=== PATIENT | male | born 1945 | race Caucasian/White ===

== ENCOUNTER → 2017-12-07 12:30 | Outpatient (CLI) | payer MEDICARE, BC, SELFPAY | PROVIDERS: PCP Family Medicine; Visit Provider Psychiatry & Neurology Neurology | DX: E11.42 Type 2 diabetes mellitus with diabetic polyneuropathy (principal); Z79.84 Long term (current) use of oral hypoglycemic drugs; G72.0 Drug-induced myopathy; T38.0X5A Adverse effect of glucocorticoids and synthetic analogues, initial encounter; J44.9 Chronic obstructive pulmonary disease, unspecified; Z87.891 Personal history of nicotine dependence | CPT/HCPCS: 95885; 95908; 99213 ==

== ENCOUNTER 2018-02-11 12:10 | Outpatient (CLI) | payer MEDICARE, BC, SELFPAY | END 2018-02-11 12:30 | PROVIDERS: PCP Family Medicine; Visit Provider Psychiatry & Neurology Neurology | DX: R69 Illness, unspecified (principal) | CPT/HCPCS: 36415; 80076; 82306; 84153; 85652; 87389; 82607; 83615; 84165; 84443; 84446; 86038; 86140; 86235; 86618 ==

== ENCOUNTER 2018-02-11 15:08 | Outpatient (CLI) | payer MEDICARE, BC, SELFPAY ==
--- NOTE | 2018-02-11 11:57 | DI.RAD_ITS ---
SYMPTOM/DIAGNOSIS: LT CHRONIC DRAINING ULCER, ? OSTEOMYELITIS, L98.499 LEFT ELBOW: There are mild degenerative changes involving the radial capitellar and ulnar trochlear joints. There is some spurring and a small region of calcification in the soft tissues adjacent to the medial epicondyle of the distal humerus likely representing the residua of an old medial collateral ligament injury. There is no evidence of a joint effusion. There is some mild soft tissue prominence over the dorsum of the elbow. No discrete mass or calcification is evident. SUMMARY: No plain image evidence of osteomyelitis. If there is further strong specific clinical question in this regard, then an MRI could be considered.
== END 2018-02-11 15:28 ==
PROVIDERS: PCP Family Medicine; Visit Provider Family Medicine
DX: L89.020 Pressure ulcer of left elbow, unstageable (principal)
CPT/HCPCS: 73080

== ENCOUNTER → 2018-03-12 08:56 | Outpatient (BNVA) | payer MEDICARE, BC, SELFPAY | PROVIDERS: PCP Family Medicine; Referring Provider Family Medicine; Visit Provider Student in an Organized Health Care Education/Training Program | DX: M70.22 Olecranon bursitis, left elbow (principal); J44.9 Chronic obstructive pulmonary disease, unspecified; Z87.891 Personal history of nicotine dependence; E11.9 Type 2 diabetes mellitus without complications; Z79.84 Long term (current) use of oral hypoglycemic drugs | CPT/HCPCS: 99211; 99214 ==

== ENCOUNTER 2018-04-01 08:24 | Outpatient (CLI) | payer MEDICARE, BC, SELFPAY ==
[2018-04-01 11:26] LABS: Hemoglobin A1C 8.8 % (4.5-6.2)
== END 2018-04-01 08:44 ==
PROVIDERS: PCP Family Medicine; Visit Provider Family Medicine
DX: E11.9 Type 2 diabetes mellitus without complications (principal)
CPT/HCPCS: 36415; 83036

== ENCOUNTER 2018-06-24 08:12 | Outpatient (CLI) | payer MEDICARE, BC, SELFPAY ==
[2018-06-24 12:03] LABS: Hemoglobin A1C 7.9 % (4.5-6.2)
== END 2018-06-24 08:32 ==
PROVIDERS: PCP Family Medicine; Visit Provider Family Medicine
DX: E11.9 Type 2 diabetes mellitus without complications (principal)
CPT/HCPCS: 36415; 83036

== ENCOUNTER 2018-09-22 22:53 | Emergency (ER) | payer MEDICARE, BC, SELFPAY ==
[2018-09-22] VITALS (10 sets, daily range): BP systolic 117–144; BP diastolic 73–79; PULSE 105–113; RESP 17–35; TEMP 36.6; O2SAT 90–99
--- NOTE | 2018-09-22 00:15 | DI.RAD_ITS ---
SYMPTOM/DIAGNOSIS: COUGH, SOB AFTER ASPIRATION PA AND LATERAL CHEST: Ill defined increased densities are noted in the left lower lobe. The lungs are otherwise unremarkable. There is no pleural effusion. The cardiovascular structures are intact. SUMMARY: Findings consistent with a left lower lobe pneumonitis. The possibility of aspiration in this patient is less likely however, cannot be entirely excluded.
--- NOTE | 2018-09-22 23:23 | W.ED.GENAD ---
Discharge Plan Disposition Patient Disposition: HOME Condition: Good Discharge Details Chief Complaint: SOB Clinical Impression: Aspiration into airway, Wheezing Primary Care Provider: Tevin Dooley ED Provider: Oscar Giron [place] Meds and New Rx's Prescriptions: Continued metformin 1,000 mg tablet 1,000 mg PO BID Qty: 180 RF: 3 glipizide 5 mg tablet 5 mg PO QAM Qty: 30 RF: 4 sulfamethoxazole-trimethoprim [Bactrim DS] 800-160 mg tablet 1 tab PO .3x week RF: 0 aspirin 81 mg tablet,delayed release (DR/EC) 81 mg PO DAILY RF: 0 gabapentin 300 mg capsule 300 mg PO TID Qty: 270 RF: 4 duloxetine 60 mg capsule,delayed release(DR/EC) 60 mg PO DAILY Qty: 90 RF: 3 mepolizumab 100 mg recon soln 100 mg SC Q4W RF: 0 prednisone 10 mg tablet 10 mg PO DAILY RF: 0 Daliresp 500 mcg tablet 500 mcg PO DAILY Qty: 30 RF: 2 NEBULIZER W/ TUBING 1 inh DIRECTED RF: 0 montelukast 10 MG tablet 10 mg PO DAILY RF: 0 budesonide [Pulmicort] 0.5 MG/2 ML suspension for nebulization 1 inh Inhalation QID Qty: 180 RF: 4 FreeStyle Lite Strips 1 EACH strip 1 ea Miscellaneous TID Qty: 200 RF: 5 albuterol sulfate [ProAir HFA] 8.5 GM HFA aerosol inhaler 1 - 2 puff Inhalation Q4H PRN Qty: 3 RF: 4 magnesium oxide 400 MG tablet 400 mg PO DAILY Qty: 90 RF: 4 ipratropium-albuterol 0.5 mg-3 mg(2.5 mg base)/3 mL solution for nebulization 3 ml Inhalation QID Qty: 4 RF: 5 hydrocodone-acetaminophen 7.5-325 mg tablet 1 tab PO BID MDD 2 tab Qty: 60 RF: 0 prednisone 10 mg tablet See Rx Instructions .Route .COMPLEX Qty: 30 RF: 0 ibuprofen 200 MG tablet 200 mg PO DAILY RF: 0 Discharge Instructions Additional Instructions: Suspect that your wheezing and difficulty breathing was related to aspiration/inhalation of the powder. There should be no significant long-term ill effects. There may be some risk to developing pneumonia but inert substances typically do not cause problems. You should see your primary care or return to ED if you develop increasing shortness of breath, productive cough, fever. Continue your medications and nebulizers as before. Referrals: Tevin Dooley MD [Primary Care Provider] - Medical Decision Making Patient with acute episode of coughing/choking/shortness of breath after inhaling/aspirating Poligrip adhesive. In reviewing Micromedex, this adhesive is considered to be in the class of bulk laxatives. There are reports of asthma exacerbations with workers exposed to the dust of this class of drugs. He has significant COPD/asthma so possible that this just caused an acute exacerbation related to the inhalation/aspiration of the powder. Will give a couple more nebs here and get CXR. Observe. 01:00 -patient much better after 2 treatments here. His cough has resolved. His breathing is much better. Still has a little bit of wheezing but states that is not necessarily abnormal for him. Chest x-ray is read preliminarily by radiology as possible patchiness in the left perihilar and right perihilar region. Again he denies having respiratory symptoms other than his baseline prior to the event tonight. He has had no fever or productive cough. This may be related to aspiration. I do not think it is related to bacterial pneumonia. We discussed things to return for including increased shortness of breath, productive cough with sputum, fever for which he should be seen by us or primary care. Otherwise at this point feel most likely inhalation of the powder substance sent off an exacerbation of his lung disease which is subsequently calmed down. Patient will resume his prior medications. Follow-up with primary care and pulmonary as needed. Medical Records Medical records reviewed: Yes I reviewed the patient's medical records. HPI General Mode of arrival: wheelchair. Date/Time Provider Initiated Documentation: 09/22/18 23:09. Limitations to Documentation: no limitations. Information obtained by: patient and old records reviewed. HPI Narrative: Patient presents to ED with complaint of cough and shortness of breath of sudden onset tonight. Patient goes to bed with a glass of water beside his bed. He did not know that his granddaughter had poured a packet of his Poligrip adhesive powder into the glass. This sat on top of the water as it was not mixed in. When he went to take a drink he inhaled/swallowed the powder followed by some water. He had immediate coughing, choking, shortness of breath. This persisted but he eventually was able to catch his breath. He felt short of breath with wheezing since that time. He has a history of pretty significant COPD to start with. He had not been having significant difficulty as of late. He did use his nebulizer at home. He continued to feel short of breath with cough and his told him to come here for evaluation. He is not having chest pain. Related Data Home Medications Medication Instructions Recorded Confirmed Nebulizer W/ Tubing 1 inh DIRECTED 06/22/12 09/08/18 ibuprofen 200 mg PO DAILY 06/12/17 09/08/18 montelukast 10 mg PO DAILY tab-cap 07/10/17 09/08/18 budesonide [Pulmicort] 1 inh INHALATION QID #180 ea 08/05/17 09/08/18 FreeStyle Lite Strips #200 strip 09/08/17 09/08/18 albuterol sulfate [ProAir HFA] 1 - 2 puff INHALATION Q4H PRN #3 09/08/17 09/08/18 inhaler magnesium oxide 400 mg PO DAILY #90 tab 10/20/17 09/08/18 metformin 1,000 mg tablet 1,000 mg PO BID #180 tab-cap 02/26/18 09/08/18 glipizide 5 mg tablet 5 mg PO QAM #30 tab 05/13/18 09/08/18 aspirin 81 mg tablet,delayed 81 mg PO DAILY 07/15/18 09/08/18 release gabapentin 300 mg capsule 300 mg PO TID #270 cap 07/15/18 09/08/18 sulfamethoxazole 800 1 tab PO .3x week tab 07/15/18 09/08/18 mg-trimethoprim 160 mg tablet ipratropium-albuterol 0.5 mg-3 3 ml INHALATION QID #4 box 08/16/18 09/08/18 mg(2.5 mg base)/3 mL nebulization soln duloxetine 60 mg capsule,delayed 60 mg PO DAILY #90 cap 08/27/18 09/08/18 release hydrocodone 7.5 mg-acetaminophen 1 tab PO BID #60 tab MDD 2 tab 08/30/18 09/08/18 325 mg tablet mepolizumab 100 mg subcutaneous 100 mg SC Q4W each 09/08/18 09/08/18 solution prednisone 10 mg tablet 10 mg PO DAILY tab 09/08/18 09/08/18 roflumilast 500 mcg tablet 500 mcg PO DAILY #30 tab 09/08/18 09/08/18 prednisone 10 mg tablet See Rx Instructions .ROUTE 09/17/18 .COMPLEX #30 tab Previous Rx's Medication Instructions Recorded budesonide [Pulmicort] 1 inh INHALATION QID #180 ea 08/05/17 FreeStyle Lite Strips #200 strip 09/08/17 albuterol sulfate [ProAir HFA] 1 - 2 puff INHALATION Q4H PRN #3 09/08/17 inhaler magnesium oxide 400 mg PO DAILY #90 tab 10/20/17 metformin 1,000 mg tablet 1,000 mg PO BID #180 tab-cap 02/26/18 glipizide 5 mg tablet 5 mg PO QAM #30 tab 05/13/18 gabapentin 300 mg capsule 300 mg PO TID #270 cap 07/15/18 ipratropium-albuterol 0.5 mg-3 3 ml INHALATION QID #4 box 08/16/18 mg(2.5 mg base)/3 mL nebulization soln duloxetine 60 mg capsule,delayed 60 mg PO DAILY #90 cap 08/27/18 release hydrocodone 7.5 mg-acetaminophen 1 tab PO BID #60 tab MDD 2 tab 08/30/18 325 mg tablet roflumilast 500 mcg tablet 500 mcg PO DAILY #30 tab 09/08/18 prednisone 10 mg tablet See Rx Instructions .ROUTE 09/17/18 .COMPLEX #30 tab Allergies Allergy/AdvReac Type Severity Reaction Status Date / Time codeine Allergy rash, itch Unverified 09/08/18 14:44 General Stated Complaint: SOB DERICK: 3 Review of Systems Review of Systems As documented in HPI otherwise negative as below. Const: no fever, chills, weakness Resp: positive cough, SOB; no pleuritic pain CV: no CP, diaphoresis, edema, syncope GI: no abdominal pain, nausea, vomiting, diarrhea Neuro: no headache, numbness, focal weakness, confusion [facility] Medical History Gastroesophageal reflux disease (Chronic) Diabetic peripheral neuropathy (Chronic 12/11/15) 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) Atherosclerosis of [place] coronary artery (Chronic) Osteoarthritis (Chronic) COPD (chronic obstructive pulmonary disease) (Chronic) Diabetes mellitus (Chronic) Hypertension (Chronic) Polymyalgia rheumatica (Resolved 02/19/12) Surgical History SHOULDER SURGERY Family History Family History Neoplasm Mother No problems noted. Father Neoplasm Sister No problems noted. Sister No problems noted. Sister No problems noted. Sister No problems noted. Sister No problems noted. Sister No problems noted. Sister No problems noted. Sister No problems noted. Sister No problems noted. Brother No problems noted. Brother No problems noted. Brother No problems noted. Brother No problems noted. Brother No problems noted. Brother No problems noted. Brother No problems noted. Brother No problems noted. Brother No problems noted. Brother No problems noted. Brother No problems noted. Brother No problems noted. Son No problems noted. Son Substance abuse Mental disorder Son Substance abuse Daughter Substance abuse Depression Mental disorder Social History Smoking/Tobacco Use Status: Former Tobacco Use Alcohol Intake: never Drug use: Never Substance use type: does not use Household members: spouse and children Pets and animals: Yes Pets and animals: cat(s) and dog(s) Duration: decline to answer Frequency: 3-4 times per week Aminata/Nondenominational: Islam Special aminata needs: No Do you feel safe in your relationship?: Yes Exam Narrative Exam Narrative: Vitals: Afebrile. Mild tachycardia with elevated blood pressure. O2 saturations 96% on room air. Const: Obese elderly male in NAD unless coughing episode/spasm. HEENT: NC/AT. Normal facial exam. Eyes: Normal conjunctiva and sclera. Neck: Supple. Trachea midline. Lungs: Normal respiratory effort with mild tachypnea. Lungs with wheezing thoughout. Cor: RRR without murmur/gallop. Neuro: A+O x 3. CN grossly in tact. Good strength and no focal deficit. Ext: No C/C/E. No deformity or tenderness. Skin: Warm and dry without rash. Course Vital Signs Temperature 97.9 F 09/22/18 23:00 Pulse 113 H 09/22/18 23:00 Respiratory Rate 23 09/22/18 23:00 Blood Pressure 144/79 H 09/22/18 23:00 Pulse Oximetry 96 09/22/18 23:00 Temperature 97.9 F 09/22/18 23:00 Temperature Source Tympanic 09/22/18 23:00 Pulse 113 H 09/22/18 23:00 Respiratory Rate 23 09/22/18 23:05 Respiratory Effort Labored 09/22/18 23:07 Respiratory Depth Shallow 09/22/18 23:05 Respiratory Pattern Tachypnea 09/22/18 23:05 Blood Pressure 144/79 H 09/22/18 23:00 Blood Pressure Position Sitting 09/22/18 23:00 Pulse Oximetry 96 09/22/18 23:00 Oxygen Delivery Method Room Air 09/22/18 23:00 Oxygen Flow Rate 0 09/22/18 23:00 Pain Level 0 09/22/18 23:00
--- NOTE | 2018-09-22 23:26 | ED.GENADUL_ITS ---
Discharge Plan Disposition Patient Disposition: HOME Condition: Good Discharge Details Chief Complaint: SOB Clinical Impression: Aspiration into airway, Wheezing Primary Care Provider: Tevin Dooley ED Provider: Oscar Giron [place] Meds and New Rx's Prescriptions: Continued metformin 1,000 mg tablet 1,000 mg PO BID Qty: 180 RF: 3 glipizide 5 mg tablet 5 mg PO QAM Qty: 30 RF: 4 sulfamethoxazole-trimethoprim [Bactrim DS] 800-160 mg tablet 1 tab PO .3x week RF: 0 aspirin 81 mg tablet,delayed release (DR/EC) 81 mg PO DAILY RF: 0 gabapentin 300 mg capsule 300 mg PO TID Qty: 270 RF: 4 duloxetine 60 mg capsule,delayed release(DR/EC) 60 mg PO DAILY Qty: 90 RF: 3 mepolizumab 100 mg recon soln 100 mg SC Q4W RF: 0 prednisone 10 mg tablet 10 mg PO DAILY RF: 0 Daliresp 500 mcg tablet 500 mcg PO DAILY Qty: 30 RF: 2 NEBULIZER W/ TUBING 1 inh DIRECTED RF: 0 montelukast 10 MG tablet 10 mg PO DAILY RF: 0 budesonide [Pulmicort] 0.5 MG/2 ML suspension for nebulization 1 inh Inhalation QID Qty: 180 RF: 4 FreeStyle Lite Strips 1 EACH strip 1 ea Miscellaneous TID Qty: 200 RF: 5 albuterol sulfate [ProAir HFA] 8.5 GM HFA aerosol inhaler 1 - 2 puff Inhalation Q4H PRN Qty: 3 RF: 4 magnesium oxide 400 MG tablet 400 mg PO DAILY Qty: 90 RF: 4 ipratropium-albuterol 0.5 mg-3 mg(2.5 mg base)/3 mL solution for nebulization 3 ml Inhalation QID Qty: 4 RF: 5 hydrocodone-acetaminophen 7.5-325 mg tablet 1 tab PO BID MDD 2 tab Qty: 60 RF: 0 prednisone 10 mg tablet See Rx Instructions .Route .COMPLEX Qty: 30 RF: 0 ibuprofen 200 MG tablet 200 mg PO DAILY RF: 0 Discharge Instructions Additional Instructions: Suspect that your wheezing and difficulty breathing was related to aspiration/inhalation of the powder. There should be no significant long-term ill effects. There may be some risk to developing pneumonia but inert sub stances typically do not cause problems. You should see your primary care or return to ED if you develop increasing shortness of breath, productive cough, fever. Continue your medications and nebulizers as before. Referrals: Tevin Dooley MD [Primary Care Provider] - Medical Decision Making Patient with acute episode of coughing/choking/shortness of breath after inhaling/aspirating Poligrip adhesive. In reviewing Micromedex, this adhesive is considered to be in the class of bulk laxatives. There are reports of asthma exacerbations with workers exposed to the dust of this class of drugs. He has significant COPD/asthma so possible that this just caused an acute exacerbation related to the inhalation/aspiration of the powder. Will give a couple more nebs here and get CXR. Observe. 01:00 -patient much better after 2 treatments here. His cough has resolved. His breathing is much better. Still has a little bit of wheezing but states that is not necessarily abnormal for him. Chest x-ray is read preliminarily by radiology as possible patchiness in the left perihilar and right perihilar region. Again he denies having respiratory symptoms other than his baseline prior to the event tonight. He has had no fever or productive cough. This may be related to aspiration. I do not think it is related to bacterial pneumonia. We discussed things to return for including increased shortness of breath, productive cough with sputum, fever for which he should be seen by us or primary care. Otherwise at this point feel most likely inhalation of the powder substance sent off an exacerbation of his lung disease which is subsequently calmed down. Patient will resume his prior medications. Follow-up with primary care and pulmonary as needed. Medical Records Medical records reviewed: Yes I reviewed the patient's medical records. HPI General Mode of arrival: wheelchair . Date/Time Provider Initiated Documentation: 09/22/18 23:09 . Limitations to Documentation: no limitations . Information obtained by: patient and old records reviewed . HPI Narrative: Patient presents to ED with complaint of cough and shortness of breath of sudden onset tonight. Patient goes to bed with a glass of water beside his bed. He did not know that his granddaughter had poured a packet of his Poligrip adhesive powder into the glass. This sat on top of the water as it was not mixed in. When he went to take a drink he inhaled/swallowed the powder followed by some water. He had immediate coughing, choking, shortness of breath. This persisted but he eventually was able to catch his breath. He felt short of breath with wheezing since that time. He has a history of pretty significant COPD to start with. He had not been having significant difficulty as of late. He did use his nebulizer at home. He continued to feel short of breath with cough and his told him to come here for evaluation. He is not having chest pain. Related Data Home Medications Medication Instructions Recorded Confirmed Nebulizer W/ Tubing 1 inh DIRECTED 06/22/12 09/08/18 ibuprofen 200 mg PO DAILY 06/12/17 09/08/18 montelukast 10 mg PO DAILY tab-cap 07/10/17 09/08/18 budesonide [Pulmicort] 1 inh INHALATION QID #180 ea 08/05/17 09/08/18 FreeStyle Lite Strips #200 strip 09/08/17 09/08/18 albuterol sulfate [ProAir HFA] 1 - 2 puff INHALATION Q4H PRN #3 09/08/17 0 09/08/18 inhaler magnesium oxide 400 mg PO DAILY #90 tab 10/20/17 09/08/18 metformin 1,000 mg tablet 1,000 mg PO BID #180 tab-cap 02/26/18 09/08/18 glipizide 5 mg tablet 5 mg PO QAM #30 tab 05/13/18 09/08/18 aspirin 81 mg tablet,delayed 81 mg PO DAILY 07/15/18 09/08/18 release gabapentin 300 mg capsule 300 mg PO TID #270 cap 07/15/18 09/08/18 sulfamethoxazole 800 1 tab PO .3x week tab 07/15/18 09/08/18 mg-trimethoprim 160 mg tablet ipratropium-albuterol 0.5 mg-3 3 ml INHALATION QID #4 box 08/16/18 09/08/18 mg(2.5 mg base)/3 mL nebulization soln duloxetine 60 mg capsule,delayed 60 mg PO DAILY #90 cap 08/27/18 09/08/18 release hydrocodone 7.5 mg-acetaminophen 1 tab PO BID #60 tab MDD 2 tab 08/30/18 09/08/18 325 mg tablet mepolizumab 100 mg subcutaneous 100 mg SC Q4W each 09/08/18 09/08/18 solution prednisone 10 mg tablet 10 mg PO DAILY tab 09/08/18 09/08/18 roflumilast 500 mcg tablet 500 mcg PO DAILY #30 tab 09/08/18 09/08/18 prednisone 10 mg tablet See Rx Instructions .ROUTE 09/17/18 .COMPLEX #30 tab Previous Rx's Medication Instructions Recorded budesonide [Pulmicort] 1 inh INHALATION QID #180 ea 08/05/17 FreeStyle Lite Strips #200 strip 09/08/17 albuterol sulfate [ProAir HFA] 1 - 2 puff INHALATION Q4H PRN #3 09/08/17 inhaler magnesium oxide 400 mg PO DAILY #90 tab 10/20/17 metformin 1,000 mg tablet 1,000 mg PO BID #180 tab-cap 02/26/18 glipizide 5 mg tablet 5 mg PO QAM #30 tab 05/13/18 gabapentin 300 mg capsule 300 mg PO TID #270 cap 07/15/18 ipratropium-albuterol 0.5 mg-3 3 ml INHALATION QID #4 box 08/16/18 mg(2.5 mg base)/3 mL nebulization soln duloxetine 60 mg capsule,delayed 60 mg PO DAILY #90 cap 08/27/18 release hydrocodone 7.5 mg-acetaminophen 1 tab PO BID #60 tab MDD 2 tab 08/30/18 325 mg tablet roflumilast 500 mcg tablet 500 mcg PO DAILY #30 tab 09/08/18 prednisone 10 mg tablet See Rx Instructions .ROUTE 09/17/18 .COMPLEX #30 tab Allergies Allergy/AdvReac Type Severity Reaction Status Date / Time codeine Allergy rash, itch Unverified 09/08/18 14:44 General Stated Complaint: SOB DERICK: 3 Review of Systems Review of Systems As documented in HPI otherwise negative as below. Const: no fever, chills, weakness Resp: positive cough, SOB; no pleuritic pain CV: no CP, diaphoresis, edema, syncope GI: no abdominal pain, nausea, vomiting, diarrhea Neuro: no headache, numbness, focal weakness, confusion PFSH Medical History Gastroesophageal reflux disease (Chronic) Diabetic peripheral neuropathy (Chronic 12/11/15) 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) Atherosclerosis of [place] coronary artery (Chronic) Osteoarthritis (Chronic) COPD (chronic obstructive pulmonary disease) (Chronic) Diabetes mellitus (Chronic) Hypertension (Chronic) Polymyalgia rheumatica (Resolved 02/19/12) Surgical History SHOULDER SURGERY Family History Family History Neoplasm Mother No problems noted. Father Neoplasm Sister No problems noted. Sister No problems noted. Sister No problems noted. Sister No problems noted. Sister No problems noted. Sister No problems noted. Sister No problems noted. Sister No problems noted. Sister No problems noted. Brother No problems noted. Brother No problems noted. Brother No problems noted. Brother No problems noted. Brother No problems noted. Brother No problems noted. Brother No problems noted. Brother No problems noted. Brother No problems noted. Brother No problems noted. Brother No problems noted. Brother No problems noted. Son No problems noted. Son Substance abuse Mental disorder Son Substance abuse Daughter Substance abuse Depression Mental disorder Social History Smoking/Tobacco Use Status: Former Tobacco Use Alcohol Intake: never Drug use: Never Substance use type: does not use Household members: spouse and children Pets and animals: Yes Pets and animals: cat(s) and dog(s) Duration: decline to answer Frequency: 3-4 times per week Aminata/Nondenominational: Episcopalian Special aminata needs: No Do you feel safe in your relationship?: Yes Exam Narrative Exam Narrative: Vitals: Afebrile. Mild tachycardia with elevated blood pressure. O2 saturations 96% on room air. Const: Obese elderly male in NAD unless coughing episode/spasm. HEENT: NC/AT. Normal facial exam. Eyes: Normal conjunctiva and sclera. Neck: Supple. Trachea midline. Lungs: Normal respiratory effort with mild tachypnea. Lungs with wheezing thoughout. Cor: RRR without murmur/gallop. Neuro: A+O x 3. CN grossly in tact. Good strength and no focal deficit. Ext: No C/C/E. No deformity or tenderness. Skin: Warm and dry without rash. Course Vital Signs Temperature 97.9 F 09/22/18 23:00 Pulse 113 H 09/22/18 23:00 Respiratory Rate 23 09/22/18 23:00 Blood Pressure 144/79 H 09/22/18 23:00 Pulse Oximetry 96 09/22/18 23:00 Temperature 97.9 F 09/22/18 23:00 Temperature Source Tympanic 09/22/18 23:00 Pulse 113 H 09/22/18 23:00 Respiratory Rate 23 09/22/18 23:05 Respiratory Effort Labored 09/22/18 23:07 Respiratory Depth Shallow 09/22/18 23:05 Respiratory Pattern Tachypnea 09/22/18 23:05 Blood Pressure 144/79 H 09/22/18 23:00 Blood Pressure Position Sitting 09/22/18 23:00 Pulse Oximetry 96 09/22/18 23:00 Oxygen Delivery Method Room Air 09/22/18 23:00 Oxygen Flow Rate 0 09/22/18 23:00 Pain Level 0 09/22/18 23:00
[2018-09-22] MEDS: Albuterol/Ipratropium 3 ML UPD VIAL UPD (23:38)
[2018-09-22] MEDS: Albuterol 2.5 MG/3 ML INH SOLN VIAL UPD (23:45)
[2018-09-23] VITALS (14 sets, daily range): BP systolic 117–144; BP diastolic 66–73; PULSE 102–110; RESP 17–29; O2SAT 93–96
--- NOTE | 2018-09-23 00:40 | DI.VRAD_ITS ---
EXAM: XR Chest, 2 Views EXAM DATE/TIME: 09/22/2018 11:22 PM CLINICAL HISTORY: 72 years old, male; Signs and symptoms; Cough and shortness of breath and other: SOB after aspiration TECHNIQUE: Imaging protocol: XR of the chest, 2 views. COMPARISON: CR CHEST 2 VIEWS PA,LAT 09/23/2017 8:02 AM FINDINGS: Lungs: Left basal atelectasis again appreciated. There is patchy opacification in the left retrocardiac region likely seen. Prominent patchy opacity in the right hilar region may be related to vascular etiology or airspace disease. Remainder of the lungs are clear. Stable COPD related changes. Pleural space: Unremarkable. No pleural effusion. No pneumothorax. Heart/Mediastinum: Stable cardiomediastinal silhouette. Bones/joints: No acute skeletal abnormality. IMPRESSION: Concern for developing airspace disease in the left retrocardiac region/left lung base. Infectious pneumonic process should be entertained in the appropriate clinical setting. Aspiration related pneumonia is less likely on the left, however is possible as well. There is also a focal opacity in the right infrahilar region which is felt to be related to vascular etiology, however developing airspace disease should be entertained. Dictated and Authenticated by: Jorge Jordan MD. Ordering:CARMELINA Moore MD
== END 2018-09-23 01:28 | disposition home or self-care (01) ==
PROVIDERS: Emergency Provider Emergency Medicine; PCP Family Medicine
DX: T17.890A Other foreign object in other parts of respiratory tract causing asphyxiation, initial encounter (principal); R06.02 Shortness of breath; J44.9 Chronic obstructive pulmonary disease, unspecified; E11.42 Type 2 diabetes mellitus with diabetic polyneuropathy; I10 Essential (primary) hypertension; Z87.891 Personal history of nicotine dependence
CPT/HCPCS: 99283; 71046; J7613; J7620

== ENCOUNTER 2018-10-05 07:06 | Inpatient (IN) | payer MEDICARE, BC, SELFPAY ==
[2018-10-05] VITALS (139 sets, daily range): BP systolic 80–154; BP diastolic 64–115; PULSE 63–126; RESP 11–29; TEMP 36–37; O2SAT 92–100
--- NOTE | 2018-10-05 07:10 | DI.RAD_ITS ---
SYMPTOM/DIAGNOSIS: SHORTNESS OF BREATH PORTABLE CHEST: Comparison is made with 23 September 2018 as well as exams from 2008. The heart size is within normal limits for projection. Again noted are chronic changes at the lung bases which do not show definite change when compared with multiple previous exams. IMPRESSION: No acute abnormality.
--- NOTE | 2018-10-05 07:12 | ED.GENADUL_ITS ---
Discharge Plan Disposition Patient Disposition: [facility] INPATIENT Condition: Fair Discharge Details Chief Complaint: SOB Clinical Impression: COPD with acute exacerbation, Pneumonia, Elevated troponin Admit Date/Time: 10/05/18 09:05 Admit Provider: Asif Egan Attending Provider: Vandana Philip Primary Care Provider: Tevin Dooley ED Provider: Kurtis Cabrera Discharge Data Discharge Date/Time-TO BE ENTERED AT DEPARTURE: 10/05/18 11:04 Medical Decision Making <Kb Lemon MD - Last Filed: 10/05/18 07:20> 73 yo male with hx of copd, gerd, DM, htn, who comes in with cc of shortness of breath for what he says is 2 weeks now with cough and when he coughs anterior chest pain. Denies fevers chills, n/v, recent travel. He arrives tachypneic speaking in 2-3 word sentences with diffuse wheezing in all lung lay bilaterally. Given his hx and exam findings will tx as copd exacerbation with nebs and steroids and also place on bipap for his work of breathing. He only has chest pain when coughing so seems unlikely acs. No evidence of dvt on exam and exam is consistent with copd so doubt PE. Has no jvd or significant peripheral edema or crackles so doubt chf at this time. patient will be signed out to oncoming provider pending lab work and continued tx/management Differential Diagnosis copd, pna, chf ECG Data Attestation: I personally reviewed and interpreted this ECG (s) as follows: Prior ECG tracings: available for review Interpretation: sinus rhythm, rbbb, rate of 74, no acute st t wave ischemic findings <Kurtis Cabrera MD - Last Filed: 10/26/18 08:35> 9:04 --care signed out to me by Dr. Lemon. Please see Dr. Lemon's documentation regarding initial ED presentation and course. Patient is in critical condition on BiPAP at time of signout. Chest x-ray interpreted by radiology: Patchy nonspecific interstitial prominence without septal thickening or cardiomegaly. The findings may reflect a chronic or acute infectious or inflammatory interstitial process. Patient does have a leukocytosis and a cough. I will treat with Levaquin 750 mg IV for pneumonia. Lactate and blood cultures to be sent. Respiratory therapy is seeing patient and attempting to wean off BiPAP. Troponin 0.1. Suspect demand. Plan to give aspirin 325mg. I called and spoke with Dr. Egan who will admit. Request bridging orders to ICU. Care transitioned to Dr. Egan. HPI <Kb Lemon MD - Last Filed: 10/05/18 07:20> General Mode of arrival: wheelchair . Date/Time Provider Initiated Documentation: 10/05/18 07:06 . Limitations to Documentation: no limitations . Information obtained by: patient . History of Present Illness 73 year old M presents to the emergency department with the chief complaint of shortness of breath, described as moderate, Patient started experiencing this week(s) (2) and it has been constant. No relieving factors improve symptom(s), No exacerbating factors reported . Patient notes cough. Related Data Home Medications Medication Instructions Recorded Confirmed Nebulizer W/ Tubing 1 inh DIRECTED 06/22/12 10/05/18 ibuprofen 200 mg PO DAILY 06/12/17 10/17/18 montelukast 10 mg PO DAILY tab-cap 07/10/17 10/17/18 budesonide [Pulmicort] 1 inh INHALATION QID #180 ea 08/05/17 10/17/18 FreeStyle Lite Strips #200 strip 09/08/17 10/05/18 albuterol sulfate [ProAir HFA] 1 - 2 puff INHALATION Q4H PRN #3 09/08/17 10/17/18 inhaler magnesium oxide 400 mg PO DAILY #90 tab 10/20/17 10/17/18 glipizide 5 mg tablet 5 mg PO QAM #30 tab 05/13/18 10/17/18 aspirin 81 mg tablet,delayed 81 mg PO DAILY 07/15/18 10/17/18 release gabapentin 300 mg capsule 300 mg PO TID #270 cap 07/15/18 10/17/18 sulfamethoxazole 800 1 tab PO .3x week tab 07/15/18 10/17/18 mg-trimethoprim 160 mg tablet duloxetine 60 mg capsule,delayed 60 mg PO DAILY #90 cap 08/27/18 10/17/18 release mepolizumab 100 mg subcutaneous 100 mg SC Q4W each 09/08/18 10/17/18 solution prednisone 10 mg tablet 40 mg PO DAILY tab 09/08/18 10/17/18 hydrocodone 7.5 mg-acetaminophen 1 tab PO BID #60 tab MDD 2 tab 09/27/18 10/17/18 325 mg tablet ipratropium-albuterol 3 ml INHALATION Q4H #4 box 10/11/18 10/17/18 levalbuterol HCl 0.63 mg UPD Q2H PRN PRN #0 ml 10/11/18 10/17/18 nystatin 500,000 units PO 5X/DAY #0 ml 10/11/18 10/17/18 tamsulosin 0.4 mg PO DAILY@1730 #0 cap 10/11/18 10/17/18 esomeprazole magnesium [Nexium] 40 mg PO DAILY@0730 #30 cap 10/19/18 fluconazole 200 mg PO DAILY #7 tab 10/19/18 Previous Rx's Medication Instructions Recorded budesonide [Pulmicort] 1 inh INHALATION QID #180 ea 08/05/17 FreeStyle Lite Strips #200 strip 09/08/17 albuterol sulfate [ProAir HFA] 1 - 2 puff INHALATION Q4H PRN #3 09/08/17 inhaler magnesium oxide 400 mg PO DAILY #90 tab 10/20/17 glipizide 5 mg tablet 5 mg PO QAM #30 tab 05/13/18 gabapentin 300 mg capsule 300 mg PO TID #270 cap 07/15/18 duloxetine 60 mg capsule,delayed 60 mg PO DAILY #90 cap 08/27/18 release hydrocodone 7.5 mg-acetaminophen 1 tab PO BID #60 tab MDD 2 tab 09/27/18 325 mg tablet ipratropium-albuterol 3 ml INHALATION Q4H #4 box 10/11/18 levalbuterol HCl 0.63 mg UPD Q2H PRN PRN #0 ml 10/11/18 nystatin 500,000 units PO 5X/DAY #0 ml 10/11/18 tamsulosin 0.4 mg PO DAILY@1730 #0 cap 10/11/18 esomeprazole magnesium [Nexium] 40 mg PO DAILY@0730 #30 cap 10/19/18 fluconazole 200 mg PO DAILY #7 tab 10/19/18 Allergies Allergy/AdvReac Type Severity Reaction Status Date / Time codeine Allergy rash, itch Unverified 10/17/18 18:26 General DERICK: 3 Review of Systems <Kb Lemon MD - Last Filed: 10/05/18 07:20> Review of Systems All systems reviewed & are unremarkable except as noted in HPI and below Constitutional Denies chills and Denies fever(s) Gastrointestinal Denies abdominal pain, Denies nausea and Denies vomiting Musculoskeletal Denies joint swelling PFSH <Kb Lemon MD - Last Filed: 10/05/18 07:20> Medical History Gastroesophageal reflux disease (Chronic) Diabetic peripheral neuropathy (Chronic 12/11/15) 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 Father Neoplasm Sister No problems noted. Sister No problems noted. Sister No problems noted. Sister No problems noted. Sister No problems noted. Sister No problems noted. Sister No problems noted. Sister No problems noted. Sister No problems noted. Brother No problems noted. Brother No problems noted. Brother No problems noted. Brother No problems noted. Brother No problems noted. Brother No problems noted. Brother No problems noted. Brother No problems noted. Brother No problems noted. Brother No problems noted. Brother No problems noted. Brother No problems noted. Son No problems noted. Son Substance abuse Mental disorder Son Substance abuse Daughter Substance abuse Depression Mental disorder Social History Smoking/Tobacco Use Status: Former Tobacco Use Alcohol Intake: former Drug use: Never Substance use type: does not use Household members: spouse and children Pets and animals: Yes Pets and animals: cat(s) and dog(s) Duration: decline to answer Frequency: 3-4 times per week Aminata/Gnosticist: Hoahaoism Special aminata needs: No Do you feel safe at home: Yes Do you feel safe in your relationship?: Yes Additional Social history: , with 4 children. Currently raising 3 grandchildren. Reported 80+ pack year history of tobacco abuse, quit approximately 15 years ago. Denies any current EtOH use. Exam <Kb Lemon MD - Last Filed: 10/05/18 07:20> Const General: other (tachypneic, speaking in 2-3 word sentences) Orientation: alert HENMT Head: normal to inspection Ears: external ears normal General nose exam: external nose normal Mouth: moist mucous membranes Eyes General: appearance normal, both eyes and all related structures Neck Neck: normal visual inspection Resp Effort & Inspection: normal respiratory effort and able to speak in complete sentences Cardio Rate: regular rate Skin General skin exam: no rashes or lesions noted Neuro General: alert and oriented x3 Extrem General: normal to inspection Psych Mental Status: mental status grossly normal <Kurtis Cabrera MD - Last Filed: 10/26/18 08:35> Critical Care Time: Yes Total Critical Care Time: 40 Attestation: I spent greater than 40 minutes addressing this patient's immediate life threats. Sign Out <Kb Lemon MD - Last Filed: 10/05/18 07:20> Sign Out Data: Sign Out Comment: Patient on bipap and getting nebs and steroids for likely copd exacerbation, monitor response to tx and f/u lab work Last updated by Kb Lemon MD at 10/05/18 07:21
[2018-10-05] MEDS: methylPREDNISolone SUCC 125 MG VIAL IVP (07:17)
[2018-10-05] MEDS: Albuterol/Ipratropium 3 ML UPD VIAL (07:19)
[2018-10-05 07:21] LABS: Abs Immature Grans 0.12 k/cumm (0.0-0.09); Absolute Neutrophil Count 7.65 k/cumm (1.2-6.7); Basophils % 0.2; Eosinophils % 1.5; HCT 41.9 % (40.0-50.0); HGB 13.8 g/dL (13.5-17.5); Lymphocytes % 22.6; Mean Corp. HGB Concentration 32.9 g/dL (32.0-36.0); Mean Corpuscular Hemoglobin 28.9 pg (27.0-33.0); Mean Corpuscular Volume 87.7 fL (80-95); Mean Platelet Volume 8.5 fL (8.0-11.0); Monocytes % 12.9; Neutrophils % 61.8; Platelet Count 227 x1000/uL (130-400); RBC 4.78 m/cumm (4.50-6.00); White Blood Cell Count 12.38 k/cumm (4.4-10.8)
[2018-10-05 07:26] LABS: Absolute Basophil Count 0.02 k/cumm (0.0-0.2); Absolute Eosinophil Count 0.19 k/cumm (0.0-0.7)
[2018-10-05 07:44] LABS: INR 0.9 (0.9-1.1); PTT Activated 21.3 sec (21.0-31.4); Prothrombin Time 9.3 sec (9.3-11.0)
[2018-10-05 07:57] LABS: ALT 58 U/L (12-78); AST 28 U/L (15-37); Albumin 3.7 g/dL (3.4-5.0); Alkaline Phosphatase 69 U/L (46-116); Anion Gap 8.4 mmol/L (3-11); BUN 33 mg/dL (7-18); Bilirubin, Total 0.4 mg/dL (0.2-1.0); CO2 31.6 mmol/L (21.0-32.0); CREATININE 1.32 mg/dL (0.70-1.30); Calcium 9.6 mg/dL (8.5-10.1); Chloride 100 mmol/L (98-107); Estimated GFR 53.32 (mL/min/1.73m2); Glucose 75 mg/dL (70-100); Magnesium 2.1 mg/dL (1.8-2.4); NT-proBNP 689 pg/mL; Potassium 3.9 mmol/L (3.5-5.1); Sodium 140 mmol/L (136-145); Total Protein 6.9 g/dL (6.4-8.2)
[2018-10-05] MEDS: Aspirin 325 MG TAB PO (08:41)
--- NOTE | 2018-10-05 08:43 | DI.VRAD_ITS ---
EXAM: XR Chest, 1 View EXAM DATE/TIME: 10/05/2018 7:11 AM CLINICAL HISTORY: 73 years old, male; Other: Shortness of breath TECHNIQUE: Imaging protocol: XR of the chest, 1 view. COMPARISON: SC XR CHEST 2V PA LATERAL 09/23/2018 12:15 AM FINDINGS: Lungs: Patchy nonspecific interstitial prominence without septal thickening or cardiomegaly. The findings may reflect a chronic or acute infectious or inflammatory interstitial process. Pleural space: Unremarkable. No pleural effusion. No pneumothorax. Heart/Mediastinum: Unremarkable. No cardiomegaly. Bones/joints: Unremarkable. IMPRESSION: Patchy nonspecific interstitial prominence without septal thickening or cardiomegaly. The findings may reflect a chronic or acute infectious or inflammatory interstitial process. Dictated and Authenticated by: Xander Cody MD. Ordering:DAYANARA Quiles MD
[2018-10-05] MEDS: levoFLOXacin 750 MG/150 ML BAG 100 MG IVPB (09:21)
--- NOTE | 2018-10-05 11:42 | W.PM.HP.N ---
Date of service: 10/05/18 Time of Service: 11:43 Assessment and Plan (1) COPD (chronic obstructive pulmonary disease): Current visit: No Status: Chronic Apparent acute exacerbation of underlying COPD. Initiate IV Steroids, frequent duonebs, nebulized Budesonide, and continue home regimen of Daliresp. Patient also on low dose chronic daily steroids. Complaint of new cough as well - continue antibiotic therapy initiated in the ED with Levofloxacin. Continue BiPAP on a prn basis. (2) INGRIS (acute kidney injury): Current visit: Yes Status: Acute Mild elevation in creatinine from baseline, potentially related to acute illness and dehydration. Initiate IVFs and monitor renal function carefully. Avoid nephrotoxins, and renally dose medications when appropriate. (3) Elevated troponin: Current visit: Yes Status: Acute Potentially demand in nature. Will maintain on telemetry and rule out with serial cardiac biomarkers. Hold off on anticoagulation at this time and monitor closely. Patient describes NO chest pain currently. (4) Diabetes mellitus: Current visit: No Status: Chronic Continue Glipizide but hold Metformin, and initiate on a sliding scale insulin coverage. ADA diet. (5) Hypertension: Current visit: No Status: Chronic Noted. Patient does not appear to be on an antihypertensive at this time. Will monitor blood pressures. (6) Gastroesophageal reflux disease: Current visit: No Status: Chronic Initiate PPI. (7) DVT prophylaxis: Current visit: Yes Status: Acute SC Heparin. Maintain on PPI for GI prophylaxis given need for steroids. History of Present Illness Chief Complaint: Dyspnea Narrative: Pleasant 73 year old man with a prior history significant for COPD with prior exacerbations requiring hospitalization, being admitted from [facility] Emergency Department on 10/05 with a diagnosis of COPD exacerbation. Mr. Sims has a past medical history significant for steroid dependent COPD and significant prior tobacco use. His other history includes DM, HTN, OA, GERD, BPH, and prior diagnosis of PMR. He has CAD as a prior history, with a LHC in 2013 which showed no significant occlusion, and a nuclear stress test in 2017 that was deemed negative for ischemia. The patient reports an approximate 2 week history of dyspnea. He first presented to the ED on 09/22, reporting exposure to and inhalation of a polygrip adhesive, thought to have caused an acute exacerbation of his underlying COPD. He was treated with nebulizers acutely, and discharged home. Unfortunately, as he did not improve the patient presented back to the ED today with complaints of onoing dypspnea and cough, along with anterior chest pain. The patient does report that he experiences CP with his acutely worsening respiratory status, and actually denies any CP at time of admission. His CXR did not show any acute abnormality, again noting chronic changes at the lung bases. His labwork showed a mild leukocytosis, mildly elevated lactate, and a mild elevation in his creatinine. The patient's Troponin however was minimally and equivocally elevated at 0.1, with reported mild EKG changes that by review of prior tracings may have been present intermittently in the past. He was referred for admission for further evaluation and treatment. 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 Father Neoplasm Sister No problems noted. Sister No problems noted. Sister No problems noted. Sister No problems noted. Sister No problems noted. Sister No problems noted. Sister No problems noted. Sister No problems noted. Sister No problems noted. Brother No problems noted. Brother No problems noted. Brother No problems noted. Brother No problems noted. Brother No problems noted. Brother No problems noted. Brother No problems noted. Brother No problems noted. Brother No problems noted. Brother No problems noted. Brother No problems noted. Brother No problems noted. Son No problems noted. Son Substance abuse Mental disorder Son Substance abuse Daughter Substance abuse Depression Mental disorder Social History Smoking/Tobacco Use Status: Former Tobacco Use Alcohol Intake: never Drug use: Never Substance use type: does not use Household members: spouse and children Pets and animals: Yes Pets and animals: cat(s) and dog(s) Duration: decline to answer Frequency: 3-4 times per week Aminata/Episcopal: Jehovah'S Witness Special aminata needs: No Do you feel safe at home: Yes Do you feel safe in your relationship?: Yes Additional Social history: , with 4 children. Currently raising 3 grandchildren. Reported 80+ pack year history of tobacco abuse, quit approximately 15 years ago. Denies any current EtOH use. Meds Home Medications Medication Instructions Recorded Confirmed Type Nebulizer W/ Tubing 1 inh DIRECTED 06/22/12 10/05/18 History ibuprofen 200 mg PO DAILY 06/12/17 10/05/18 History montelukast 10 mg PO DAILY tab-cap 07/10/17 10/05/18 History budesonide [Pulmicort] 1 inh INHALATION QID #180 ea 08/05/17 10/05/18 Rx FreeStyle Lite Strips #200 strip 09/08/17 10/05/18 Rx albuterol sulfate [ProAir HFA] 1 - 2 puff INHALATION Q4H PRN #3 09/08/17 10/05/18 Rx inhaler magnesium oxide 400 mg PO DAILY #90 tab 10/20/17 10/05/18 Rx metformin 1,000 mg tablet 1,000 mg PO BID #180 tab-cap 02/26/18 10/05/18 Rx glipizide 5 mg tablet 5 mg PO QAM #30 tab 05/13/18 10/05/18 Rx aspirin 81 mg tablet,delayed 81 mg PO DAILY 07/15/18 10/05/18 History release gabapentin 300 mg capsule 300 mg PO TID #270 cap 07/15/18 10/05/18 Rx sulfamethoxazole 800 1 tab PO .3x week tab 07/15/18 10/05/18 History mg-trimethoprim 160 mg tablet ipratropium-albuterol 0.5 mg-3 3 ml INHALATION QID #4 box 08/16/18 10/05/18 Rx mg(2.5 mg base)/3 mL nebulization soln duloxetine 60 mg capsule,delayed 60 mg PO DAILY #90 cap 08/27/18 10/05/18 Rx release mepolizumab 100 mg subcutaneous 100 mg SC Q4W each 09/08/18 10/05/18 History solution prednisone 10 mg tablet 10 mg PO DAILY tab 09/08/18 10/05/18 History roflumilast 500 mcg tablet 500 mcg PO DAILY #30 tab 09/08/18 10/05/18 Rx prednisone 10 mg tablet See Rx Instructions .ROUTE 09/17/18 10/05/18 Rx .COMPLEX #30 tab hydrocodone 7.5 mg-acetaminophen 1 tab PO BID #60 tab MDD 2 tab 09/27/18 10/05/18 Rx 325 mg tablet Allergies Allergy/AdvReac Type Severity Reaction Status Date / Time codeine Allergy rash, itch Unverified 10/05/18 07:29 Exam Narrative Exam Narrative: General: Patient appears comfortable, AAOX3, NAD Neck: Supple CV: Regular, nontachycardic, S1S2, No rubs, murmurs, or gallops. Pulmonary: Clear to auscultation bilaterally with good air entry. Diffuse wheezing noted. Abdomen: + Bowel Sounds, soft, nontender, nondistended Vascular: +1 b/l lower extremity edema Psych: Normal mood and affect. Results Imaging Chest x-ray: report reviewed and image reviewed Additional studies: Exam(s) 10/05/2018 a RAD:XR portable chest AP SYMPTOM/DIAGNOSIS: SHORTNESS OF BREATH PORTABLE CHEST: Comparison is made with 23 September 2018 as well as exams from 2007. The heart size is within normal limits for projection. Again noted are chronic changes at the lung bases which do not show definite change when compared with multiple previous exams. IMPRESSION: No acute abnormality. Labs : 10/05/18 07:10 10/05/18 07:10 Laboratory Results - last 24 hr 10/05/18 10/05/18 10/05/18 07:10 07:10 07:10 WBC 12.38 H RBC 4.78 Hgb 13.8 Hct 41.9 MCV 87.7 MCH 28.9 MCHC 32.9 RDW 15.0 H Plt Count 227 MPV 8.5 Immature Gran % 1.0 Neutrophils % 61.8 Lymphocytes % 22.6 Monocytes % 12.9 Eosinophils % 1.5 Basophils % 0.2 Absolute Neutrophils 7.65 H Absolute Lymphocytes 2.80 Absolute Monocytes 1.60 H Absolute Eosinophils 0.19 Absolute Basophils 0.02 PT 9.3 INR 0.9 APTT 21.3 Sodium 140 Potassium 3.9 Chloride 100 Carbon Dioxide 31.6 Anion Gap 8.4 BUN 33 H Creatinine 1.32 H Estimated GFR/1.73 m2 53.32 Glucose 75 Lactate Calcium 9.6 Magnesium 2.1 Total Bilirubin 0.4 AST 28 ALT 58 Alkaline Phosphatase 69 Troponin I 0.10 H* NT-Pro-B Natriuret Pep 689 H Total Protein 6.9 Albumin 3.7 10/05/18 09:20 WBC RBC Hgb Hct MCV MCH MCHC RDW Plt Count MPV Immature Gran % Neutrophils % Lymphocytes % Monocytes % Eosinophils % Basophils % Absolute Neutrophils Absolute Lymphocytes Absolute Monocytes Absolute Eosinophils Absolute Basophils PT INR APTT Sodium Potassium Chloride Carbon Dioxide Anion Gap BUN Creatinine Estimated GFR/1.73 m2 Glucose Lactate 2.0 H Calcium Magnesium Total Bilirubin AST ALT Alkaline Phosphatase Troponin I NT-Pro-B Natriuret Pep Total Protein Albumin Last Vital Signs Temp 36.7 C 10/05/18 10:57 Pulse 76 10/05/18 11:15 Resp 26 H 10/05/18 11:15 BP 127/82 10/05/18 10:57 Pulse Ox 100 10/05/18 11:15
[2018-10-05 12:04] LABS: Troponin I 0.07 ng/mL (0.00-0.06)
[2018-10-05] MEDS: Insulin Aspart 300 UNITS/3 ML PEN SC ×2 (12:50→17:28)
[2018-10-05] MEDS: Heparin 5,000 UNITS/ML VIAL 5000 UNITS SC ×2 (12:50→18:38)
[2018-10-05 13:25] LABS: Lactate-non-spesis 2.6 mmol/l (0.6-1.4)
[2018-10-05] MEDS: Gabapentin 300 MG CAP PO ×2 (14:23→21:05)
[2018-10-05] MEDS: methylPREDNISolone SUCC 125 MG VIAL 60 MG IVP ×2 (14:24→21:32)
[2018-10-05 15:46] LABS: Troponin I 0.05 ng/mL (0.00-0.06)
--- NOTE | 2018-10-05 15:55 | CHAPLAIN ---
Amy was resting, not alert, although saying a few words, when I visited with his and niece. They said he was given sedating medication which had the opposite affect. They met with Dr. Leavitt earlier, and they said that Dr. Leavitt suggested waiting until Thdy (10/07) to see how Amy is doing before making more plans. They both seemed t be realistic how to approach Amy's care. I will check in with them tomorrow. They plan to stay through the evening.
[2018-10-05] MEDS: Biotene Mouthwash 237 ML BTL MM (21:09)
[2018-10-05] MEDS: Budesonide 0.5 MG/2 ML UPD VIAL UPD (21:33)
[2018-10-06] VITALS (63 sets, daily range): BP systolic 145–171; BP diastolic 73–106; PULSE 85–110; RESP 4–31; TEMP 36.4–36.6; O2SAT 87–99
[2018-10-06] MEDS: Heparin 5,000 UNITS/ML VIAL 5000 UNITS SC ×3 (02:58→17:30)
[2018-10-06] MEDS: methylPREDNISolone SUCC 125 MG VIAL 60 MG IVP ×3 (05:17→21:53)
[2018-10-06] MEDS: Normal Saline 1,000 ML 150 ML IV ×3 (06:48→20:08)
[2018-10-06 06:51] LABS: Abs Immature Grans 0.05 k/cumm (0.0-0.09); Absolute Lymphocyte Count 1.04 k/cumm (1.2-3.4); Absolute Monocyte Count 0.75 k/cumm (0.11-0.7); Absolute Neutrophil Count 8.67 k/cumm (1.2-6.7); HCT 38.9 % (40.0-50.0); HGB 13.3 g/dL (13.5-17.5); Immature Grans % 0.5; Lymphocytes % 9.9; Mean Corp. HGB Concentration 34.2 g/dL (32.0-36.0); Mean Corpuscular Volume 84.7 fL (80-95); Mean Platelet Volume 8.7 fL (8.0-11.0); Monocytes % 7.1; Neutrophils % 82.5; Platelet Count 228 x1000/uL (130-400); RBC 4.59 m/cumm (4.50-6.00); RBC Distribution Width 14.4 % (11.8-14.1); White Blood Cell Count 10.51 k/cumm (4.4-10.8)
[2018-10-06 07:15] LABS: Anion Gap 7.2 mmol/L (3-11); BUN 24 mg/dL (7-18); CO2 26.8 mmol/L (21.0-32.0); Calcium 8.3 mg/dL (8.5-10.1); Chloride 98 mmol/L (98-107); Glucose 224 mg/dL (70-100); Magnesium 2.2 mg/dL (1.8-2.4); Potassium 3.8 mmol/L (3.5-5.1); Sodium 132 mmol/L (136-145)
[2018-10-06] MEDS: Albuterol/Ipratropium 3 ML UPD VIAL UPD (07:27)
--- NOTE | 2018-10-06 07:39 | PDOC.CMIN ---
Care Management Initial Assess REASON FOR HOSPITALIZATION:: Pneumonia, COPD Exacerbation, Elevated Troponin PAST MEDICAL HISTORY/PAST SURGICAL HISTORY:: Atheroscleroisis of [place] coronary artery, BPH with urinary obstruction/LUTS, Diabetic Peripheral neuropathy, GERD, Hypertension, Osteoarthritis, Polymyalgia rheumatica, Shoulder surgery. Steroid-dependent chronic obstructive pulmonary disease, type 2 diabetes mellitus for which he has been on metformin, hypertension, migraine headaches, depression, chronic lower back pain, coronary artery disease--he had a cardiac catheterization August 30, 2013 with no hemodynamically significant occlusive disease and has been on medical management only, history of polymyalgia rheumatica, osteoarthritis, benign prostatic hypertrophy PREVIOUS FUNCTIONAL STATUS/SOCIAL/FAMILY SUPPORTS:: Amy resides in [place] with his and three grand-daughters. He has legal custody of two grandaughters and has adopted the other. He remains independent in the community with all ADLs. His Jordyn is his main support. 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 CURRENT FUNCTIONAL STATUS:: [facility] clinc[facility]. CM met with Amy and his , Jordyn. Amy shared concerns about leaving his grandchildren who he is currently raising in event he continues to decline medically. CM completed AD with Amy and Jordyn, who he identified as his agent. He was pleasant in interaction and fully engaged with this senior copywriter. ADVANCE DIRECTIVES:: Completed and processed 10/06/18; now on file at [facility]. Has patient been provided with information about the portal?: Yes Did the patient sign up for the portal?: No CODE STATUS:: Full Code INSURANCE COVERAGE / FINANCIAL ISSUES:: Medicare/C&S Adminis [facility] BS CURRENT HOME/COMMUNITY SERVICES/EQUIPMENT:: , not VA connected and stated he does not want to be VA connected. Cane, walker, and nebulizer at home. [facility] provides nebulizer supplies. PRIMARY CARE PHYSICIAN:: Tevin Dooley M.D. POTENTIAL DISCHARGE NEEDS:: Follow up appointment with PCP. Offer Pulmonary Rehab; Pt has declined in the past due to scheduling needs of his grand-daughters. PATIENT/FAMILY EDUCATION NEEDS:: None identified. ANTICIPATED BARRIERS TO DISCHARGE:: None identified at this time. TRANSPORTATION:: Amy will transport home via private vehicle with his , Jordyn. PLAN:: Amy will return home when ready per MD. He will follow up with his PCP and plan of care as prescribed. No additional services anticipated at this time. Amy will transport home via private vehicle with his , Jordyn.
[2018-10-06] MEDS: Gabapentin 300 MG CAP PO ×3 (08:01→19:50)
[2018-10-06] MEDS: glipiZIDE 5 MG TAB PO (08:01)
[2018-10-06] MEDS: Magnesium Oxide 400 MG TAB PO (08:02)
[2018-10-06] MEDS: Montelukast 10 MG TAB PO (08:02)
[2018-10-06] MEDS: Aspirin E.C. 81 MG TABEC PO (08:02)
[2018-10-06] MEDS: DULoxetine 30 MG CAP 60 MG PO (08:02)
[2018-10-06] MEDS: Insulin Aspart 300 UNITS/3 ML PEN SC ×3 (08:11→17:14)
[2018-10-06] MEDS: Budesonide 0.5 MG/2 ML UPD VIAL UPD ×2 (09:09→21:55)
--- NOTE | 2018-10-06 09:24 | INITIAL_ITS ---
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 Steroid-dependent chronic obstructive pulmonary disease, type 2 diabetes mellitus for which he has been on metformin, hypertension, migraine headaches, depression, chronic lower back pain, coronary artery disease--he had a cardiac catheterization August 30, 2013 with no hemodynamically significant occlusive disease and has been on medical management only, history of polymyalgia r heumatica, osteoarthritis, benign prostatic hypertrophy PREVIOUS FUNCTIONAL STATUS/SOCIAL/FAMILY SUPPORTS:: Amy resides in [place] with his and three grand-daughters. He has legal custody of two grandaughters and has adopted the other. He remains independent in the community with all ADLs. His Jordyn is his main support. 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 CURRENT FUNCTIONAL STATUS:: Amy was transferred to Med[facility] today as he is improving clincially. CM met with Amy and his , Jordyn. Amy shared concerns about leaving his grandchildren who he is currently raising in event he continues to decline medically. CM completed AD with Amy and Jordyn, who he identified as his agent. He was pleasant in interaction and fully engaged with this staff writer. ADVANCE DIRECTIVES:: Completed and processed 10/06/18; now on file at [facility]. Has patient been provided with information about the portal?: Yes Did the patient sign up for the portal?: No CODE STATUS:: Full Code INSURANCE COVERAGE / FINANCIAL ISSUES:: Medicare/C&S Adminis SER, BC BS CURRENT HOME/COMMUNITY SERVICES/EQUIPMENT:: [place], not VA connected and stated he does not want to be VA connected. Cane, walker, and nebulizer at home. [facility] provides nebulizer supplies. PRIMARY CARE PHYSICIAN:: Tevin Dooley M.D. POTENTIAL DISCHARGE NEEDS:: Follow up appointment with PCP. Offer Pulmonary Rehab; Pt has declined in the past due to scheduling needs of his grand- daughters. PATIENT/FAMILY EDUCATION NEEDS:: None identified. ANTICIPATED BARRIERS TO DISCHARGE:: None identified at this time. TRANSPORTATION:: Amy will transport home via private vehicle with his , Jordyn. PLAN:: Amy will return home when ready per MD. He will follow up with his PCP and plan of care as prescribed. No additional services anticipated at this time. Amy will transport home via private vehicle with his , Jordyn.
[2018-10-06] MEDS: levoFLOXacin 750 MG/150 ML BAG 100 MG IVPB (09:33)
[2018-10-06] MEDS: Potassium Chloride 20 MEQ TABCR PO (10:06)
[2018-10-06] MEDS: Milk of Magnesia 30 ML CUP PO (12:43)
[2018-10-06 13:10] LABS: Lactate-non-spesis 3.7 mmol/l (0.6-1.4)
--- NOTE | 2018-10-06 14:19 | NUR.NOTE ---
Nursing Note: 1013: pt transferred from ICU room 220 to MS room 228 via WC. see vs for information
--- NOTE | 2018-10-06 15:19 | PGE_ITS ---
Date of Service Date of service: 10/06/18 Time of Service: 15:07 Assessment and Plan (1) COPD (chronic obstructive pulmonary disease): Current visit: No Status: Chronic Apparent acute exacerbation of underlying COPD - CXR negative. Appears improved both subjectively and clinically. Continue on IV Steroids, frequent duonebs, nebulized Budesonide, and continue home regimen of Daliresp. Change Albuterol to Xopenex given Tachycardial. Patient also on low dose chronic daily steroids. Complaint of new cough as well - continue antibiotic therapy initiated in the ED with Levofloxacin, currently day #2. Continue BiPAP on a prn basis - patient has not required this since initial use. Blood Cultures with No Growth X24 hours. Sputum Cultures ordered but pending at this time. (2) INGRIS (acute kidney injury): Current visit: Yes Status: Acute Mild elevation in creatinine from baseline, potentially related to acute illness and dehydration - improved today. continue IVFs and monitor renal function carefully. Avoid nephrotoxins, and renally dose medications when appropriate. (3) Elevated troponin: Current visit: Yes Status: Acute Minimal and equivocal elevation, quickly normalized. Likely demand in nature. Discontinue telemetry. (4) Diabetes mellitus: Current visit: No Status: Chronic Continue Glipizide but hold Metformin. Maintain onsliding scale insulin coverage. Continue ADA diet. (5) Hypertension: Current visit: No Status: Chronic Noted. Patient does not appear to be on an antihypertensive at this time, with elevated blood pressures in the setting of high dose IV steroids. Initiate moderate dose CCB, and continue to monitor blood pressures. (6) Gastroesophageal reflux disease: Current visit: No Status: Chronic Continue PPI. (7) DVT prophylaxis: Current visit: Yes Status: Acute SC Heparin. Maintain on PPI for GI prophylaxis given need for steroids. Subjective Interval history since last seen: Pleasant 73 year old man with a prior history significant for COPD with prior exacerbations requiring hospitalization, admitted from [facility] Emergency Department on 10/05 with a diagnosis of COPD exacerbation. Mr. Sims has a past medical history significant for steroid dependent COPD and significant prior tobacco use. His other history includes DM, HTN, OA, GERD, BPH, and prior diagnosis of PMR. He has CAD as a prior history, with a LHC in 2013 which showed no significant occlusion, and a nuclear stress test in 2017 that was deemed negative for ischemia. The patient reports an approximate 2 week history of dyspnea. He first presented to the ED on 09/22, reporting exposure to and inhalation of a polygrip adhesive, thought to have caused an acute exacerbation of his underlying COPD. He was treated with nebulizers acutely, and discharged home. Unfortunately, as he did not improve the patient presented back to the ED today with complaints of onoing dypspnea and cough, along with anterior chest pain. The patient does report that he experiences CP with his acutely worsening respiratory status, and denied any chest discomfort at time of admission. His CXR did not show any acute abnormality, again noting chronic changes at the lung bases (with patient reporting asbestos exposure in the past). His labwork showed a mild leukocytosis, mildly elevated lactate, and a mild elevation in his creatinine. The patient's Troponin was minimally and equivocally elevated at 0.1, with reported mild EKG changes that by review of prior tracings may have been present intermittently in the past. He was referred for admission for further evaluation and treatment. Mr. Sism has been maintained on steroids, antibiotics, and nebulizers. Since admission the patient's leukocytosis appears resolved, creatinine improved, and minimally elevated troponin normalized. He subjectively feels improved as well. However, his Lactate continues to climb - this also appears to be a chronic finding. No overnight events reported. Remains afebrile. Exam Narrative Exam Narrative: General: Patient appears comfortable, AAOX3, NAD Neck: Supple CV: Regular, tachycardic, S1S2, No rubs, murmurs, or gallops. Pulmonary: Clear to auscultation bilaterally with good air entry. Diffuse wheezing noted but appears improved. Abdomen: + Bowel Sounds, soft, nontender, nondistended Vascular: +1 b/l lower extremity edema Psych: Normal mood and affect. Objective Objective Clinical Data: Abnormal lab results 10/06/18 10/06/18 10/06/18 Range/Units 06:20 06:20 13:00 Hgb 13.3 L (13.5-17.5) g/dL Hct 38.9 L (40.0-50.0) % RDW 14.4 H (11.8-14.1) % Absolute Neutrophils 8.67 H (1.2-6.7) k/cumm Absolute Lymphocytes 1.04 L (1.2-3.4) k/cumm Absolute Monocytes 0.75 H (0.11-0.7) k/cumm Sodium 132 L (136-145) mmol/L BUN 24 H D (7-18) mg/dL Glucose 224 H D (70-100) mg/dL Lactate 3.7 H (0.6-1.4) mmol/l Calcium 8.3 L (8.5-10.1) mg/dL Vital Signs Temperature 36.4 C L 10/06/18 10:20 Temperature Source Tympanic 10/06/18 10:20 Pulse 110 H 10/06/18 10:20 Pulse Rhythm Regular 10/06/18 12:00 Pulse 95 H 10/06/18 08:40 Respiratory Rate 19 10/06/18 10:20 Respiratory Effort Non-Labored 10/06/18 12:00 Respiratory Depth Normal 10/06/18 12:00 Respiratory Pattern Normal 10/06/18 12:00 Blood Pressure 166/94 H 10/06/18 10:20 Blood Pressure Mean 113 10/06/18 07:40 Blood Pressure Position Supine 10/06/18 03:09 Pulse Oximetry 95 10/06/18 10:20 Oxygen Delivery Method Room Air 10/06/18 10:20 Oxygen Flow Rate 0 10/06/18 10:20 Fraction of Inspired Oxygen (FIO2) 30 10/05/18 18:54 Pain Level 2 10/06/18 10:17 Intake & Output 10/05/18 10/06/18 10/06/18 23:59 11:59 23:59 Intake Total 250 / 400 370 / 1370 1000 / 1370 Output Total 2150 / 2650 1520 / 1520 Balance -1900 / -2250 -1150 / -150 1000 / -150 Weight 105.8 kg Intake: IV 10 / 160 1000 / 1000 Oral 240 / 240 370 / 370 Output: Urine 2150 / 2650 1520 / 1520 Other: Urine Color Yellow Yellow Urine Appearance Clear Clear Urine Odor None None Comment Patient needs to stand to void. h/o BPH with obstruction. voided in toilet; flushed before RN could assess Stool Size Moderate Stool Characteristics Soft Formed Brown Voiding Methods Urinal Urinal Toilet Laboratory Results WBC 10.51 k/cumm (4.4-10.8) 10/06/18 06:20 RBC 4.59 m/cumm (4.50-6.00) 10/06/18 06:20 Hgb 13.3 g/dL (13.5-17.5) L 10/06/18 06:20 Hct 38.9 % (40.0-50.0) L 10/06/18 06:20 MCV 84.7 fL (80-95) D 10/06/18 06:20 MCH 29.0 pg (27.0-33.0) 10/06/18 06:20 MCHC 34.2 g/dL (32.0-36.0) 10/06/18 06:20 RDW 14.4 % (11.8-14.1) H 10/06/18 06:20 Plt Count 228 x1000/uL (130-400) 10/06/18 06:20 MPV 8.7 fL (8.0-11.0) 10/06/18 06:20 Immature Gran % 0.5 10/06/18 06:20 Neutrophils % 82.5 10/06/18 06:20 Lymphocytes % 9.9 10/06/18 06:20 Monocytes % 7.1 10/06/18 06:20 Eosinophils % 0.0 10/06/18 06:20 Basophils % 0.0 10/06/18 06:20 Absolute Neutrophils 8.67 k/cumm (1.2-6.7) H 10/06/18 06:20 Absolute Lymphocytes 1.04 k/cumm (1.2-3.4) L 10/06/18 06:20 Absolute Monocytes 0.75 k/cumm (0.11-0.7) H 10/06/18 06:20 Absolute Eosinophils 0.00 k/cumm (0.0-0.7) 10/06/18 06:20 Absolute Basophils 0.00 k/cumm (0.0-0.2) 10/06/18 06:20 PT 9.3 sec (9.3-11.0) 10/05/18 07:10 INR 0.9 (0.9-1.1) 10/05/18 07:10 APTT 21.3 sec (21.0-31.4) 10/05/18 07:10 Sodium 132 mmol/L (136-145) L 10/06/18 06:20 Potassium 3.8 mmol/L (3.5-5.1) 10/06/18 06:20 Chloride 98 mmol/L (98-107) 10/06/18 06:20 Carbon Dioxide 26.8 mmol/L (21.0-32.0) 10/06/18 06:20 Anion Gap 7.2 mmol/L (3-11) 10/06/18 06:20 BUN 24 mg/dL (7-18) H D 10/06/18 06:20 Creatinine 1.10 mg/dL (0.70-1.30) 10/06/18 06:20 Estimated GFR/1.73 m2 >= 60.00 (mL/min/1.73m2) 10/06/18 06:20 Glucose 224 mg/dL (70-100) H D 10/06/18 06:20 Lactate 3.7 mmol/l (0.6-1.4) H 10/06/18 13:00 Calcium 8.3 mg/dL (8.5-10.1) L 10/06/18 06:20 Magnesium 2.2 mg/dL (1.8-2.4) 10/06/18 06:20 Total Bilirubin 0.4 mg/dL (0.2-1.0) 10/05/18 07:10 AST 28 U/L (15-37) 10/05/18 07:10 ALT 58 U/L (12-78) 10/05/18 07:10 Alkaline Phosphatase 69 U/L (46-116) 10/05/18 07:10 Troponin I 0.05 ng/mL (0.00-0.06) 10/05/18 15:15 NT-Pro-B Natriuret Pep 689 pg/mL (-299) H 10/05/18 07:10 Total Protein 6.9 g/dL (6.4-8.2) 10/05/18 07:10 Albumin 3.7 g/dL (3.4-5.0) 10/05/18 07:10
[2018-10-06] MEDS: amLODIPine 5 MG TAB PO (16:19)
--- NOTE | 2018-10-06 22:48 | NUR.NOTE ---
Nursing Note: Pt is independent in the room, has SOB on exertion, Denied of pain but lung sounds with wheeziness and crackles. Voided x 4. in good amount of clear urine. Needs well attended. Call lights at reach.
[2018-10-07] MEDS: Heparin 5,000 UNITS/ML VIAL 5000 UNITS SC ×3 (01:43→20:13)
[2018-10-07] MEDS: Normal Saline 1,000 ML 150 ML IV ×2 (02:29→07:57)
[2018-10-07] MEDS: methylPREDNISolone SUCC 125 MG VIAL 60 MG IVP ×3 (06:19→21:27)
[2018-10-07] MEDS: Montelukast 10 MG TAB PO (07:53)
[2018-10-07] MEDS: glipiZIDE 5 MG TAB PO (07:53)
[2018-10-07] MEDS: amLODIPine 5 MG TAB PO (07:53)
[2018-10-07] MEDS: DULoxetine 30 MG CAP 60 MG PO (07:54)
[2018-10-07] MEDS: Aspirin E.C. 81 MG TABEC PO (07:54)
[2018-10-07] MEDS: Magnesium Oxide 400 MG TAB PO (07:54)
[2018-10-07] MEDS: Gabapentin 300 MG CAP PO ×3 (07:54→20:13)
[2018-10-07] MEDS: Normal Saline Flush 10 ML SYR IVP ×3 (07:56→21:27)
[2018-10-07] MEDS: Insulin Aspart 300 UNITS/3 ML PEN SC ×3 (07:57→16:51)
[2018-10-07 08:29] LABS: Lactate-non-spesis 1.4 mmol/l (0.6-1.4)
[2018-10-07 08:42] LABS: Abs Immature Grans 0.12 k/cumm (0.0-0.09); Absolute Basophil Count 0.01 k/cumm (0.0-0.2); Absolute Lymphocyte Count 1.02 k/cumm (1.2-3.4); Basophils % 0.1; Eosinophils % 0.2; HCT 41.8 % (40.0-50.0); Lymphocytes % 8.1; Mean Corp. HGB Concentration 33.5 g/dL (32.0-36.0); Mean Corpuscular Hemoglobin 28.6 pg (27.0-33.0); Mean Corpuscular Volume 85.5 fL (80-95); Mean Platelet Volume 8.8 fL (8.0-11.0); Monocytes % 6.4; Neutrophils % 84.2; Platelet Count 238 x1000/uL (130-400); RBC 4.89 m/cumm (4.50-6.00); RBC Distribution Width 14.7 % (11.8-14.1); White Blood Cell Count 12.55 k/cumm (4.4-10.8)
[2018-10-07 08:43] LABS: Absolute Eosinophil Count 0.03 k/cumm (0.0-0.7); Absolute Neutrophil Count 10.57 k/cumm (1.2-6.7)
[2018-10-07 08:51] LABS: Anion Gap 8.8 mmol/L (3-11); BUN 22 mg/dL (7-18); CO2 26.2 mmol/L (21.0-32.0); CREATININE 0.93 mg/dL (0.70-1.30); Calcium 7.8 mg/dL (8.5-10.1); Chloride 101 mmol/L (98-107); Glucose 201 mg/dL (70-100); Magnesium 2.5 mg/dL (1.8-2.4); Potassium 3.9 mmol/L (3.5-5.1); Sodium 136 mmol/L (136-145)
[2018-10-07 08:55] VITALS: BP 190/113; PULSE 97; RESP 24; TEMP 36.7; O2SAT 95
--- NOTE | 2018-10-07 09:48 | PDOC.CMPRO ---
Care Management Progress Note S/O: Amy continues to be closely monitored per MD. He remains pleasant in interaction, he had visitors including his grand-daughter's throughout the day. In the afternoon he was sleeping soundly. CM continues to follow. A: 73 year old male admitted to [facility] on 10/05/18 with Pneumonia, COPD Exacerbation, Elevated Troponin P: Amy will return home when ready per MD. He will follow up with his PCP and plan of care as prescribed. No additional services anticipated at this time. Amy will transport home via private vehicle with his , Jordyn.
--- NOTE | 2018-10-07 09:52 | CMPROGNOTE_ITS ---
Care Management Progress Note S/O: Amy continues to be closely monitored per MD. He remains pleasant in interaction, he had visitors including his grand-daughter's throughout the day. In the afternoon he was sleeping soundly. CM continues to follow. A: 73 year old male admitted to [facility] on 10/05/18 with Pneumonia, COPD Exacerbation, Elevated Troponin P: Amy will return home when ready per MD. He will follow up with his PCP and plan of care as prescribed. No additional services anticipated at this time. Amy will transport home via private vehicle with his , Jordyn.
[2018-10-07 10:01] VITALS: BP 147/93; PULSE 99
[2018-10-07 11:14] VITALS: PULSE 95; RESP 22; RESP 4; O2SAT 96
[2018-10-07] MEDS: Albuterol/Ipratropium 3 ML UPD VIAL UPD ×2 (11:14→20:13)
[2018-10-07] MEDS: Budesonide 0.5 MG/2 ML UPD VIAL UPD ×2 (11:18→21:27)
[2018-10-07 11:20] VITALS: BP 166/93; PULSE 95; RESP 22; TEMP 36.6; O2SAT 99
[2018-10-07] MEDS: levoFLOXacin 500 MG/100 ML BAG 100 MG IVPB (11:57)
[2018-10-07] MEDS: Benzonatate 200 MG CAP PO ×3 (11:59→20:12)
[2018-10-07] MEDS: guaiFENesin 600 MG TABCR PO ×2 (11:59→20:13)
[2018-10-07] MEDS: Potassium Chloride 10 MEQ TABCR PO (11:59)
--- NOTE | 2018-10-07 15:05 | W.PM.PROGNOT ---
Date of Service Date of service: 10/07/18 Time of Service: 15:05 Assessment and Plan (1) COPD (chronic obstructive pulmonary disease): Current visit: No Status: Chronic Apparent acute exacerbation of underlying COPD - CXR negative. Appears improved both subjectively and clinically. Continue on IV Steroids, frequent duonebs, nebulized Budesonide, and continue home regimen of Daliresp. Change Albuterol to Xopenex given initial Tachycardia, and make duoneb standing. Patient also on low dose chronic daily steroids. Complaint of new cough as well - continue antibiotic therapy initiated in the ED with Levofloxacin, currently day #3, redosed for treatment of exacerbation of chronic bronchitis. Continue BiPAP on a prn basis - patient has not required this since initial use. Blood Cultures with No Growth X48 hours. Sputum Cultures with normal marino thus far. (2) INGRIS (acute kidney injury): Current visit: Yes Status: Acute Mild elevation in creatinine from baseline, potentially related to acute illness and dehydration - improved. Discontinue IVFs and monitor renal function carefully. Avoid nephrotoxins. (3) Elevated troponin: Current visit: Yes Status: Acute Minimal and equivocal elevation, quickly normalized. Likely demand in nature. Discontinued telemetry. (4) Diabetes mellitus: Current visit: No Status: Chronic Continue Glipizide but hold Metformin. Maintain on sliding scale insulin coverage. Continue ADA diet. (5) Hypertension: Current visit: No Status: Chronic Noted. Patient does not appear to be on an antihypertensive at this time, with elevated blood pressures in the setting of high dose IV steroids. Initiated moderate dose CCB, and will continue to monitor blood pressures. (6) Gastroesophageal reflux disease: Current visit: No Status: Chronic Continue PPI. (7) DVT prophylaxis: Current visit: Yes Status: Acute SC Heparin. Maintain on PPI for GI prophylaxis given need for steroids. Subjective Interval history since last seen: Pleasant 73 year old man with a prior history significant for COPD with prior exacerbations requiring hospitalization, admitted from [facility] Emergency Department on 10/05 with a diagnosis of COPD exacerbation. Mr. Sims has a past medical history significant for steroid dependent COPD and significant prior tobacco use. His other history includes DM, HTN, OA, GERD, BPH, and prior diagnosis of PMR. He has CAD as a prior history, with a LHC in 2013 which showed no significant occlusion, and a nuclear stress test in 2017 that was deemed negative for ischemia. The patient reports an approximate 2 week history of dyspnea. He first presented to the ED on 09/22, reporting exposure to and inhalation of a polygrip adhesive, thought to have caused an acute exacerbation of his underlying COPD. He was treated with nebulizers acutely, and discharged home. Unfortunately, as he did not improve the patient presented back to the ED today with complaints of onoing dypspnea and cough, along with anterior chest pain. The patient does report that he experiences CP with his acutely worsening respiratory status, and denied any chest discomfort at time of admission. His CXR did not show any acute abnormality, again noting chronic changes at the lung bases (with patient reporting asbestos exposure in the past). His labwork showed a mild leukocytosis, mildly elevated lactate, and a mild elevation in his creatinine. The patient's Troponin was minimally and equivocally elevated at 0.1, with reported mild EKG changes that by review of prior tracings may have been present intermittently in the past. He was referred for admission for further evaluation and treatment. Mr. Smis has been maintained on steroids, antibiotics, and nebulizers. Since admission the patient's breathing appears vastly improved, and his creatinine and minimally elevated troponin have both normalized. He subjectively feels improved as well. His Lactate has also normalized - this elevation appeared to be a chronic finding. No overnight events reported. Remains afebrile. Exam Narrative Exam Narrative: General: Patient appears comfortable, AAOX3, NAD Neck: Supple CV: Regular, tachycardic, S1S2, No rubs, murmurs, or gallops. Pulmonary: Clear to auscultation bilaterally with good air entry. Diffuse wheezing again noted. Abdomen: + Bowel Sounds, soft, nontender, nondistended Vascular: +1 b/l lower extremity edema Psych: Normal mood and affect. Objective Objective Clinical Data: Abnormal lab results 10/07/18 10/07/18 Range/Units 08:20 08:20 WBC 12.55 H (4.4-10.8) k/cumm RDW 14.7 H (11.8-14.1) % Absolute Neutrophils 10.57 H (1.2-6.7) k/cumm Absolute Lymphocytes 1.02 L (1.2-3.4) k/cumm Absolute Monocytes 0.80 H (0.11-0.7) k/cumm BUN 22 H (7-18) mg/dL Glucose 201 H (70-100) mg/dL Calcium 7.8 L (8.5-10.1) mg/dL Magnesium 2.5 H (1.8-2.4) mg/dL Vital Signs Temperature 36.6 C 10/07/18 11:20 Temperature Source Temporal Artery Scan 10/07/18 11:20 Pulse 95 H 10/07/18 11:20 Pulse Rhythm Regular 10/07/18 07:50 Pulse 95 H 10/06/18 08:40 Respiratory Rate 22 10/07/18 11:20 Respiratory Effort 10/07/18 07:50 Respiratory Depth Shallow 10/07/18 07:50 Respiratory Pattern Irregular 10/07/18 07:50 Blood Pressure 166/93 H 10/07/18 11:20 Blood Pressure Mean 113 10/06/18 07:40 Blood Pressure Position Supine 10/06/18 03:09 Pulse Oximetry 99 10/07/18 11:20 Oxygen Delivery Method Room Air 10/07/18 11:20 Oxygen Flow Rate 0 10/07/18 11:20 Fraction of Inspired Oxygen (FIO2) 30 10/05/18 18:54 Pain Level 0 10/07/18 08:55 Comment 10/07/18 10:01 Intake & Output 10/06/18 10/07/18 10/07/18 23:59 11:59 23:59 Intake Total 1937.5 / 2307.5 1772.5 / 1772.5 Output Total 800 / 2320 2800 / 3350 550 / 3350 Balance 1137.5 / -12.5 -1027.5 / -1577.5 -550 / -1577.5 Intake: IV 1937.5 / 1937.5 1772.5 / 1772.5 Output: Urine 800 / 2320 2800 / 3350 550 / 3350 Other: Urine Color Yellow Yellow Yellow Urine Appearance Clear Clear Clear Urine Odor Normal Comment voided in toilet; flushed before RN could assess Total of multiple voids, plus one void in toilet that was not measured. Stool Size Moderate Stool Characteristics Soft Formed Brown Voiding Methods Urinal Urinal Urinal Laboratory Results WBC 12.55 k/cumm (4.4-10.8) H 10/07/18 08:20 RBC 4.89 m/cumm (4.50-6.00) 10/07/18 08:20 Hgb 14.0 g/dL (13.5-17.5) 10/07/18 08:20 Hct 41.8 % (40.0-50.0) 10/07/18 08:20 MCV 85.5 fL (80-95) 10/07/18 08:20 MCH 28.6 pg (27.0-33.0) 10/07/18 08:20 MCHC 33.5 g/dL (32.0-36.0) 10/07/18 08:20 RDW 14.7 % (11.8-14.1) H 10/07/18 08:20 Plt Count 238 x1000/uL (130-400) 10/07/18 08:20 MPV 8.8 fL (8.0-11.0) 10/07/18 08:20 Immature Gran % 1.0 10/07/18 08:20 Neutrophils % 84.2 10/07/18 08:20 Lymphocytes % 8.1 10/07/18 08:20 Monocytes % 6.4 10/07/18 08:20 Eosinophils % 0.2 10/07/18 08:20 Basophils % 0.1 10/07/18 08:20 Absolute Neutrophils 10.57 k/cumm (1.2-6.7) H 10/07/18 08:20 Absolute Lymphocytes 1.02 k/cumm (1.2-3.4) L 10/07/18 08:20 Absolute Monocytes 0.80 k/cumm (0.11-0.7) H 10/07/18 08:20 Absolute Eosinophils 0.03 k/cumm (0.0-0.7) 10/07/18 08:20 Absolute Basophils 0.01 k/cumm (0.0-0.2) 10/07/18 08:20 PT 9.3 sec (9.3-11.0) 10/05/18 07:10 INR 0.9 (0.9-1.1) 10/05/18 07:10 APTT 21.3 sec (21.0-31.4) 10/05/18 07:10 Sodium 136 mmol/L (136-145) 10/07/18 08:20 Potassium 3.9 mmol/L (3.5-5.1) 10/07/18 08:20 Chloride 101 mmol/L (98-107) 10/07/18 08:20 Carbon Dioxide 26.2 mmol/L (21.0-32.0) 10/07/18 08:20 Anion Gap 8.8 mmol/L (3-11) 10/07/18 08:20 BUN 22 mg/dL (7-18) H 10/07/18 08:20 Creatinine 0.93 mg/dL (0.70-1.30) 10/07/18 08:20 Estimated GFR/1.73 m2 >= 60.00 (mL/min/1.73m2) 10/07/18 08:20 Glucose 201 mg/dL (70-100) H 10/07/18 08:20 Lactate 1.4 mmol/l (0.6-1.4) 10/07/18 08:20 Calcium 7.8 mg/dL (8.5-10.1) L 10/07/18 08:20 Magnesium 2.5 mg/dL (1.8-2.4) H 10/07/18 08:20 Total Bilirubin 0.4 mg/dL (0.2-1.0) 10/05/18 07:10 AST 28 U/L (15-37) 10/05/18 07:10 ALT 58 U/L (12-78) 10/05/18 07:10 Alkaline Phosphatase 69 U/L (46-116) 10/05/18 07:10 Troponin I 0.05 ng/mL (0.00-0.06) 10/05/18 15:15 NT-Pro-B Natriuret Pep 689 pg/mL (-299) H 10/05/18 07:10 Total Protein 6.9 g/dL (6.4-8.2) 10/05/18 07:10 Albumin 3.7 g/dL (3.4-5.0) 10/05/18 07:10
--- NOTE | 2018-10-07 15:12 | CHAPLAIN ---
Amy was sitting up on the edge of his bed, reading this paper. He said he hasn't been able to sleep here much, so he was hoping to nap this afternoon. His had been in earlier to visit and his brother in law arrived while I was there. Amy said he expects to be here a few more days, but considered his move to Med/Surg from the ICU to be an improvement.
[2018-10-07 16:09] VITALS: BP 173/100; PULSE 104; RESP 20; TEMP 35.8; O2SAT 97
[2018-10-07 20:43] VITALS: RESP 8
[2018-10-08] VITALS (8 sets, daily range): BP systolic 130–145; BP diastolic 73–91; PULSE 90–117; RESP 4–20; TEMP 36.3–36.5; O2SAT 94–97
[2018-10-08] MEDS: Albuterol/Ipratropium 3 ML UPD VIAL UPD ×5 (03:47→20:02)
[2018-10-08] MEDS: Heparin 5,000 UNITS/ML VIAL 5000 UNITS SC ×3 (03:47→20:02)
[2018-10-08] MEDS: methylPREDNISolone SUCC 125 MG VIAL 60 MG IVP ×3 (05:39→22:19)
[2018-10-08] MEDS: Normal Saline Flush 10 ML SYR IVP ×5 (05:40→22:20)
[2018-10-08 07:17] LABS: Abs Immature Grans 0.15 k/cumm (0.0-0.09); Absolute Lymphocyte Count 0.83 k/cumm (1.2-3.4); HCT 42.2 % (40.0-50.0); HGB 14.2 g/dL (13.5-17.5); Immature Grans % 1.1; Lymphocytes % 6.3; Mean Corp. HGB Concentration 33.6 g/dL (32.0-36.0); Mean Corpuscular Hemoglobin 28.6 pg (27.0-33.0); Mean Corpuscular Volume 85.1 fL (80-95); Mean Platelet Volume 8.9 fL (8.0-11.0); Monocytes % 8.3; Neutrophils % 84.3; Platelet Count 252 x1000/uL (130-400); RBC 4.96 m/cumm (4.50-6.00); RBC Distribution Width 14.4 % (11.8-14.1)
[2018-10-08 07:26] LABS: Anion Gap 10.8 mmol/L (3-11); BUN 25 mg/dL (7-18); CO2 24.2 mmol/L (21.0-32.0); CREATININE 1.16 mg/dL (0.70-1.30); Calcium 8.1 mg/dL (8.5-10.1); Chloride 97 mmol/L (98-107); Glucose 252 mg/dL (70-100); Magnesium 2.5 mg/dL (1.8-2.4); Potassium 3.5 mmol/L (3.5-5.1); Sodium 132 mmol/L (136-145)
[2018-10-08 07:27] LABS: Absolute Neutrophil Count 11.13 k/cumm (1.2-6.7)
--- NOTE | 2018-10-08 08:04 | W.INDIABCONS ---
Date of service: 10/08/18 Time of Service: 08:04 Diabetes Inpatient Consult DESCRIPTION/ASSESSMENT: Mr Sims here with COPD on steroids with hyperglycemia. A1c 7.9 BMI 32 Met with him on 2 occasions to discuss self management at home. He feels he does well with Glipizide and refuses to consider using insulin at home. He feels he does the best he can with his food choices and does not wish for any further support. Recently here blood sugars in the 200s with initiation of basal insulin eventually up to 20 units daily in addition to sensitive insulin correction. He voices no concern for hyperglycemia. INTERVENTION: No intervention at this time as he declines consideration of additional medication if needed based on blood sugars. He is clear about this. He is content with current management despite hyperglycemia as inpatient. He is encouraged to follow up with PCP if blood sugars remain elevated. PLAN: Will follow blood sugars and encourage self management at home Time Spent in Nutritional Counseling and Treatment: 20 minutes total over 2 visits
[2018-10-08] MEDS: Gabapentin 300 MG CAP PO ×3 (08:17→20:02)
[2018-10-08] MEDS: amLODIPine 5 MG TAB PO (08:17)
[2018-10-08] MEDS: Aspirin E.C. 81 MG TABEC PO (08:17)
[2018-10-08] MEDS: glipiZIDE 5 MG TAB PO (08:17)
[2018-10-08] MEDS: Benzonatate 200 MG CAP PO ×3 (08:18→20:02)
[2018-10-08] MEDS: guaiFENesin 600 MG TABCR PO ×2 (08:18→20:02)
[2018-10-08] MEDS: DULoxetine 30 MG CAP 60 MG PO (08:18)
[2018-10-08] MEDS: Montelukast 10 MG TAB PO (08:18)
[2018-10-08] MEDS: Insulin Aspart 300 UNITS/3 ML PEN SC ×3 (08:19→16:55)
[2018-10-08] MEDS: levoFLOXacin 500 MG/100 ML BAG 100 MG IVPB (09:48)
[2018-10-08] MEDS: Budesonide 0.5 MG/2 ML UPD VIAL UPD ×2 (10:26→22:20)
--- NOTE | 2018-10-08 15:00 | DI.RAD_ITS ---
SYMPTOMS/DIAGNOSIS: PNEUMONIA, WORSENING DYSPNEA, COPD PA AND LATERAL CHEST: The heart is mildly enlarged. There are changes of COPD and pulmonary scarring. The left basilar infiltrate again noted as seen on previous chest film of 09/22/18, question slight interval clearing since that time. No new area of consolidation seen. CONCLUSION: Some interval improvement noted in left basilar infiltrate since 09/22/18.
--- NOTE | 2018-10-08 15:33 | PDOC.CMPRO ---
Care Management Progress Note S/O: Amy was sleeping soundly when CM attempted to meet with him. He continues to be closely monitored. CM continues to follow. A: 73 year old male admitted to [facility] on 10/05/18 with Pneumonia, COPD Exacerbation, Elevated Troponin P: Amy will return home when ready per MD. He will follow up with his PCP and plan of care as prescribed. No additional services anticipated at this time. Amy will transport home via private vehicle with his , Jordyn.
--- NOTE | 2018-10-08 17:39 | W.PM.PROGNOT ---
Date of Service Date of service: 10/08/18 Time of Service: 17:39 Assessment and Plan (1) COPD (chronic obstructive pulmonary disease): Current visit: No Status: Chronic Apparent acute exacerbation of underlying COPD - CXR negative. Appears improved both subjectively and clinically. Continue on IV Steroids, frequent duonebs, nebulized Budesonide, and continue home regimen of Daliresp. Changed Albuterol to Xopenex given initial Tachycardia, and made duoneb standing. Patient also on low dose chronic daily steroids. Complaint of new cough as well - continue antibiotic therapy initiated in the ED with Levofloxacin, currently day #3, redosed for treatment of exacerbation of chronic bronchitis. Continue BiPAP on a prn basis - patient has not required this since initial use. Given slight worsening of symptoms today will repeat CXR. Blood Cultures with No Growth X72 hours. Sputum Cultures with normal marino thus far. (2) INGRIS (acute kidney injury): Current visit: Yes Status: Acute Mild elevation in creatinine from baseline, potentially related to acute illness and dehydration - improved. Discontinued IVFs - monitor renal function carefully. Avoid nephrotoxins. (3) Elevated troponin: Current visit: Yes Status: Acute Minimal and equivocal elevation, quickly normalized. Likely demand in nature. (4) Diabetes mellitus: Current visit: No Status: Chronic Continue Glipizide but hold Metformin. Maintain on sliding scale insulin coverage. Continue ADA diet. (5) Hypertension: Current visit: No Status: Chronic Noted. Patient does not appear to be on an antihypertensive at this time, with elevated blood pressures in the setting of high dose IV steroids. Initiated moderate dose CCB, and will continue to monitor blood pressures, which appear improved this afternoon. (6) Gastroesophageal reflux disease: Current visit: No Status: Chronic Continue PPI. (7) DVT prophylaxis: Current visit: Yes Status: Acute SC Heparin. Maintain on PPI for GI prophylaxis given need for steroids. Subjective Interval history since last seen: Pleasant 73 year old man with a prior history significant for COPD with prior exacerbations requiring hospitalization, admitted from [facility] Emergency Department on 10/05 with a diagnosis of COPD exacerbation. Mr. Sims has a past medical history significant for steroid dependent COPD and significant prior tobacco use. His other history includes DM, HTN, OA, GERD, BPH, and prior diagnosis of PMR. He has CAD as a prior history, with a LHC in 2013 which showed no significant occlusion, and a nuclear stress test in 2017 that was deemed negative for ischemia. The patient reports an approximate 2 week history of dyspnea. He first presented to the ED on 09/22, reporting exposure to and inhalation of a polygrip adhesive, thought to have caused an acute exacerbation of his underlying COPD. He was treated with nebulizers acutely, and discharged home. Unfortunately, as he did not improve the patient presented back to the ED today with complaints of onoing dypspnea and cough, along with anterior chest pain. The patient does report that he experiences CP with his acutely worsening respiratory status, and denied any chest discomfort at time of admission. His CXR did not show any acute abnormality, again noting chronic changes at the lung bases (with patient reporting asbestos exposure in the past). His labwork showed a mild leukocytosis, mildly elevated lactate, and a mild elevation in his creatinine. The patient's Troponin was minimally and equivocally elevated at 0.1, with reported mild EKG changes that by review of prior tracings may have been present intermittently in the past. He was referred for admission for further evaluation and treatment. Mr. Sims has been maintained on steroids, antibiotics, and nebulizers. Since admission the patient's breathing had appeared vastly improved, and his creatinine and minimally elevated troponin had both normalized. However, today he reports mildly worsening wheezing following taking a shower. His Lactate has also normalized - this elevation appeared to be a chronic finding. No overnight events reported. Remains afebrile. Exam Narrative Exam Narrative: General: Patient appears comfortable, AAOX3, NAD Neck: Supple CV: Regular with significant ectopy, tachycardic, S1S2, No rubs, murmurs, or gallops. Pulmonary: Clear to auscultation bilaterally with good air entry. Diffuse wheezing again noted, mildly worse. Abdomen: + Bowel Sounds, soft, nontender, nondistended Vascular: +1 b/l lower extremity edema unchanged Psych: Normal mood and affect. Objective Objective Clinical Data: Abnormal lab results 10/08/18 10/08/18 Range/Units 06:40 06:40 WBC 13.20 H (4.4-10.8) k/cumm RDW 14.4 H (11.8-14.1) % Absolute Neutrophils 11.13 H (1.2-6.7) k/cumm Absolute Lymphocytes 0.83 L (1.2-3.4) k/cumm Absolute Monocytes 1.10 H (0.11-0.7) k/cumm Sodium 132 L (136-145) mmol/L Chloride 97 L (98-107) mmol/L BUN 25 H (7-18) mg/dL Glucose 252 H (70-100) mg/dL Calcium 8.1 L (8.5-10.1) mg/dL Magnesium 2.5 H (1.8-2.4) mg/dL Vital Signs Temperature 36.5 C 10/08/18 15:53 Temperature Source Tympanic 10/08/18 15:53 Pulse 107 H 10/08/18 15:53 Pulse Rhythm Regular 10/08/18 08:00 Pulse 95 H 10/06/18 08:40 Respiratory Rate 20 10/08/18 15:53 Respiratory Effort 10/08/18 08:00 Respiratory Depth Shallow 10/08/18 08:00 Respiratory Pattern Irregular 10/08/18 08:00 Blood Pressure 130/73 10/08/18 15:53 Blood Pressure Mean 113 10/06/18 07:40 Blood Pressure Position Supine 10/06/18 03:09 Pulse Oximetry 94 L 10/08/18 15:53 Oxygen Delivery Method Room Air 10/08/18 15:53 Oxygen Flow Rate 0 10/08/18 15:53 Fraction of Inspired Oxygen (FIO2) 30 10/05/18 18:54 Pain Level 3 10/08/18 08:18 Comment 10/07/18 10:01 Intake & Output 10/07/18 10/08/18 10/08/18 23:59 11:59 23:59 Intake Total 2410 / 4632.5 750 / 1110 360 / 1110 Output Total 1050 / 3850 Balance 1360 / 782.5 750 / 1110 360 / 1110 Intake: IV 1110 / 2882.5 110 / 110 Oral 1300 / 1750 640 / 1000 360 / 1000 Output: Urine 1050 / 3850 Other: Urine Color Yellow Urine Appearance Clear Clear Urine Odor Normal Normal Comment voiding at jaya Stool Size Large Stool Characteristics Soft Formed Brown Voiding Methods Urinal Toilet Laboratory Results WBC 13.20 k/cumm (4.4-10.8) H 10/08/18 06:40 RBC 4.96 m/cumm (4.50-6.00) 10/08/18 06:40 Hgb 14.2 g/dL (13.5-17.5) 10/08/18 06:40 Hct 42.2 % (40.0-50.0) 10/08/18 06:40 MCV 85.1 fL (80-95) 10/08/18 06:40 MCH 28.6 pg (27.0-33.0) 10/08/18 06:40 MCHC 33.6 g/dL (32.0-36.0) 10/08/18 06:40 RDW 14.4 % (11.8-14.1) H 10/08/18 06:40 Plt Count 252 x1000/uL (130-400) 10/08/18 06:40 MPV 8.9 fL (8.0-11.0) 10/08/18 06:40 Immature Gran % 1.1 10/08/18 06:40 Neutrophils % 84.3 10/08/18 06:40 Lymphocytes % 6.3 10/08/18 06:40 Monocytes % 8.3 10/08/18 06:40 Eosinophils % 0.0 10/08/18 06:40 Basophils % 0.0 10/08/18 06:40 Absolute Neutrophils 11.13 k/cumm (1.2-6.7) H 10/08/18 06:40 Absolute Lymphocytes 0.83 k/cumm (1.2-3.4) L 10/08/18 06:40 Absolute Monocytes 1.10 k/cumm (0.11-0.7) H 10/08/18 06:40 Absolute Eosinophils 0.00 k/cumm (0.0-0.7) 10/08/18 06:40 Absolute Basophils 0.00 k/cumm (0.0-0.2) 10/08/18 06:40 PT 9.3 sec (9.3-11.0) 10/05/18 07:10 INR 0.9 (0.9-1.1) 10/05/18 07:10 APTT 21.3 sec (21.0-31.4) 10/05/18 07:10 Sodium 132 mmol/L (136-145) L 10/08/18 06:40 Potassium 3.5 mmol/L (3.5-5.1) 10/08/18 06:40 Chloride 97 mmol/L (98-107) L 10/08/18 06:40 Carbon Dioxide 24.2 mmol/L (21.0-32.0) 10/08/18 06:40 Anion Gap 10.8 mmol/L (3-11) 10/08/18 06:40 BUN 25 mg/dL (7-18) H 10/08/18 06:40 Creatinine 1.16 mg/dL (0.70-1.30) 10/08/18 06:40 Estimated GFR/1.73 m2 >= 60.00 (mL/min/1.73m2) 10/08/18 06:40 Glucose 252 mg/dL (70-100) H 10/08/18 06:40 Lactate 1.4 mmol/l (0.6-1.4) 10/07/18 08:20 Calcium 8.1 mg/dL (8.5-10.1) L 10/08/18 06:40 Magnesium 2.5 mg/dL (1.8-2.4) H 10/08/18 06:40 Total Bilirubin 0.4 mg/dL (0.2-1.0) 10/05/18 07:10 AST 28 U/L (15-37) 10/05/18 07:10 ALT 58 U/L (12-78) 10/05/18 07:10 Alkaline Phosphatase 69 U/L (46-116) 10/05/18 07:10 Troponin I 0.05 ng/mL (0.00-0.06) 10/05/18 15:15 NT-Pro-B Natriuret Pep 689 pg/mL (-299) H 10/05/18 07:10 Total Protein 6.9 g/dL (6.4-8.2) 10/05/18 07:10 Albumin 3.7 g/dL (3.4-5.0) 10/05/18 07:10
[2018-10-09] VITALS (11 sets, daily range): BP systolic 140–164; BP diastolic 72–96; PULSE 89–100; RESP 4–19; TEMP 36.1–36.7; O2SAT 95–100
[2018-10-09] MEDS: Normal Saline Flush 10 ML SYR IVP ×5 (04:53→16:36)
[2018-10-09] MEDS: Heparin 5,000 UNITS/ML VIAL 5000 UNITS SC ×3 (04:53→20:57)
[2018-10-09] MEDS: Albuterol/Ipratropium 3 ML UPD VIAL UPD ×5 (04:53→20:57)
[2018-10-09] MEDS: methylPREDNISolone SUCC 125 MG VIAL 60 MG IVP ×2 (05:01→14:10)
[2018-10-09 08:25] LABS: Abs Immature Grans 0.15 k/cumm (0.0-0.09); Absolute Basophil Count 0.01 k/cumm (0.0-0.2); Absolute Lymphocyte Count 0.89 k/cumm (1.2-3.4); Basophils % 0.1; HCT 43.4 % (40.0-50.0); HGB 14.7 g/dL (13.5-17.5); Immature Grans % 1.1; Lymphocytes % 6.4; Mean Corp. HGB Concentration 33.9 g/dL (32.0-36.0); Mean Corpuscular Hemoglobin 28.8 pg (27.0-33.0); Mean Corpuscular Volume 84.9 fL (80-95); Mean Platelet Volume 8.9 fL (8.0-11.0); Monocytes % 6.4; Platelet Count 250 x1000/uL (130-400); RBC 5.11 m/cumm (4.50-6.00); RBC Distribution Width 14.5 % (11.8-14.1); White Blood Cell Count 13.98 k/cumm (4.4-10.8)
[2018-10-09 08:32] LABS: Absolute Monocyte Count 0.89 k/cumm (0.11-0.7); Absolute Neutrophil Count 12.02 k/cumm (1.2-6.7)
[2018-10-09 08:37] LABS: Anion Gap 9.6 mmol/L (3-11); BUN 27 mg/dL (7-18); CO2 26.4 mmol/L (21.0-32.0); CREATININE 1.17 mg/dL (0.70-1.30); Calcium 8.4 mg/dL (8.5-10.1); Chloride 99 mmol/L (98-107); Glucose 240 mg/dL (70-100); Magnesium 2.7 mg/dL (1.8-2.4); Potassium 4.2 mmol/L (3.5-5.1); Sodium 135 mmol/L (136-145)
[2018-10-09] MEDS: Insulin Aspart 300 UNITS/3 ML PEN SC ×5 (08:41→21:53)
[2018-10-09] MEDS: predniSONE 10 MG TAB PO (08:43)
[2018-10-09] MEDS: Gabapentin 300 MG CAP PO ×3 (08:43→20:57)
[2018-10-09] MEDS: Aspirin E.C. 81 MG TABEC PO (08:43)
[2018-10-09] MEDS: Montelukast 10 MG TAB PO (08:45)
[2018-10-09] MEDS: guaiFENesin 600 MG TABCR PO ×2 (08:45→20:57)
[2018-10-09] MEDS: Benzonatate 200 MG CAP PO ×3 (08:45→20:57)
[2018-10-09] MEDS: amLODIPine 5 MG TAB PO (08:45)
[2018-10-09] MEDS: DULoxetine 30 MG CAP 60 MG PO (08:45)
[2018-10-09] MEDS: glipiZIDE 5 MG TAB PO (08:46)
[2018-10-09] MEDS: Budesonide 0.5 MG/2 ML UPD VIAL UPD ×2 (09:26→21:54)
[2018-10-09] MEDS: levoFLOXacin 500 MG/100 ML BAG 100 MG IVPB (10:36)
--- NOTE | 2018-10-09 15:22 | PDOC.CMPRO ---
Care Management Progress Note S/O: Amy was sittin up on the side of his bed watching TV. Stated he was feeling much better but still feels weak. Said he tried to take a walk but didn't get very far. A: 73 year old male admitted to [facility] on 10/05/18 with Pneumonia, COPD Exacerbation, Elevated Troponin P: Amy will return home when ready per MD. He will follow up with his PCP and plan of care as prescribed. No additional services anticipated at this time. Amy will transport home via private vehicle with his , Jordyn.
--- NOTE | 2018-10-09 15:36 | CMPROGNOTE_ITS ---
Care Management Progress Note S/O: Amy was sittin up on the side of his bed watching TV. Stated he was feeling much better but still feels weak. Said he tried to take a walk but didn't get very far. A: 73 year old male admitted to [facility] on 10/05/18 with Pneumonia, COPD Exacerbation, Elevated Troponin P: Amy will return home when ready per MD. He will follow up with his PCP and plan of care as prescribed. No additional services anticipated at this time. Amy will transport home via private vehicle with his , Jordyn.
--- NOTE | 2018-10-09 15:46 | W.PM.PROGNOT ---
Date of Service Date of service: 10/09/18 Time of Service: 15:46 Assessment and Plan (1) Asthma with acute exacerbation: Current visit: Yes Status: Acute Slow to improve. I added rocephin to IV levofloxacin and increased steroids. Obtain sputum cx. Continue scheduled and prn nebs, budesonide nebs, antitussives. On Nucala (mepolizumab). (2) COPD with acute exacerbation: Current visit: Yes Status: Acute As above (3) Atherosclerosis of [place] coronary artery: Current visit: No Status: Chronic Elevated troponin on this admission was in setting of mild INGRIS but also acute respiratory illness. No further workup. D/c tele. (4) INGRIS (acute kidney injury): Current visit: Yes Status: Acute Mild elevation in creatinine from baseline, potentially related to acute illness and dehydration - improved. Discontinued IVFs - monitor renal function carefully. Avoid nephrotoxins. (5) Diabetes mellitus: Current visit: No Status: Chronic Add long acting insulin, change coverage to AC&HS. On glipizide. (6) Hypertension: Current visit: No Status: Chronic Mostly controlled. Continue amlodipine. No change in tx today. (7) Gastroesophageal reflux disease: Current visit: No Status: Chronic Transition to PO PPI (8) Steroid-induced hyperglycemia: Current visit: Yes Status: Acute Adjustments to basal bolus insulin as above (9) Discharge planning issues: Current visit: Yes Status: Acute Full code Not yet ready for discharge (10) Thrush: Current visit: Yes Status: Acute Provide nystatin swish and swallow (11) DVT prophylaxis: Current visit: Yes Status: Acute SC Heparin. Maintain on PPI for GI prophylaxis given need for steroids. Subjective Interval history since last seen: Patient is not sure if he is feeling better today. Got short of breath while ambulating on room air, even though his O2 sats stayed up at 99%. States it hurts to cough. When he coughs, the sputum is yellow. C/o sore throat, he thinks it may be thrush. Denies dizziness, nausea, vomiting. He does not think he is back at his baseline yet. Exam Narrative Exam Narrative: General: Obese male, coughing, A&Ox3, anxious HEENT: EOMI, MMM, white plaque on tongue Heart: RRR, no m/r/g Lungs: wheezing on expiration R>L GI: abdomen is soft, nontender, nondistended Extremities: trace edema at B ankles Objective Objective Clinical Data: Abnormal lab results 10/09/18 10/09/18 Range/Units 07:45 07:45 WBC 13.98 H (4.4-10.8) k/cumm RDW 14.5 H (11.8-14.1) % Absolute Neutrophils 12.02 H (1.2-6.7) k/cumm Absolute Lymphocytes 0.89 L (1.2-3.4) k/cumm Absolute Monocytes 0.89 H (0.11-0.7) k/cumm Sodium 135 L (136-145) mmol/L BUN 27 H (7-18) mg/dL Glucose 240 H (70-100) mg/dL Calcium 8.4 L (8.5-10.1) mg/dL Magnesium 2.7 H (1.8-2.4) mg/dL Vital Signs Temperature 36.4 C L 10/09/18 07:45 Temperature Source Tympanic 10/09/18 07:45 Pulse 99 H 10/09/18 15:02 Pulse Rhythm Regular 10/08/18 20:15 Pulse 95 H 10/06/18 08:40 Respiratory Rate 19 10/09/18 07:45 Respiratory Effort 10/08/18 20:15 Respiratory Depth Shallow 10/08/18 20:15 Respiratory Pattern Irregular 10/08/18 20:15 Blood Pressure 164/91 H 10/09/18 07:45 Blood Pressure Mean 113 10/06/18 07:40 Blood Pressure Position Supine 10/06/18 03:09 Pulse Oximetry 96 10/09/18 07:45 Oxygen Delivery Method Room Air 10/09/18 07:45 Oxygen Flow Rate 0 10/09/18 07:45 Fraction of Inspired Oxygen (FIO2) 30 10/05/18 18:54 Pain Level 4 10/08/18 20:02 Comment 10/07/18 10:01 Intake & Output 10/08/18 10/09/18 10/09/18 23:59 11:59 23:59 Intake Total 370 / 1120 450 / 450 Balance 370 / 1120 450 / 450 Intake: IV 10 / 120 Oral 360 / 1000 450 / 450 Other: Urine Color Yellow Urine Appearance Clear Urine Odor Normal Voiding Methods Toilet Laboratory Results WBC 13.98 k/cumm (4.4-10.8) H 10/09/18 07:45 RBC 5.11 m/cumm (4.50-6.00) 10/09/18 07:45 Hgb 14.7 g/dL (13.5-17.5) 10/09/18 07:45 Hct 43.4 % (40.0-50.0) 10/09/18 07:45 MCV 84.9 fL (80-95) 10/09/18 07:45 MCH 28.8 pg (27.0-33.0) 10/09/18 07:45 MCHC 33.9 g/dL (32.0-36.0) 10/09/18 07:45 RDW 14.5 % (11.8-14.1) H 10/09/18 07:45 Plt Count 250 x1000/uL (130-400) 10/09/18 07:45 MPV 8.9 fL (8.0-11.0) 10/09/18 07:45 Immature Gran % 1.1 10/09/18 07:45 Neutrophils % 86.0 10/09/18 07:45 Lymphocytes % 6.4 10/09/18 07:45 Monocytes % 6.4 10/09/18 07:45 Eosinophils % 0.0 10/09/18 07:45 Basophils % 0.1 10/09/18 07:45 Absolute Neutrophils 12.02 k/cumm (1.2-6.7) H 10/09/18 07:45 Absolute Lymphocytes 0.89 k/cumm (1.2-3.4) L 10/09/18 07:45 Absolute Monocytes 0.89 k/cumm (0.11-0.7) H 10/09/18 07:45 Absolute Eosinophils 0.00 k/cumm (0.0-0.7) 10/09/18 07:45 Absolute Basophils 0.01 k/cumm (0.0-0.2) 10/09/18 07:45 PT 9.3 sec (9.3-11.0) 10/05/18 07:10 INR 0.9 (0.9-1.1) 10/05/18 07:10 APTT 21.3 sec (21.0-31.4) 10/05/18 07:10 Sodium 135 mmol/L (136-145) L 10/09/18 07:45 Potassium 4.2 mmol/L (3.5-5.1) 10/09/18 07:45 Chloride 99 mmol/L (98-107) 10/09/18 07:45 Carbon Dioxide 26.4 mmol/L (21.0-32.0) 10/09/18 07:45 Anion Gap 9.6 mmol/L (3-11) 10/09/18 07:45 BUN 27 mg/dL (7-18) H 10/09/18 07:45 Creatinine 1.17 mg/dL (0.70-1.30) 10/09/18 07:45 Estimated GFR/1.73 m2 >= 60.00 (mL/min/1.73m2) 10/09/18 07:45 Glucose 240 mg/dL (70-100) H 10/09/18 07:45 Lactate 1.4 mmol/l (0.6-1.4) 10/07/18 08:20 Calcium 8.4 mg/dL (8.5-10.1) L 10/09/18 07:45 Magnesium 2.7 mg/dL (1.8-2.4) H 10/09/18 07:45 Total Bilirubin 0.4 mg/dL (0.2-1.0) 10/05/18 07:10 AST 28 U/L (15-37) 10/05/18 07:10 ALT 58 U/L (12-78) 10/05/18 07:10 Alkaline Phosphatase 69 U/L (46-116) 10/05/18 07:10 Troponin I 0.05 ng/mL (0.00-0.06) 10/05/18 15:15 NT-Pro-B Natriuret Pep 689 pg/mL (-299) H 10/05/18 07:10 Total Protein 6.9 g/dL (6.4-8.2) 10/05/18 07:10 Albumin 3.7 g/dL (3.4-5.0) 10/05/18 07:10 CXR 10/08/18: Some interval improvement noted in left basilar infiltrate since 09/22/18.
[2018-10-09] MEDS: cefTRIAXone 1 GM/50 ML BAG IVPB (16:36)
[2018-10-09] MEDS: Nystatin 500000 UNITS/5 ML SUSP 5ML CUP PO ×2 (17:15→21:53)
[2018-10-09] MEDS: Insulin Glargine 300 UNITS/3 ML PEN 10 UNITS SC (21:52)
[2018-10-09] MEDS: methylPREDNISolone SUCC 125 MG VIAL 80 MG IVP (21:54)
[2018-10-10] VITALS (9 sets, daily range): BP systolic 144–191; BP diastolic 75–90; PULSE 85–102; RESP 8–20; TEMP 35.9–36.7; O2SAT 96–100
[2018-10-10] MEDS: Heparin 5,000 UNITS/ML VIAL 5000 UNITS SC ×3 (03:20→19:35)
[2018-10-10] MEDS: Albuterol/Ipratropium 3 ML UPD VIAL UPD ×6 (03:20→23:34)
[2018-10-10] MEDS: Nystatin 500000 UNITS/5 ML SUSP 5ML CUP PO ×5 (06:45→22:09)
[2018-10-10] MEDS: Normal Saline Flush 10 ML SYR IVP ×5 (06:47→22:10)
[2018-10-10] MEDS: methylPREDNISolone SUCC 125 MG VIAL 80 MG IVP ×3 (06:47→22:09)
[2018-10-10 07:43] LABS: Abs Immature Grans 0.21 k/cumm (0.0-0.09); Absolute Basophil Count 0.01 k/cumm (0.0-0.2); Absolute Monocyte Count 0.99 k/cumm (0.11-0.7); Absolute Neutrophil Count 10.39 k/cumm (1.2-6.7); Basophils % 0.1; HCT 42.3 % (40.0-50.0); HGB 14.6 g/dL (13.5-17.5); Immature Grans % 1.7; Lymphocytes % 7.3; Mean Corp. HGB Concentration 34.5 g/dL (32.0-36.0); Mean Corpuscular Hemoglobin 29.1 pg (27.0-33.0); Mean Corpuscular Volume 84.3 fL (80-95); Monocytes % 7.9; Platelet Count 241 x1000/uL (130-400); RBC 5.02 m/cumm (4.50-6.00); RBC Distribution Width 14.5 % (11.8-14.1); White Blood Cell Count 12.52 k/cumm (4.4-10.8)
[2018-10-10 07:47] LABS: Absolute Lymphocyte Count 0.91 k/cumm (1.2-3.4)
[2018-10-10 07:48] LABS: Anion Gap 11.3 mmol/L (3-11); BUN 25 mg/dL (7-18); CO2 22.7 mmol/L (21.0-32.0); CREATININE 1.11 mg/dL (0.70-1.30); Calcium 8.1 mg/dL (8.5-10.1); Chloride 96 mmol/L (98-107); Glucose 239 mg/dL (70-100); Magnesium 2.6 mg/dL (1.8-2.4); Sodium 130 mmol/L (136-145)
[2018-10-10] MEDS: Insulin Aspart 300 UNITS/3 ML PEN SC ×7 (08:40→22:10)
[2018-10-10] MEDS: DULoxetine 30 MG CAP 60 MG PO (08:41)
[2018-10-10] MEDS: amLODIPine 5 MG TAB PO (08:42)
[2018-10-10] MEDS: Montelukast 10 MG TAB PO (08:42)
[2018-10-10] MEDS: Pantoprazole 40 MG TABCR PO (08:42)
[2018-10-10] MEDS: Benzonatate 200 MG CAP PO ×3 (08:43→19:33)
[2018-10-10] MEDS: Aspirin E.C. 81 MG TABEC PO (08:43)
[2018-10-10] MEDS: guaiFENesin 600 MG TABCR PO ×2 (08:43→19:33)
[2018-10-10] MEDS: predniSONE 10 MG TAB PO (08:43)
[2018-10-10] MEDS: Gabapentin 300 MG CAP PO ×3 (08:44→19:34)
[2018-10-10] MEDS: glipiZIDE 5 MG TAB PO (08:44)
[2018-10-10] MEDS: Budesonide 0.5 MG/2 ML UPD VIAL UPD ×2 (10:10→22:10)
[2018-10-10] MEDS: levoFLOXacin 500 MG/100 ML BAG 100 MG IVPB (11:06)
[2018-10-10 11:37] LABS: Bilirubin Negative (Negative); Blood Negative (Negative); Clarity Clear (Clear); Glucose 500 mg/dL (Negative); Ketones Negative (Negative); Leukocyte Esterase Negative (Negative); Nitrite Negative (Negative); Specific Gravity 1.015 (1.005-1.025); Urobilinogen 0.2 EU/dL (Up TO 0.2); pH 6.5 (5-8)
[2018-10-10 11:56] LABS: Bacteria Rare HPF (Negative); C & S Indicated? No; Casts Negative LPF (Negative); Crystals Negative HPF (Negative); Epithelial Cells Rare HPF (Negative); Mucus Moderate (Negative); Other Cells Few Spermatozoa (Negative); RBC 0-2 (0-2); WBC 0-2 HPF (0-5)
--- NOTE | 2018-10-10 13:04 | PT.INIE ---
Date of service: 10/10/18 Time of Service: 12:23 PT Notes Inpatient Physical Therapy Evaluation Date: 09/23/2018 Referring Doctor: Vandana Philip MD PT Orders: PT CONSULT: Eval/treat Precautions: Fall. Standard. Patient Profile/Admitting Diagnosis: Patient is a 73-year-old male patient with past medical history significant for steroid-dependent COPD and significant prior tobacco use who presented to the ED on 10/05/2018 with chief complaints of shortness of breath, anterior substernal chest pain with coughing for the past 2 weeks prior to admission. Patient was diagnosed with exacerbation of chronic obstructive pulmonary disease, acute kidney injury, increased troponin, and steroid-induced hyperglycemia. Referral for physical therapy services was received today to address impairments and strength, mobility level, and activity tolerance PMHX: Medical History Gastroesophageal reflux disease (Chronic) Diabetic peripheral neuropathy (Chronic 12/11/15) 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) Atherosclerosis of [place] coronary artery (Chronic) Osteoarthritis (Chronic) COPD (chronic obstructive pulmonary disease) (Chronic) Diabetes mellitus (Chronic) Hypertension (Chronic) Polymyalgia rheumatica (Resolved 02/19/12) Surgical History SHOULDER SURGERY Social History/Home Situation: Patient lives with Jordyn and a 1 floor house in [place] with 3 grandchildren. They have 3 steps that lead onto a porch and another 3 steps to enter the main entrance of the house with a rail on the right going up. Patient is independent with all aspects of ADLs without the need for an assistive ambulatory device or adaptive equipment although he states that he has a walker stashed somewhere and walking sticks. Patient still drives. Both and him states that they cover up to 100 [address] of [address] on a daily basis bringing their grandchildren to school and daycare and doing their own errands. 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 Current Functional Limitations: Decreased activity tolerance impairing transfer and ambulation task performance Equipment Owned/DME: FWW, walking sticks, grab bars Subjective: Patient and Jordyn are both agreeable to a PT consult. Patient reports that he still gets that discomfort in his chest but has significantly been reduced compared to when he first came into the hospital. He hopes to go back with his Jordyn as soon as he is safe to do so. He denies any headache, chest pain, nausea, and any dizziness throughout PT session today. Patient states that he may have 1 of his knees done this year or next year as they have been troubling him. Objective: General Observation: Patient seen sitting on chair. present throughout PT consult. No lines/attachments present. No oxygen supplementation at time of consult. Mental Status: Alert and oriented x4 Pain: Patient reported some discomfort in bilateral knees ROM: Right Upper Extremity: Shoulder Flexion WFL. Shoulder abduction WFL. Elbow flexion WFL. Wrist flexion WFL. Functional opening and closing of hand WFL. Left Upper Extremity: Shoulder Flexion WFL. Shoulder abduction WFL. Elbow flexion WFL. Wrist flexion WFL. Functional opening and closing of hand WFL. Right Lower Extremity: Hip flexion WFL. Hip abduction WFL. Knee flexion WFL. Ankle dorsiflexion WFL. Ankle plantarflexion WFL. Left Lower Extremity: Hip flexion WFL. Hip abduction WFL. Knee flexion WFL. Ankle dorsiflexion WFL. Ankle plantarflexion WFL. Strength: Right Upper Extremity: Shoulder flexors 4/5. Shoulder abductors 4/5. Elbow flexors 4/5. Elbow extensors 4/5. Ore Roaster strong. Left Upper Extremity: Shoulder flexors 4/5. Shoulder abductors 4/5. Elbow flexors 4/5. Elbow extensors 4/5. Ore Roaster strong. Right Lower Extremity: Hip flexors 4-/5. Hip abductors 4/5. Knee flexors 4/5. Knee extensors 4-/5. Ankle dorsiflexors 4/5. Ankle plantarflexors 4/5. Left Lower Extremity:Hip flexors 4-/5. Hip abductors 4/5. Knee flexors 4/5. Knee extensors 4-/5. Ankle dorsiflexors 4/5. Ankle plantarflexors 4/5. Sensation: Intact as to pain and pressure on bilateral lower extremities. Bed Mobility/Transfers: Rolling independent Supine to sit independent Sit to supine independent Sit to stand independent Stand to sit independent Bed to chair independent Chair to bed independent Gait: Patient is able to tolerate level surface ambulation of 120 feet without any assistive device requiring only supervision from this PT with report of mild shortness of breath and chest pain discomfort that subsided with rest. Gait pattern unremarkable except for reduced gait velocity as patient states that he needs to slow down so he does not get out of breath fast. Balance: Static Sitting: Normal Dynamic Sitting: Normal Static Standing: Normal Dynamic Standing: Good Special Tests: Mobility Limitations Standardized Measure [facility] AM-PAC 6 clicks Basic Mobility Inpatient Short Form: Raw Score: 22 CMS Score: 21% deficit Informed Consent/Education: Patient instructed in purpose of PT consult and plan of care. Patient was advised to perform seated leg exercises every 2 hours consisting of seated hip flexion and bilateral leg raises in order to maintain flexibility and range of motion onto bilateral lower extremities. He was also instructed to walk the small group around the nurse task at least once a day with a nursing staff in order to maximize activity tolerance. Assessment: Patient is a 73-year-old male with diagnosis of COPD exacerbation, steroid-induced hyperglycemia, and acute kidney injury. Patient presents with clinical signs and symptoms consistent with current/admitting diagnoses that have resulted to mobility limitations, gait instability, generalized weakness, and impairment of motor control as demonstrated by the following impairment level findings: 1. Decreased strength to B LE major muscle groups 2. Impaired standing balance 3. Impaired activity tolerance Impairments are contributing to the following functional limitations: 1. Increase completion time for mobility ADL performance 2. Increased fall risk 3. Inability to negotiate steps without dyspnea Patient is assessed as a [id number] moderate complexity based on the following: History: Patient is a 73-year-old male with diagnosis of COPD exacerbation, steroid-induced hyperglycemia, and acute kidney injury with past medical history as listed above Examination: Demonstrable impairment in strength, balance, and range of motion with underlying impairments and functional limitations as documented above Presentation:Evolving Decision Makin moderate complexity Goals: Goals X1 week 1. Independent gait on level surface without assistive device for at least 500 feet without report of chest discomofort nor dyspnea 2. Independent stair negotiation while holding onto one rail for at least 4 steps without report of chest discomofort nor dyspnea 3. Independent with home exercise program 4. Normal dynamic standing balance/tolerance 5. Patient will demonstrate 2-minute walk test of 200 feet without report of pain nor dyspnea Plan of Care/Treatment Plan: 1-2x/day, 7 days/week x 1 week. Plan of care has been reviewed with the [facility] providing the service under Physical Therapy direction. Initiate Physical Therapy intervention for strengthening, bed mobility, transfers, gait, stairs, balance training, use of assistive device. DISCHARGE RECOMMENDATIONS: Patient may benefit from outpatient pulmonary rehabilitation program in order to maximize pulmonary capacity and activity tolerance while performing all mobility related ADLs. TREATMENT CODE/TIME: 27260 32 minutes beginning at 12:23 PM. Thank you very much for this referral. Mira Sr PT, DPT, CLT [facility]
--- NOTE | 2018-10-10 13:09 | IN_ITS ---
Date of service: 10/10/18 Time of Service: 12:23 PT Notes Inpatient Physical Therapy Evaluation Date: 09/23/2018 Referring Doctor: Vandana Philip MD PT Orders: PT CONSULT: Eval/treat Precautions: Fall. Standard. Patient Profile/Admitting Diagnosis: Patient is a 73-year-old male patient with past medical history significant for steroid-dependent COPD and significant prior tobacco use who presented to the ED on 10/05/2018 with chief complaints of shortness of breath, anterior substernal chest pain with coughing for the past 2 weeks prior to admission. Patient was diagnosed with exacerbation of chronic obstructive pulmonary disease, acute kidney injury, increased troponin, and steroid-induced hyperglycemia. Referral for physical therapy services was received today to address impairments and strength, mobility level, and activity tolerance PMHX: Medical History Gastroesophageal reflux disease (Chronic) Diabetic peripheral neuropathy (Chronic 12/11/15) 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) Atherosclerosis of [place] coronary artery (Chronic) Osteoarthritis (Chronic) COPD (chronic obstructive pulmonary disease) (Chronic) Diabetes mellitus (Chronic) Hypertension (Chronic) Polymyalgia rheumatica (Resolved 02/19/12) Surgical History SHOULDER SURGERY Social History/Home Situation: Patient lives with Jordyn and a 1 floor house in [place] with 3 grandchildren. They have 3 steps that lead onto a porch and another 3 steps to enter the main entrance of the house with a rail on the right going up. Patient is independent with all aspects of ADLs without the need for an assistive ambulatory device or adaptive equipment although he states that he has a walker stashed somewhere and walking sticks. Patient still drives. Both and him states that they cover up to 100 miles of driving on a daily basis bringing their grandchildren to school and daycare and doing their own errands. 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 Current Functional Limitations: Decreased activity tolerance impairing transfer and ambulation task performance Equipment Owned/DME: FWW, walking sticks, grab bars Subjective: Patient and Jordyn are both agreeable to a PT consult. Patient reports that he still gets that discomfort in his chest but has significantly been reduced compared to when he first came into the hospital. He hopes to go back with his Jordyn as soon as he is safe to do so. He denies any headache, chest pain, nausea, and any dizziness throughout PT session today. Patient states that he may have 1 of his knees done this year or next year as they have been troubling him. Objective: General Observation: Patient seen sitting on chair. present throughout PT consult. No lines/attachments present. No oxygen supplementation at time of consult. Mental Status: Alert and oriented x4 Pain: Patient reported some discomfort in bilateral knees ROM: Right Upper Extremity: Shoulder Flexion WFL. Shoulder abduction WFL. Elbow flexion WFL. Wrist flexion WFL. Functional opening and closing of hand WFL. Left Upper Extremity: Shoulder Flexion WFL. Shoulder abduction WFL. Elbow flexion WFL. Wrist flexion WFL. Functional opening and closing of hand WFL. Right Lower Extremity: Hip flexion WFL. Hip abduction WFL. Knee flexion WFL. Ankle dorsiflexion WFL. Ankle plantarflexion WFL. Left Lower Extremity: Hip flexion WFL. Hip abduction WFL. Knee flexion WFL. Ankle dorsiflexion WFL. Ankle plantarflexion WFL. Strength: Right Upper Extremity: Shoulder flexors 4/5. Shoulder abductors 4/5. Elbow flexors 4/5. Elbow extensors 4/5. Casing Machine Operator strong. Left Upper Extremity: Shoulder flexors 4/5. Shoulder abductors 4/5. Elbow flexors 4/5. Elbow extensors 4/5. Casing Machine Operator strong. Right Lower Extremity: Hip flexors 4-/5. Hip abductors 4/5. Knee flexors 4/5. Knee extensors 4-/5. Ankle dorsiflexors 4/5. Ankle plantarflexors 4/5. Left Lower Extremity:Hip flexors 4-/5. Hip abductors 4/5. Knee flexors 4/5. Knee extensors 4-/5. Ankle dorsiflexors 4/5. Ankle plantarflexors 4/5. Sensation: Intact as to pain and pressure on bilateral lower extremities. Bed Mobility/Transfers: Rolling independent Supine to sit independent Sit to supine independent Sit to stand independent Stand to sit independent Bed to chair independent Chair to bed independent Gait: Patient is able to tolerate level surface ambulation of 120 feet without any assistive device requiring only supervision from this PT with report of mild shortness of breath and chest pain discomfort that subsided with rest. Gait pattern unremarkable except for reduced gait velocity as patient states that he needs to slow down so he does not get out of breath fast. Balance: Static Sitting: Normal Dynamic Sitting: Normal Static Standing: Normal Dynamic Standing: Good Special Tests: Mobility Limitations Standardized Measure [facility] AM-PAC 6 clicks Basic Mobility Inpatient Short Form: Raw Score: 22 CMS Score: 21% deficit Informed Consent/Education: Patient instructed in purpose of PT consult and plan of care. Patient was advised to perform seated leg exercises every 2 hours consisting of seated hip flexion and bilateral leg raises in order to maintain flexibility and range of motion onto bilateral lower extremities. He was also instructed to walk the small group around the nurse task at least once a day with a nursing staff in order to maximize activity tolerance. Assessment: Patient is a 73-year-old male with diagnosis of COPD exacerbation, steroid-induced hyperglycemia, and acute kidney injury. Patient presents with clinical signs and symptoms consistent with current/admitting diagnoses that have resulted to mobility limitations, gait instability, generalized weakness, and impairment of motor control as demonstrated by the following impairment level findings: 1. Decreased strength to B LE major muscle groups 2. Impaired standing balance 3. Impaired activity tolerance Impairments are contributing to the following functional limitations: 1. Increase completion time for mobility ADL performance 2. Increased fall risk 3. Inability to negotiate steps without dyspnea Patient is assessed as a 77845 moderate complexity based on the following: History: Patient is a 73-year-old male with diagnosis of COPD exacerbation, steroid-induced hyperglycemia, and acute kidney injury with past medical history as listed above Examination: Demonstrable impairment in strength, balance, and range of motion with underlying impairments and functional limitations as documented above Presentation:Evolving Decision Makin moderate complexity Goals: Goals X1 week 1. Independent gait on level surface without assistive device for at least 500 feet without report of chest discomofort nor dyspnea 2. Independent stair negotiation while holding onto one rail for at least 4 steps without report of chest discomofort nor dyspnea 3. Independent with home exercise program 4. Normal dynamic standing balance/tolerance 5. Patient will demonstrate 2-minute walk test of 200 feet without report of pain nor dyspnea Plan of Care/Treatment Plan: 1-2x/day, 7 days/week x 1 week. Plan of care has been reviewed with the TESTING AND REGULATING TECHNICIAN providing the service under Physical Therapy direction. Initiate Physical Therapy intervention for strengthening, bed mobility, transfers, gait, stairs, balance training, use of assistive device. DISCHARGE RECOMMENDATIONS: Patient may benefit from outpatient pulmonary rehabilitation program in order to maximize pulmonary capacity and activity tolerance while performing all mobility related ADLs. TREATMENT CODE/TIME: 60798 32 minutes beginning at 12:23 PM. Thank you very much for this referral. Mira Sr PT, DPT, CLT [facility]
--- NOTE | 2018-10-10 13:25 | PDOC.CMPRO ---
Care Management Progress Note S/O: Amy was sitting up in his recliner visiting with his and grandchildren. Stated he has been sweating off and on and still feels weak. A: 73 year old male admitted to [facility] on 10/05/18 with Pneumonia, COPD Exacerbation, Elevated Troponin P: Amy will return home when ready per MD. He will follow up with his PCP and plan of care as prescribed. No additional services anticipated at this time. Amy will transport home via private vehicle with his , Jordyn.
--- NOTE | 2018-10-10 13:36 | CMPROGNOTE_ITS ---
Care Management Progress Note S/O: Amy was sitting up in his recliner visiting with his and grandchildren. Stated he has been sweating off and on and still feels weak. A: 73 year old male admitted to [facility] on 10/05/18 with Pneumonia, COPD Exacerbation, Elevated Troponin P: Amy will return home when ready per MD. He will follow up with his PCP and plan of care as prescribed. No additional services anticipated at this time. Amy will transport home via private vehicle with his , Jordyn.
--- NOTE | 2018-10-10 15:39 | PGE_ITS ---
Date of Service Date of service: 10/10/18 Time of Service: 15:33 Assessment and Plan (1) Asthma with acute exacerbation: Current visit: Yes Status: Acute Slow to improve. Change antibiotics to vancomycin/zosyn. Continue solumedrol 80 mg IV q 8 hrs. Continue scheduled and prn nebs, budesonide nebs, antitussives. On Nucala (mepolizumab). (2) COPD with acute exacerbation: Current visit: Yes Status: Acute As above (3) Atherosclerosis of [place] coronary artery: Current visit: No Status: Chronic Elevated troponin on this admission was in setting of mild INGRIS but also acute respiratory illness. No further workup. off tele. (4) INGRIS (acute kidney injury): Current visit: Yes Status: Acute Mild elevation in creatinine from baseline, potentially related to acute illness and dehydration - improved. Monitor renal function carefully off IVF. Avoid nephrotoxins. (5) Diabetes mellitus: Current visit: No Status: Chronic Adjust basal bolus insulin. Continue glipizide. (6) Hypertension: Current visit: No Status: Chronic Mostly controlled. Continue amlodipine. No change in tx today. (7) Gastroesophageal reflux disease: Current visit: No Status: Chronic PO PPI (8) Steroid-induced hyperglycemia: Current visit: Yes Status: Acute Adjustments to basal bolus insulin as above (9) Discharge planning issues: Current visit: Yes Status: Acute Full code Not yet ready for discharge (10) Thrush: Current visit: Yes Status: Acute Continue nystatin swish and swallow (11) DVT prophylaxis: Current visit: Yes Status: Acute SC Heparin. Maintain on PPI for GI prophylaxis given need for steroids. Subjective Interval history since last seen: Not feeling better - still very dyspneic with any exertion and even at rest. He has not noticed much difference in the way that he has felt in the last 3 days. Gets dizzy with coughing or when he tries to get up. C/o sore throat - asks for lozenges. He does not think it's because of thrush. Denies chest pain, nausea. Exam Narrative Exam Narrative: General: Obese male, coughing harshly, A&Ox3, anxious HEENT: EOMI, MMM, white plaque on tongue Heart: RRR, no m/r/g Lungs: wheezing on expiration B, no improvement from yesterday GI: abdomen is soft, nontender, nondistended Extremities: trace edema at B ankles, L>R Objective Objective Clinical Data: Abnormal lab results 10/10/18 10/10/18 10/10/18 Range/Units 06:55 06:55 10:15 WBC 12.52 H (4.4-10.8) k/cumm RDW 14.5 H (11.8-14.1) % Absolute Neutrophils 10.39 H (1.2-6.7) k/cumm Absolute Lymphocytes 0.91 L (1.2-3.4) k/cumm Absolute Monocytes 0.99 H (0.11-0.7) k/cumm Sodium 130 L (136-145) mmol/L Chloride 96 L (98-107) mmol/L Anion Gap 11.3 H (3-11) mmol/L BUN 25 H (7-18) mg/dL Glucose 239 H (70-100) mg/dL Calcium 8.1 L (8.5-10.1) mg/dL Magnesium 2.6 H (1.8-2.4) mg/dL Urine Protein 30 H (Negative) mg/dL Urine Glucose 500 H (Negative) mg/dL Vital Signs Temperature 36.2 C L 10/10/18 11:20 Temperature Source Tympanic 10/10/18 11:20 Pulse 85 10/10/18 11:20 Pulse Rhythm Regular 10/09/18 20:50 Pulse 95 H 10/06/18 08:40 Respiratory Rate 17 10/10/18 11:20 Respiratory Effort Non-Labored 10/09/18 20:50 Respiratory Depth Normal 10/09/18 20:50 Respiratory Pattern Normal 10/09/18 20:50 Blood Pressure 159/88 H 10/10/18 11:20 Blood Pressure Mean 113 10/06/18 07:40 Blood Pressure Position Supine 10/06/18 03:09 Pulse Oximetry 98 10/10/18 11:20 Oxygen Delivery Method Room Air 10/10/18 11:20 Oxygen Flow Rate 0 10/10/18 11:20 Fraction of Inspired Oxygen (FIO2) 30 10/05/18 18:54 Pain Level 0 10/09/18 23:43 Comment 10/07/18 10:01 Intake & Output 10/09/18 10/10/18 10/10/18 23:59 11:59 23:59 Intake Total 940 / 1040 440 / 1190 750 / 1190 Output Total 500 / 500 Balance 940 / 1040 -60 / 690 750 / 690 Intake: IV 10 Oral 930 / 930 440 / 1190 750 / 1190 Output: Urine 500 / 500 Other: Urine Color Yellow Yellow Urine Appearance Clear Clear Urine Odor Normal None Voiding Methods Toilet Urinal Laboratory Results WBC 12.52 k/cumm (4.4-10.8) H 10/10/18 06:55 RBC 5.02 m/cumm (4.50-6.00) 10/10/18 06:55 Hgb 14.6 g/dL (13.5-17.5) 10/10/18 06:55 Hct 42.3 % (40.0-50.0) 10/10/18 06:55 MCV 84.3 fL (80-95) 10/10/18 06:55 MCH 29.1 pg (27.0-33.0) 10/10/18 06:55 MCHC 34.5 g/dL (32.0-36.0) 10/10/18 06:55 RDW 14.5 % (11.8-14.1) H 10/10/18 06:55 Plt Count 241 x1000/uL (130-400) 10/10/18 06:55 MPV 9.0 fL (8.0-11.0) 10/10/18 06:55 Immature Gran % 1.7 10/10/18 06:55 Neutrophils % 83.0 10/10/18 06:55 Lymphocytes % 7.3 10/10/18 06:55 Monocytes % 7.9 10/10/18 06:55 Eosinophils % 0.0 10/10/18 06:55 Basophils % 0.1 10/10/18 06:55 Absolute Neutrophils 10.39 k/cumm (1.2-6.7) H 10/10/18 06:55 Absolute Lymphocytes 0.91 k/cumm (1.2-3.4) L 10/10/18 06:55 Absolute Monocytes 0.99 k/cumm (0.11-0.7) H 10/10/18 06:55 Absolute Eosinophils 0.00 k/cumm (0.0-0.7) 10/10/18 06:55 Absolute Basophils 0.01 k/cumm (0.0-0.2) 10/10/18 06:55 PT 9.3 sec (9.3-11.0) 10/05/18 07:10 INR 0.9 (0.9-1.1) 10/05/18 07:10 APTT 21.3 sec (21.0-31.4) 10/05/18 07:10 Sodium 130 mmol/L (136-145) L 10/10/18 06:55 Potassium 4.0 mmol/L (3.5-5.1) 10/10/18 06:55 Chloride 96 mmol/L (98-107) L 10/10/18 06:55 Carbon Dioxide 22.7 mmol/L (21.0-32.0) 10/10/18 06:55 Anion Gap 11.3 mmol/L (3-11) H 10/10/18 06:55 BUN 25 mg/dL (7-18) H 10/10/18 06:55 Creatinine 1.11 mg/dL (0.70-1.30) 10/10/18 06:55 Estimated GFR/1.73 m2 >= 60.00 (mL/min/1.73m2) 10/10/18 06:55 Glucose 239 mg/dL (70-100) H 10/10/18 06:55 Lactate 1.4 mmol/l (0.6-1.4) 10/07/18 08:20 Calcium 8.1 mg/dL (8.5-10.1) L 10/10/18 06:55 Magnesium 2.6 mg/dL (1.8-2.4) H 10/10/18 06:55 Total Bilirubin 0.4 mg/dL (0.2-1.0) 10/05/18 07:10 AST 28 U/L (15-37) 10/05/18 07:10 ALT 58 U/L (12-78) 10/05/18 07:10 Alkaline Phosphatase 69 U/L (46-116) 10/05/18 07:10 Troponin I 0.05 ng/mL (0.00-0.06) 10/05/18 15:15 NT-Pro-B Natriuret Pep 689 pg/mL (-299) H 10/05/18 07:10 Total Protein 6.9 g/dL (6.4-8.2) 10/05/18 07:10 Albumin 3.7 g/dL (3.4-5.0) 10/05/18 07:10 Urine Color Yellow (Yellow) 10/10/18 10:15 Urine Clarity Clear (Clear) 10/10/18 10:15 Urine pH 6.5 (5-8) 10/10/18 10:15 Ur Specific [place] 1.015 (1.005-1.025) 10/10/18 10:15 Urine Protein 30 mg/dL (Negative) H 10/10/18 10:15 Urine Ketones Negative mg/dL (Negative) 10/10/18 10:15 Urine Blood Negative (Negative) 10/10/18 10:15 Urine Nitrite Negative (Negative) 10/10/18 10:15 Urine Bilirubin Negative (Negative) 10/10/18 10:15 Urine Urobilinogen 0.2 EU/dL (Up TO 0.2) 10/10/18 10:15 Ur Leukocyte Esterase Negative (Negative) 10/10/18 10:15 Urine RBC 0-2 (0-2) 10/10/18 10:15 Urine WBC 0-2 HPF (0-5) 10/10/18 10:15 Ur Epithelial Cells Rare HPF (Negative) 10/10/18 10:15 Urine Crystals Negative HPF (Negative) 10/10/18 10:15 Urine Bacteria Rare HPF (Negative) 10/10/18 10:15 Urine Casts Negative LPF (Negative) 10/10/18 10:15 Urine Mucus Moderate (Negative) 10/10/18 10:15 Urine Other Few spermatozoa (Negative) 10/10/18 10:15 Ur Culture Indicated? No 10/10/18 10:15 Urine Glucose 500 mg/dL (Negative) H 10/10/18 10:15
[2018-10-10] MEDS: Tamsulosin 0.4 MG CAPCR PO (17:04)
[2018-10-10] MEDS: PIPERACILLIN/TAZO 3.375 GM in Normal Saline 50 ML IVPB (17:44)
[2018-10-10] MEDS: VANCOMYCIN 1,250 MG in Normal Saline 250 ML 166.6673 MG IV (19:34)
[2018-10-10] MEDS: Insulin Glargine 300 UNITS/3 ML PEN 15 UNITS SC (22:11)
[2018-10-11] VITALS (9 sets, daily range): BP systolic 144–172; BP diastolic 79–90; PULSE 76–101; RESP 4–24; TEMP 36.1–36.7; O2SAT 94–99
[2018-10-11] MEDS: PIPERACILLIN/TAZO 3.375 GM in Normal Saline 50 ML IVPB ×4 (00:05→17:45)
[2018-10-11] MEDS: Normal Saline Flush 10 ML SYR IVP ×4 (00:06→17:44)
[2018-10-11] MEDS: Heparin 5,000 UNITS/ML VIAL 5000 UNITS SC ×3 (04:19→19:53)
[2018-10-11] MEDS: Albuterol/Ipratropium 3 ML UPD VIAL UPD ×5 (04:19→19:52)
[2018-10-11] MEDS: methylPREDNISolone SUCC 125 MG VIAL 80 MG IVP (06:11)
[2018-10-11] MEDS: Nystatin 500000 UNITS/5 ML SUSP 5ML CUP PO ×5 (06:11→21:36)
[2018-10-11 07:41] LABS: Abs Immature Grans 0.15 k/cumm (0.0-0.09); Absolute Basophil Count 0.01 k/cumm (0.0-0.2); Absolute Eosinophil Count 0.03 k/cumm (0.0-0.7); Absolute Monocyte Count 0.88 k/cumm (0.11-0.7); Absolute Neutrophil Count 9.46 k/cumm (1.2-6.7); Basophils % 0.1; Eosinophils % 0.3; HCT 40.6 % (40.0-50.0); Immature Grans % 1.3; Lymphocytes % 5.6; Mean Corp. HGB Concentration 34.5 g/dL (32.0-36.0); Mean Corpuscular Hemoglobin 29.2 pg (27.0-33.0); Mean Corpuscular Volume 84.8 fL (80-95); Mean Platelet Volume 9.2 fL (8.0-11.0); Monocytes % 7.9; Neutrophils % 84.8; Platelet Count 217 x1000/uL (130-400); RBC 4.79 m/cumm (4.50-6.00); RBC Distribution Width 14.5 % (11.8-14.1); White Blood Cell Count 11.16 k/cumm (4.4-10.8)
[2018-10-11 07:42] LABS: Absolute Lymphocyte Count 0.62 k/cumm (1.2-3.4)
[2018-10-11 08:25] LABS: Anion Gap 13.7 mmol/L (3-11); BUN 25 mg/dL (7-18); CO2 22.3 mmol/L (21.0-32.0); CREATININE 1.34 mg/dL (0.70-1.30); Chloride 95 mmol/L (98-107); Glucose 235 mg/dL (70-100); Magnesium 2.7 mg/dL (1.8-2.4); Potassium 4.5 mmol/L (3.5-5.1); Sodium 131 mmol/L (136-145)
[2018-10-11] MEDS: Insulin Aspart 300 UNITS/3 ML PEN SC ×7 (08:32→21:39)
[2018-10-11] MEDS: Montelukast 10 MG TAB PO (08:34)
[2018-10-11] MEDS: glipiZIDE 5 MG TAB PO (08:34)
[2018-10-11] MEDS: Aspirin E.C. 81 MG TABEC PO (08:34)
[2018-10-11] MEDS: Gabapentin 300 MG CAP PO ×3 (08:34→19:51)
[2018-10-11] MEDS: DULoxetine 30 MG CAP 60 MG PO (08:34)
[2018-10-11] MEDS: predniSONE 10 MG TAB PO (08:34)
[2018-10-11] MEDS: guaiFENesin 600 MG TABCR PO ×2 (08:34→19:51)
[2018-10-11] MEDS: amLODIPine 5 MG TAB PO (08:34)
[2018-10-11] MEDS: Benzonatate 200 MG CAP PO ×3 (08:34→19:51)
[2018-10-11] MEDS: Pantoprazole 40 MG TABCR PO (08:34)
[2018-10-11] MEDS: VANCOMYCIN 1,250 MG in Normal Saline 250 ML 166.66 MG IV (09:42)
--- NOTE | 2018-10-11 10:03 | OT.INIE ---
Occupational Therapy Notes Inpatient Occupational Therapy Evaluation Date: 10/11/18 Referring Doctor:Vandana Philip MD OT Orders: Eval and Treat Precautions: Fall, Standard PATIENT PROFILE/ADMITTING DIAGNOSIS: Pt is a 73 year old male who presented to the ER on 10/05/18 for COPD with acute exacerbation, pneumonia and elevated troponin. Past Medical History: Medical History Diabetic peripheral neuropathy (Chronic 12/11/15) 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) Atherosclerosis of [place] coronary artery (Chronic) Osteoarthritis (Chronic) COPD (chronic obstructive pulmonary disease) (Chronic) Diabetes mellitus (Chronic) Hypertension (Chronic) Polymyalgia rheumatica (Resolved 02/19/12) Surgical History SHOULDER SURGERY Social History/Home Situation: Pt lives in a private home with his and 3 grand children with whom they have legal custody over. Pt states that he is totally (I) at baseline and currently. He notes that he has stairs to enter his home and stairs within in home to his basement and to the upstairs but states that he lives mainly on the first floor. 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 Equipment owned/DME: Canes, FWW, shower seat SUBJECTIVE: Pt was seated in chair by window when OT arrived. He reports that he is doing well. OBJECTIVE: General Observation: Pleasant and answered all questions appropriately Mental Status: A&Ox3 Pain: no c/o pain ROM: RUE AROM WFL L UE AROM WFL STRENGTH: RUE 4/5 throughout globally with strong angle furnaceman symmetrically LUE 4/5 throughout globally with strong angle furnaceman symmetrically FUNCTIONAL MOBILITY/ADLS: Transfers FWW, (S) Sit-Stand Stand-sit BATHING NT however pt was able to functionally demonstrate AROM Required to perform both bathing and dressing routines. DRESSING Dressing UE Seated in chair (I) with UE dressing Dressing LE Seated in chair (I) with LE dressing with ideal technique GROOMING (I) brushing hair TOILETING NT EATING (I) sitting in chair BALANCE: Static sitting Normal Dynamic Sitting Normal Static Standing Normal SPECIAL TESTS: Daily Activity Limitations Standardized Measure [facility] AM -PAC ?6 clicks? Daily Activity Inpatient Short Form: Raw score: 23 Standardized score: 51.12 CMS score: 15.86% INFORMED CONSENT/EDUCATION: Pt instructed in purpose of OT Consult and plan of care. ASSESSMENT: Patient is a 73-year-old male referred to occupational therapy services with diagnosis of COPD exacerbation, pneumonia and elevated troponin. Patient presents with clinical signs and symptoms consistent with dx. Pt was seen for OT consult only. He is able to demonstrate his ADLs/IADL routines (I) With ideal technique. He presents with AROM WFL. OT recommends that pt return home when medically cleared per MD based on his functional (I) in ADLs. AMPAC score 23, CMS score 15.86% Patient is assessed as a Low 33327 complexity based on the following: History: See Above Examination: See Above Presentation: Evolving Decision Making: AMPAC score 23, CMS score 15.86% GOALS N/A PLAN OF CARE/TREATMENT PLAN: OT consult only. DISCHARGE RECOMMENDATIONS Home when medically cleared per MD. TREATMENT TIME/MINUTES/CODES 61087, 15 minutes (08:15) Asiya Dixon OTR/[facility]
--- NOTE | 2018-10-11 10:14 | OTIE_ITS ---
Occupational Therapy Notes Inpatient Occupational Therapy Evaluation Date: 10/11/18 Referring Doctor:Vandana Philip MD OT Orders: Eval and Treat Precautions: Fall, Standard PATIENT PROFILE/ADMITTING DIAGNOSIS: Pt is a 73 year old male who presented to the ER on 10/05/18 for COPD with acute exacerbation, pneumonia and elevated troponin. Past Medical History: Medical History Diabetic peripheral neuropathy (Chronic 12/11/15) 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) Atherosclerosis of [place] coronary artery (Chronic) Osteoarthritis (Chronic) COPD (chronic obstructive pulmonary disease) (Chronic) Diabetes mellitus (Chronic) Hypertension (Chronic) Polymyalgia rheumatica (Resolved 02/19/12) Surgical History SHOULDER SURGERY Social History/Home Situation: Pt lives in a private home with his and 3 grand children with whom they have legal custody over. Pt states that he is totally (I) at baseline and currently. He notes that he has stairs to enter his home and stairs within in home to his basement and to the upstairs but states that he lives mainly on the first floor. 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 Equipment owned/DME: Canes, FWW, shower seat SUBJECTIVE: Pt was seated in chair by window when OT arrived. He reports that he is doing well. OBJECTIVE: General Observation: Pleasant and answered all questions appropriately Mental Status: A&Ox3 Pain: no c/o pain ROM: RUE AROM WFL L UE AROM WFL STRENGTH: RUE 4/5 throughout globally with strong truck cleaner symmetrically LUE 4/5 throughout globally with strong truck cleaner symmetrically FUNCTIONAL MOBILITY/ADLS: Transfers FWW, (S) Sit-Stand Stand-sit BATHING NT however pt was able to functionally demonstrate AROM Required to perform both bathing and dressing routines. DRESSING Dressing UE Seated in chair (I) with UE dressing Dressing LE Seated in chair (I) with LE dressing with ideal technique GROOMING (I) brushing hair TOILETING NT EATING (I) sitting in chair BALANCE: Static sitting Normal Dynamic Sitting Normal Static Standing Normal SPECIAL TESTS: Daily Activity Limitations Standardized Measure [facility] AM -PAC ?6 clicks? Daily Activity Inpatient Short Form: Raw score: 23 Standardized score: 51.12 CMS score: 15.86% INFORMED CONSENT/EDUCATION: Pt instructed in purpose of OT Consult and plan of care. ASSESSMENT: Patient is a 73-year-old male referred to occupational therapy services with diagnosis of COPD exacerbation, pneumonia and elevated troponin. Patient presents with clinical signs and symptoms consistent with dx. Pt was seen for OT consult only. He is able to demonstrate his ADLs/IADL routines (I) With ideal technique. He presents with AROM WFL. OT recommends that pt return home when medically cleared per MD based on his functional (I) in ADLs. AMPAC score 23, CMS score 15.86% Patient is assessed as a Low 94881 complexity based on the following: History: See Above Examination: See Above Presentation: Evolving Decision Making: AMPAC score 23, CMS score 15.86% GOALS N/A PLAN OF CARE/TREATMENT PLAN: OT consult only. DISCHARGE RECOMMENDATIONS Home when medically cleared per MD. TREATMENT TIME/MINUTES/CODES 56398, 15 minutes (08:15) Asiya Dixon OTR/[facility]
[2018-10-11] MEDS: Budesonide 0.5 MG/2 ML UPD VIAL UPD ×2 (10:20→22:06)
--- NOTE | 2018-10-11 12:52 | PT.INTREAT ---
Date of service: 10/11/18 Time of Service: 12:52 PT Notes Inpatient Physical Therapy Treatment Note [facility] Date: 10/11/18 PRECAUTIONS: Fall SUBJECTIVE: Amy states that he has been independent within his room, and feels safe doing so. He also reports that he becomes SOB with activity at baseline, although knows when to take breaks for recovery. OBJECTIVE: PAIN:No c/o pain BED MOBILITY/TRANSFERS Supine-sit: I Sit-stand: I Stand-sit: I GAIT Assistive Device: No AD Weight bearing: Full Assist: I Distance: 300' Deviation: Standing rest x2 due to SOB STAIRS: Up/down 3x4 and 2x6 using 1 rail and a step-over pattern, independently. ASSESSMENT: Patient tolerated session with c/o SOB with activity. He demonstrates appropriate energy conservation techniques and appropriate recovery strategies. He was able to tolerate a progression in gait distance without assistive device support. PLAN: Continue with PT's POC TREATMENT CODE/TIME: 10 minutes; [id number]
--- NOTE | 2018-10-11 16:07 | PHARADMIT ---
Admission Pharmacy Clinical Review Pneumonia, COPD exacerbation, elevated trponins Code Status Full Code Current Weight Wgt- 105.8 kg Renally Cleared and Narrow Therapeutic Index Meds CrCl~ 53 ml/min Meds-OK QTc Value / Action Taken QTc-439 na BP Control, Fever BP- 168/84 Tmax-36.7C Electrolytes reviewed Na-131 K+4.5 Mag-2.7 DVT Prophylaxis Heparin-sc, ASA-ec Opiate Usage / Scheduled Bowel Regimen Ordered Yes Yes Plt/SCr for Heparin / Enoxaparin Plts-217 SCr-1.34 INR for Warfarin inr-0.9 H/H stable, WBC/Bands H&H- 14.0/40.6 WBC- 11.16 Antibiotic appropriateness Zosyn, Vancomycin Cultures and Sensitivities Blood-no growth Surgical ABX d/c within 24 hr na DM control / Insulin Dosing BG-235 Glipizide,Aspart,Lantus Heart Failure (Check EF%) (SANDRA's, B-Block, Diuretics) Norvasc, IV to PO Switch No Home Meds Reviewed Yes Home Meds Not Ordered [place], Ibuprofen, Metformin, Clotrimazole PO, Bactrim-DS, Daliresp Comments Mepolizumab (Nucala) x 4 weeks
--- NOTE | 2018-10-11 16:12 | PDOC.CMPRO ---
Care Management Progress Note S/O: Amy continues to be pleasant in interaction. His family is consistently visiting, including his grand-daughters who he is raising. Anticipate he will transition to PO steroids and discharge as soon as tomorrow per MD. CM continues to follow. A: 73 year old male admitted to [facility] on 10/05/18 with Pneumonia, COPD Exacerbation, Elevated Troponin P: Amy will return home when ready per MD. He will follow up with his PCP and plan of care as prescribed. No additional services anticipated at this time. Amy will transport home via private vehicle with his , Jordyn.
[2018-10-11] MEDS: Tamsulosin 0.4 MG CAPCR PO (16:54)
--- NOTE | 2018-10-11 17:00 | PT.INDS ---
Date of service: 10/11/18 PT Notes Inpatient Physical Therapy Discharge Summary Dates: 10/11/2018 Dates of Service: 09/23/2018 through 10/11/2018 This is a clinical summary of care provided on the duration of dates listed above. No charge was made in the completion of this documentation. Referring Doctor: Vandana Philip MD PT Orders: PT CONSULT: Eval/treat Precautions: Fall. Standard. Patient Profile/Admitting Diagnosis: Patient is a 73-year-old male patient with past medical history significant for steroid-dependent COPD and significant prior tobacco use who presented to the ED on 10/05/2018 with chief complaints of shortness of breath, anterior substernal chest pain with coughing for the past 2 weeks prior to admission. Patient was diagnosed with exacerbation of chronic obstructive pulmonary disease, acute kidney injury, increased troponin, and steroid-induced hyperglycemia. 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 They have 3 steps that lead onto a porch and another 3 steps to enter the main entrance of the house with a rail on the right going up. Patient is independent with all aspects of ADLs without the need for an assistive ambulatory device or adaptive equipment although he states that he has a walker stashed somewhere and walking sticks. Patient still drives. Both and him states that they cover up to 100 miles of driving on a daily basis bringing their grandchildren to school and daycare and doing their own errands. 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 Current Functional Limitations: Decreased activity tolerance impairing transfer and ambulation task performance Equipment Owned/DME: F[employer], walking sticks, grab bars Subjective: NC Objective: General Observation: NC Mental Status: NC Pain: NC ROM: Right Upper Extremity: Shoulder Flexion WFL. Shoulder abduction WFL. Elbow flexion WFL. Wrist flexion WFL. Functional opening and closing of hand WFL. Left Upper Extremity: Shoulder Flexion WFL. Shoulder abduction WFL. Elbow flexion WFL. Wrist flexion WFL. Functional opening and closing of hand WFL. Right Lower Extremity: Hip flexion WFL. Hip abduction WFL. Knee flexion WFL. Ankle dorsiflexion WFL. Ankle plantarflexion WFL. Left Lower Extremity: Hip flexion WFL. Hip abduction WFL. Knee flexion WFL. Ankle dorsiflexion WFL. Ankle plantarflexion WFL. Strength: Right Upper Extremity: Shoulder flexors 4/5. Shoulder abductors 4/5. Elbow flexors 4/5. Elbow extensors 4/5. Stranding Supervisor strong. Left Upper Extremity: Shoulder flexors 4/5. Shoulder abductors 4/5. Elbow flexors 4/5. Elbow extensors 4/5. Stranding Supervisor strong. Right Lower Extremity: Hip flexors 4-/5. Hip abductors 4/5. Knee flexors 4/5. Knee extensors 4-/5. Ankle dorsiflexors 4/5. Ankle plantarflexors 4/5. Left Lower Extremity:Hip flexors 4-/5. Hip abductors 4/5. Knee flexors 4/5. Knee extensors 4-/5. Ankle dorsiflexors 4/5. Ankle plantarflexors 4/5. Sensation: Intact as to pain and pressure on bilateral lower extremities. Bed Mobility/Transfers: Rolling independent Supine to sit independent Sit to supine independent Sit to stand independent Stand to sit independent Bed to chair independent Chair to bed independent Gait: Patient is able to tolerate level surface ambulation of 300 feet without any assistive device independently with report of mild shortness of breath and chest pain discomfort that subsided with rest. Gait pattern unremarkable except for reduced gait velocity as patient states that he needs to slow down so he does not get out of breath fast. Balance: Static Sitting: Normal Dynamic Sitting: Normal Static Standing: Normal Dynamic Standing: Good Assessment: Patient is a 73-year-old male with diagnosis of COPD exacerbation, steroid-induced hyperglycemia, and acute kidney injury. Patient presents with clinical signs and symptoms consistent with current/admitting diagnoses that have resulted to mobility limitations, gait instability, generalized weakness, and impairment of motor control as demonstrated by the following impairment level findings: 1. Decreased strength to B LE major muscle groups 2. Impaired standing balance 3. Impaired activity tolerance Impairments are contributing to the following functional limitations: 1. Increase completion time for mobility ADL performance 2. Increased fall risk 3. Inability to negotiate steps without dyspnea Goals: Goals X1 week 1. Independent gait on level surface without assistive device for at least 500 feet without report of chest discomofort nor dyspnea NOT MET 2. Independent stair negotiation while holding onto one rail for at least 4 steps without report of chest discomofort nor dyspnea MET 3. Independent with home exercise program MET 4. Normal dynamic standing balance/tolerance NOT MET 5. Patient will demonstrate 2-minute walk test of 200 feet without report of pain nor dyspnea MET DISCHARGE RECOMMENDATIONS: Patient may benefit from outpatient pulmonary rehabilitation program in order to maximize pulmonary capacity and activity tolerance while performing all mobility related ADLs. TREATMENT CODE/TIME: NC. Thank you very much for this referral. Mira Sr PT, DPT, CLT [facility]
[2018-10-11] MEDS: methylPREDNISolone SUCC 125 MG VIAL 60 MG IVP (17:43)
[2018-10-11] MEDS: VANCOMYCIN 1,250 MG in Normal Saline 250 ML 167 MG IV (20:13)
--- NOTE | 2018-10-11 20:33 | W.PM.DS.N ---
Date of service: 10/11/18 Time of Service: 11:30 DS: Diagnosis Discharge Diagnosis (1) Asthma with acute exacerbation: Status: Acute (2) COPD with acute exacerbation: Status: Acute (3) Atherosclerosis of koi coronary artery: Status: Chronic (4) [place]GRIS (acute kidney injury): Status: Acute (5) Diabetes mellitus: Status: Chronic (6) Hypertension: Status: Chronic (7) Gastroesophageal reflux disease: Status: Chronic (8) Steroid-induced hyperglycemia: Status: Acute (9) Thrush: Status: Acute Discharge Plan Disposition Patient Disposition: [facility] Condition: Fair Discharge Details Reason For Visit: PNEUMONIA,COPD, EXACERBATION,ELEVATED TROP Admit Date/Time: 10/05/18 09:05 Admit Provider: Asif Egan Attending Provider: Asif Egan Primary Care Provider: Tevin Dooley [place] Hospital Course Hospital Course: Mr Sims is a 73 year old male with PMHx of steroid-dependent eosinophilic asthma and COPD, on mepolizumab via Dr Archuleta of [facility] pulmonology, not oxygen requiring, as well as CAD, IDDM2 with neuropathy, HTN, GERD, admited to [facility] ICU on 10/05/18 on BiPAP with acute exacerbation of asthma/COPD and probably aspiration pneumonia or pneumonitis 2 weeks following an accidental inhalation or aspiration on polygrip glue dissolved in water. The patient was initiated on lovefloxacin, high dose IV steroids, scheduled and prn bronchodilator nebs, as well as nebulized budesonide. With this, he did report improvement in his symptoms and was transferred out of the ICU on 10/06 to medical surgical floor with telemetry. He was monitored on telemetry due to a borderline elevated troponin (0.10 at the time of acute illness) without reports of chest pain. Troponins trended down to 0.05. His EKG revealed a RBBB (old). The patient's improvement stalled on 10/08/18, requiring increase of his systemic steroids on 10/08, addition of rocephin to levofloxacin on 10/09, changing antibiotics to vancomycin and zosyn on 10/10/18, still with no improvement and not feeling close to baseline. He does not require oxygen or BiPAP at this time, but because of lack of improvement in the last few days, lack of pulmonology services at [facility] and requirement of mepolizumab, unavailable at [facility], it is felt that the patient would benefit from transfer to [facility], where he was accepted by Dr Skelton of hospitalist service in transfer on the morning of 10/11/2018. The patient is in agreement with transfer. We appreciate the assistance of [facility] clinical team and wish the patient well! Home Meds and New Rx's Prescriptions: New benzonatate 200 mg Capsule 200 mg PO TID Qty: 0 RF: 0 amlodipine 5 mg Tablet 5 mg PO DAILY Qty: 0 RF: 0 Cepacol Sore Throat (vicente-men) 15-3.6 mg Lozenge 1 anamaria PO Q4H PRN PRN (Reason: sore throat) Qty: 0 RF: 0 guaifenesin [Mucinex] 600 mg Tablet Extended Release 12hr 600 mg PO BID Qty: 0 RF: 0 heparin (porcine) 5,000 unit/mL Solution 5,000 units subcut Q8H Qty: 0 RF: 0 Phenaseptic 1.4 % Aerosol,[place] 4 spray Mucous Membrane QID PRN PRN (Reason: sore throat) Qty: 0 RF: 0 Novolog Flexpen U-100 Insulin 100 unit/mL Insulin Pen subcut AC & HS Qty: 0 RF: 0 levalbuterol HCl 0.63 mg/3 mL Solution For Nebulization 0.63 mg UPD Q2H PRN PRNQty: 0 RF: 0 Novolog Flexpen U-100 Insulin 100 unit/mL Insulin Pen 5 units subcut 0800,1200,1700 Qty: 0 RF: 0 Lantus Solostar U-100 Insulin 100 unit/mL (3 mL) Insulin Pen 20 units subcut HS Qty: 0 RF: 0 Solu-Medrol (PF) 125 mg/2 mL Recon Soln 60 mg IVP Q12H Qty: 0 RF: 0 nystatin 100,000 unit/mL Suspension 500,000 units PO 5X/DAY Qty: 0 RF: 0 pantoprazole 40 mg Tablet,Delayed Release (Dr/Ec) 40 mg PO DAILY@0730 Qty: 0 RF: 0 tamsulosin 0.4 mg Capsule 0.4 mg PO DAILY@1730 Qty: 0 RF: 0 Continued glipizide 5 mg tablet 5 mg PO QAM Qty: 30 RF: 4 sulfamethoxazole-trimethoprim [Bactrim DS] 800-160 mg tablet 1 tab PO .3x week RF: 0 aspirin 81 mg tablet,delayed release (DR/EC) 81 mg PO DAILY RF: 0 gabapentin 300 mg capsule 300 mg PO TID Qty: 270 RF: 4 duloxetine 60 mg capsule,delayed release(DR/EC) 60 mg PO DAILY Qty: 90 RF: 3 mepolizumab 100 mg recon soln 100 mg SC Q4W RF: 0 prednisone 10 mg tablet 10 mg PO DAILY RF: 0 Daliresp 500 mcg tablet 500 mcg PO DAILY Qty: 30 RF: 2 NEBULIZER W/ TUBING 1 inh DIRECTED RF: 0 montelukast 10 MG tablet 10 mg PO DAILY RF: 0 budesonide [Pulmicort] 0.5 MG/2 ML suspension for nebulization 1 inh Inhalation QID Qty: 180 RF: 4 FreeStyle Lite Strips 1 EACH strip 1 ea Miscellaneous TID Qty: 200 RF: 5 albuterol sulfate [ProAir HFA] 8.5 GM HFA aerosol inhaler 1 - 2 puff Inhalation Q4H PRN Qty: 3 RF: 4 magnesium oxide 400 MG tablet 400 mg PO DAILY Qty: 90 RF: 4 prednisone 10 mg tablet See Rx Instructions .Route .COMPLEX Qty: 30 RF: 0 hydrocodone-acetaminophen 7.5-325 mg tablet 1 tab PO BID MDD 2 tab Qty: 60 RF: 0 ibuprofen 200 MG tablet 200 mg PO DAILY RF: 0 Changed ipratropium-albuterol 0.5 mg-3 mg(2.5 mg base)/3 mL solution for nebulization 3 ml Inhalation Q4H Qty: 4 RF: 5 Discontinued metformin 1,000 mg tablet 1,000 mg PO BID Qty: 180 RF: 3 Discharge Instructions Activity:: Activity as Tolerated Diet:: carb consistent cardiac Discharge Orders Discharge Orders: Discharge Order (Routine); Ordered 10/12/18 Ordered By: Vandana Philip Exam Narrative Exam Narrative: General: Obese male, A&Ox3, anxious; seen after walking in the hallway - tachypneic. HEENT: EOMI, MMM Heart: RRR, no m/r/g Lungs: wheezing on expiration B, no improvement GI: abdomen is soft, nontender, nondistended Extremities: trace edema at B ankles, L>R DS: Data Vitals/I&O Vitals and I&O: Vital Signs Temperature 36.7 C 10/11/18 19:38 Temperature Source Tympanic 10/11/18 19:38 Pulse 100 H 10/11/18 19:52 Pulse Rhythm Regular 10/11/18 15:59 Pulse 95 H 10/06/18 08:40 Respiratory Rate 20 10/11/18 19:52 Respiratory Effort Non-Labored 10/11/18 15:59 Respiratory Depth Normal 10/11/18 15:59 Respiratory Pattern Normal 10/11/18 15:59 Blood Pressure 172/90 H 10/11/18 19:38 Blood Pressure Mean 113 10/06/18 07:40 Blood Pressure Position Supine 10/06/18 03:09 Pulse Oximetry 95 10/11/18 19:52 Oxygen Delivery Method Room Air 10/11/18 19:38 Oxygen Flow Rate 0 10/11/18 19:38 Fraction of Inspired Oxygen (FIO2) 30 10/05/18 18:54 Pain Level 6 10/11/18 19:51 Comment 10/07/18 10:01 Intake & Output 10/10/18 10/11/18 10/11/18 23:59 11:59 23:59 Intake Total 1150 / 1620 850 / 1250 400 / 1250 Balance 1150 / 1120 850 / 1250 400 / 1250 Intake: IV 400 / 430 50 / 450 400 / 450 Oral 750 / 1190 800 / 800 Other: Urine Color Yellow Yellow Urine Appearance Clear Clear Clear Urine Odor None None Comment patient uses toilet independently and states that he has been using it frequently Voiding Methods Toilet Toilet Completed studies during hospitalization [Text1]: CXR 10/05/18: No acute abnormality. CXR 09/28/18: Some interval improvement noted in left basilar infiltrate since 09/22/18. (09/22/18 was not on this admission). Labs on day of discharge: Labs from last 24 hours 10/11/18 10/11/18 07:12 07:12 WBC 11.16 H RBC 4.79 Hgb 14.0 Hct 40.6 MCV 84.8 MCH 29.2 MCHC 34.5 RDW 14.5 H Plt Count 217 MPV 9.2 Immature Gran % 1.3 Neutrophils % 84.8 Lymphocytes % 5.6 Monocytes % 7.9 Eosinophils % 0.3 Basophils % 0.1 Absolute Neutrophils 9.46 H Absolute Lymphocytes 0.62 L Absolute Monocytes 0.88 H Absolute Eosinophils 0.03 Absolute Basophils 0.01 Sodium 131 L Potassium 4.5 Chloride 95 L Carbon Dioxide 22.3 Anion Gap 13.7 H BUN 25 H Creatinine 1.34 H Estimated GFR/1.73 m2 52.40 Glucose 235 H Calcium 8.0 L Magnesium 2.7 H PFSH Medical History Gastroesophageal reflux disease (Chronic) Diabetic peripheral neuropathy (Chronic 12/11/15) 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 Father Neoplasm Sister No problems noted. Sister No problems noted. Sister No problems noted. Sister No problems noted. Sister No problems noted. Sister No problems noted. Sister No problems noted. Sister No problems noted. Sister No problems noted. Brother No problems noted. Brother No problems noted. Brother No problems noted. Brother No problems noted. Brother No problems noted. Brother No problems noted. Brother No problems noted. Brother No problems noted. Brother No problems noted. Brother No problems noted. Brother No problems noted. Brother No problems noted. Son No problems noted. Son Substance abuse Mental disorder Son Substance abuse Daughter Substance abuse Depression Mental disorder Social History Smoking/Tobacco Use Status: Former Tobacco Use Alcohol Intake: never Drug use: Never Substance use type: does not use Household members: spouse and children Pets and animals: Yes Pets and animals: cat(s) and dog(s) Duration: decline to answer Frequency: 3-4 times per week Aminata/Mormonism: Mormon Special aminata needs: No Do you feel safe at home: Yes Do you feel safe in your relationship?: Yes Additional Social history: , with 4 children. Currently raising 3 grandchildren. Reported 80+ pack year history of tobacco abuse, quit approximately 15 years ago. Denies any current EtOH use.
--- NOTE | 2018-10-11 20:49 | DSE_ITS ---
Date of service: 10/11/18 Time of Service: 11:30 DS: Diagnosis Discharge Diagnosis (1) Asthma with acute exacerbation: Status: Acute (2) COPD with acute exacerbation: Status: Acute (3) Atherosclerosis of kiana coronary artery: Status: Chronic (4) INGRIS (acute kidney injury): Status: Acute (5) Diabetes mellitus: Status: Chronic (6) Hypertension: Status: Chronic (7) Gastroesophageal reflux disease: Status: Chronic (8) Steroid-induced hyperglycemia: Status: Acute (9) Thrush: Status: Acute Discharge Plan Disposition Patient Disposition: [facility] Condition: Fair Discharge Details Reason For Visit: PNEUMONIA,COPD, EXACERBATION,ELEVATED TROP Admit Date/Time: 10/05/18 09:05 Admit Provider: Asif Egan Attending Provider: Asif Egan Primary Care Provider: Tevin Dooley [facility] Course Hospital Course: Mr Sims is a 73 year old male with PMHx of steroid-dependent eosinophilic asthma and COPD, on mepolizumab via Dr Archuleta of [facility] pulmonology, not oxygen requiring, as well as CAD, IDDM2 with neuropathy, HTN, GERD, admited to [facility] ICU on 10/05/18 on BiPAP with acute exacerbation of asthma/COPD and probably aspiration pneumonia or pneumonitis 2 weeks following an accidental inhalation or aspiration on polygrip glue dissolved in water. The patient was initiated on lovefloxacin, high dose IV steroids, scheduled and prn bronchodilator nebs, as well as nebulized budesonide. With this, he did report improvement in his symptoms and was transferred out of the ICU on 10/06 to medical surgical floor with telemetry. He was monitored on telemetry due to a borderline elevated troponin (0.10 at the time of acute illness) without reports of chest pain. Troponins trended down to 0.05. His EKG revealed a RBBB (old). The patient's improvement stalled on 10/08/18, requiring increase of his systemic steroids on 10/08, addition of rocephin to levofloxacin on 10/09, changing antibiotics to vancomycin and zosyn on 10/10/18, still with no improvement and not feeling close to baseline. He does not require oxygen or BiPAP at this time, but because of lack of improvement in the last few days, lack of pulmonology services at [facility] and requirement of mepolizumab, unavailable at [facility], it is felt that the patient would benefit from transfer to [facility], where he was accepted by Dr Skelton of hospitalist service in transfer on the morning of 10/11/2018. The patient is in agreement with transfer. We appreciate the assistance of [facility] clinical team and wish the patient well! Home Meds and New Rx's Prescriptions: New benzonatate 200 mg Capsule 200 mg PO TID Qty: 0 RF: 0 amlodipine 5 mg Tablet 5 mg PO DAILY Qty: 0 RF: 0 Cepacol Sore Throat (vicente-men) 15-3.6 mg Lozenge 1 anamaria PO Q4H PRN PRN (Reason: sore throat) Qty: 0 RF: 0 guaifenesin [Mucinex] 600 mg Tablet Extended Release 12hr 600 mg PO BID Qty: 0 RF: 0 heparin (porcine) 5,000 unit/mL Solution 5,000 units subcut Q8H Qty: 0 RF: 0 Phenaseptic 1.4 % Aerosol,[place] 4 spray Mucous Membrane QID PRN PRN (Reason: sore throat) Qty: 0 RF: 0 Novolog Flexpen U-100 Insulin 100 unit/mL Insulin Pen subcut AC & HS Qty: 0 RF: 0 levalbuterol HCl 0.63 mg/3 mL Solution For Nebulization 0.63 mg UPD Q2H PRN PRNQty: 0 RF: 0 Novolog Flexpen U-100 Insulin 100 unit/mL Insulin Pen 5 units subcut 0800,1200,1700 Qty: 0 RF: 0 Lantus Solostar U-100 Insulin 100 unit/mL (3 mL) Insulin Pen 20 units subcut HS Qty: 0 RF: 0 Solu-Medrol (PF) 125 mg/2 mL Recon Soln 60 mg IVP Q12H Qty: 0 RF: 0 nystatin 100,000 unit/mL Suspension 500,000 units PO 5X/DAY Qty: 0 RF: 0 pantoprazole 40 mg Tablet,Delayed Release (Dr/Ec) 40 mg PO DAILY@0730 Qty: 0 RF: 0 tamsulosin 0.4 mg Capsule 0.4 mg PO DAILY@1730 Qty: 0 RF: 0 Continued glipizide 5 mg tablet 5 mg PO QAM Qty: 30 RF: 4 sulfamethoxazole-trimethoprim [Bactrim DS] 800-160 mg tablet 1 tab PO .3x week RF: 0 aspirin 81 mg tablet,delayed release (DR/EC) 81 mg PO DAILY RF: 0 gabapentin 300 mg capsule 300 mg PO TID Qty: 270 RF: 4 duloxetine 60 mg capsule,delayed release(DR/EC) 60 mg PO DAILY Qty: 90 RF: 3 mepolizumab 100 mg recon soln 100 mg SC Q4W RF: 0 prednisone 10 mg tablet 10 mg PO DAILY RF: 0 Daliresp 500 mcg tablet 500 mcg PO DAILY Qty: 30 RF: 2 NEBULIZER W/ TUBING 1 inh DIRECTED RF: 0 montelukast 10 MG tablet 10 mg PO DAILY RF: 0 budesonide [Pulmicort] 0.5 MG/2 ML suspension for nebulization 1 inh Inhalation QID Qty: 180 RF: 4 FreeStyle Lite Strips 1 EACH strip 1 ea Miscellaneous TID Qty: 200 RF: 5 albuterol sulfate [ProAir HFA] 8.5 GM HFA aerosol inhaler 1 - 2 puff Inhalation Q4H PRN Qty: 3 RF: 4 magnesium oxide 400 MG tablet 400 mg PO DAILY Qty: 90 RF: 4 prednisone 10 mg tablet See Rx Instructions .Route .COMPLEX Qty: 30 RF: 0 hydrocodone-acetaminophen 7.5-325 mg tablet 1 tab PO BID MDD 2 tab Qty: 60 RF: 0 ibuprofen 200 MG tablet 200 mg PO DAILY RF: 0 Changed ipratropium-albuterol 0.5 mg-3 mg(2.5 mg base)/3 mL solution for nebulization 3 ml Inhalation Q4H Qty: 4 RF: 5 Discontinued metformin 1,000 mg tablet 1,000 mg PO BID Qty: 180 RF: 3 Discharge Instructions Activity:: Activity as Tolerated Diet:: carb consistent cardiac Discharge Orders Discharge Orders: Discharge Order (Routine); Ordered 10/12/18 Ordered By: Vandana Philip Exam Narrative Exam Narrative: General: Obese male, A&Ox3, anxious; seen after walking in the hallway - tachypneic. HEENT: EOMI, MMM Heart: RRR, no m/r/g Lungs: wheezing on expiration B, no improvement GI: abdomen is soft, nontender, nondistended Extremities: trace edema at B ankles, L>R DS: Data Vitals/I&O Vitals and I&O: Vital Signs Temperature 36.7 C 10/11/18 19:38 Temperature Source Tympanic 10/11/18 19:38 Pulse 100 H 10/11/18 19:52 Pulse Rhythm Regular 10/11/18 15:59 Pulse 95 H 10/06/18 08:40 Respiratory Rate 20 10/11/18 19:52 Respiratory Effort Non-Labored 10/11/18 15:59 Respiratory Depth Normal 10/11/18 15:59 Respiratory Pattern Normal 10/11/18 15:59 Blood Pressure 172/90 H 10/11/18 19:38 Blood Pressure Mean 113 10/06/18 07:40 Blood Pressure Position Supine 10/06/18 03:09 Pulse Oximetry 95 10/11/18 19:52 Oxygen Delivery Method Room Air 10/11/18 19:38 Oxygen Flow Rate 0 10/11/18 19:38 Fraction of Inspired Oxygen (FIO2) 30 10/05/18 18:54 Pain Level 6 10/11/18 19:51 Comment 10/07/18 10:01 Intake & Output 10/10/18 10/11/18 10/11/18 23:59 11:59 23:59 Intake Total 1150 / 1620 850 / 1250 400 / 1250 Balance 1150 / 1120 850 / 1250 400 / 1250 Intake: IV 400 / 430 50 / 450 400 / 450 Oral 750 / 1190 800 / 800 Other: Urine Color Yellow Yellow Urine Appearance Clear Clear Clear Urine Odor None None Comment patient uses toilet independently and states that he has been using it frequently Voiding Methods Toilet Toilet Completed studies during hospitalization [Text1]: CXR 10/05/18: No acute abnormality. CXR 09/28/18: Some interval improvement noted in left basilar infiltrate since 09/22/18. (09/22/18 was not on this admission). Labs on day of discharge: Labs from last 24 hours 10/11/18 10/11/18 07:12 07:12 WBC 11.16 H RBC 4.79 Hgb 14.0 Hct 40.6 MCV 84.8 MCH 29.2 MCHC 34.5 RDW 14.5 H Plt Count 217 MPV 9.2 Immature Gran % 1.3 Neutrophils % 84.8 Lymphocytes % 5.6 Monocytes % 7.9 Eosinophils % 0.3 Basophils % 0.1 Absolute Neutrophils 9.46 H Absolute Lymphocytes 0.62 L Absolute Monocytes 0.88 H Absolute Eosinophils 0.03 Absolute Basophils 0.01 Sodium 131 L Potassium 4.5 Chloride 95 L Carbon Dioxide 22.3 Anion Gap 13.7 H BUN 25 H Creatinine 1.34 H Estimated GFR/1.73 m2 52.40 Glucose 235 H Calcium 8.0 L Magnesium 2.7 H PFSH Medical History Gastroesophageal reflux disease (Chronic) Diabetic peripheral neuropathy (Chronic 12/11/15) 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 Father Neoplasm Sister No problems noted. Sister No problems noted. Sister No problems noted. Sister No problems noted. Sister No problems noted. Sister No problems noted. Sister No problems noted. Sister No problems noted. Sister No problems noted. Brother No problems noted. Brother No problems noted. Brother No problems noted. Brother No problems noted. Brother No problems noted. Brother No problems noted. Brother No problems noted. Brother No problems noted. Brother No problems noted. Brother No problems noted. Brother No problems noted. Brother No problems noted. Son No problems noted. Son Substance abuse Mental disorder Son Substance abuse Daughter Substance abuse Depression Mental disorder Social History Smoking/Tobacco Use Status: Former Tobacco Use Alcohol Intake: never Drug use: Never Substance use type: does not use Household members: spouse and children Pets and animals: Yes Pets and animals: cat(s) and dog(s) Duration: decline to answer Frequency: 3-4 times per week Aminata/Buddhist: Zoroastrian Special aminata needs: No Do you feel safe at home: Yes Do you feel safe in your relationship?: Yes Additional Social history: , with 4 children. Currently raising 3 grandchildren. Reported 80+ pack year history of tobacco abuse, quit approximately 15 years ago. Denies any current EtOH use.
[2018-10-11] MEDS: Insulin Glargine 300 UNITS/3 ML PEN 20 UNITS SC (21:38)
[2018-10-12] VITALS (9 sets, daily range): BP systolic 151–168; BP diastolic 82–95; PULSE 91–106; RESP 2–24; TEMP 36.4–36.7; O2SAT 95–100
[2018-10-12] MEDS: Albuterol/Ipratropium 3 ML UPD VIAL UPD ×4 (00:07→12:45)
[2018-10-12] MEDS: PIPERACILLIN/TAZO 3.375 GM in Normal Saline 50 ML IVPB ×3 (00:09→11:26)
[2018-10-12] MEDS: Normal Saline Flush 10 ML SYR IVP ×3 (00:11→08:03)
[2018-10-12] MEDS: Heparin 5,000 UNITS/ML VIAL 5000 UNITS SC ×2 (04:29→12:51)
[2018-10-12] MEDS: Nystatin 500000 UNITS/5 ML SUSP 5ML CUP PO ×3 (06:29→13:06)
[2018-10-12] MEDS: methylPREDNISolone SUCC 125 MG VIAL 60 MG IVP (06:30)
[2018-10-12 07:04] LABS: Abs Immature Grans 0.31 k/cumm (0.0-0.09); HGB 14.2 g/dL (13.5-17.5); Mean Corp. HGB Concentration 34.6 g/dL (32.0-36.0); Mean Corpuscular Hemoglobin 29.3 pg (27.0-33.0); Mean Corpuscular Volume 84.7 fL (80-95); Mean Platelet Volume 8.9 fL (8.0-11.0); Platelet Count 205 x1000/uL (130-400); RBC 4.84 m/cumm (4.50-6.00); RBC Distribution Width 14.5 % (11.8-14.1); White Blood Cell Count 13.29 k/cumm (4.4-10.8)
[2018-10-12 07:18] LABS: Anion Gap 11.3 mmol/L (3-11); BUN 23 mg/dL (7-18); CO2 24.7 mmol/L (21.0-32.0); CREATININE 1.08 mg/dL (0.70-1.30); Calcium 7.7 mg/dL (8.5-10.1); Chloride 98 mmol/L (98-107); Glucose 197 mg/dL (70-100); Magnesium 2.8 mg/dL (1.8-2.4); Potassium 4.2 mmol/L (3.5-5.1); Sodium 134 mmol/L (136-145)
[2018-10-12] MEDS: Insulin Aspart 300 UNITS/3 ML PEN SC ×4 (08:04→12:11)
[2018-10-12] MEDS: Gabapentin 300 MG CAP PO ×2 (08:04→13:06)
[2018-10-12] MEDS: amLODIPine 5 MG TAB PO (08:04)
[2018-10-12] MEDS: guaiFENesin 600 MG TABCR PO (08:05)
[2018-10-12] MEDS: glipiZIDE 5 MG TAB PO (08:05)
[2018-10-12] MEDS: predniSONE 10 MG TAB PO (08:05)
[2018-10-12] MEDS: Aspirin E.C. 81 MG TABEC PO (08:05)
[2018-10-12] MEDS: VANCOMYCIN 1,250 MG in Normal Saline 250 ML 166.66 MG IV (08:05)
[2018-10-12] MEDS: Pantoprazole 40 MG TABCR PO (08:05)
[2018-10-12] MEDS: DULoxetine 30 MG CAP 60 MG PO (08:05)
[2018-10-12] MEDS: Benzonatate 200 MG CAP PO ×2 (08:05→13:06)
[2018-10-12] MEDS: Montelukast 10 MG TAB PO (08:05)
[2018-10-12 08:08] LABS: Absolute Lymphocyte Count 1.59 k/cumm (1.2-3.4); Absolute Monocyte Count 1.33 k/cumm (0.11-0.7); Absolute Neutrophil Count 10.23 k/cumm (1.2-6.7); Atypical Lymphocytes % 3
[2018-10-12 08:09] LABS: Diff Comment Manual Differential; RBC Morphology Normal
[2018-10-12] MEDS: Budesonide 0.5 MG/2 ML UPD VIAL UPD ×2 (09:59→12:59)
--- NOTE | 2018-10-12 14:18 | NUR.NOTE ---
Nursing Note:Called report to [facility] awaiting transportation.
--- NOTE | 2018-10-18 18:00 | INDS_ITS ---
Date of service: 10/11/18 PT Notes Inpatient Physical Therapy Discharge Summary Dates: 10/11/2018 Dates of Service: 09/23/2018 through 10/11/2018 This is a clinical summary of care provided on the duration of dates listed above. No charge was made in the completion of this documentation. Referring Doctor: Vandana Philip MD PT Orders: PT CONSULT: Eval/treat Precautions: Fall. Standard. Patient Profile/Admitting Diagnosis: Patient is a 73-year-old male patient with past medical history significant for steroid-dependent COPD and significant prior tobacco use who presented to the ED on 10/05/2018 with chief complaints of shortness of breath, anterior substernal chest pain with coughing for the past 2 weeks prior to admission. Patient was diagnosed with exacerbation of chronic obstructive pulmonary disease, acute kidney injury, increased troponin, and steroid-induced hyperglycemia. Referral for physical therapy services was received today to address impairments and strength, mobility level, and activity tolerance PMHX: Medical History Gastroesophageal reflux disease (Chronic) Diabetic peripheral neuropathy (Chronic 12/11/15) 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) Atherosclerosis of [place] coronary artery (Chronic) Osteoarthritis (Chronic) COPD (chronic obstructive pulmonary disease) (Chronic) Diabetes mellitus (Chronic) Hypertension (Chronic) Polymyalgia rheumatica (Resolved 02/19/12) Surgical History SHOULDER SURGERY Social History/Home Situation: Patient lives with Jordyn and a 1 floor house in [place] with 3 grandchildren. They have 3 steps that lead onto a porch and another 3 steps to enter the main entrance of the house with a rail on the right going up. Patient is independent with all aspects of ADLs without the need for an assistive ambulatory device or adaptive equipment although he states that he has a walker stashed somewhere and walking sticks. Patient still drives. Both and him states that they cover up to 100 [address] of driving on a daily basis bringing their grandchildren to school and daycare and doing their own errands. 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 Current Functional Limitations: Decreased activity tolerance impairing transfer and ambulation task performance Equipment Owned/DME: FWW, walking sticks, grab bars Subjective: NC Objective: General Observation: NC Mental Status: NC Pain: NC ROM: Right Upper Extremity: Shoulder Flexion WFL. Shoulder abduction WFL. Elbow flexion WFL. Wrist flexion WFL. Functional opening and closing of hand WFL. Left Upper Extremity: Shoulder Flexion WFL. Shoulder abduction WFL. Elbow flexion WFL. Wrist flexion WFL. Functional opening and closing of hand WFL. Right Lower Extremity: Hip flexion WFL. Hip abduction WFL. Knee flexion WFL. Ankle dorsiflexion WFL. Ankle plantarflexion WFL. Left Lower Extremity: Hip flexion WFL. Hip abduction WFL. Knee flexion WFL. Ankle dorsiflexion WFL. Ankle plantarflexion WFL. Strength: Right Upper Extremity: Shoulder flexors 4/5. Shoulder abductors 4/5. Elbow flexors 4/5. Elbow extensors 4/5. Hazard Mitigation Officer strong. Left Upper Extremity: Shoulder flexors 4/5. Shoulder abductors 4/5. Elbow flexors 4/5. Elbow extensors 4/5. [employer]ard Mitigation Officer strong. Right Lower Extremity: Hip flexors 4-/5. Hip abductors 4/5. Knee flexors 4/5. Knee extensors 4-/5. Ankle dorsiflexors 4/5. Ankle plantarflexors 4/5. Left Lower Extremity:Hip flexors 4-/5. Hip abductors 4/5. Knee flexors 4/5. Knee extensors 4-/5. Ankle dorsiflexors 4/5. Ankle plantarflexors 4/5. Sensation: Intact as to pain and pressure on bilateral lower extremities. Bed Mobility/Transfers: Rolling independent Supine to sit independent Sit to supine independent Sit to stand independent Stand to sit independent Bed to chair independent Chair to bed independent Gait: Patient is able to tolerate level surface ambulation of 300 feet without any assistive device independently with report of mild shortness of breath and chest pain discomfort that subsided with rest. Gait pattern unremarkable except for reduced gait velocity as patient states that he needs to slow down so he does not get out of breath fast. Balance: Static Sitting: Normal Dynamic Sitting: Normal Static Standing: Normal Dynamic Standing: Good Assessment: Patient is a 73-year-old male with diagnosis of COPD exacerbation, steroid-induced hyperglycemia, and acute kidney injury. Patient presents with clinical signs and symptoms consistent with current/admitting diagnoses that have resulted to mobility limitations, gait instability, generalized weakness, and impairment of motor control as demonstrated by the following impairment level findings: 1. Decreased strength to B LE major muscle groups 2. Impaired standing balance 3. Impaired activity tolerance Impairments are contributing to the following functional limitations: 1. Increase completion time for mobility ADL performance 2. Increased fall risk 3. Inability to negotiate steps without dyspnea Goals: Goals X1 week 1. Independent gait on level surface without assistive device for at least 500 feet without report of chest discomofort nor dyspnea NOT MET 2. Independent stair negotiation while holding onto one rail for at least 4 s teps without report of chest discomofort nor dyspnea MET 3. Independent with home exercise program MET 4. Normal dynamic standing balance/tolerance NOT MET 5. Patient will demonstrate 2-minute walk test of 200 feet without report of pain nor dyspnea MET DISCHARGE RECOMMENDATIONS: Patient may benefit from outpatient pulmonary rehabilitation program in order to maximize pulmonary capacity and activity tolerance while performing all mobility related ADLs. TREATMENT CODE/TIME: NC. Thank you very much for this referral. Mira Sr PT, DPT, CLT [facility]
== END 2018-10-12 14:34 | disposition short-term general hospital (02) | DRG 190 ==
LOC: ER 09:34 → ICU 11:18 → MS 10-06 10:49
PROVIDERS: Emergency Medicine; Admitting Provider Internal Medicine; Emergency Provider Student in an Organized Health Care Education/Training Program; PCP Family Medicine; Visit Provider Internal Medicine
DX: J44.0 Chronic obstructive pulmonary disease with (acute) lower respiratory infection (principal); J18.9 Pneumonia, unspecified organism; J69.0 Pneumonitis due to inhalation of food and vomit; J45.901 Unspecified asthma with (acute) exacerbation; N17.9 Acute kidney failure, unspecified; B37.0 Candidal stomatitis; J44.1 Chronic obstructive pulmonary disease with (acute) exacerbation; R74.9 Abnormal serum enzyme level, unspecified; I25.10 Atherosclerotic heart disease of native coronary artery without angina pectoris; I12.9 Hypertensive chronic kidney disease with stage 1 through stage 4 chronic kidney disease, or unspecified chronic kidney disease; K21.9 Gastro-esophageal reflux disease without esophagitis; E11.65 Type 2 diabetes mellitus with hyperglycemia; T38.0X5A Adverse effect of glucocorticoids and synthetic analogues, initial encounter; Z79.52 Long term (current) use of systemic steroids; E11.42 Type 2 diabetes mellitus with diabetic polyneuropathy; Z79.4 Long term (current) use of insulin; N40.1 Benign prostatic hyperplasia with lower urinary tract symptoms; Z71.3 Dietary counseling and surveillance
CPT/HCPCS: 36415; 80048; 80053; 87040; 93005; 94640; 96365; 97162; 97165; 97530; 99223; 99232; 99239; 99285; 71045; 71046; 81003; 81015; 83605; 83735; 83880; 84484; 85025; 85610; 85730; 87070; 87205; 93010; J0696; J1644; J1956; J2543; J2930; J3490; J7512; J7620; J7626

== ENCOUNTER 2018-10-17 18:05 | Inpatient (IN) | payer MEDICARE, BC, SELFPAY ==
[2018-10-17] VITALS (29 sets, daily range): BP systolic 120–144; BP diastolic 76–86; PULSE 80–97; RESP 13–24; TEMP 36.2–36.6; O2SAT 89–98
--- NOTE | 2018-10-17 18:42 | DI.RAD_ITS ---
SYMPTOM/DIAGNOSIS: WEAKNESS, R/O ACUTE DISEASE AP AND LATERAL CHEST; 10/17 Today's examination is compared with previous films including most recent chest film of 10/08/18. The previously noted left basilar infiltrates appear to have largely resolved with some residual radiodensities noted in left lung base probably present on multiple old examinations consistent with scarring. No gross pleural effusion seen. Cardiac size is mildly enlarged. CONCLUSION: No evidence of acute process.
--- NOTE | 2018-10-17 18:44 | DI.CT_ITS ---
SYMPTOM/DIAGNOSIS: WEAK, DIZZY, R/O ACUTE CVA CRANIAL CT: 10/[address] was performed. There is moderate generalized cerebral atrophy. There is no evidence of acute intracranial hemorrhage, mass effect or midline shift. Note is made of probable old left frontal calvarial defect present on previous sinus CT of 2016. No acute calvarial fracture identified. Mild mucoperiosteal thickening of maxillary, ethmoid and sphenoid sinuses noted, consistent with mild chronic sinusitis. Mastoid air cells well maintained. Orbital and temporal bone structures appear intact. CONCLUSION: No evidence of acute intracranial process.
[2018-10-17 19:07] LABS: Absolute Lymphocyte Count 1.43 k/cumm (1.2-3.4); HCT 43.3 % (40.0-50.0); HGB 14.5 g/dL (13.5-17.5); Mean Corp. HGB Concentration 33.5 g/dL (32.0-36.0); Mean Corpuscular Hemoglobin 29.4 pg (27.0-33.0); Mean Corpuscular Volume 87.8 fL (80-95); Mean Platelet Volume 8.8 fL (8.0-11.0); Platelet Count 166 x1000/uL (130-400); RBC 4.93 m/cumm (4.50-6.00); RBC Distribution Width 15.2 % (11.8-14.1); White Blood Cell Count 9.54 k/cumm (4.4-10.8)
[2018-10-17] MEDS: Normal Saline 500 ML IV (19:15)
--- NOTE | 2018-10-17 19:15 | ED.GENADUL_ITS ---
Discharge Plan Disposition Patient Disposition: [facility] INPATIENT Condition: Stable Discharge Details Chief Complaint: GenMedical Clinical Impression: Acute dehydration, Oral candidiasis, Current chronic use of inhaled steroid Primary Care Provider: Tevin Dooley ED Provider: Slime Estrada Home Meds and New Rx's Prescriptions: No Action glipizide 5 mg tablet 5 mg PO QAM Qty: 30 RF: 4 sulfamethoxazole-trimethoprim [Bactrim DS] 800-160 mg tablet 1 tab PO .3x week RF: 0 aspirin 81 mg tablet,delayed release (DR/EC) 81 mg PO DAILY RF: 0 gabapentin 300 mg capsule 300 mg PO TID Qty: 270 RF: 4 duloxetine 60 mg capsule,delayed release(DR/EC) 60 mg PO DAILY Qty: 90 RF: 3 mepolizumab 100 mg recon soln 100 mg SC Q4W RF: 0 prednisone 10 mg tablet 40 mg PO DAILY RF: 0 NEBULIZER W/ TUBING 1 inh DIRECTED RF: 0 montelukast 10 MG tablet 10 mg PO DAILY RF: 0 budesonide [Pulmicort] 0.5 MG/2 ML suspension for nebulization 1 inh Inhalation QID Qty: 180 RF: 4 FreeStyle Lite Strips 1 EACH strip 1 ea Miscellaneous TID Qty: 200 RF: 5 albuterol sulfate [ProAir HFA] 8.5 GM HFA aerosol inhaler 1 - 2 puff Inhalation Q4H PRN Qty: 3 RF: 4 magnesium oxide 400 MG tablet 400 mg PO DAILY Qty: 90 RF: 4 hydrocodone-acetaminophen 7.5-325 mg tablet 1 tab PO BID MDD 2 tab Qty: 60 RF: 0 ibuprofen 200 MG tablet 200 mg PO DAILY RF: 0 levalbuterol HCl 0.63 mg/3 mL Solution For Nebulization 0.63 mg UPD Q2H PRN PRNQty: 0 RF: 0 nystatin 100,000 unit/mL Suspension 500,000 units PO 5X/DAY Qty: 0 RF: 0 tamsulosin 0.4 mg Capsule 0.4 mg PO DAILY@1730 Qty: 0 RF: 0 ipratropium-albuterol 0.5 mg-3 mg(2.5 mg base)/3 mL solution for nebulization 3 ml Inhalation Q4H Qty: 4 RF: 5 Medical Decision Making 73-year-old male with a history of COPD, diabetes, migraine and depression who presents with worsening painful mouth ulcers and generalized weakness and dizziness for the past few days. Patient was admitted here last month for COPD exacerbation and pneumonia and was transferred to [facility] due to lack of improvement. Patient was treated with oral steroids and recommended to continue on his home monthly Nucala injection and discharged home on October 14. states since then he has not been able to eat and drink much due to his mouth ulcers, and becoming more weak. Patient is afebrile. He has ulcers noted to inner lip and base of tongue. He is having difficulty speaking due to these painful ulcers. Suspect he is feeling generally weak and dizzy due to acute dehydration from painful oral ulcers. Lungs clear. No focal deficits. Moving all extremities. Due to patient's age and history, screening labs, EKG, chest x-ray and CT head ordered. EKG done on arrival and notes a rate of 95, sinus, right bundle branch block and no acute ST-T wave ischemic changes. A repeat EKG was done in error which had noted possible inferior ST elevation but this did not appear acutely different from first EKG or from EKG last month. EKG was reviewed with [facility] cardiology and agree that this is not an acute ST elevation. Patient denies any chest pain. Labs and imaging reviewed. Normal electrolytes. Troponin negative. CT head and chest x-ray negative for acute findings. Will admit patient for pain control and fluids and weakness. Patient feels somewhat better after Magic mouthwash. 2030 --discussed with Dr. Lara - accepts pt for admission. Medical Records Medical records reviewed: Yes I reviewed the patient's medical records. Imaging Data Radiologic Study: Radiologist's impression: XR Chest, 2 Views EXAM DATE/TIME: 10/17/2018 6:44 PM CLINICAL HISTORY: 73 years old, male; Cough with hemorrhage. TECHNIQUE: Imaging protocol: XR of the chest, 2 views. COMPARISON: CR XR CHEST 2V PA LATERAL 10/08/2018 3:43 PM FINDINGS: Lungs: Emphysematous changes. Nonspecific patchy interstitial prominence likely related to a chronic process. No evidence of pneumonia, pulmonary vascular congestion, or pulmonary edema. Pleural space: No pneumothorax. No sizable pleural effusion. Heart/Mediastinum: No cardiomegaly. Bones/joints: Unremarkable. IMPRESSION: Emphysematous changes. Nonspecific patchy interstitial prominence likely related to a chronic process. No evidence of pneumonia, pulmonary vascular congestion, or pulmonary edema. CT Head Without Contrast EXAM DATE/TIME: 10/17/2018 6:45 PM CLINICAL HISTORY: 73 years old, male; Dizziness and other: General weakness; Patient HX: Weak, dizzy TECHNIQUE: Imaging protocol: Axial computed tomography images of the head without contrast. Coronal and sagittal reformatted images were created and reviewed. Radiation optimization: All CT scans at this facility use at least one of these dose optimization techniques: automated exposure control; mA and/or kV adjustment per patient size (includes targeted exams where dose is matched to clinical indication); or iterative reconstruction. Other technique: STROKE PROTOCOL was implemented. COMPARISON: CT sinuses 07/10/2015. FINDINGS: Brain: Age-related involutional changes and chronic microvascular ischemic disease. No evidence for acute transcortical infarct. No mass effect or midline shift. No extra-axial collection. No acute intracranial hemorrhage. Basal cisterns are patent. Ventricles: Normal. No ventriculomegaly. Bones/joints: Stable lytic appearance of the left frontal bone. Sinuses: Evidence of paranasal sinus surgery. Mild mucosal thickening involving the paranasal sinuses. Mastoid air cells: Visualized mastoid air cells are well aerated. No mastoid effusion. Soft tissues: Unremarkable. IMPRESSION: No evidence for acute transcortical infarct, acute intracranial hemorrhage, or mass effect. [place] Stroke Program Early CT Score (ASPECTS) = 10 Lab Data Lab results reviewed: Yes I reviewed the patient's lab results. Laboratory Tests Range/Units 10/17/18 10/17/18 18:55 18:55 WBC (4.4-10.8) k/cumm 9.54 RBC (4.50-6.00) m/cumm 4.93 Hgb (13.5-17.5) g/dL 14.5 Hct (40.0-50.0) % 43.3 MCV (80-95) fL 87.8 MCH (27.0-33.0) pg 29.4 MCHC (32.0-36.0) g/dL 33.5 RDW (11.8-14.1) % 15.2 H Plt Count (130-400) x1000/uL 166 MPV (8.0-11.0) fL 8.8 Immature Gran % 0.0 Neutrophils % 71.0 Band Neutrophils % % 0.0 Lymphocytes % 15.0 Monocytes % 13.0 Eosinophils % 1.0 Basophils % 0.0 Absolute Neutrophils (1.2-6.7) k/cumm 6.77 H Absolute Lymphocytes (1.2-3.4) k/cumm 1.43 Absolute Monocytes (0.11-0.7) k/cumm 1.24 H Absolute Eosinophils (0.0-0.7) k/cumm 0.10 Absolute Basophils (0.0-0.2) k/cumm 0.00 Differential Comment Manual differential RBC Morphology Normal Sodium (136-145) mmol/L 134 L Potassium (3.5-5.1) mmol/L 4.8 Chloride (98-107) mmol/L 96 L Carbon Dioxide (21.0-32.0) mmol/L 31.6 Anion Gap (3-11) mmol/L 6.4 BUN (7-18) mg/dL 30 H Creatinine (0.70-1.30) mg/dL 1.25 Estimated GFR/1.73 m2 (mL/min/1.73m2) 56.78 Glucose (70-100) mg/dL 143 H Calcium (8.5-10.1) mg/dL 9.3 Magnesium (1.8-2.4) mg/dL 2.0 Total Bilirubin (0.2-1.0) mg/dL 0.4 AST (15-37) U/L 13 L ALT (12-78) U/L 45 Alkaline Phosphatase (46-116) U/L 83 Troponin I (0.00-0.06) ng/mL < 0.05 Total Protein (6.4-8.2) g/dL 6.2 L Albumin (3.4-5.0) g/dL 3.1 L ECG Data Attestation: I personally reviewed and interpreted this ECG (s) as follows: Interpretation: #1 -- rate of 95, RBBB, no acute ST elevation or depression. QTc 432. QRS 112. #2 -- done in error as was thought ekg not done --- rate of 93, sinus, right bundle branch block. No acute ST elevation or depression. Findings inferior leads appear part of QRS and not ST elevation. QTc 440. QRS 102. HPI General Mode of arrival: ambulatory . Date/Time Provider Initiated Documentation: 10/17/18 18:06 . Limitations to Documentation: no limitations . Information obtained by: patient and family . HPI Narrative: Patient is a 73-year-old male with a history of COPD, eosinophilic pneumonia, GERD, diabetes, hypertension and morbid obesity who presents with painful mouth ulcers for the past week, getting progressively worse and no relief with nystatin. Patient has not been eating or drinking much due to the pain and now has significant weakness and dizziness. He denies any fever, chest pain, shortness of breath or headache. states that she feels that patient's neck is swollen due to his mouth ulcers. Related Data Home Medications Medication Instructions Recorded Confirmed Nebulizer W/ Tubing 1 inh DIRECTED 06/22/12 10/05/18 ibuprofen 200 mg PO DAILY 06/12/17 10/17/18 montelukast 10 mg PO DAILY tab-cap 07/10/17 10/17/18 budesonide [Pulmicort] 1 inh INHALATION QID #180 ea 08/05/17 10/17/18 FreeStyle Lite Strips #200 strip 09/08/17 10/05/18 albuterol sulfate [ProAir HFA] 1 - 2 puff INHALATION Q4H PRN #3 09/08/1710/29 inhaler magnesium oxide 400 mg PO DAILY #90 tab 10/20/17 10/17/18 glipizide 5 mg tablet 5 mg PO QAM #30 tab 05/13/18 10/17/18 aspirin 81 mg tablet,delayed 81 mg PO DAILY 07/15/18 10/17/18 release gabapentin 300 mg capsule 300 mg PO TID #270 cap 07/15/18 10/17/18 sulfamethoxazole 800 1 tab PO .3x week tab 07/15/18 10/17/18 mg-trimethoprim 160 mg tablet duloxetine 60 mg capsule,delayed 60 mg PO DAILY #90 cap 08/27/18 10/17/18 release mepolizumab 100 mg subcutaneous 100 mg SC Q4W each 09/08/18 10/17/18 solution prednisone 10 mg tablet 40 mg PO DAILY tab 09/08/18 10/17/18 hydrocodone 7.5 mg-acetaminophen 1 tab PO BID #60 tab MDD 2 tab 09/27/18 10/17/18 325 mg tablet ipratropium-albuterol 3 ml INHALATION Q4H #4 box 10/11/18 10/17/18 levalbuterol HCl 0.63 mg UPD Q2H PRN PRN #0 ml 10/11/18 10/17/18 nystatin 500,000 units PO 5X/DAY #0 ml 10/11/18 10/17/18 tamsulosin 0.4 mg PO DAILY@1730 #0 cap 10/11/18 10/17/18 Previous Rx's Medication Instructions Recorded budesonide [Pulmicort] 1 inh INHALATION QID #180 ea 08/05/17 FreeStyle Lite Strips #200 strip 09/08/17 albuterol sulfate [ProAir HFA] 1 - 2 puff INHALATION Q4H PRN #3 09/08/17 inhaler magnesium oxide 400 mg PO DAILY #90 tab 10/20/17 glipizide 5 mg tablet 5 mg PO QAM #30 tab 05/13/18 gabapentin 300 mg capsule 300 mg PO TID #270 cap 07/15/18 duloxetine 60 mg capsule,delayed 60 mg PO DAILY #90 cap 08/27/18 release hydrocodone 7.5 mg-acetaminophen 1 tab PO BID #60 tab MDD 2 tab 09/27/18 325 mg tablet ipratropium-albuterol 3 ml INHALATION Q4H #4 box 10/11/18 levalbuterol HCl 0.63 mg UPD Q2H PRN PRN #0 ml 10/11/18 nystatin 500,000 units PO 5X/DAY #0 ml 10/11/18 tamsulosin 0.4 mg PO DAILY@1730 #0 cap 10/11/18 Allergies Allergy/AdvReac Type Severity Reaction Status Date / Time codeine Allergy rash, itch Unverified 10/17/18 18:26 General Stated Complaint: GenMedical DERICK: 3 Review of Systems Review of Systems All systems reviewed & are unremarkable except as noted in HPI and below Constitutional Reports as per HPI, Denies chills, Reports fatigue, Denies fever(s), Reports poor appetite and Reports weakness Eyes Denies blurry vision ENT Denies dizziness, Denies sore throat and Denies throat swelling Cardiovascular Denies chest pain and Denies dyspnea Respiratory Denies cough and Denies dyspnea Gastrointestinal Denies abdominal pain, Denies diarrhea and Denies vomiting Genitourinary Denies hematuria and Denies dysuria Musculoskeletal Denies back pain and Denies numbness Integumentary/Breasts Denies lesions and Denies rash Neurologic Denies dizziness, Denies focal weakness, Denies numbness and Reports weakness Endocrine Reports fatigue Allergic/Immunologic Denies throat swelling [facility] Medical History Gastroesophageal reflux disease (Chronic) Diabetic peripheral neuropathy (Chronic 12/11/15) 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 Father Neoplasm Sister No problems noted. Sister No problems noted. Sister No problems noted. Sister No problems noted. Sister No problems noted. Sister No problems noted. Sister No problems noted. Sister No problems noted. Sister No problems noted. Brother No problems noted. Brother No problems noted. Brother No problems noted. Brother No problems noted. Brother No problems noted. Brother No problems noted. Brother No problems noted. Brother No problems noted. Brother No problems noted. Brother No problems noted. Brother No problems noted. Brother No problems noted. Son No problems noted. Son Substance abuse Mental disorder Son Substance abuse Daughter Substance abuse Depression Mental disorder Social History Smoking/Tobacco Use Status: Former Tobacco Use Alcohol Intake: former Drug use: Never Substance use type: does not use Household members: spouse and children Pets and animals: Yes Pets and animals: cat(s) and dog(s) Duration: decline to answer Frequency: 3-4 times per week Aminata/Yazdanism: Roman Catholic Special aminata needs: No Do you feel safe at home: Yes Do you feel safe in your relationship?: Yes Additional Social history: , with 4 children. Currently raising 3 grandchildren. Reported 80+ pack year history of tobacco abuse, quit approximately 15 years ago. Denies any current EtOH use. Exam Const General: cooperative, healthy appearing and acute distress moderate (uncomfortable with mouth ulcers) Orientation: alert and awake HENMO Head: normal to inspection Ears: hearing grossly normal bilaterally, external ears normal and TM's normal bilaterally General nose exam: external nose normal Face and sinus: normal facial exam Mouth: other (4x4mm ulcer noted to base of tongue, 2x2m ulcer noted to inner lower lip) Teeth and gingiva: dentition normal Throat: posterior oropharynx normal Eyes General: appearance normal, both eyes and all related structures Eyelids: eyelids normal Pupils: PERRL EOM: EOM intact bilaterally Neck Neck: normal visual inspection Lymphatic: no lymphadenopathy noted Chest Chest: normal inspection of the chest Resp Effort & Inspection: normal respiratory effort and able to speak in complete sentences Auscultation: clear to auscultation bilaterally Cardio Rate: regular rate Rhythm: regular rhythm GI Inspection: normal to inspection Palpation: soft, not firm, no guarding, no hepatosplenomegaly, no masses and nontender Auscultation: normal bowel sounds Back/Spine/Pelvis Back: no CVA tenderness Skin General skin exam: no rashes or lesions noted Neuro General: alert, awake, oriented x3, moves all extremities and no focal motor deficits Cranial Nerves: CN's II-XI intact bilaterally Cognition: normal cognition Speech: speech normal Gait: normal gait Motor: muscle tone normal throughout and strength 5/5 throughout Sensory Exam: no sensory deficits noted Extrem General: normal to inspection, full ROM and normal capillary refill Psych Appearance: grossly normal Mental Status: mental status grossly normal Speech and Movement: speech and movement normal Affect: normal affect Thought Process: normal Course Vital Signs Temperature 97.2 F L 10/17/18 18:14 Pulse 80 10/17/18 18:14 Respiratory Rate 18 10/17/18 18:14 Blood Pressure 144/84 H 10/17/18 18:14 Pulse Oximetry 97 10/17/18 18:14 Temperature 97.2 F L 10/17/18 18:14 Temperature Source Tympanic 10/17/18 18:14 Pulse 80 10/17/18 18:14 Respiratory Rate 18 10/17/18 18:14 Respiratory Effort Non-Labored 10/17/18 18:19 Respiratory Depth Normal 10/17/18 18:19 Respiratory Pattern Normal 10/17/18 18:19 Blood Pressure 144/84 H 10/17/18 18:14 Pulse Oximetry 97 10/17/18 18:14 Pain Level 10 10/17/18 18:14 Lab/Test Results Lab/Test Results: Laboratory Tests Range/Units 10/17/18 18:55 WBC (4.4-10.8) k/cumm 9.54 RBC (4.50-6.00) m/cumm 4.93 Hgb (13.5-17.5) g/dL 14.5 Hct (40.0-50.0) % 43.3 MCV (80-95) fL 87.8 MCH (27.0-33.0) pg 29.4 MCHC (32.0-36.0) g/dL 33.5 RDW (11.8-14.1) % 15.2 H Plt Count (130-400) x1000/uL 166 MPV (8.0-11.0) fL 8.8
[2018-10-17 19:24] LABS: ALT 45 U/L (12-78); AST 13 U/L (15-37); Albumin 3.1 g/dL (3.4-5.0); Alkaline Phosphatase 83 U/L (46-116); Anion Gap 6.4 mmol/L (3-11); BUN 30 mg/dL (7-18); Bilirubin, Total 0.4 mg/dL (0.2-1.0); CO2 31.6 mmol/L (21.0-32.0); CREATININE 1.25 mg/dL (0.70-1.30); Calcium 9.3 mg/dL (8.5-10.1); Chloride 96 mmol/L (98-107); Estimated GFR 56.78 (mL/min/1.73m2); Glucose 143 mg/dL (70-100); Potassium 4.8 mmol/L (3.5-5.1); Sodium 134 mmol/L (136-145); Total Protein 6.2 g/dL (6.4-8.2); Troponin I < 0.05 ng/mL (0.00-0.06)
[2018-10-17 19:30] LABS: Diff Comment Manual Differential; RBC Morphology Normal
[2018-10-17 19:31] LABS: Absolute Monocyte Count 1.24 k/cumm (0.11-0.7); Absolute Neutrophil Count 6.77 k/cumm (1.2-6.7)
--- NOTE | 2018-10-17 19:42 | DI.VRAD_ITS ---
EXAM: CT Head Without Contrast EXAM DATE/TIME: 10/17/2018 6:45 PM CLINICAL HISTORY: 73 years old, male; Dizziness and other: General weakness; Patient HX: Weak, dizzy TECHNIQUE: Imaging protocol: Axial computed tomography images of the head without contrast. Coronal and sagittal reformatted images were created and reviewed. Radiation optimization: All CT scans at this facility use at least one of these dose optimization techniques: automated exposure control; mA and/or kV adjustment per patient size (includes targeted exams where dose is matched to clinical indication); or iterative reconstruction. Other technique: STROKE PROTOCOL was implemented. COMPARISON: CT sinuses 07/10/2015. FINDINGS: Brain: Age-related involutional changes and chronic microvascular ischemic disease. No evidence for acute transcortical infarct. No mass effect or midline shift. No extra-axial collection. No acute intracranial hemorrhage. Basal cisterns are patent. Ventricles: Normal. No ventriculomegaly. Bones/joints: Stable lytic appearance of the left frontal bone. Sinuses: Evidence of paranasal sinus surgery. Mild mucosal thickening involving the paranasal sinuses. Mastoid air cells: Visualized mastoid air cells are well aerated. No mastoid effusion. Soft tissues: Unremarkable. IMPRESSION: No evidence for acute transcortical infarct, acute intracranial hemorrhage, or mass effect. [place] Stroke Program Early CT Score (ASPECTS) = 10 Dictated and Authenticated by: Rafiq Fajardo MD. Ordering:RESHMA Palencia MD
--- NOTE | 2018-10-17 19:47 | DI.VRAD_ITS ---
EXAM: XR Chest, 2 Views EXAM DATE/TIME: 10/17/2018 6:44 PM CLINICAL HISTORY: 73 years old, male; Cough with hemorrhage. TECHNIQUE: Imaging protocol: XR of the chest, 2 views. COMPARISON: CR XR CHEST 2V PA LATERAL 10/08/2018 3:43 PM FINDINGS: Lungs: Emphysematous changes. Nonspecific patchy interstitial prominence likely related to a chronic process. No evidence of pneumonia, pulmonary vascular congestion, or pulmonary edema. Pleural space: No pneumothorax. No sizable pleural effusion. Heart/Mediastinum: No cardiomegaly. Bones/joints: Unremarkable. IMPRESSION: Emphysematous changes. Nonspecific patchy interstitial prominence likely related to a chronic process. No evidence of pneumonia, pulmonary vascular congestion, or pulmonary edema. Dictated and Authenticated by: Rafiq Fajardo MD. Ordering:RESHMA Palencia MD
--- NOTE | 2018-10-17 22:56 | HPE_ITS ---
Date of service: 10/17/18 Time of Service: 22:53 Assessment and Plan (1) Dehydration: Start date: 10/17/18 Current visit: Yes Status: Acute This is a 73-year-old gentleman recently hospitalized for respiratory decompensation now dehydrated, not been able to take his usual medicines or food/liquids secondary to severe sore mouth and painful swallowing. He will be admitted for IV hydration with no history of CHF by reviewing his records and a preserved left ejection fraction by cardiac nuclear scan in recent years. He does have slightly abnormal EKG probably secondary to his severe COPD. His troponins will be trended as we rehydrate and we will watch for fluid overload. He has had no previous evidence of myocardial infarction. He is a full code. (2) Candidiasis of mouth and esophagus: Start date: 10/17/18 Current visit: Yes Status: Acute This is worsening despite topical treatment with nystatin and patient is on inhaled and oral steroids. Start fluconazole 200 mg IV and then 100 mg p.o. daily. This will be treatment of oral pharyngeal and possible esophageal candidiasis. He has recently been on broad-spectrum antibiotics for pneumonia and as stated he is chronically on inhaled and oral steroids. Nystatin will be continued. In the morning it should be reviewed whether an anesthetic oral solution should be given to help him at least take his medications by mouth. Mylanta plus was used in the ER with some relief over a short time. This could be combined with equal parts of Benadryl liquid and this may be more palatable than 2% viscous lidocaine. (3) COPD (chronic obstructive pulmonary disease) with emphysema: Current visit: Yes Status: Chronic This is severe and end-stage in patient with a full code status which should be re-evaluated. He is steroid-dependent and on multiple inhalers and oral therapies. Continue managing with pulmonology consultation if needed during his hospital stay though once again this may require transfer to tertiary care center if his pulmonary status becomes unstable and he remains a full code. He just recently was inpatient at this hospital and and transferred to [facility]. Since he missed his morning dose of prednisone 40 mg a will give him a one-time dose of Solu-Medrol 80 mg tonight. His usual respiratory medications will be continued during this hospital stay. He has no evidence of recurrent pneumonia or respiratory infection this time. Qualifiers: Emphysema type: unspecified Qualified Code(s): J43.9 - Emphysema, unspecified History of Present Illness Chief Complaint: Generalized weakness and dizziness, decreased intake secondary to thrush Narrative: This is a 73-year-old gentleman who recently was hospitalized with severe COPD exacerbation and pneumonia and transferred to [facility] being discharged recently on October 14, 2018. Since being home he has had worsening oral thrush and painful swallowing not being able to swallow his usual pills this morning and having decreased food and fluid. He felt dizzy and weak and was admitted today for dehydration acute decreased intake. He usually takes prednisone 40 mg a day and cannot wean lower than 30 mg a day with adrenal insufficiency possibly contributing to his weakness, missing his dose of steroids this morning. Patient states his respiratory status is stable after his recent hospitalization and near baseline. He does have multiple medical problems and multiple meds mostly associated with his respiratory problems which is COPD with emphysema. He also takes meds for chronic pain and is moderately obese and deconditioned for his age with his multiple medical problems. He is a full code. Review of Systems Review of Systems 13 point review of systems otherwise unrevealing or stable with his recent ev ents other than as per HPI with his severe sore throat. He denies any emesis or hematemesis. He does have paroxysms of cough find it difficult to raise sputum. He has had no sputum color change. [facility] Medical History Gastroesophageal reflux disease (Chronic) Diabetic peripheral neuropathy (Chronic 12/11/15) 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) Atherosclerosis of [place] coronary artery (Chronic) Osteoarthritis (Chronic) COPD (chronic obstructive pulmonary disease) (Chronic) Diabetes mellitus (Chronic) Hypertension (Chronic) Polymyalgia rheumatica (Resolved 02/19/12) Surgical History SHOULDER SURGERY Family History Family History Neoplasm Mother No problems noted. Father Neoplasm Sister No problems noted. Sister No problems noted. Sister No problems noted. Sister No problems noted. Sister No problems noted. Sister No problems noted. Sister No problems noted. Sister No problems noted. Sister No problems noted. Brother No problems noted. Brother No problems noted. Brother No problems noted. Brother No problems noted. Brother No problems noted. Brother No problems noted. Brother No problems noted. Brother No problems noted. Brother No problems noted. Brother No problems noted. Brother No problems noted. Brother No problems noted. Son No problems noted. Son Substance abuse Mental disorder Son Substance abuse Daughter Substance abuse Depression Mental disorder Social History Smoking/Tobacco Use Status: Former Tobacco Use Alcohol Intake: former Drug use: Never Substance use type: does not use Household members: spouse and children Pets and animals: Yes Pets and animals: cat(s) and dog(s) Duration: decline to answer Frequency: 3-4 times per week Aminata/Sikhism: Yarsanism Special aminata needs: No Do you feel safe at home: Yes Do you feel safe in your relationship?: Yes Additional Social history: , with 4 children. Currently raising 3 grandchildren. Reported 80+ pack year history of tobacco abuse, quit appr oximately 15 years ago. Denies any current EtOH use. Meds Home Medications Medication Instructions Recorded Confirmed Type Nebulizer W/ Tubing 1 inh DIRECTED 06/22/12 10/05/18 History ibuprofen 200 mg PO DAILY 06/12/17 10/17/18 History montelukast 10 mg PO DAILY tab-cap 07/10/17 10/17/18 History budesonide [Pulmicort] 1 inh INHALATION QID #180 ea 08/05/17 10/17/18 Rx FreeStyle Lite Strips #200 strip 09/08/17 10/05/18 Rx albuterol sulfate [ProAir HFA] 1 - 2 puff INHALATION Q4H PRN #3 09/08/17 10/17/18 Rx inhaler magnesium oxide 400 mg PO DAILY #90 tab 10/20/17 10/17/18 Rx glipizide 5 mg tablet 5 mg PO QAM #30 tab 05/13/18 10/17/18 Rx aspirin 81 mg tablet,delayed 81 mg PO DAILY 07/15/18 10/17/18 History release gabapentin 300 mg capsule 300 mg PO TID #270 cap 07/15/18 10/17/18 Rx sulfamethoxazole 800 1 tab PO .3x week tab 07/15/18 10/17/18 History mg-trimethoprim 160 mg tablet duloxetine 60 mg capsule,delayed 60 mg PO DAILY #90 cap 08/27/18 10/17/18 Rx release mepolizumab 100 mg subcutaneous 100 mg SC Q4W each 09/08/18 10/17/18 History solution prednisone 10 mg tablet 40 mg PO DAILY tab 09/08/18 10/17/18 History hydrocodone 7.5 mg-acetaminophen 1 tab PO BID #60 tab MDD 2 tab 09/27/18 10/17/18 Rx 325 mg tablet ipratropium-albuterol 3 ml INHALATION Q4H #4 box 10/11/18 10/17/18 Rx levalbuterol HCl 0.63 mg UPD Q2H PRN PRN #0 ml 10/11/18 10/17/18 Rx nystatin 500,000 units PO 5X/DAY #0 ml 10/11/18 10/17/18 Rx tamsulosin 0.4 mg PO DAILY@1730 #0 cap 10/11/18 10/17/18 Rx Allergies Allergy/AdvReac Type Severity Reaction Status Date / Time codeine Allergy rash, itch Unverified 10/17/18 18:26 Exam Narrative Exam Narrative: General: Patient appears appropriate for age, moderately obese and moderate distress from his coughing and sore mouth. He is alert and oriented x3. He is darkly tanned. HEENT: Normocephalic with coarsened facial features without edema, eyes with pupils equal react light symmetrically and extraocular movement intact with sclera anicteric. Ears normal. Oropharynx as described by ER physician with ulcerations over his tongue and mucosal surfaces of his lip with erythema. Neck: Supple without JVD. Heart: Distant heart sounds with regular rate and rhythm. No appreciable murmurs or gallops. Back: Stooped posture with no CVA tenderness. Lungs: Poor aeration diffusely with bronchovesicular breath sounds and slight increase expiratory phase with slight expiratory wheeze and diffuse scant rhonchi. No focalizing expiratory rales. Abdomen: Obese contour, soft and nontender with no palpable hepatosplenomegaly. Genitalia/Rectal: Exam deferred. Extremities: No pitting edema or cyanosis with chronic skin changes over lower extremities including shiny atrophic skin and hair loss. No clubbing. All joints have decreased range of motion patient appearing to be diffusely arthritic. Neuro: Cranial nerves II through XII grossly intact, motor grossly intact moving all extremities though decreased strength diffusely with deconditioning. Skin: Diffusely tanned, diffuse actinic changes but no suspicious lesions. Decreased turgor. No rashes. Psych: Normal mood and affect with remote and recent memory appearing to be intact. Results Imaging Imaging Studies: EXAM: XR Chest, 2 Views EXAM DATE/TIME: 10/17/2018 6:44 PM CLINICAL HISTORY: 73 years old, male; Cough with hemorrhage. TECHNIQUE: Imaging protocol: XR of the chest, 2 views. COMPARISON: CR XR CHEST 2V PA LATERAL 10/08/2018 3:43 PM FINDINGS: Lungs: Emphysematous changes. Nonspecific patchy interstitial prominence likely related to a chronic process. No evidence of pneumonia, pulmonary vascular congestion, or pulmonary edema. Pleural space: No pneumothorax. No sizable pleural effusion. Heart/Mediastinum: No cardiomegaly. Bones/joints: Unremarkable. IMPRESSION: Emphysematous changes. Nonspecific patchy interstitial prominence likely related to a chronic process. No evidence of pneumonia, pulmonary vascular congestion, or pulmonary edema. Dictated and Authenticated by: Rafiq Fajardo MD. EXAM: CT Head Without Contrast EXAM DATE/TIME: 10/17/2018 6:45 PM CLINICAL HISTORY: 73 years old, male; Dizziness and other: General weakness; Patient HX: Weak, dizzy TECHNIQUE: Imaging protocol: Axial computed tomography images of the head without contrast. Coronal and sagittal reformatted images were created and reviewed. Radiation optimization: All CT scans at this facility use at least one of these dose optimization techniques: automated exposure control; mA and/or kV adjustment per patient size (includes targeted exams where dose is matched to clinical indication); or iterative reconstruction. Other technique: STROKE PROTOCOL was implemented. COMPARISON: CT sinuses 07/10/2015. FINDINGS: Brain: Age-related involutional changes and chronic microvascular ischemic disease. No evidence for acute transcortical infarct. No mass effect or midline shift. No extra-axial collection. No acute intracranial hemorrhage. Basal cisterns are patent. Ventricles: Normal. No ventriculomegaly. Bones/joints: Stable lytic appearance of the left frontal bone. Sinuses: Evidence of paranasal sinus surgery. Mild mucosal thickening involving the paranasal sinuses. Mastoid air cells: Visualized mastoid air cells are well aerated. No mastoid effusion. Soft tissues: Unremarkable. IMPRESSION: No evidence for acute transcortical infarct, acute intracranial hemorrhage, or mass effect. [place] Stroke Program Early CT Score (ASPECTS) = 10 Dictated and Authenticated by: Rafiq Fajardo MD. Labs : 10/17/18 18:55 10/17/18 18:55 Laboratory Results - last 24 hr 10/17/18 10/17/18 18:55 18:55 WBC 9.54 RBC 4.93 Hgb 14.5 Hct 43.3 MCV 87.8 MCH 29.4 MCHC 33.5 RDW 15.2 H Plt Count 166 MPV 8.8 Immature Gran % 0.0 Neutrophils % 71.0 Band Neutrophils % 0.0 Lymphocytes % 15.0 Monocytes % 13.0 Eosinophils % 1.0 Basophils % 0.0 Absolute Neutrophils 6.77 H Absolute Lymphocytes 1.43 Absolute Monocytes 1.24 H Absolute Eosinophils 0.10 Absolute Basophils 0.00 Differential Comment Manual differential RBC Morphology Normal Sodium 134 L Potassium 4.8 Chloride 96 L Carbon Dioxide 31.6 Anion Gap 6.4 BUN 30 H Creatinine 1.25 Estimated GFR/1.73 m2 56.78 Glucose 143 H Calcium 9.3 Magnesium 2.0 Total Bilirubin 0.4 AST 13 L ALT 45 Alkaline Phosphatase 83 Troponin I < 0.05 Total Protein 6.2 L Albumin 3.1 L Last Vital Signs Temp 36.2 C L 10/17/18 18:14 Pulse 95 H 10/17/18 21:31 Resp 18 10/17/18 21:40 BP 120/80 10/17/18 21:31 Pulse Ox 97 10/17/18 21:40
[2018-10-17 23:14] LABS: Bilirubin Negative (Negative); Blood Negative (Negative); Clarity Clear (Clear); Glucose Negative (Negative); Ketones Negative (Negative); Leukocyte Esterase Negative (Negative); Nitrite Negative (Negative); Specific Gravity 1.015 (1.005-1.025); Urobilinogen 0.2 EU/dL (Up TO 0.2)
[2018-10-17] MEDS: Albuterol/Ipratropium 3 ML UPD VIAL UPD (23:57)
[2018-10-17] MEDS: Normal Saline 1,000 ML 150 ML IV (23:57)
[2018-10-17] MEDS: Normal Saline Flush 10 ML SYR IVP (23:57)
[2018-10-17] MEDS: Heparin 5,000 UNITS/ML VIAL 5000 UNITS SC (23:58)
[2018-10-17] MEDS: FLUCONAZOLE 200 MG/100 ML BAG 100 MG IVPB (23:58)
[2018-10-18] VITALS (9 sets, daily range): BP systolic 140–159; BP diastolic 74–90; PULSE 88–102; RESP 18–23; TEMP 36.1–36.7; O2SAT 96–98
[2018-10-18] MEDS: Acetaminophen 500 MG TAB 1000 MG PO ×2 (00:47→08:26)
[2018-10-18] MEDS: LORazepam 0.5 MG TAB PO ×2 (00:47→21:09)
[2018-10-18] MEDS: methylPREDNISolone SUCC 125 MG VIAL 80 MG IVP (00:47)
[2018-10-18] MEDS: Albuterol/Ipratropium 3 ML UPD VIAL UPD ×3 (05:21→17:37)
[2018-10-18] MEDS: Heparin 5,000 UNITS/ML VIAL 5000 UNITS SC ×3 (05:21→21:09)
[2018-10-18] MEDS: Nystatin 500000 UNITS/5 ML SUSP 5ML CUP PO ×5 (05:21→21:10)
[2018-10-18] MEDS: Normal Saline 1,000 ML 150 ML IV ×2 (06:44→13:01)
[2018-10-18 07:24] LABS: HCT 43.5 % (40.0-50.0); HGB 14.6 g/dL (13.5-17.5); Mean Corp. HGB Concentration 33.6 g/dL (32.0-36.0); Mean Corpuscular Hemoglobin 29.2 pg (27.0-33.0); Mean Platelet Volume 9.1 fL (8.0-11.0); Platelet Count 160 x1000/uL (130-400); White Blood Cell Count 8.82 k/cumm (4.4-10.8)
[2018-10-18 07:41] LABS: ALT 45 U/L (12-78); AST 15 U/L (15-37); Albumin 3.1 g/dL (3.4-5.0); Alkaline Phosphatase 65 U/L (46-116); Anion Gap 8.7 mmol/L (3-11); BUN 22 mg/dL (7-18); Bilirubin, Total 0.5 mg/dL (0.2-1.0); CO2 28.3 mmol/L (21.0-32.0); CREATININE 1.09 mg/dL (0.70-1.30); Calcium 8.2 mg/dL (8.5-10.1); Chloride 96 mmol/L (98-107); Glucose 241 mg/dL (70-100); Potassium 4.7 mmol/L (3.5-5.1); Sodium 133 mmol/L (136-145); Total Protein 6.3 g/dL (6.4-8.2)
--- NOTE | 2018-10-18 08:00 | W.PM.PROGNOT ---
Date of Service Date of service: 10/18/18 Time of Service: 12:37 Assessment and Plan (1) Thrush: Current visit: No Status: Acute Evidence of Oropharyngeal Candidiasis, with extension into the esophagus not ruled out. Given significant discomfort and severity of symptoms, will continue with oral Fluconazole in addition to topical Nystatin S&S. Plan for a 7-14 day course. Patient reports improved symptoms overall. (2) Dehydration: Current visit: Yes Status: Acute Continue and decrease IVF rate. (3) COPD (chronic obstructive pulmonary disease): Current visit: No Status: Chronic Appears to be at baseline. Continue on oral Steroids, frequent duonebs, nebulized Budesonide, and Levalbuterol as needed. Was also on Daliresp, and is maintained on low dose chronic daily steroids. Currently appears stable. (4) Gastroesophageal reflux disease: Current visit: No Status: Chronic Initiate PPI therapy, especially given daily steroid therapy. (5) Diabetes mellitus: Current visit: No Status: Chronic Glipizide on hold. Previously also on Metformin. Continue sliding scale coverage, ADA diet. (6) Hypertension: Current visit: No Status: Chronic Noted. Patient does not appear to be on an antihypertensive at this time, with elevated blood pressures in the setting of steroid use. Was previously initiated on moderate dose CCB. Continue to monitor blood pressures, which appear improved this afternoon. (7) DVT prophylaxis: Current visit: No Status: Acute SC Heparin. Subjective Interval history since last seen: Pleasant 73 year old man with a prior history significant for COPD with recent exacerbations requiring hospitalization, as well as recently diagnosed oropharyngeal thrush, admitted from [facility] Emergency Department on 10/17 with a diagnosis of worsening Oral Candidiasis and dehydration. Mr. Sims has a past Medical History significant for steroid dependent COPD and significant prior tobacco use. His other history includes DM, HTN, OA, GERD, BPH, and prior diagnosis of PMR. He has CAD as a prior history, with a LHC in 2013 which showed no significant occlusion, and a nuclear stress test in 2017 that was deemed negative for ischemia. The patient reports an approximate 2 week history of dyspnea. He was recently admitted here and treated for a COPD Exacerbation, and then transferred to [facility] for failure to progress, although found to be afebrile and stable on room air, with breathing reported at baseline. There is also note that he was transferred in order to receive his monthly Mepolizumab injection. While hospitalized at [facility] he was transitioned to oral prednisone, administered his Nucala injection, and discharged in stable condition. Was also initiated on Nystatin for apparent oral candidiasis, and reports that since discharge he has been continuing to experiencing worsening symptoms, culminating in an inability to swallow. He also reported concurrent weakness. He was admitted for further evaluation and treatment. This morning Mr. Sims reports slight improvement in his symptoms. No overnight events reported. Remains afebrile. Exam Narrative Exam Narrative: General: Patient appears comfortable, AAOX3, NAD HEENT: Oral thrush on exam Neck: Supple CV: Regular, borderline tachycardic, S1S2, No rubs, murmurs, or gallops. Pulmonary: decreased breath sounds but with good air entry. Minimal right base wheezing. No crackles or rhonchi. Abdomen: + Bowel Sounds, soft, nontender, nondistended Vascular: No lower extremity edema Psych: Normal mood and affect. Objective Objective Clinical Data: Abnormal lab results 10/17/18 10/17/18 10/18/18 Range/Units 18:55 18:55 06:35 RDW 15.2 H (11.8-14.1) % Absolute Neutrophils 6.77 H (1.2-6.7) k/cumm Absolute Monocytes 1.24 H (0.11-0.7) k/cumm Sodium 134 L 133 L (136-145) mmol/L Chloride 96 L 96 L (98-107) mmol/L BUN 30 H 22 H D (7-18) mg/dL Glucose 143 H 241 H D (70-100) mg/dL Calcium 8.2 L (8.5-10.1) mg/dL AST 13 L (15-37) U/L Total Protein 6.2 L 6.3 L (6.4-8.2) g/dL Albumin 3.1 L 3.1 L (3.4-5.0) g/dL 10/18/18 Range/Units 06:35 RDW 15.0 H (11.8-14.1) % Absolute Neutrophils (1.2-6.7) k/cumm Absolute Monocytes (0.11-0.7) k/cumm Sodium (136-145) mmol/L Chloride (98-107) mmol/L BUN (7-18) mg/dL Glucose (70-100) mg/dL Calcium (8.5-10.1) mg/dL AST (15-37) U/L Total Protein (6.4-8.2) g/dL Albumin (3.4-5.0) g/dL Vital Signs Temperature 36.3 C L 10/18/18 07:20 Temperature Source Tympanic 10/18/18 07:20 Pulse 99 H 10/18/18 07:20 Pulse Rhythm Regular 10/17/18 23:17 Pulse 97 H 10/17/18 21:40 Respiratory Rate 19 10/18/18 07:20 Respiratory Effort 10/17/18 23:17 Respiratory Depth Normal 10/17/18 23:17 Respiratory Pattern Normal 10/17/18 18:19 Blood Pressure 148/79 H 10/18/18 07:20 Blood Pressure Mean 90 10/17/18 21:31 Pulse Oximetry 96 10/18/18 07:20 Oxygen Delivery Method Room Air 10/18/18 07:20 Oxygen Flow Rate 0 10/18/18 07:20 Pain Level 0 10/17/18 23:02 Intake & Output 10/17/18 10/17/18 10/18/18 11:59 23:59 11:59 Intake Total 500 / 507.5 1377.5 / 1377.5 Output Total 700 / 700 Balance 500 / 507.5 677.5 / 677.5 Weight 113.398 kg Intake: IV 500 / 507.5 977.5 / 977.5 Oral 400 / 400 Output: Urine 700 / 700 Other: Urine Color Yellow Urine Appearance Clear Urine Odor None Voiding Methods Toilet Urinal Laboratory Results WBC 8.82 k/cumm (4.4-10.8) 10/18/18 06:35 RBC 5.00 m/cumm (4.50-6.00) 10/18/18 06:35 Hgb 14.6 g/dL (13.5-17.5) 10/18/18 06:35 Hct 43.5 % (40.0-50.0) 10/18/18 06:35 MCV 87.0 fL (80-95) 10/18/18 06:35 MCH 29.2 pg (27.0-33.0) 10/18/18 06:35 MCHC 33.6 g/dL (32.0-36.0) 10/18/18 06:35 RDW 15.0 % (11.8-14.1) H 10/18/18 06:35 Plt Count 160 x1000/uL (130-400) 10/18/18 06:35 MPV 9.1 fL (8.0-11.0) 10/18/18 06:35 Immature Gran % 0.0 10/17/18 18:55 Neutrophils % 71.0 10/17/18 18:55 Band Neutrophils % 0.0 % 10/17/18 18:55 Lymphocytes % 15.0 10/17/18 18:55 Monocytes % 13.0 10/17/18 18:55 Eosinophils % 1.0 10/17/18 18:55 Basophils % 0.0 10/17/18 18:55 Absolute Neutrophils 6.77 k/cumm (1.2-6.7) H 10/17/18 18:55 Absolute Lymphocytes 1.43 k/cumm (1.2-3.4) 10/17/18 18:55 Absolute Monocytes 1.24 k/cumm (0.11-0.7) H 10/17/18 18:55 Absolute Eosinophils 0.10 k/cumm (0.0-0.7) 10/17/18 18:55 Absolute Basophils 0.00 k/cumm (0.0-0.2) 10/17/18 18:55 Differential Comment Manual differential 10/17/18 18:55 RBC Morphology Normal 10/17/18 18:55 Sodium 133 mmol/L (136-145) L 10/18/18 06:35 Potassium 4.7 mmol/L (3.5-5.1) 10/18/18 06:35 Chloride 96 mmol/L (98-107) L 10/18/18 06:35 Carbon Dioxide 28.3 mmol/L (21.0-32.0) 10/18/18 06:35 Anion Gap 8.7 mmol/L (3-11) 10/18/18 06:35 BUN 22 mg/dL (7-18) H D 10/18/18 06:35 Creatinine 1.09 mg/dL (0.70-1.30) 10/18/18 06:35 Estimated GFR/1.73 m2 >= 60.00 (mL/min/1.73m2) 10/18/18 06:35 Glucose 241 mg/dL (70-100) H D 10/18/18 06:35 Calcium 8.2 mg/dL (8.5-10.1) L 10/18/18 06:35 Magnesium 2.0 mg/dL (1.8-2.4) 10/17/18 18:55 Total Bilirubin 0.5 mg/dL (0.2-1.0) 10/18/18 06:35 AST 15 U/L (15-37) 10/18/18 06:35 ALT 45 U/L (12-78) 10/18/18 06:35 Alkaline Phosphatase 65 U/L (46-116) 10/18/18 06:35 Troponin I < 0.05 ng/mL (0.00-0.06) 10/17/18 18:55 Total Protein 6.3 g/dL (6.4-8.2) L 10/18/18 06:35 Albumin 3.1 g/dL (3.4-5.0) L 10/18/18 06:35 Urine Color Yellow (Yellow) 10/17/18 22:56 Urine Clarity Clear (Clear) 10/17/18 22:56 Urine pH 6.0 (5-8) 10/17/18 22:56 Ur Specific [place] 1.015 (1.005-1.025) 10/17/18 22:56 Urine Protein Negative mg/dL (Negative) 10/17/18 22:56 Urine Ketones Negative mg/dL (Negative) 10/17/18 22:56 Urine Blood Negative (Negative) 10/17/18 22:56 Urine Nitrite Negative (Negative) 10/17/18 22:56 Urine Bilirubin Negative (Negative) 10/17/18 22:56 Urine Urobilinogen 0.2 EU/dL (Up TO 0.2) 10/17/18 22:56 Ur Leukocyte Esterase Negative (Negative) 10/17/18 22:56 Urine Glucose Negative mg/dL (Negative) 10/17/18 22:56
--- NOTE | 2018-10-18 08:17 | PDOC.CMIN ---
- If Service Date Differs Date of service: 10/18/18 Time of Service: 08:17 Care Management Initial Assess REASON FOR HOSPITALIZATION:: Dehydration, severe oral candidiasis of mouth and esophagus PAST MEDICAL HISTORY/PAST SURGICAL HISTORY:: Medical History: Gastroesophageal reflux disease (Chronic). Diabetic peripheral neuropathy (Chronic 12/11/15). 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). Atherosclerosis of [place] coronary artery (Chronic). Osteoarthritis (Chronic). COPD (chronic obstructive pulmonary disease) (Chronic). Diabetes mellitus (Chronic). Hypertension (Chronic). Polymyalgia rheumatica (Resolved 02/19/12). Surgical History: shoulder surgery PREVIOUS FUNCTIONAL STATUS/SOCIAL/FAMILY SUPPORTS:: Amy resides in [place] with his and three grand-daughters. He has legal custody of two grandaughters and has adopted the other. He remains independent in the community with all ADLs. His Jordyn is his main support. 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 CURRENT FUNCTIONAL STATUS:: Amy was sitting up in bed when CM came to see him. He states he is feeling better than when he arrived, although his mouth and throat still hurt.. He was able to eat all of his lunch which consisted of soft full liquids and included yogurt as well as juices. Amy stated that when he was at [facility] his mouth and throat really hurt and he shared that with the staff, but that they gave him no medication for it. He states that he hopes to be discharged tomorrow. ADVANCE DIRECTIVES:: On file at [facility] Has patient been provided with information about the portal?: No Did the patient sign up for the portal?: No CODE STATUS:: Full Code INSURANCE COVERAGE / FINANCIAL ISSUES:: Medicare. BS CURRENT HOME/COMMUNITY SERVICES/EQUIPMENT:: none currently PRIMARY CARE PHYSICIAN:: Tevin Dooley MD POTENTIAL DISCHARGE NEEDS:: Follow up with PCP and discharge plan of care PATIENT/FAMILY EDUCATION NEEDS:: Discharge plan, limitations, follow up plan and Ask Me Three. ANTICIPATED BARRIERS TO DISCHARGE:: None identified TRANSPORTATION:: via private with vehicle when ready. PLAN:: Amy is receiving antifungal agents to address the infection in his mouth and pharynx. He will likely be discharged home with no new services when ready. CM will continue to support patient, family and discharge planning process. Readmission - Within the Past 30 Days Yes or No: Y - Date of First Admission Date of 1st Admission: 10/05/18 - Date of this Admission Date of Admission: 10/17/18 This admission was: Through ED - Office Visit Since 1st Admission Have you seen your PCP in the office since discharge?: No Had an appointment Been Scheduled?: No Describe barriers for scheduling or getting an appointment: Amy has been hospitalized at [facility] since diswcharge from [facility]. he was only home for about a day before readmission. - Speicalist Appointments Have you seen any other specialist since your 1st Admission?: No - I. Interview patient and/or Family Difficulty reaching your doctor or getting an office appt?: No Have you had trouble purchasing/ or taking medication?: No Have you had trouble with getting meals at home?: No Did you feel ready for discharge when you left the last time: Yes Reason there were no orders at discharge: transferred to [facility] Did you call your physician beore you came to the ED?: No How do you think you became sick enough to come back?: Amy says he had sores in his mouth and throat while at [facility] and was being treated for this. When he went to [facility] they did not order treatment and it got much worse. Its the worst it has ever been. - ED visits How many ED visits in the past 12 months: 3 - Assessment for Readmission Summary of readmission circumstances, based upon interviews: Amy was transferred to [facility] to receive a dose of an experimental medication (study protocol). He remained hospitalized for 3 days and was never treated for his oral/pharyngeal and perhaps esophageal candidiasis. He states it got so bad he has been unable to eat or swallow.
--- NOTE | 2018-10-18 08:23 | INITIAL_ITS ---
- If Service Date Differs Date of service: 10/18/18 Time of Service: 08:17 Care Management Initial Assess REASON FOR HOSPITALIZATION:: Dehydration, severe oral candidiasis of mouth and esophagus PAST MEDICAL HISTORY/PAST SURGICAL HISTORY:: Medical History: Gastroesophageal reflux disease (Chronic). Diabetic peripheral neuropathy (Chronic 12/11/15). 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). Atherosclerosis of [place] coronary artery (Chronic). Osteoarthritis (Chronic). COPD (chronic obstructive pulmonary disease) (Chronic). Diabetes mellitus (Chronic). Hypertension (Chronic). Polymyalgia rheumatica (Resolved 02/19/12). Surgical History: usama ulder surgery PREVIOUS FUNCTIONAL STATUS/SOCIAL/FAMILY SUPPORTS:: Amy resides in [place] with his and three grand-daughters. He has legal custody of two grandaughters and has adopted the other. He remains independent in the community with all ADLs. His Jordyn is his main support. 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 CURRENT FUNCTIONAL STATUS:: Amy was sitting up in bed when CM came to see him. He states he is feeling better than when he arrived, although his mouth and throat still hurt.. He was able to eat all of his lunch which consisted of soft full liquids and included yogurt as well as juices. Amy stated that when he was at [facility] his mouth and throat really hurt and he shared that with the staff, but that they gave him no medication for it. He states that he hopes to be discharged tomorrow. ADVANCE DIRECTIVES:: On file at [facility] Has patient been provided with information about the portal?: No Did the patient sign up for the portal?: No CODE STATUS:: Full Code INSURANCE COVERAGE / FINANCIAL ISSUES:: Medicare. BC BS CURRENT HOME/COMMUNITY SERVICES/EQUIPMENT:: none currently PRIMARY CARE PHYSICIAN:: Tevin Dooley MD POTENTIAL DISCHARGE NEEDS:: Follow up with PCP and discharge plan of care PATIENT/FAMILY EDUCATION NEEDS:: Discharge plan, limitations, follow up plan and Ask Me Three. ANTICIPATED BARRIERS TO DISCHARGE:: None identified TRANSPORTATION:: via private with vehicle when ready. PLAN:: Amy is receiving antifungal agents to address the infection in his mouth and pharynx. He will likely be discharged home with no new services when ready. CM will continue to support patient, family and discharge planning process. Readmission - Within the Past 30 Days Yes or No: Y - Date of First Admission Date of 1st Admission: 10/05/18 - Date of this Admission Date of Admission: 10/17/18 This admission was: Through ED - Office Visit Since 1st Admission Have you seen your PCP in the office since discharge?: No Had an appointment Been Scheduled?: No Describe barriers for scheduling or getting an appointment: Amy has been hospitalized at [facility] since diswcharge from [facility]. he was only home for about a day before readmission. - Speicalist Appointments Have you seen any other specialist since your 1st Admission?: No - I. Interview patient and/or Family Difficulty reaching your doctor or getting an office appt?: No Have you had trouble purchasing/ or taking medication?: No Have you had trouble with getting meals at home?: No Did you feel ready for discharge when you left the last time: Yes Reason there were no orders at discharge: transferred to [facility] Did you call your physician beore you came to the ED?: No How do you think you became sick enough to come back?: Amy says he had sores in his mouth and throat while at [facility] and was being treated for this. When he went to [facility] they did not order treatment and it got much worse. Its the worst it has ever been. - ED visits How many ED visits in the past 12 months: 3 - Assessment for Readmission Summary of readmission circumstances, based upon interviews: Amy was transferred to [facility] to receive a dose of an experimental medication (study protocol). He remained hospitalized for 3 days and was never treated for his oral/pharyngeal and perhaps esophageal candidiasis. He states it got so bad he has been unable to eat or swallow.
[2018-10-18] MEDS: predniSONE 10 MG TAB 40 MG PO (08:24)
[2018-10-18] MEDS: Fluconazole 100 MG TAB 200 MG PO (08:24)
[2018-10-18] MEDS: Gabapentin 300 MG CAP PO ×3 (08:25→19:41)
[2018-10-18] MEDS: Magnesium Oxide 400 MG TAB PO (08:25)
[2018-10-18] MEDS: DULoxetine 30 MG CAP 60 MG PO (08:25)
[2018-10-18] MEDS: Sulfameth/Trimeth DS TAB 1 TAB PO (08:26)
[2018-10-18] MEDS: Aspirin E.C. 81 MG TABEC PO (08:26)
[2018-10-18] MEDS: Insulin Aspart 300 UNITS/3 ML PEN SC ×3 (08:29→16:44)
[2018-10-18] MEDS: Budesonide 0.5 MG/2 ML UPD VIAL IH ×3 (11:44→19:41)
--- NOTE | 2018-10-18 12:38 | PHARADMIT ---
Admission Pharmacy Clinical Review DEHYDRATION, SEVERE ORAL CANDIDIASIS, COPD Code Status Full Code Current Weight Wgt-105.2 kg Renally Cleared and Narrow Therapeutic Index Meds CrCl~ 69 mL/min Meds-OK QTc Value / Action Taken QTc-440 NA BP Control, Fever BP_-145/80 Tmax-36.6C Electrolytes reviewed Na-133 K+4.7 Mag- 2.0 DVT Prophylaxis ASA-ec, Heparin SC Opiate Usage / Scheduled Bowel Regimen Ordered Yes Yes Plt/SCr for Heparin / Enoxaparin Plts-160 SCr- 1.09 INR for Warfarin na H/H stable, WBC/Bands H&H- 14.6/43.5 WBC- 8.82 Antibiotic appropriateness Bactrim-DS, Nystatin, iflucan Cultures and Sensitivities none Surgical ABX d/c within 24 hr na DM control / Insulin Dosing BG- 241 Aspart, Heart Failure (Check EF%) (SANDRA's, B-Block, Diuretics) NONE IV to PO Switch No Home Meds Reviewed Yes Home Meds Not Ordered Clotrimazole, Glipizide,Xopenex, Metfromin. Mepolizumab, Ibuprofen Comments
[2018-10-18] MEDS: Tamsulosin 0.4 MG CAPCR PO (16:44)
[2018-10-18] MEDS: Normal Saline 1,000 ML 125 ML IV (20:25)
[2018-10-18] MEDS: Montelukast 10 MG TAB PO (21:09)
[2018-10-19 00:02] VITALS: BP 175/94; PULSE 86; RESP 19; TEMP 36.8; O2SAT 99
[2018-10-19 02:59] VITALS: BP 145/72; PULSE 71; RESP 18; TEMP 36.6; O2SAT 95
[2018-10-19] MEDS: Normal Saline 1,000 ML 125 ML IV (03:54)
[2018-10-19] MEDS: Albuterol/Ipratropium 3 ML UPD VIAL UPD ×2 (05:55→11:42)
[2018-10-19] MEDS: Heparin 5,000 UNITS/ML VIAL 5000 UNITS SC (05:55)
[2018-10-19] MEDS: Nystatin 500000 UNITS/5 ML SUSP 5ML CUP PO ×3 (05:55→13:32)
[2018-10-19 07:23] LABS: Abs Immature Grans 0.17 k/cumm (0.0-0.09); HCT 41.3 % (40.0-50.0); Mean Corp. HGB Concentration 33.9 g/dL (32.0-36.0); Mean Corpuscular Hemoglobin 29.2 pg (27.0-33.0); Mean Corpuscular Volume 86.2 fL (80-95); Mean Platelet Volume 8.9 fL (8.0-11.0); Platelet Count 147 x1000/uL (130-400); RBC 4.79 m/cumm (4.50-6.00); RBC Distribution Width 14.4 % (11.8-14.1); White Blood Cell Count 8.42 k/cumm (4.4-10.8)
[2018-10-19 07:51] LABS: ALT 38 U/L (12-78); AST 16 U/L (15-37); Albumin 3.1 g/dL (3.4-5.0); Alkaline Phosphatase 63 U/L (46-116); Anion Gap 10.3 mmol/L (3-11); BUN 15 mg/dL (7-18); Bilirubin, Total 0.4 mg/dL (0.2-1.0); CO2 23.7 mmol/L (21.0-32.0); CREATININE 0.89 mg/dL (0.70-1.30); Calcium 8.3 mg/dL (8.5-10.1); Chloride 99 mmol/L (98-107); Glucose 147 mg/dL (70-100); Potassium 4.1 mmol/L (3.5-5.1); Sodium 133 mmol/L (136-145); Total Protein 6.2 g/dL (6.4-8.2)
[2018-10-19] MEDS: Insulin Aspart 300 UNITS/3 ML PEN SC ×2 (07:52→11:47)
[2018-10-19] MEDS: Gabapentin 300 MG CAP PO ×2 (07:53→13:32)
[2018-10-19] MEDS: Magnesium Oxide 400 MG TAB PO (07:53)
[2018-10-19] MEDS: Fluconazole 100 MG TAB 200 MG PO (07:53)
[2018-10-19] MEDS: Esomeprazole 40 MG CAPCR PO (07:53)
[2018-10-19] MEDS: DULoxetine 30 MG CAP 60 MG PO (07:53)
[2018-10-19] MEDS: Aspirin E.C. 81 MG TABEC PO (07:54)
[2018-10-19] MEDS: Montelukast 10 MG TAB PO (07:54)
[2018-10-19] MEDS: predniSONE 10 MG TAB 40 MG PO (07:54)
[2018-10-19 08:17] LABS: Absolute Lymphocyte Count 1.09 k/cumm (1.2-3.4); Absolute Monocyte Count 0.93 k/cumm (0.11-0.7); Absolute Neutrophil Count 6.23 k/cumm (1.2-6.7); Diff Comment Manual Differential; RBC Morphology Normal
[2018-10-19 08:20] VITALS: O2SAT 95
[2018-10-19] MEDS: Budesonide 0.5 MG/2 ML UPD VIAL IH ×2 (08:23→11:43)
[2018-10-19 08:26] LABS: Bilirubin, Direct 0.06 mg/dL (0.00-0.20)
[2018-10-19 11:00] VITALS: BP 156/74; PULSE 86; RESP 19; TEMP 36.7; O2SAT 97
--- NOTE | 2018-10-19 12:38 | DSE_ITS ---
Date of service: 10/19/18 Time of Service: 12:29 DS: Diagnosis Discharge Diagnosis (1) Thrush: Status: Acute (2) Dehydration: Status: Acute (3) COPD (chronic obstructive pulmonary disease): Status: Chronic Discharge Plan Disposition Patient Disposition: HOME Condition: Stable Discharge Details Reason For Visit: DEHYDRATION,SEVERE ORAL CANDIDIASIS,COPD Admit Date/Time: 10/17/18 22:32 Admit Provider: Sukh Lara Attending Provider: Sukh Lara Primary Care Provider: Tevin Dooley Hospital Course Hospital Course: Chief Complaint: Dehydration, Thrush HPI: Pleasant 73 year old man with a prior history significant for COPD with recent exacerbations requiring hospitalization, as well as recently diagnosed oropharyngeal thrush, admitted from [facility] Emergency Department on 10/17 with a diagnosis of worsening Oral Candidiasis and dehydration. Mr. Sims has a past Medical History significant for steroid dependent COPD and significant prior tobacco use. His other history includes DM, HTN, OA, GERD, BPH, and a previous diagnosis of PMR. He has CAD as a prior history, with a LHC in 2013 which showed no significant occlusion, and a nuclear stress test in 2016 that was deemed negative for ischemia. The patient was recently admitted here and treated for a COPD Exacerbation, and then transferred to [facility] for failure to progress, although found to be afebrile and stable on room air, with breathing reported at baseline. There is also note that he was transferred in order to receive his monthly Mepolizumab injection. While hospitalized at [facility] he was transitioned to oral prednisone, administered his Nucala injection, and discharged in stable condition. Was also initiated on Nystatin for apparent oral candidiasis, and reports that since discharge he has been continuing to experiencing worsening symptoms, culminating in an inability to swallow. He also reported concurrent weakness. He was admitted for further evaluation and treatment. By the morning after his admission Mr. Sims reported slight improvement in his symptoms, and this morning states that he is vastly improved and requesting to go home. He has been on treatment with oral and topical antifungal therapy. No overnight events reported. Remains afebrile. Hospital Course: (1) Thrush: Evidence of Oropharyngeal Candidiasis, with esophageal involvement not ruled out. Given significant discomfort and severity of symptoms, patient will continue with oral Fluconazole in addition to topical Nystatin S&S. Plan for a 7-14 day course. Patient reports improved symptoms overall. (2) Dehydration: Originally hydrated with IVFs, now taking PO intake well. (3) COPD (chronic obstructive pulmonary disease): Appears to be at baseline. Continue on oral Steroids, duonebs, nebulized Budesonide, and Levalbuterol as needed. Was also on Daliresp, and is maintained on low dose chronic daily steroids. Currently appears stable. (4) Gastroesophageal reflux disease: Initiate PPI therapy, especially given daily steroid therapy. (5) Diabetes mellitus: Continue on Glipizide, Metformin. Was maintained on sliding scale coverage, ADA diet while hospitalized. (6) Hypertension: Noted. Patient does not appear to be on an antihypertensive at this time, with elevated blood pressures in the setting of steroid use. Was previously initiated on moderate dose CCB. Continue to monitor blood pressures, which appear reasonable prior to discharge. (7) DVT prophylaxis: Was maintained on SC Heparin. Home Meds and New Rx's Prescriptions: New esomeprazole magnesium [Nexium] 40 mg Capsule,Delayed Release(Dr/Ec) 40 mg PO DAILY@0730 Qty: 30 RF: 0 fluconazole 100 mg Tablet 200 mg PO DAILY Qty: 7 RF: 0 Continued glipizide 5 mg tablet 5 mg PO QAM Qty: 30 RF: 4 sulfamethoxazole-trimethoprim [Bactrim DS] 800-160 mg tablet 1 tab PO .3x week RF: 0 aspirin 81 mg tablet,delayed release (DR/EC) 81 mg PO DAILY RF: 0 gabapentin 300 mg capsule 300 mg PO TID Qty: 270 RF: 4 duloxetine 60 mg capsule,delayed release(DR/EC) 60 mg PO DAILY Qty: 90 RF: 3 mepolizumab 100 mg recon soln 100 mg SC Q4W RF: 0 prednisone 10 mg tablet 40 mg PO DAILY RF: 0 NEBULIZER W/ TUBING 1 inh DIRECTED RF: 0 montelukast 10 MG tablet 10 mg PO DAILY RF: 0 budesonide [Pulmicort] 0.5 MG/2 ML suspension for nebulization 1 inh Inhalation QID Qty: 180 RF: 4 FreeStyle Lite Strips 1 EACH strip 1 ea Miscellaneous TID Qty: 200 RF: 5 albuterol sulfate [ProAir HFA] 8.5 GM HFA aerosol inhaler 1 - 2 puff Inhalation Q4H PRN Qty: 3 RF: 4 magnesium oxide 400 MG tablet 400 mg PO DAILY Qty: 90 RF: 4 hydrocodone-acetaminophen 7.5-325 mg tablet 1 tab PO BID MDD 2 tab Qty: 60 RF: 0 ibuprofen 200 MG tablet 200 mg PO DAILY RF: 0 levalbuterol HCl 0.63 mg/3 mL Solution For Nebulization 0.63 mg UPD Q2H PRN PRNQty: 0 RF: 0 nystatin 100,000 unit/mL Suspension 500,000 units PO 5X/DAY Qty: 0 RF: 0 tamsulosin 0.4 mg Capsule 0.4 mg PO DAILY@1730 Qty: 0 RF: 0 ipratropium-albuterol 0.5 mg-3 mg(2.5 mg base)/3 mL solution for nebulization 3 ml Inhalation Q4H Qty: 4 RF: 5 Discharge Instructions Stand Alone Forms: Nursing Discharge Form Referrals: Tevin Dooley MD [Primary Care Provider] - 11/02/18 1:20 pm Activity:: No Strenuous Activity Equipment/Supplies:: No Equipment Needed Diet:: Carb Counting Discharge Orders Other Ambulatory Orders: Liver Panel (Routine) Timeframe: 3 Days Location: Determined by Patient Ordered By: Asif Egan Exam Narrative Exam Narrative: General: Patient appears comfortable, AAOX3, NAD HEENT: Oral thrush on exam, appears improved. Neck: Supple CV: Regular, borderline tachycardic, S1S2, No rubs, murmurs, or gallops. Pulmonary: decreased breath sounds but with good air entry. Minimal right base wheezing. No crackles or rhonchi. Abdomen: + Bowel Sounds, soft, nontender, nondistended Vascular: No lower extremity edema Psych: Normal mood and affect. DS: Data Vitals/I&O Vitals and I&O: Vital Signs Temperature 36.6 C 10/19/18 02:59 Temperature Source Tympanic 10/19/18 02:59 Pulse 71 10/19/18 02:59 Pulse Rhythm Regular 10/19/18 09:07 Pulse 97 H 10/17/18 21:40 Respiratory Rate 18 10/19/18 02:59 Respiratory Effort 10/19/18 09:07 Respiratory Depth Normal 10/19/18 09:07 Respiratory Pattern Normal 10/18/18 15:57 Blood Pressure 145/72 H 10/19/18 02:59 Blood Pressure Mean 90 10/17/18 21:31 Pulse Oximetry 95 10/19/18 08:20 Oxygen Delivery Method Room Air 10/19/18 08:20 Oxygen Flow Rate 0 10/19/18 08:20 Pain Level 1 10/19/18 07:54 Comment 10/18/18 15:37 Intake & Output 10/18/18 10/19/18 10/19/18 23:59 11:59 23:59 Intake Total 2937.083 / 4864.583 2135.417 / 2135.417 Output Total 800 / 1999 Balance 2137.083 / 2864.583 185.417 / 185.417 Weight 105.1 kg Intake: IV 1897.083 / 2874.583 935.417 / 935.417 Oral 1039 / 1989 1200 / 1200 Output: Urine / 1999 Other: Urine Color Yellow Yellow Urine Appearance Clear Clear Comment voided in toilet Voiding Methods Urinal Toilet Completed studies during hospitalization [Text1]: Exam(s) 10/17/2018 a RAD:XR chest 2V PA & lateral SYMPTOM/DIAGNOSIS: WEAKNESS, R/O ACUTE DISEASE AP AND LATERAL CHEST; 10/17 Today's examination is compared with previous films including most recent chest film of 10/08/18. The previously noted left basilar infiltrates appear to have largely resolved with some residual radiodensities noted in left lung base probably present on multiple old examinations consistent with scarring. No gross pleural effusion seen. Cardiac size is mildly enlarged. CONCLUSION: No evidence of acute process. -------- Exam(s) a CT:CT head wo SYMPTOM/DIAGNOSIS: WEAK, DIZZY, R/O ACUTE CVA CRANIAL CT: 10/[address] was performed. There is moderate generalized cerebral atrophy. There is no evidence of acute intracranial hemorrhage, mass effect or midline shift. Note is made of probable old left frontal calvarial defect present on previous sinus CT of 2016. No acute calvarial fracture identified. Mild mucoperiosteal thickening of maxillary, ethmoid and sphenoid sinuses noted, consistent with mild chronic sinusitis. Mastoid air cells well maintained. Orbital and temporal bone structures appear intact. CONCLUSION: No evidence of acute intracranial process. Labs on day of discharge: Labs from last 24 hours 10/19/18 10/19/18 06:23 06:22 WBC 8.42 RBC 4.79 Hgb 14.0 Hct 41.3 MCV 86.2 MCH 29.2 MCHC 33.9 RDW 14.4 H Plt Count 147 MPV 8.9 Immature Gran % See Differential Neutrophils % 71.0 Band Neutrophils % 3.0 Lymphocytes % 13.0 Monocytes % 11.0 Eosinophils % 0.0 Basophils % 0.0 Myelocytes % 2.0 Absolute Neutrophils 6.23 Absolute Lymphocytes 1.09 L Absolute Monocytes 0.93 H Absolute Eosinophils 0.00 Absolute Basophils 0.00 Differential Comment Manual differential RBC Morphology Normal Sodium 133 L Potassium 4.1 Chloride 99 Carbon Dioxide 23.7 Anion Gap 10.3 BUN 15 D Creatinine 0.89 Estimated GFR/1.73 m2 >= 60.00 Glucose 147 H D Calcium 8.3 L Magnesium 2.0 Total Bilirubin 0.4 Conjugated Bilirubin 0.06 AST 16 ALT 38 Alkaline Phosphatase 63 Total Protein 6.2 L Albumin 3.1 L [facility] Medical History Gastroesophageal reflux disease (Chronic) Diabetic peripheral neuropathy (Chronic 12/11/15) 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) Atherosclerosis of [place] coronary artery (Chronic) Osteoarthritis (Chronic) COPD (chronic obstructive pulmonary disease) (Chronic) Diabetes mellitus (Chronic) Hypertension (Chronic) Polymyalgia rheumatica (Resolved 02/19/12) Surgical History SHOULDER SURGERY Family History Family History Neoplasm Mother No problems noted. Father Neoplasm Sister No problems noted. Sister No problems noted. Sister No problems noted. Sister No problems noted. Sister No problems noted. Sister No problems noted. Sister No problems noted. Sister No problems noted. Sister No problems noted. Brother No problems noted. Brother No problems noted. Brother No problems noted. Brother No problems noted. Brother No problems noted. Brother No problems noted. Brother No problems noted. Brother No problems noted. Brother No problems noted. Brother No problems noted. Brother No problems noted. Brother No problems noted. Son No problems noted. Son Substance abuse Mental disorder Son Substance abuse Daughter Substance abuse Depression Mental disorder Social History Smoking/Tobacco Use Status: Former Tobacco Use Alcohol Intake: former Drug use: Never Substance use type: does not use Household members: spouse and children Pets and animals: Yes Pets and animals: cat(s) and dog(s) Duration: decline to answer Frequency: 3-4 times per week Aminata/Religious: Adventist Special aminata needs: No Do you feel safe at home: Yes Do you feel safe in your relationship?: Yes Additional Social history: , with 4 children. Currently raising 3 grandchildren. Reported 80+ pack year history of tobacco abuse, quit approximately 15 years ago. Denies any current EtOH use.
--- NOTE | 2018-10-19 13:48 | W.INDIABCONS ---
Date of service: 10/19/18 Time of Service: 13:57 Diabetes Inpatient Consult DESCRIPTION/ASSESSMENT: Appreciate diabetes consult for diabetes management for Amy Sims who was recently hospitalized with elevated blood sugars secondary to steroid use medically managed with Glipizide. At our last visit he was adamant that he would not be willing to use insulin independently. Blood sugars here 143-235 taking sensitive insulin correction and 40mg Prednisone in AM. INTERVENTION: Mr. Sims may benefit from increased insulin correction to moderate. Will reassess overnight hyperglycemia tomorrow. PLAN: Suggest increasing to moderate insulin correction. Will follow blood sugars especially overnight to assess further insulin needs. Time Spent in Nutritional Counseling and Treatment: 0
--- NOTE | 2018-10-19 15:11 | PDOC.CMDIS ---
- If Service Date Differs Date of service: 10/19/18 Time of Service: 15:11 LACE Index Scoring Tool - Questions: Length of Stay (in days): 2 Acuity (Admit via E.D.?): Yes Comorbidities: Diabetes w/o Complication, Chronic Pulmonary Disease E.D. Visits: 3 - Answers: Total Score: 11 Risk of Readmission: High Risk Care Management Discharge Reason for Hospitalization: Dehydration, severe oral candidiasis of mouth and esophagus Discharge Plan: Amy will be discharged home with no new services. He will be transported by family via private vehicle. Amy will follow up with his PCP and discharge plan of care.
== END 2018-10-19 14:16 | disposition home or self-care (01) | DRG 159 ==
LOC: ER 20:58 → MS 23:11
PROVIDERS: Admitting Provider Family Medicine; Emergency Provider Physician Assistant; PCP Family Medicine; Visit Provider Internal Medicine
DX: B37.0 Candidal stomatitis (principal); B37.81 Candidal esophagitis; E86.0 Dehydration; J43.9 Emphysema, unspecified; R13.12 Dysphagia, oropharyngeal phase; Z79.52 Long term (current) use of systemic steroids; Z87.891 Personal history of nicotine dependence; E11.42 Type 2 diabetes mellitus with diabetic polyneuropathy; I10 Essential (primary) hypertension; K21.9 Gastro-esophageal reflux disease without esophagitis; G47.33 Obstructive sleep apnea (adult) (pediatric); N40.0 Benign prostatic hyperplasia without lower urinary tract symptoms; Z79.84 Long term (current) use of oral hypoglycemic drugs
CPT/HCPCS: 36415; 80048; 80053; 80076; 85027; 93005; 96360; 99223; 99233; 99239; 99285; 70450; 71046; 81003; 83735; 84484; 85025; 93010; 94640; J1450; J1644; J2930; J7512; J7620; J7626

== ENCOUNTER 2018-10-22 02:18 | Outpatient (CLI) | payer MEDICARE, BC, SELFPAY ==
[2018-10-22 09:53] LABS: ALT 41 U/L (12-78); AST 12 U/L (15-37); Albumin 3.5 g/dL (3.4-5.0); Alkaline Phosphatase 95 U/L (46-116); Bilirubin, Total 0.3 mg/dL (0.2-1.0); Total Protein 6.1 g/dL (6.4-8.2)
== END 2018-10-22 02:38 ==
PROVIDERS: Internal Medicine; PCP Family Medicine; Visit Provider Family Medicine
DX: B37.81 Candidal esophagitis (principal); B37.0 Candidal stomatitis
CPT/HCPCS: 36415; 80076

== ENCOUNTER 2018-11-01 07:09 | Emergency (ER) | payer MEDICARE, BC, SELFPAY ==
[2018-11-01] VITALS (34 sets, daily range): BP systolic 125–155; BP diastolic 67–105; PULSE 113–125; RESP 4–117; TEMP 36.2; O2SAT 92–100
--- NOTE | 2018-11-01 07:33 | ED.GENADUL_ITS ---
Discharge Plan Discharge Details Chief Complaint: SOB Primary Care Provider: Tevin Dooley ED Provider: Edie Cabrera Home Meds and New Rx's Prescriptions: No Action glipizide 5 mg tablet 5 mg PO QAM Qty: 30 RF: 4 sulfamethoxazole-trimethoprim [Bactrim DS] 800-160 mg tablet 1 tab PO .3x week RF: 0 aspirin 81 mg tablet,delayed release (DR/EC) 81 mg PO DAILY RF: 0 gabapentin 300 mg capsule 300 mg PO TID Qty: 270 RF: 4 duloxetine 60 mg capsule,delayed release(DR/EC) 60 mg PO DAILY Qty: 90 RF: 3 mepolizumab 100 mg recon soln 100 mg SC Q4W RF: 0 prednisone 10 mg tablet 40 mg PO DAILY RF: 0 NEBULIZER W/ TUBING 1 inh DIRECTED RF: 0 montelukast 10 MG tablet 10 mg PO DAILY RF: 0 budesonide [Pulmicort] 0.5 MG/2 ML suspension for nebulization 1 inh Inhalation QID Qty: 180 RF: 4 (DME) FreeStyle Lite Strips 1 EACH strip 1 ea Miscellaneous TID Qty: 200 RF: 5 albuterol sulfate [ProAir HFA] 8.5 GM HFA aerosol inhaler 1 - 2 puff Inhalation Q4H PRN Qty: 3 RF: 4 magnesium oxide 400 MG tablet 400 mg PO DAILY Qty: 90 RF: 4 hydrocodone-acetaminophen 7.5-325 mg tablet 1 tab PO BID MDD 2 tab Qty: 60 RF: 0 ibuprofen 200 MG tablet 200 mg PO DAILY RF: 0 levalbuterol HCl 0.63 mg/3 mL Solution For Nebulization 0.63 mg UPD Q2H PRN PRNQty: 0 RF: 0 nystatin 100,000 unit/mL Suspension 500,000 units PO 5X/DAY Qty: 0 RF: 0 tamsulosin 0.4 mg Capsule 0.4 mg PO DAILY@1730 Qty: 0 RF: 0 ipratropium-albuterol 0.5 mg-3 mg(2.5 mg base)/3 mL solution for nebulization 3 ml Inhalation Q4H Qty: 4 RF: 5 esomeprazole magnesium [Nexium] 40 mg Capsule,Delayed Release(Dr/Ec) 40 mg PO DAILY@0730 Qty: 30 RF: 0 fluconazole 100 mg Tablet 200 mg PO DAILY Qty: 7 RF: 0 Medical Decision Making Amy Sims is a 73 y/o man with history of steroid-dependent COPD, diabetes, GERD, depression who presented to the emergency department with shortness of breath over the past week, worse last night. On exam patient in moderate respiratory distress, speaking in partial sentences. Decreasing María breath sounds throughout, wheezing right upper and lower lobe. Trace edema bilateral lower legs with no posterior calf tenderness to palpation. Tachycardia. Concern for COPD exacerbation versus pneumonia, possible CHF component, ACS. Doubt PE. Exam/history is not consistent with acute aortic process. Plan for EKG, duo nebs, IV Solu-Medrol, screening labs, IV fluid hydration, chest x-ray, telemetry. Will monitor and reassess. Patient received 2 DuoNeb's, had increased work of breathing with tachypnea and 40s and was started on BiPAP. Lung auscultation reveals increased lung movement bilaterally, decreased wheeze, continued coarse breath sounds throughout. Chest x-ray shows bilateral lower lobe infiltrates preliminary read by radiology. BNP elevated at 1100, increased from 670 09/29. Normal white blood cell count. Concern for COPD exacerbation with pneumonia as most likely etiology of symptoms at this point, however there may be some possible CHF. Plan to start antibiotics for hospital-acquired pneumonia given recent admission, vancomycin, Levaquin, cefepime, will send lactate, blood cultures, pro calcitonin. I discussed patient presentation results with [facility] MICU Dr. Bridges, x-ray pushed, no further recommendations at this time, patient accepted for transfer with Dr. Hinton is accepting physician. Given patient worsening during ED course, plan for transport by [facility] air. Patient reports that he feels somewhat improved since starting BiPAP. Respiratory rate now in the 20s. Heart rate continues to be approximately 120. Unclear if CHF component, plan for 1 inch Nitropaste trial. Patient not stable for CT for rule out PE at this time, however I doubt this diagnosis as patient blood pressure improved with BiPAP and more likely diagnoses as etiology. ABG obtained after BiPAP initiated. Currently doubt CHF, Nitropaste removed. Patient transferred with [facility] out of emergency department without further issue. Medical Records Medical records reviewed: Yes I reviewed the patient's medical records. Imaging Data Radiologic Study: Attestation: I personally reviewed and interpreted this imaging study as follows: Radiologist's impression: CXR: Bilateral lower lobe infiltrates Lab Data Lab results reviewed: Yes I reviewed the patient's lab results. ECG Data Attestation: I personally reviewed and interpreted this ECG (s) as follows: Interpretation: EKG shows sinus tachycardia at 120 with occasional PAC, normal axis, nonspecific ST changes, no STEMI. Nondiagnostic EKG HPI General Mode of arrival: ambulatory . Date/Time Provider Initiated Documentation: 11/01/18 07:33 . Limitations to Documentation: no limitations . Information obtained by: patient, family, RN notes reviewed and old records reviewed . HPI Narrative: Amy Sims is a 73 y/o man with history of COPD, GERD, diabetes, depression presenting to the emergency department with shortness of breath. Patient and his family report that over the past week patient has gradually had increasing shortness of breath consistent with prior COPD exacerbations. Patient reports that he needed to use his nebulizer 10 times last night to get through the night. He has been taking 30 mg of prednisone daily. Patient was recently hospitalized here and discharged on 10/19/2018 for dehydration and oral thrush. Patient reports chronic cough that seems worse over the past week. Nonproductive. He also reports that his legs have some increased swelling over the past few days, and he has been wearing his compression socks. This is not atypical for him. He denies fever, any pain, vomiting, diarrhea, numbness, weakness. He states he has been eating and drinking as usual. Related Data Home Medications Medication Instructions Recorded Confirmed Nebulizer W/ Tubing 1 inh DIRECTED 06/22/12 10/05/18 ibuprofen 200 mg PO DAILY 06/12/17 11/01/18 montelukast 10 mg PO DAILY tab-cap 07/10/17 11/01/18 budesonide [Pulmicort] 1 inh INHALATION QID #180 ea 08/05/17 11/01/18 FreeStyle Lite Strips #200 strip 09/08/17 10/05/18 albuterol sulfate [ProAir HFA] 1 - 2 puff INHALATION Q4H PRN #3 09/08/17 10/17/18 inhaler magnesium oxide 400 mg PO DAILY #90 tab 10/20/17 11/01/18 glipizide 5 mg tablet 5 mg PO QAM #30 tab 05/13/18 11/01/18 aspirin 81 mg tablet,delayed 81 mg PO DAILY 07/15/18 11/01/18 release gabapentin 300 mg capsule 300 mg PO TID #270 cap 07/15/18 11/01/18 sulfamethoxazole 800 1 tab PO .3x week tab 07/15/18 11/01/18 mg-trimethoprim 160 mg tablet duloxetine 60 mg capsule,delayed 60 mg PO DAILY #90 cap 08/27/18 11/01/18 release mepolizumab 100 mg subcutaneous 100 mg SC Q4W each 09/08/18 11/01/18 solution prednisone 10 mg tablet 40 mg PO DAILY tab 09/08/18 11/01/18 ipratropium-albuterol 3 ml INHALATION Q4H #4 box 10/11/18 11/01/18 levalbuterol HCl 0.63 mg UPD Q2H PRN PRN #0 ml 10/11/18 11/01/18 nystatin 500,000 units PO 5X/DAY #0 ml 10/11/18 11/01/18 tamsulosin 0.4 mg PO DAILY@1730 #0 cap 10/11/18 11/01/18 esomeprazole magnesium [Nexium] 40 mg PO DAILY@0730 #30 cap 10/19/18 fluconazole 200 mg PO DAILY #7 tab 10/19/18 hydrocodone 7.5 mg-acetaminophen 1 tab PO BID #60 tab MDD 2 tab 10/29/18 11/01/18 325 mg tablet Previous Rx's Medication Instructions Recorded budesonide [Pulmicort] 1 inh INHALATION QID #180 ea 08/05/17 FreeStyle Lite Strips #200 strip 09/08/17 albuterol sulfate [ProAir HFA] 1 - 2 puff INHALATION Q4H PRN #3 09/08/17 inhaler magnesium oxide 400 mg PO DAILY #90 tab 10/20/17 glipizide 5 mg tablet 5 mg PO QAM #30 tab 05/13/18 gabapentin 300 mg capsule 300 mg PO TID #270 cap 07/15/18 duloxetine 60 mg capsule,delayed 60 mg PO DAILY #90 cap 08/27/18 release ipratropium-albuterol 3 ml INHALATION Q4H #4 box 10/11/18 levalbuterol HCl 0.63 mg UPD Q2H PRN PRN #0 ml 10/11/18 nystatin 500,000 units PO 5X/DAY #0 ml 10/11/18 tamsulosin 0.4 mg PO DAILY@1730 #0 cap 10/11/18 esomeprazole magnesium [Nexium] 40 mg PO DAILY@0730 #30 cap 10/19/18 fluconazole 200 mg PO DAILY #7 tab 10/19/18 hydrocodone 7.5 mg-acetaminophen 1 tab PO BID #60 tab MDD 2 tab 10/29/18 325 mg tablet Allergies Allergy/AdvReac Type Severity Reaction Status Date / Time codeine Allergy rash, itch Unverified 11/01/18 07:55 General DERICK: 3 Review of Systems Review of Systems Constitutional: denies fevers Eyes: denies eye pain ENT: denies facial pain, dental pain, sore throat Cardiovascular: denies chest pain, reports mild lower extremity edema Respiratory: Reports SOB, cough GI: denies abdominal pain, vomiting, diarrhea : denies flank pain MSK: denies back pain, neck pain, arthralgias, myalgias Skin: denies rash Neuro: denies headaches, numbness, weakness PFSH Medical History Atherosclerosis of [place] coronary artery (Chronic) 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) COPD (chronic obstructive pulmonary disease) (Chronic) Diabetes mellitus (Chronic) Diabetic peripheral neuropathy (Chronic 12/11/15) Gastroesophageal reflux disease (Chronic) Hypertension (Chronic) Osteoarthritis (Chronic) Polymyalgia rheumatica (Resolved 02/19/12) Social History Smoking/Tobacco Use Status: Former Tobacco Use Alcohol Intake: former Drug use: Never Substance use type: does not use Household members: spouse and children Pets and animals: Yes Pets and animals: cat(s) and dog(s) Duration: decline to answer Frequency: 3-4 times per week Aminata/Sabianism: Shinto Special aminata needs: No Do you feel safe at home: Yes Do you feel safe in your relationship?: Yes Additional Social history: , with 4 children. Currently raising 3 grandchildren. Reported 80+ pack year history of tobacco abuse, quit approximately 15 years ago. Denies any current EtOH use. Exam Narrative Exam Narrative: Constitutional: Moderate respiratory tract distress but [id number], pleasant, conversing in short sentences HENT: head atraumatic/normocephalic/normal inspection, mucous membranes moist Eyes: conjunctiva normal, sclera normal, pupils 3mm b/l Neck: no stridor, normal ROM, trachea midline, no JVD Chest: normal inspection Resp: Increased work of breathing, wheeze right upper and lower lobes, decreased coarse breath sounds throughout Cardio: Tachycardic rate, normal rhythm, no murmur appreciated GI: abdomen soft, non-tender, non-distended Back: normal inspection, no rash Skin: warm, dry, normal color, no rash Neuro: alert, not altered, grossly non-focal, normal tone Ext: Patient with compression stockings on, trace edema bilaterally Psych: normal mood, normal affect, normal behavior Critical Care Time Critical Care Time: Yes Total Critical Care Time: 45 Attestation: I have spent a total of 45 minutes of critical care time with this critically ill patient, including frequent bedside reassessment, interpretation of imaging and laboratory results, and discussions with consultants and family.
--- NOTE | 2018-11-01 07:39 | DI.RAD_ITS ---
SYMPTOM/DIAGNOSIS: SOB [facility] X-RAY: Portable AP view. Comparison 10/17/18 Since the prior examination there has developed increased lung markings in the bases bilaterally with area of consolidation in the left base medially. Heart size and pulmonary vasculature appears stable and within normal limits. No effusions or pneumothoraces are identified. The lungs appear hyperinflated with hyperaeration in the upper lobes suggesting underlying COPD. No acute osseous abnormalities identified. IMPRESSION: Development of bilateral basilar infiltrates with area of consolidation in the left lung base medially. The findings are suspicious for pneumonia. Pulmonary edema cannot be excluded. Please correlate clinically.
[2018-11-01] MEDS: methylPREDNISolone SUCC 125 MG VIAL IVP (07:40)
[2018-11-01] MEDS: Albuterol/Ipratropium 3 ML UPD VIAL UPD ×2 (07:40→08:36)
[2018-11-01 07:53] LABS: Abs Immature Grans 0.25 k/cumm (0.0-0.09); HCT 39.6 % (40.0-50.0); HGB 12.8 g/dL (13.5-17.5); Mean Corp. HGB Concentration 32.3 g/dL (32.0-36.0); Mean Corpuscular Hemoglobin 28.4 pg (27.0-33.0); Mean Corpuscular Volume 87.8 fL (80-95); Mean Platelet Volume 8.4 fL (8.0-11.0); RBC 4.51 m/cumm (4.50-6.00); RBC Distribution Width 14.6 % (11.8-14.1); White Blood Cell Count 7.13 k/cumm (4.4-10.8)
[2018-11-01] MEDS: Normal Saline 500 ML IV (08:00)
[2018-11-01 08:17] LABS: Albumin 2.9 g/dL (3.4-5.0); Alkaline Phosphatase 68 U/L (46-116); Anion Gap 7.8 mmol/L (3-11); BUN 31 mg/dL (7-18); Bilirubin, Total 0.2 mg/dL (0.2-1.0); CO2 30.2 mmol/L (21.0-32.0); CREATININE 1.11 mg/dL (0.70-1.30); Calcium 9.9 mg/dL (8.5-10.1); Chloride 96 mmol/L (98-107); Glucose 112 mg/dL (70-100); Potassium 4.1 mmol/L (3.5-5.1); Sodium 134 mmol/L (136-145)
[2018-11-01 08:29] LABS: Absolute Eosinophil Count 0.07 k/cumm (0.0-0.7); Absolute Monocyte Count 0.93 k/cumm (0.11-0.7); Atypical Lymphocytes % 1; Platelet Count 250 x1000/uL (130-400)
[2018-11-01 08:31] LABS: Absolute Lymphocyte Count 1.35 k/cumm (1.2-3.4); Absolute Neutrophil Count 4.56 k/cumm (1.2-6.7)
[2018-11-01 08:32] LABS: Diff Comment Manual Differential; Polychromasia Present
[2018-11-01 08:42] LABS: ALT 32 U/L (12-78)
[2018-11-01 09:01] LABS: NT-proBNP 1183 pg/mL
[2018-11-01 09:06] LABS: AST 14 U/L (15-37); Troponin I < 0.05 ng/mL (0.00-0.06)
[2018-11-01] MEDS: Albuterol/Ipratropium 3 ML UPD VIAL (09:23)
[2018-11-01] MEDS: CEFEPIME 2 GM in Normal Saline 100 ML IVPB (09:35)
[2018-11-01 09:42] LABS: BE 3.1 mmol/L (-3-3); HCO3 27 mmol/L (22-28); pCO2 37 mmHg (34-47); pH 7.47 (7.35-7.45); pO2 89 mmHg (83-108); sO2 98 % (94-98); tCO2 24 mmol/L (22-29)
[2018-11-01 09:44] LABS: Site Right Radial
[2018-11-01 09:45] LABS: FIO2 30 %
[2018-11-01 10:10] LABS: Procalcitonin 0.1 ng/mL
[2018-11-01] MEDS: levoFLOXacin 750 MG/150 ML BAG 100 MG IVPB (10:17)
[2018-11-01] MEDS: LORazepam 2 MG/ML VIAL 0.5 MG IVP (10:17)
[2018-11-01] MEDS: VANCOMYCIN 2,000 MG in Normal Saline 500 ML 250 MG IVPB (10:17)
== END 2018-11-01 10:40 ==
PROVIDERS: Emergency Provider Student in an Organized Health Care Education/Training Program; PCP Family Medicine
DX: J18.9 Pneumonia, unspecified organism (principal); Y95 Nosocomial condition; J44.0 Chronic obstructive pulmonary disease with (acute) lower respiratory infection; R06.82 Tachypnea, not elsewhere classified; R00.0 Tachycardia, unspecified; I10 Essential (primary) hypertension; R79.89 Other specified abnormal findings of blood chemistry; Z87.891 Personal history of nicotine dependence; E11.9 Type 2 diabetes mellitus without complications; Z79.84 Long term (current) use of oral hypoglycemic drugs; Z79.51 Long term (current) use of inhaled steroids; Z79.52 Long term (current) use of systemic steroids
CPT/HCPCS: 36415; 80053; 82805; 84145; 87040; 93005; 94640; 96361; 96365; 96367; 96374; 99291; 71045; 83605; 83880; 84484; 85025; 93010; J1956; J2060; J2930; J7611; J7620

== ENCOUNTER 2018-11-11 13:51 | Inpatient (IN) | payer MEDICARE, BC, SELFPAY ==
[2018-11-11] VITALS (29 sets, daily range): BP systolic 112–155; BP diastolic 70–104; PULSE 89–119; RESP 16–27; TEMP 35.9–36.6; O2SAT 91–97
--- NOTE | 2018-11-11 14:18 | DI.RAD_ITS ---
SYMPTOMS/DIAGNOSIS: SHORTNESS OF BREATH PORTABLE AP CHEST: There is some ill-defined increased density projected over the region of the left lower lobe which could represent an acute pneumonitis. The lungs are otherwise free of gross infiltrate. The heart is not enlarged. SUMMARY: Question left lower lobe pneumonia. A follow up PA and lateral examination is suggested for further review.
[2018-11-11] MEDS: Furosemide 40 MG/4 ML VIAL IVP (14:25)
--- NOTE | 2018-11-11 14:26 | ED.GENADUL_ITS ---
Discharge Plan Disposition Patient Disposition: [facility] INPATIENT Condition: Stable Discharge Details Chief Complaint: SOB Clinical Impression: HCAP (healthcare-associated pneumonia) Primary Care Provider: Tevin Dooley ED Provider: Kb Lemon Home Meds and New Rx's Prescriptions: No Action glipizide 5 mg tablet 5 mg PO QAM Qty: 30 RF: 4 sulfamethoxazole-trimethoprim [Bactrim DS] 800-160 mg tablet 1 tab PO .3x week RF: 0 aspirin 81 mg tablet,delayed release (DR/EC) 81 mg PO DAILY RF: 0 gabapentin 300 mg capsule 300 mg PO TID Qty: 270 RF: 4 duloxetine 60 mg capsule,delayed release(DR/EC) 60 mg PO DAILY Qty: 90 RF: 3 mepolizumab 100 mg recon soln 100 mg SC Q4W RF: 0 prednisone 10 mg tablet 30 mg PO DAILY RF: 0 metformin 1,000 mg tablet 1,000 mg PO BID RF: 0 benzonatate [Tessalon Perles] 100 mg capsule 100 mg PO BID-TID PRN (Reason: cough) Qty: 90 RF: 3 NEBULIZER W/ TUBING 1 inh DIRECTED RF: 0 montelukast 10 MG tablet 10 mg PO DAILY RF: 0 budesonide [Pulmicort] 0.5 MG/2 ML suspension for nebulization 1 inh Inhalation QID Qty: 180 RF: 4 (DME) FreeStyle Lite Strips 1 EACH strip 1 ea Miscellaneous TID Qty: 200 RF: 5 albuterol sulfate [ProAir HFA] 8.5 GM HFA aerosol inhaler 1 - 2 puff Inhalation Q4H PRN Qty: 3 RF: 4 magnesium oxide 400 MG tablet 400 mg PO DAILY Qty: 90 RF: 4 hydrocodone-acetaminophen 7.5-325 mg tablet 1 tab PO BID MDD 2 tab Qty: 60 RF: 0 ibuprofen 200 MG tablet 200 mg PO DAILY RF: 0 levalbuterol HCl 0.63 mg/3 mL Solution For Nebulization 0.63 mg UPD Q2H PRN PRNQty: 0 RF: 0 nystatin 100,000 unit/mL Suspension 500,000 units PO 5X/DAY Qty: 0 RF: 0 tamsulosin 0.4 mg Capsule 0.8 mg PO DAILY@1730 Qty: 0 RF: 0 ipratropium-albuterol 0.5 mg-3 mg(2.5 mg base)/3 mL solution for nebulization 3 ml Inhalation Q4H Qty: 4 RF: 5 esomeprazole magnesium [Nexium] 40 mg Capsule,Delayed Release(Dr/Ec) 40 mg PO DAILY@0730 Qty: 30 RF: 0 Medical Decision Making 73 yo male with hx of copd, HFrEF afib, cad who was d/c'd from [facility] on 11/08 after being trasnferred from here for worsening respiratory distress and diagnosed with pulmonary edema.He states he still feels short of breath and on d/c from [facility] lasix was stopped due to orthostasis. He denies chest pain or pressure, fevers, has a chronic dry cough that is unchagned. He is in no distress though has mild tachypnea and is able to speak in full sentences. he has diminished breath sounds at the bases bilaterally and on bedside u/s no pericardial effusion but does have bilateral b lines consistent with recurrent edema. will tx with lasix and also obtain lab work to eval for infarction and anemia among other causes and obtain cxr. No pleuritic chest pain or evidence of dvt so doubt PE at this time pt's xray shows left lower infiltrate, given his cough and weakness will start abx. Given he still has mild tachypnea feel he should be admitted. I spoke with Dr. Mason our hospitalist who feels the pt should be transferred to [facility] given his pulmonary history and being on an expirimental medicine that we don't have here and not having pulmonology here. Will discuss with [facility] pt remains stable, after I paged [facility] patient states he doesn't want to be transferred and wants to remain here. I did speak with [facility] hospitalist Dr. Granda who did not feel th patient required transfer to a tertiary care [facility] and that he could be managed here. Will speak with our hospitalist about admission spoke with Dr. mason who accepts the patient for admission here Differential Diagnosis copd, chf, pna Medical Records Medical records reviewed: Yes I reviewed the patient's medical records. Imaging Data Radiologic Study: Attestation: I personally reviewed and interpreted this imaging study as follows: Imaging: X-Ray Radiologist's impression: left lower lobe infiltrate Lab Data Lab results reviewed: Yes I reviewed the patient's lab results. ECG Data Attestation: I personally reviewed and interpreted this ECG (s) as follows: Prior ECG tracings: not available for review Interpretation: sinus tachycardia, rate of 110, pr 132, no acute st t wave ischmic findings HPI General Mode of arrival: ambulatory . Date/Time Provider Initiated Documentation: 11/11/18 13:56 . Limitations to Documentation: no limitations . Information obtained by: patient . History of Present Illness 73 year old M presents to the emergency department with the chief complaint of shortness of breath, described as moderate, Patient started experiencing this week(s) (1) and it has been constant. Rest improves symptom(s), Patient did receive the following treatments prior to arrival, none Related Data Home Medications Medication Instructions Recorded Confirmed Nebulizer W/ Tubing 1 inh DIRECTED 06/22/12 11/11/18 ibuprofen 200 mg PO DAILY 06/12/17 11/11/18 montelukast 10 mg PO DAILY tab-cap 07/10/17 11/11/18 budesonide [Pulmicort] 1 inh INHALATION QID #180 ea 08/05/17 11/11/18 FreeStyle Lite Strips #200 strip 09/08/17 11/10/18 albuterol sulfate [ProAir HFA] 1 - 2 puff INHALATION Q4H PRN #3 09/08/17 11/11/18 inhaler magnesium oxide 400 mg PO DAILY #90 tab 10/20/17 11/11/18 glipizide 5 mg tablet 5 mg PO QAM #30 tab 05/13/18 11/11/18 aspirin 81 mg tablet,delayed 81 mg PO DAILY 07/15/18 11/11/18 release gabapentin 300 mg capsule 300 mg PO TID #270 cap 07/15/18 11/11/18 sulfamethoxazole 800 1 tab PO .3x week tab 07/15/18 11/11/18 mg-trimethoprim 160 mg tablet duloxetine 60 mg capsule,delayed 60 mg PO DAILY #90 cap 08/27/18 11/11/18 release mepolizumab 100 mg subcutaneous 100 mg SC Q4W each 09/08/18 11/11/18 solution ipratropium-albuterol 3 ml INHALATION Q4H #4 box 10/11/18 11/10/18 levalbuterol HCl 0.63 mg UPD Q2H PRN PRN #0 ml 07/01/19 08/01/19 nystatin 500,000 units PO 5X/DAY #0 ml 10/11/18 11/11/18 tamsulosin 0.8 mg PO DAILY@1730 #0 cap 10/11/18 11/11/18 esomeprazole magnesium [Nexium] 40 mg PO DAILY@0730 #30 cap 10/19/18 11/11/18 hydrocodone 7.5 mg-acetaminophen 1 tab PO BID #60 tab MDD 2 tab 10/29/18 11/11/18 325 mg tablet benzonatate 100 mg capsule 100 mg PO BID-TID PRN #90 cap 11/10/18 11/11/18 metformin 1,000 mg tablet 1,000 mg PO BID 11/10/18 11/11/18 prednisone 10 mg tablet 30 mg PO DAILY tab 11/10/18 11/11/18 Previous Rx's Medication Instructions Recorded budesonide [Pulmicort] 1 inh INHALATION QID #180 ea 08/05/17 FreeStyle Lite Strips #200 strip 09/08/17 albuterol sulfate [ProAir HFA] 1 - 2 puff INHALATION Q4H PRN #3 09/08/17 inhaler magnesium oxide 400 mg PO DAILY #90 tab 10/20/17 glipizide 5 mg tablet 5 mg PO QAM #30 tab 05/13/18 gabapentin 300 mg capsule 300 mg PO TID #270 cap 07/15/18 duloxetine 60 mg capsule,delayed 60 mg PO DAILY #90 cap 08/27/18 release ipratropium-albuterol 3 ml INHALATION Q4H #4 box 10/11/18 levalbuterol HCl 0.63 mg UPD Q2H PRN PRN #0 ml 10/11/18 nystatin 500,000 units PO 5X/DAY #0 ml 10/11/18 tamsulosin 0.8 mg PO DAILY@1730 #0 cap 10/11/18 esomeprazole magnesium [Nexium] 40 mg PO DAILY@0730 #30 cap 10/19/18 hydrocodone 7.5 mg-acetaminophen 1 tab PO BID #60 tab MDD 2 tab 10/29/18 325 mg tablet benzonatate 100 mg capsule 100 mg PO BID-TID PRN #90 cap 11/10/18 Allergies Allergy/AdvReac Type Severity Reaction Status Date / Time codeine Allergy rash, itch Unverified 11/11/18 15:02 General DERICK: 2 Review of Systems Review of Systems All systems reviewed & are unremarkable except as noted in HPI and below Constitutional Denies chills and Denies fever(s) Cardiovascular Denies chest pain Respiratory Denies cough Gastrointestinal Denies abdominal pain, Denies nausea and Denies vomiting Integumentary/Breasts Denies rash Psychiatric Denies depression Endocrine Denies heat intolerance [facility] Social History Smoking/Tobacco Use Status: Former Tobacco Use Alcohol Intake: former Drug use: Never Substance use type: does not use Household members: spouse and children Pets and animals: Yes Pets and animals: cat(s) and dog(s) Duration: decline to answer Frequency: 3-4 times per week Aminata/Anabaptist: Rastafari Special aminata needs: No Do you feel safe at home: Yes Do you feel safe in your relationship?: Yes Additional Social history: , with 4 children. Currently raising 3 grandchildren. Reported 80+ pack year history of tobacco abuse, quit approximately 15 years ago. Denies any current EtOH use. Exam Const General: no acute distress Orientation: alert HENMT Head: normal to inspection Ears: external ears normal General nose exam: external nose normal Mouth: moist mucous membranes Eyes General: appearance normal, both eyes and all related structures Neck Neck: normal visual inspection Resp Effort & Inspection: tachypneic Cardio Rate: regular rate Skin General skin exam: no rashes or lesions noted Neuro General: alert and oriented x3 Extrem General: normal to inspection Psych Mental Status: mental status grossly normal
[2018-11-11 14:32] LABS: Lactate-non-spesis 2.8 mmol/l (0.6-1.4)
[2018-11-11 14:40] LABS: Abs Immature Grans 0.43 k/cumm (0.0-0.09); Absolute Lymphocyte Count 1.04 k/cumm (1.2-3.4); HCT 35.9 % (40.0-50.0); HGB 12.1 g/dL (13.5-17.5); Mean Corp. HGB Concentration 33.7 g/dL (32.0-36.0); Mean Corpuscular Hemoglobin 29.2 pg (27.0-33.0); Mean Corpuscular Volume 86.7 fL (80-95); Mean Platelet Volume 8.3 fL (8.0-11.0); Platelet Count 226 x1000/uL (130-400); RBC 4.14 m/cumm (4.50-6.00); RBC Distribution Width 14.7 % (11.8-14.1); White Blood Cell Count 12.95 k/cumm (4.4-10.8)
[2018-11-11 14:56] LABS: INR 0.9 (0.9-1.1); PTT Activated 21.7 sec (21.0-31.4); Prothrombin Time 9.3 sec (9.3-11.0)
[2018-11-11 14:57] LABS: ALT 45 U/L (12-78); AST 14 U/L (15-37); Albumin 2.9 g/dL (3.4-5.0); Alkaline Phosphatase 85 U/L (46-116); Anion Gap 7.4 mmol/L (3-11); BUN 28 mg/dL (7-18); Bilirubin, Total 0.3 mg/dL (0.2-1.0); CO2 28.6 mmol/L (21.0-32.0); CREATININE 1.17 mg/dL (0.70-1.30); Chloride 94 mmol/L (98-107); Glucose 201 mg/dL (70-100); Magnesium 1.8 mg/dL (1.8-2.4); NT-proBNP 176 pg/mL; Potassium 5.3 mmol/L (3.5-5.1); Sodium 130 mmol/L (136-145); Total Protein 6.9 g/dL (6.4-8.2)
[2018-11-11 14:58] LABS: Troponin I < 0.05 ng/mL (0.00-0.06)
[2018-11-11 15:03] LABS: Absolute Monocyte Count 0.78 k/cumm (0.11-0.7); Absolute Neutrophil Count 10.62 k/cumm (1.2-6.7); Anisocytosis 1+; Diff Comment Manual Differential
[2018-11-11] MEDS: PIPERACILLIN/TAZO 4.5 GM in Normal Saline 100 ML IVPB ×2 (15:20→23:29)
[2018-11-11] MEDS: methylPREDNISolone SUCC 125 MG VIAL IVP (15:52)
[2018-11-11] MEDS: VANCOMYCIN 1,000 MG in Normal Saline 250 ML 166.6666 MG IVPB (16:00)
--- NOTE | 2018-11-11 17:20 | W.PM.HP.N ---
Date of service: 11/11/18 Time of Service: 16:40 Assessment and Plan (1) HCAP (healthcare-associated pneumonia): Current visit: Yes Status: Acute present on admission, in LLL. There was no evidence of pneumonia at the time of presentation to [facility] on 11/01. At this time, the patient is not toxic-appearing. Will continue vancomycin/zosyn initiated in ED. Obtain sputum culture. Await blood culture. (2) COPD with acute exacerbation: Current visit: No Status: Resolved This is mild and much less impressive than on prior admission. Will treat with solumedrol 60 mg IV BID in addition to continuing home pulmicort, nebs, and antibiotics for HCAP. Procalcitonin is likely of limited relevance in a patient on biologic agent. (3) Acute on chronic diastolic (congestive) heart failure: Current visit: Yes Status: Acute Diurese and monitor I/O's, daily weights. R/o ACS. (4) Paroxysmal atrial fibrillation: Current visit: Yes Status: Chronic It is not clear to me where this diagnosis came from. It is not described in the [facility] hospital course. Regardless, if the patient does go into rapid Afib, this could have contributed to his CHF exacerbation. Will monitor on telemetry. (5) Orthostasis: Current visit: Yes Status: Chronic We could consider addition florinef or midodrine. It does not appear to be related to this patient's fluid status as he has proven himself to be both orthostatic and fluid overloaded. This is likely due to autonomic dysfunction of diabetes or his flomax. Will monitor orthostatics. 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 Follows with [facility] pulmonology. Per my review of [facility] notes, it looks like dupilumab was prescribed in addition to mepolizumab, but not yet initiated. Continue monteleukast, chronic steroids. Could consider initiating antihistamine - defer to pulmonology. (9) Diabetes mellitus: Current visit: No Status: Chronic Hold oral hypoglycemic agents; cover with SSI while in the hospital (10) Discharge planning issues: Current visit: Yes Status: Acute Full code Palliative care should be strongly considered (11) DVT prophylaxis: Current visit: No Status: Acute lovenox History of Present Illness Chief Complaint: Shortness of breath Narrative: Mr Sims is a 73 year old male with PMHx of eosinophilic asthma, on chronic prednisone and mepolizumab injections, as well as chronic non-oxygen dependent COPD, CAD, chronic diastolic CHF, paroxysmal Afib (per [facility] record), not on anticoagulation, orthostasis, who was d/c'ed from [facility] on 11/08/18 after an 8 day long admission for acute exacerbation of COPD (due to a viral illness - rhino/enterovirus) as well as chronic diastolic CHF. Per patient, he was more short of breath on the day of discharge, but was not discharged with lasix. He stated he gained 4 lbs in the last 3 days since discharge. He followed up with his PCP's office yesterday - the patient was orthostatic and clinically felt to be dehydrated. Per patient, he was told to go to ED, but the patient stated he wouldn't. He was seen today by his home health nurse, who then recommended going to the ED. He also notes that he has had a change in his sputum color in the last 24 hours, which is now greenish/brownish. At [facility] ED, he was found to be tachypneic. His workup was consistent with both CHF and COPD exacerbations, in addition to which his chest imaging was suspicious for LLL pneumonia. We were asked to admit the patient for further care as there were no beds available at [facility] where he was just admitted. He specifically denies chest pain, endorses wheezing, denies sore throat. His last mepolizumab injection was 1 week ago. Review of Systems Review of Systems 12 systems reviewed. Pertinent positives and negatives are as per HPI. Additionally, the patient denies chest pain, fever, sore throat. Endorses rhinorrhea. Denies palpitations. Endorses dizziness when he gets up. [facility] Medical History (Updated 11/11/18 @ 18:03 by Vandana Philip MD) Atherosclerosis of [place] coronary artery (Chronic) 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) COPD (chronic obstructive pulmonary disease) (Chronic) Diabetes mellitus (Chronic) Diabetic peripheral neuropathy (Chronic 12/11/15) Diastolic CHF (Chronic) 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) Gastroesophageal reflux disease (Chronic) Hypertension (Chronic) Orthostasis (Chronic) Osteoarthritis (Chronic) Paroxysmal atrial fibrillation (Chronic) Polymyalgia rheumatica (Resolved 02/19/12) Surgical History SHOULDER SURGERY Social History Smoking/Tobacco Use Status: Former Tobacco Use Alcohol Intake: former Drug use: Never Substance use type: does not use Household members: spouse and children Pets and animals: Yes Pets and animals: cat(s) and dog(s) Duration: decline to answer Frequency: 3-4 times per week Aminata/Methodist: Worship Special aminata needs: No Do you feel safe at home: Yes Do you feel safe in your relationship?: Yes Additional Social history: , with 4 children. Currently raising 3 grandchildren. Reported 80+ pack year history of tobacco abuse, quit approximately 15 years ago. Denies any current EtOH use. Meds Home Medications Medication Instructions Recorded Confirmed Type Nebulizer W/ Tubing 1 inh DIRECTED 06/22/12 11/11/18 History montelukast 10 mg PO DAILY tab-cap 07/10/17 11/11/18 History budesonide [Pulmicort] 1 inh INHALATION QID #180 ea 08/05/17 11/11/18 Rx FreeStyle Lite Strips #200 strip 09/08/17 11/10/18 Rx albuterol sulfate [ProAir HFA] 1 - 2 puff INHALATION Q4H PRN #3 09/08/17 11/11/18 Rx inhaler magnesium oxide 400 mg PO DAILY #90 tab 10/20/17 11/11/18 Rx glipizide 5 mg tablet 5 mg PO QAM #30 tab 05/13/18 11/11/18 Rx aspirin 81 mg tablet,delayed 81 mg PO DAILY 07/15/18 11/11/18 History release gabapentin 300 mg capsule 300 mg PO TID #270 cap 07/15/18 11/11/18 Rx sulfamethoxazole 800 1 tab PO .3x week tab 07/15/18 11/11/18 History mg-trimethoprim 160 mg tablet duloxetine 60 mg capsule,delayed 60 mg PO DAILY #90 cap 08/27/18 11/11/18 Rx release mepolizumab 100 mg subcutaneous 100 mg SC Q4W each 09/08/18 11/11/18 History solution ipratropium-albuterol 3 ml INHALATION Q4H #4 box 10/11/18 11/10/18 Rx tamsulosin 0.8 mg PO DAILY@1730 #0 cap 10/11/18 11/11/18 Rx esomeprazole magnesium [Nexium] 40 mg PO DAILY@0730 #30 cap 10/19/18 11/11/18 Rx hydrocodone 7.5 mg-acetaminophen 1 tab PO BID #60 tab MDD 2 tab 10/29/18 11/11/18 Rx 325 mg tablet metformin 1,000 mg tablet 1,000 mg PO BID 11/10/18 11/11/18 History clotrimazole 10 mg PO .3 TIMES PER WEEK 11/11/18 11/11/18 History prednisone 30 mg PO DAILY 11/11/18 11/11/18 History Allergies Allergy/AdvReac Type Severity Reaction Status Date / Time codeine Allergy rash, itch Unverified 11/11/18 15:02 Exam Narrative Exam Narrative: General: Very pleasant elderly male, laying in bed at about 30 degree angle, mildly tachypneic, able to speak in 4-5 word sentences Neurological: A&OX3, no focal deficits Psychiatric: appropriate speech pattern/content Skin: intact HEENT: Atraumatic, normocephalic, EOMI, dry MM, tongue with white film, no submandibular or cervical lymphadenopathy, no goiter or clear JVD Cardiovascular: RRR, tachycardic Lungs: crackles at B bases, L>R, mild wheezing on expiration B Gastrointestinal: abdomen soft, nontender, nondistended Extremities: no e/c/c BLE's Results Imaging Additional studies: CXR: Question left lower lobe pneumonia. A follow up PA and lateral examination is suggested for further review. EKG: sinus tachycardia, HR 116, nonspecific ST-changes, but no obvious acute ischemia Labs : 11/11/18 14:20 11/11/18 14:20 Laboratory Results - last 24 hr 11/11/18 11/11/18 11/11/18 14:20 14:20 14:20 WBC 12.95 H RBC 4.14 L Hgb 12.1 L Hct 35.9 L MCV 86.7 MCH 29.2 MCHC 33.7 RDW 14.7 H Plt Count 226 MPV 8.3 Immature Gran % See Differential Neutrophils % 80.0 Band Neutrophils % 2.0 Lymphocytes % 8.0 Monocytes % 6.0 Eosinophils % 0.0 Basophils % 0.0 Metamyelocytes % 3.0 Myelocytes % 1.0 Absolute Neutrophils 10.62 H Absolute Lymphocytes 1.04 L Absolute Monocytes 0.78 H Absolute Eosinophils 0.00 Absolute Basophils 0.00 Differential Comment Manual differential RBC Morphology See below Anisocytosis 1+ PT INR APTT Sodium 130 L Potassium 5.3 H Chloride 94 L Carbon Dioxide 28.6 Anion Gap 7.4 BUN 28 H Creatinine 1.17 Estimated GFR/1.73 m2 >= 60.00 Glucose 201 H Lactate 2.8 H Calcium 10.0 Magnesium 1.8 Total Bilirubin 0.3 AST 14 L ALT 45 Alkaline Phosphatase 85 Troponin I < 0.05 NT-Pro-B Natriuret Pep 176 Total Protein 6.9 Albumin 2.9 L 11/11/18 14:20 WBC RBC Hgb Hct MCV MCH MCHC RDW Plt Count MPV Immature Gran % Neutrophils % Band Neutrophils % Lymphocytes % Monocytes % Eosinophils % Basophils % Metamyelocytes % Myelocytes % Absolute Neutrophils Absolute Lymphocytes Absolute Monocytes Absolute Eosinophils Absolute Basophils Differential Comment RBC Morphology Anisocytosis PT 9.3 INR 0.9 APTT 21.7 Sodium Potassium Chloride Carbon Dioxide Anion Gap BUN Creatinine Estimated GFR/1.73 m2 Glucose Lactate Calcium Magnesium Total Bilirubin AST ALT Alkaline Phosphatase Troponin I NT-Pro-B Natriuret Pep Total Protein Albumin Last Vital Signs Temp 36.4 C L 11/11/18 14:58 Pulse 106 H 11/11/18 16:31 Resp 17 11/11/18 16:40 BP 136/104 H 11/11/18 16:31 Pulse Ox 93 L 11/11/18 16:40
[2018-11-11] MEDS: methylPREDNISolone SUCC 125 MG VIAL 60 MG IVP (18:38)
[2018-11-11] MEDS: Normal Saline Flush 10 ML SYR IVP ×2 (18:39→23:29)
[2018-11-11] MEDS: Enoxaparin 40 MG/0.4 ML SYR SC (18:39)
[2018-11-11] MEDS: Tamsulosin 0.4 MG CAPCR 0.8 MG PO (18:39)
[2018-11-11] MEDS: Insulin Aspart 300 UNITS/3 ML PEN SC ×2 (18:40→21:38)
[2018-11-11] MEDS: Gabapentin 300 MG CAP PO (20:31)
[2018-11-11] MEDS: Budesonide 0.5 MG/2 ML UPD VIAL UPD (20:31)
[2018-11-11 22:34] LABS: Troponin I < 0.05 ng/mL (0.00-0.06)
[2018-11-12] VITALS (13 sets, daily range): BP systolic 96–159; BP diastolic 64–91; PULSE 107–120; RESP 1–24; TEMP 36.3–36.6; O2SAT 92–98
[2018-11-12] MEDS: Normal Saline Flush 10 ML SYR IVP ×2 (04:18→16:22)
[2018-11-12] MEDS: methylPREDNISolone SUCC 125 MG VIAL 60 MG IVP ×2 (04:19→16:26)
[2018-11-12 06:39] LABS: Lactate-non-spesis 2.3 mmol/l (0.6-1.4)
[2018-11-12 06:49] LABS: HCT 35.3 % (40.0-50.0); HGB 12.3 g/dL (13.5-17.5); Mean Corp. HGB Concentration 34.8 g/dL (32.0-36.0); Mean Corpuscular Hemoglobin 29.6 pg (27.0-33.0); Mean Corpuscular Volume 85.1 fL (80-95); Mean Platelet Volume 8.4 fL (8.0-11.0); Platelet Count 255 x1000/uL (130-400); RBC 4.15 m/cumm (4.50-6.00); RBC Distribution Width 14.3 % (11.8-14.1); White Blood Cell Count 12.98 k/cumm (4.4-10.8)
[2018-11-12 07:00] LABS: Magnesium 1.8 mg/dL (1.8-2.4)
[2018-11-12 07:05] LABS: Anion Gap 7.3 mmol/L (3-11); BUN 25 mg/dL (7-18); CO2 29.7 mmol/L (21.0-32.0); CREATININE 1.18 mg/dL (0.70-1.30); Calcium 8.9 mg/dL (8.5-10.1); Chloride 94 mmol/L (98-107); Glucose 205 mg/dL (70-100); Potassium 4.2 mmol/L (3.5-5.1); Sodium 131 mmol/L (136-145); Troponin I < 0.05 ng/mL (0.00-0.06)
[2018-11-12 07:43] LABS: Diff Comment Manual Differential; RBC Morphology Normal
[2018-11-12 07:45] LABS: Absolute Lymphocyte Count 1.04 k/cumm (1.2-3.4); Absolute Monocyte Count 0.39 k/cumm (0.11-0.7); Absolute Neutrophil Count 11.03 k/cumm (1.2-6.7)
--- NOTE | 2018-11-12 07:59 | PHARADMIT ---
Addendum entered by Sheila Sampson 11/16/18 17:13: Pharmacy Note Subjective Objective HR-95 other VS okay Na-133 Cl-95 mag-2.6(down) SCr-1.20(up) Assessment vanco/zosyn continue (day 5) magnesium and guaifenesin discontinued guaifenesin/dextromethorphan changed from PRN to scheduled prednisone started 40 mg BID Plan MD plans on discontinuing abx end of today Addendum entered by Sheila Sampson 11/15/18 16:02: Pharmacy Note Subjective looks better per morning report Objective B- 161/93 HR-100 mag-2.7(up) wbc-11.94(down) FSBG-228 Assessment zosyn and vanco continue (day 4/5... day 5 starts this afternoon) vanco trough came back at 19.9 but previous dose was given late, extrapolated trough was 16.0 so continuing with current dose glipizide and tamsulosin restarted (pts home med) Plan watch for discontinuation of abx following tomorrows doses Original Note: Admission Pharmacy Clinical Review HCAP, ACUTE EXACERBATION OF CHRONIC DIASTOLIC, CHF Code Status Full Code Current Weight Wgt-103 kg Renally Cleared and Narrow Therapeutic Index Meds CrCl~62 mL/min Meds-OK QTc Value / Action Taken QTc-456 (Lasix, Zosyn) BP Control, Fever BP-159/85 Tmax-36.4C Electrolytes reviewed Na-131 K+4.2 Mag-1.8 DVT Prophylaxis Lovenox Opiate Usage / Scheduled Bowel Regimen Ordered Yes Yes Plt/SCr for Heparin / Enoxaparin Plts-255 SCr-1.18 INR for Warfarin INR-0.9 H/H stable, WBC/Bands H&H- 12.3/35.3 WBC- 12.98 Antibiotic appropriateness Zosyn, Vancomycin, Bactrim-DS Cultures and Sensitivities Blood-pending Surgical ABX d/c within 24 hr na DM control / Insulin Dosing BG- 205 Heart Failure (Check EF%) (SANDRA's, B-Block, Diuretics) Lasix, IV to PO Switch No Home Meds Reviewed Yes Home Meds Not Ordered Glipizide, Metformin,Mepolizumab, Comments
[2018-11-12] MEDS: PIPERACILLIN/TAZO 4.5 GM in Normal Saline 100 ML IVPB ×2 (08:30→18:36)
[2018-11-12] MEDS: Esomeprazole 40 MG CAPCR PO (08:31)
[2018-11-12] MEDS: Montelukast 10 MG TAB PO (08:31)
[2018-11-12] MEDS: Gabapentin 300 MG CAP PO ×3 (08:31→19:52)
[2018-11-12] MEDS: DULoxetine 30 MG CAP 60 MG PO (08:31)
[2018-11-12] MEDS: Sulfameth/Trimeth DS TAB 1 TAB PO (08:31)
[2018-11-12] MEDS: Aspirin E.C. 81 MG TABEC PO (08:31)
[2018-11-12] MEDS: Magnesium Oxide 400 MG TAB PO (08:31)
[2018-11-12] MEDS: Furosemide 20 MG/2 ML VIAL IVP ×2 (08:31→16:22)
[2018-11-12] MEDS: Insulin Aspart 300 UNITS/3 ML PEN SC ×4 (08:33→21:51)
--- NOTE | 2018-11-12 08:48 | OT.INIE ---
Occupational Therapy Notes Inpatient Occupational Therapy Evaluation Date: 11/12/18 Referring Doctor:Vandana Philip MD OT Orders: Eval and Treat Precautions: Fall, Standard PATIENT PROFILE/ADMITTING DIAGNOSIS: Pt is a 73 year old male who presented to the ER for COPD with acute exacerbation and pneumonia with multiple recent hospitalizations for his breathing. Past Medical History: Medical History Gastroesophageal reflux disease (Chronic) Diabetic peripheral neuropathy (Chronic 12/11/15) 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) Atherosclerosis of [place] coronary artery (Chronic) Osteoarthritis (Chronic) COPD (chronic obstructive pulmonary disease) (Chronic) Diabetes mellitus (Chronic) Hypertension (Chronic) Polymyalgia rheumatica (Resolved 02/19/12) Surgical History SHOULDER SURGERY Social History/Home Situation: Pt lives in a private home with his and 3 grand children with whom they have legal custody over. Pt states that he is totally (I) at baseline and currently. He notes that he has stairs to enter his home and stairs within in home to his basement and to the upstairs but states that he lives mainly on the first floor. 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 Equipment owned/DME: Canes, FWW, shower seat SUBJECTIVE: Pt was seated in chair by window when OT arrived. He reports that he has been in and out of the hospital since his last admission. OBJECTIVE: General Observation: Pleasant and answered all questions appropriately Mental Status: A&Ox3 Pain: no c/o pain ROM: RUE AROM WFL L UE AROM WFL STRENGTH: RUE 4/5 throughout globally with strong lead recoverer symmetrically LUE 4/5 throughout globally with strong lead recoverer symmetrically FUNCTIONAL MOBILITY/ADLS: Transfers FWW, (S) Sit-Stand Stand-sit BATHING NT however pt was able to functionally demonstrate AROM Required to perform both bathing and dressing routines. DRESSING Dressing UE NT Dressing LE Seated in chair (I) with LE dressing with ideal technique GROOMING (I) brushing hair TOILETING NT-pt reports that he is using urinal EATING (I) sitting in chair BALANCE: Static sitting Normal Dynamic Sitting Normal Static Standing Normal Dynamic Standing Normal SPECIAL TESTS: Daily Activity Limitations Standardized Measure [facility] AM -PAC ?6 clicks? Daily Activity Inpatient Short Form: Raw score: 23 Standardized score: 51.12 CMS score: 15.86% INFORMED CONSENT/EDUCATION: Pt instructed in purpose of OT Consult and plan of care. ASSESSMENT: Patient is a 73-year-old male referred to occupational therapy services with diagnosis of COPD exacerbation and pneumonia. Patient presents with clinical signs and symptoms consistent with dx. Pt was seen for OT consult only. He is able to demonstrate his ADLs/IADL routines (I) With ideal technique. He presents with AROM WFL. OT recommends that pt return home with continuation of HH services when medically cleared per MD based on his functional (I) in ADLs. AMPAC score 23, CMS score 15.86% Patient is assessed as a Low 07154 complexity based on the following: History: See Above Examination: See Above Presentation: Evolving Decision Making: AMPAC score 23, CMS score 15.86% GOALS N/A PLAN OF CARE/TREATMENT PLAN: OT consult only. DISCHARGE RECOMMENDATIONS Home when medically cleared per MD. TREATMENT TIME/MINUTES/CODES 51102, 15 minutes (08:05) Asiya Dixon OTR/[facility]
[2018-11-12] MEDS: Budesonide 0.5 MG/2 ML UPD VIAL UPD ×2 (09:18→19:51)
[2018-11-12] MEDS: Albuterol/Ipratropium 3 ML UPD VIAL IH ×2 (09:20→15:29)
--- NOTE | 2018-11-12 10:51 | PT.INIE ---
Date of service: 11/12/18 Time of Service: 09:30 PT Notes Inpatient Physical Therapy Evaluation Date: 11/12/2018 Referring Doctor: Vandana Philip MD PT Orders: PT CONSULT: Eval/treat Precautions: Fall. Standard. Patient Profile/Admitting Diagnosis: Patient is a 73-year-old male patient with past medical history significant for steroid-dependent COPD and significant prior tobacco use who presented to the ED today 11/11/2018 with chief complaints of shortness of breath and wosening respiratory distress. Patient was recently discharged from [facility] on 11/08/2018 for management of COPD exacerbation as well as chronic diastolic CHF. Patient is diagnosed with healthcare acquired pneumonia COPD exacerbation, and chronic diastolic CHF, PAF, and orthostasis. Referral for physical therapy services was received today to address impairments and strength, mobility level, and activity tolerance PMHX: Medical History (Updated 11/11/18 @ 18:03 by Vandana Philip MD) Atherosclerosis of [place] coronary artery (Chronic) 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) COPD (chronic obstructive pulmonary disease) (Chronic) Diabetes mellitus (Chronic) Diabetic peripheral neuropathy (Chronic 12/11/15) Diastolic CHF (Chronic) 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) Gastroesophageal reflux disease (Chronic) Hypertension (Chronic) Orthostasis (Chronic) Osteoarthritis (Chronic) Paroxysmal atrial fibrillation (Chronic) Polymyalgia rheumatica (Resolved 02/19/12) Surgical History (Updated 11/11/18 @ 18:03 by Vandana Philip MD) SHOULDER SURGERY Social History/Home Situation: Patient lives with Jordyn and a 1 floor house in [place] with 3 grandchildren. They have 3 steps that lead onto a porch and another 3 steps to enter the main entrance of the house with a rail on the right going up. Patient is independent with all aspects of ADLs without the need for an assistive ambulatory device or adaptive equipment although he states that he has a walker stashed somewhere and walking sticks. Patient still drives. Both and him states that they cover up to 100 miles of driving on a daily basis bringing their grandchildren to school and daycare and doing their own errands. 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 Current Functional Limitations: Decreased activity tolerance impairing transfer and ambulation task performance Equipment Owned/DME: FWW, walking sticks, grab bars Subjective: Patient and Jordyn are both agreeable to a PT consult. Patient reports being out of breath and tired from doing the littlest movement. He hopes to go back with his Jordyn as soon as he is safe to do so. He denies any headache, chest pain, and nausea throughout PT session today. He did complain of lightheadedness upon sitting up in standing up. Objective: General Observation: Patient seen sitting on chair. present throughout PT consult. Telemetry monitoring in place. No oxygen supplementation at time of consult. IV in L UE. Mental Status: Alert and oriented x4 Pain: Patient reported some discomfort in bilateral knees Vital Signs: In supine 146/80 mmHg, 95% on room air, 114 bpm. In sitting 131/65 mmHg, 91% on room air, 118 bpm. In standing 96/60 4 mmHg, 92% on room air and 120 bpm. ROM: Right Upper Extremity: Shoulder Flexion WFL. Shoulder abduction WFL. Elbow flexion WFL. Wrist flexion WFL. Functional opening and closing of hand WFL. Left Upper Extremity: Shoulder Flexion WFL. Shoulder abduction WFL. Elbow flexion WFL. Wrist flexion WFL. Functional opening and closing of hand WFL. Right Lower Extremity: Hip flexion WFL. Hip abduction WFL. Knee flexion WFL. Ankle dorsiflexion WFL. Ankle plantarflexion WFL. Left Lower Extremity: Hip flexion WFL. Hip abduction WFL. Knee flexion WFL. Ankle dorsiflexion WFL. Ankle plantarflexion WFL. Strength: Right Upper Extremity: Shoulder flexors 4/5. Shoulder abductors 4/5. Elbow flexors 4/5. Elbow extensors 4/5. Buyers' Agent strong. Left Upper Extremity: Shoulder flexors 4/5. Shoulder abductors 4/5. Elbow flexors 4/5. Elbow extensors 4/5. Buyers' Agent strong. Right Lower Extremity: Hip flexors 4-/5. Hip abductors 4/5. Knee flexors 4/5. Knee extensors 4-/5. Ankle dorsiflexors 4/5. Ankle plantarflexors 4/5. Left Lower Extremity:Hip flexors 4-/5. Hip abductors 4/5. Knee flexors 4/5. Knee extensors 4-/5. Ankle dorsiflexors 4/5. Ankle plantarflexors 4/5. Sensation: Intact as to pain and pressure on bilateral lower extremities. Bed Mobility/Transfers: Rolling independent Supine to sit independent Sit to supine independent Sit to stand SBA Stand to sit SBA Bed to chair CGA Chair to bed CGA Gait: Patient is able to tolerate level surface ambulation of 45 feet +50 feet +30 feet using 4WW with CGA and IV pole management of this PT and wheelchair follow by with report of mild shortness of breath. Gait pattern unremarkable except for reduced gait velocity as patient states that he needs to slow down so he does not get out of breath fast. First walk without oxygen supplementation patient desaturated to 72% on room air and had to be provided with 2 L of oxygen that facilitate return to above 90%. Second walk with 2 L of oxygen for about 60 feet resulted to desaturation to 84% and at third walk of about 30 feet with pursed lip breathing resulted to desaturation to 86% on 2 L/min. Balance: Static Sitting: Normal Dynamic Sitting: Normal Static Standing: Normal Dynamic Standing: Good Special Tests: Mobility Limitations Standardized Measure [facility] 6 clicks Basic Mobility Inpatient Short Form: Raw Score: 21 CMS Score: 29% deficit Informed Consent/Education: Patient instructed in purpose of PT consult and plan of care. Patient was advised to perform seated leg exercises every 2 hours consisting of seated hip flexion and bilateral leg raises in order to maintain flexibility and range of motion onto bilateral lower extremities. He was also instructed to walk the small group around the nurse task at least once a day with a nursing staff in order to maximize activity tolerance. Assessment: Patient is a 73-year-old male with diagnosis of COPD exacerbation, steroid-induced hyperglycemia, and acute kidney injury. Patient presents with clinical signs and symptoms consistent with current/admitting diagnoses that have resulted to mobility limitations, gait instability, generalized weakness, and impairment of motor control as demonstrated by the following impairment level findings: 1. Decreased strength to B LE major muscle groups 2. Impaired standing balance 3. Impaired activity tolerance Impairments are contributing to the following functional limitations: 1. Increase completion time for mobility ADL performance 2. Increased fall risk 3. Inability to negotiate steps without dyspnea Patient is assessed as a 56756 moderate complexity based on the following: History: Patient is diagnosed with healthcare acquired pneumonia COPD exacerbation, and chronic diastolic CHF, PAF, and orthostasis. Examination: Demonstrable impairment in strength, balance, and range of motion with underlying impairments and functional limitations as documented above Presentation:Evolving Decision Makin moderate complexity Goals: Goals X1 week 1. Independent gait on level surface with 4WW for at least 500 feet without report of chest discomofort nor dyspnea 2. Independent stair negotiation while holding onto one rail for at least 5 steps without report of chest discomfort nor dyspnea 3. Independent with home exercise program 4. Normal dynamic standing balance/tolerance 5. Patient will demonstrate 2-minute walk test of 200 feet without report of pain nor dyspnea Plan of Care/Treatment Plan: 1-2x/day, 7 days/week x 1 week. Plan of care has been reviewed with the AUTOMATIC CENTRIFUGAL STATION OPERATOR providing the service under Physical Therapy direction. Initiate Physical Therapy intervention for strengthening, bed mobility, transfers, gait, stairs, balance training, use of assistive device. DISCHARGE RECOMMENDATIONS: Patient will benefit from home health PT services in order to progress mobility level using least restrictive assistive ambulatory device/using no device, assess home safety, identify additional equipment needs, and establish a functional maintenance program that will increase ability of patient to remain at home. TREATMENT CODE/TIME: 40763 x 30 minutes, 55973 x 27 minutes beginning at 9:30 AM. Thank you very much for this referral. Mira Sr PT, DPT, CLT [facility]
--- NOTE | 2018-11-12 15:12 | INITIAL_ITS ---
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 Steroid-dependent chronic obstructive pulmonary disease, type 2 diabetes mellitus for which he has been on metformin, hypertension, migraine headaches, depression, chronic lower back pain, coronary artery disease--he had a cardiac catheterization August 30, 2013 with no hemodynamically significant occlusive disease and has been on medical management only, history of polymyalgia rheumatica, osteoarthritis, benign prostatic hypertrophy PREVIOUS FUNCTIONAL STATUS/SOCIAL/FAMILY SUPPORTS:: Amy resides in [place] with his and three grand-daughters. He has legal custody of two grandaughters and has adopted the other. He remains independent in the community with all ADLs. His Jordyn is his main support. 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 CURRENT FUNCTIONAL STATUS:: Amy is lying in bed, pleasantly engaged with this group underwriter. He is well known to [facility] and this . ADVANCE DIRECTIVES:: Completed and processed 10/06/18; on file at [facility]. Agent as Jordyn, Cas; Jase Sims. Has patient been provided with information about the portal?: Yes Did the patient sign up for the portal?: No CODE STATUS:: Full Code INSURANCE COVERAGE / FINANCIAL ISSUES:: Medicare/C&S Adminis [facility] BS CURRENT HOME/COMMUNITY SERVICES/EQUIPMENT:: [place], not VA connected and stated he does not want to be VA connected. Cane, walker, and nebulizer at home. [facility] provides nebulizer supplies. PRIMARY CARE PHYSICIAN:: Tevin Dooley M.D. POTENTIAL DISCHARGE NEEDS:: Follow up appointment with PCP. Palliative Care consult, new orders for [facility], consider [facility] referral as well. PATIENT/FAMILY EDUCATION NEEDS:: Review of discharge instructions, discuss self care needs. ANTICIPATED BARRIERS TO DISCHARGE:: None identified at this time. TRANSPORTATION:: Amy will transport home via private vehicle with his , Jordyn. PLAN:: Amy will return home when ready per MD. He will follow up with his PCP and plan of care as prescribed. Consideration for [facility] services upon discharge as well as [facility] supports. Amy will have a Palliative Care consult with Dr. Beltran as well. Amy will transport home via private vehicle with his , Jordyn.
--- NOTE | 2018-11-12 15:45 | CHAPLAIN ---
Amy was in bed and looked tired, closing his eyes during our conversation. His was with him and explained that he's been dealing with these medical issues for two months now. She said she is frustrated. Amy remains pleasant. His said the doctors are going to changes doses of Amy's medication to see if that will improve things and she asked the he remain at [facility] while the changes are made.
--- NOTE | 2018-11-12 16:36 | PT.INTREAT ---
Date of service: 11/12/18 Time of Service: 14:59 PT Notes Inpatient Physical Therapy Treatment Note [facility] Date: 11/12/2018 PRECAUTIONS: Fall. Standard. Activity as tolerated. SUBJECTIVE: Patient is agreeable to an afternoon session. Patient continues to report being fatigued with not being able to sleep this past few nights not helping. He reported becoming a little lightheaded with standing. He denies headache, chest pain, and palpitation. OBJECTIVE: Patient appears tired and [place] from lack of sleep. Bilateral legs not edematous. PAIN: 0/10 BED MOBILITY/TRANSFERS Rolling L/R: Independent Supine-sit: Independent Sit-supine: Independent Sit-stand: SBA Stand-sit: SBA Bed-Chair: CGA Chair-bed: CGA GAIT Assistive Device: 4WW Weight bearing: FWB Assist: CGA of PT and wheelchair follow Jordyn Distance: 15 feet Deviation: Slowed gait velocity. Tammie RPE dyspnea scale of 3/10. VITALS: Oxygen saturation at 3 L ranged between 84% through 95%. Heart rate ranged from 115 through 126 bpm. Patient was only able to tolerate 15 feet of ambulation when oxygen saturation temp down to 84% with heart rate of 126 bpm. Respiratory therapist requested ambulation activity to be deferred until oxygen saturation levels are much more stabilized. THEREX: Patient was able to tolerate seated exercises consisting of LAQs and seated marches x 10 with oxygen saturation ranging from 82% through 95% and heart rate from 111 bpm through 128 bpm. ASSESSMENT: Continue with skilled services in order to increase activity tolerance and progress mobility level in anticipation of going home. Will coordinate physical therapy sessions with respiratory therapist in order to accurately assess cardiac and pulmonary responses to exercise. PLAN: Patient will benefit from home health PT services in order to progress mobility level using least restrictive assistive ambulatory device/using no device, assess home safety, identify additional equipment needs, and establish a functional maintenance program that will increase ability of patient to remain at home. TREATMENT CODE/TIME: 9753 0 x 26 minutes beginning at 2:59 PM.
[2018-11-12] MEDS: Acetaminophen 325 MG TAB PO (17:28)
[2018-11-12] MEDS: Tamsulosin 0.4 MG CAPCR 0.8 MG PO (17:28)
[2018-11-12] MEDS: Enoxaparin 40 MG/0.4 ML SYR SC (17:28)
--- NOTE | 2018-11-12 18:10 | W.PM.PROGNOT ---
Date of Service Date of service: 11/12/18 Time of Service: 12:45 Assessment and Plan (1) HCAP (healthcare-associated pneumonia): Current visit: Yes Status: Acute present on admission, in LLL. Sputum c&s pending; blood cx with NGTD. Continue vancomycin/zosyn (day 2), await sputum culture results, provide antitussives. (2) COPD with acute exacerbation: Current visit: No Status: Acute COPD is steroid dependent. This Acute exacerbation is mild. Continue solumedrol 60 mg IV BID in addition to continuing home pulmicort, nebs, and antibiotics for HCAP. Procalcitonin is likely of limited relevance in a patient on biologic agent. Consulting palliative care due to frequent hospitalizations. (3) Acute on chronic diastolic (congestive) heart failure: Current visit: Yes Status: Acute Continue lasix 20 mg IV BID. Orthostasis likely has more to do with flomax than with fluid status. Continue to monitor I/O's, daily weights. No ACS. (4) Paroxysmal atrial fibrillation: Current visit: Yes Status: Suspected This diagnosis is not confirmed - the patient has never been told he had it, he states. I do not find any record of it on [facility] admission other than in his PMHx - ?chart error. Will monitor on tele as tachycardic. Would not start anticoagulation. (5) Orthostasis: Current visit: Yes Status: Chronic Symptomatic. D/c flomax. If still orthostatic after 72 hrs, would add florinef or midodrine. It does not appear to be related to this patient's fluid status as he has proven himself to be both orthostatic and fluid overloaded. Could also be due to autonomic neuropathy of diabetes. Will monitor orthostatics and on tele. 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 Follows with [facility] pulmonology. Per patient's , dupilumab is to replace mepolizumab, but not yet initiated. Continue monteleukast, chronic steroids once done with taper. Could consider initiating antihistamine. (9) Diabetes mellitus: Current visit: No Status: Chronic Hold oral hypoglycemic agents; cover with SSI while in the hospital (10) Discharge planning issues: Current visit: Yes Status: Acute Full code Palliative care consulted - family is familiar with Dr Beltran (11) DVT prophylaxis: Current visit: No Status: Acute lovenox Subjective Patient reports: no new complaints Interval history since last seen: Mr Sims states he still feels short of breath, especially when he walks. He also feels dizzy when standing. He was found to be orthostatic. Denies chest pain, nausea. He has been bringing up dark green thick sputum. He asks for cough medication as well as something to help him sleep of nursing/staff. Per my conversation with patient and , they do not want to go to [facility] for hospitalization anymore. He most certainly does not ever want to fly there again. The family is also very interested in speaking with palliative care. Exam Narrative Exam Narrative: General: Very pleasant elderly male, sitting up in bed, able to speak in full sentences, but coughs up thick green sputum multiple times while I am in the room HEENT: Atraumatic, normocephalic, EOMI, dry MM, thrush Cardiovascular: RRR, tachycardic Lungs: quiet crackles at L base; wheezing very quietly, L>R, on expiration Gastrointestinal: abdomen soft, nontender, nondistended Extremities: no e/c/c BLE's Objective Objective Clinical Data: Abnormal lab results 11/12/18 11/12/18 11/12/18 Range/Units 06:25 06:25 06:25 WBC 12.98 H (4.4-10.8) k/cumm RBC 4.15 L (4.50-6.00) m/cumm Hgb 12.3 L (13.5-17.5) g/dL Hct 35.3 L (40.0-50.0) % RDW 14.3 H (11.8-14.1) % Absolute Neutrophils 11.03 H (1.2-6.7) k/cumm Absolute Lymphocytes 1.04 L (1.2-3.4) k/cumm Sodium 131 L (136-145) mmol/L Chloride 94 L (98-107) mmol/L BUN 25 H (7-18) mg/dL Glucose 205 H (70-100) mg/dL Lactate 2.3 H (0.6-1.4) mmol/l Vital Signs Temperature 36.4 C L 11/12/18 15:44 Temperature Source Tympanic 11/12/18 15:44 Pulse 117 H 11/12/18 15:44 Pulse Rhythm Regular 11/12/18 09:45 Pulse 115 H 11/11/18 16:40 Respiratory Rate 22 11/12/18 15:44 Respiratory Effort 11/12/18 09:45 Respiratory Depth Normal 11/12/18 09:45 Respiratory Pattern Normal 11/12/18 09:45 Blood Pressure 119/67 11/12/18 15:44 Blood Pressure Mean 112 11/11/18 16:31 Blood Pressure Position Supine 11/11/18 14:58 Pulse Oximetry 97 11/12/18 15:44 Oxygen Delivery Method Room Air 11/12/18 15:44 Oxygen Flow Rate 0 11/12/18 15:44 Pain Level 4 11/12/18 09:31 Comment 11/12/18 03:35 Intake & Output 11/11/18 11/12/18 11/12/18 23:59 11:59 23:59 Intake Total 340 / 340 1210 / 2540 1330 / 2540 Output Total 2075 / 2075 1650 / 2200 550 / 2200 Balance -1735 / -1735 -440 / 340 780 / 340 Weight 103.7 kg 103 kg Intake: IV 100 / 100 610 / 710 100 / 710 Oral 240 / 240 600 / 1830 1230 / 1830 Output: Urine 2075 / 2075 1650 / 2200 550 / 2200 Other: Urine Color Yellow Yellow Yellow Urine Appearance Clear Clear Clear Urine Odor None None Voiding Methods Urinal Urinal Urinal Laboratory Results WBC 12.98 k/cumm (4.4-10.8) H 11/12/18 06:25 RBC 4.15 m/cumm (4.50-6.00) L 11/12/18 06:25 Hgb 12.3 g/dL (13.5-17.5) L 11/12/18 06:25 Hct 35.3 % (40.0-50.0) L 11/12/18 06:25 MCV 85.1 fL (80-95) 11/12/18 06:25 MCH 29.6 pg (27.0-33.0) 11/12/18 06:25 MCHC 34.8 g/dL (32.0-36.0) 11/12/18 06:25 RDW 14.3 % (11.8-14.1) H 11/12/18 06:25 Plt Count 255 x1000/uL (130-400) 11/12/18 06:25 MPV 8.4 fL (8.0-11.0) 11/12/18 06:25 Immature Gran % See Differential 11/12/18 06:25 85.0 11/12/18 06:25 2.0 % 11/11/18 14:20 8.0 11/12/18 06:25 3.0 11/12/18 06:25 0.0 11/12/18 06:25 0.0 11/12/18 06:25 2.0 % 11/12/18 06:25 2.0 % 11/12/18 06:25 Absolute Neutrophils 11.03 k/cumm (1.2-6.7) H 11/12/18 06:25 Absolute Lymphocytes 1.04 k/cumm (1.2-3.4) L 11/12/18 06:25 Absolute Monocytes 0.39 k/cumm (0.11-0.7) 11/12/18 06:25 Absolute Eosinophils 0.00 k/cumm (0.0-0.7) 11/12/18 06:25 Absolute Basophils 0.00 k/cumm (0.0-0.2) 11/12/18 06:25 Manual differential 11/12/18 06:25 RBC Morphology Normal 11/12/18 06:25 1+ 11/11/18 14:20 PT 9.3 sec (9.3-11.0) 11/11/18 14:20 INR 0.9 (0.9-1.1) 11/11/18 14:20 APTT 21.7 sec (21.0-31.4) 11/11/18 14:20 Sodium 131 mmol/L (136-145) L 11/12/18 06:25 Potassium 4.2 mmol/L (3.5-5.1) D 11/12/18 06:25 Chloride 94 mmol/L (98-107) L 11/12/18 06:25 Carbon Dioxide 29.7 mmol/L (21.0-32.0) 11/12/18 06:25 7.3 mmol/L (3-11) 11/12/18 06:25 BUN 25 mg/dL (7-18) H 11/12/18 06:25 1.18 mg/dL (0.70-1.30) 11/12/18 06:25 >= 60.00 (mL/min/1.73m2) 11/12/18 06:25 Glucose 205 mg/dL (70-100) H 11/12/18 06:25 2.3 mmol/l (0.6-1.4) H 11/12/18 06:25 Calcium 8.9 mg/dL (8.5-10.1) 11/12/18 06:25 Magnesium 1.8 mg/dL (1.8-2.4) 11/12/18 06:25 0.3 mg/dL (0.2-1.0) 11/11/18 14:20 AST 14 U/L (15-37) L 11/11/18 14:20 ALT 45 U/L (12-78) 11/11/18 14:20 85 U/L (46-116) 11/11/18 14:20 < 0.05 ng/mL (0.00-0.06) 11/12/18 06:25 NT-Pro-B Natriuret Pep 176 pg/mL (-299) 11/11/18 14:20 6.9 g/dL (6.4-8.2) 11/11/18 14:20 2.9 g/dL (3.4-5.0) L 11/11/18 14:20
[2018-11-12] MEDS: Albuterol/Ipratropium 3 ML UPD VIAL UPD (19:51)
[2018-11-12] MEDS: Benzonatate 100 MG CAP PO (19:52)
[2018-11-12] MEDS: guaiFENesin 600 MG TABCR PO (19:52)
[2018-11-12] MEDS: Melatonin 3 MG TAB PO (21:52)
[2018-11-13] VITALS (19 sets, daily range): BP systolic 101–169; BP diastolic 61–94; PULSE 92–117; RESP 4–20; TEMP 36.2–36.8; O2SAT 92–100
[2018-11-13] MEDS: Normal Saline Flush 10 ML SYR IVP ×4 (00:14→15:36)
[2018-11-13] MEDS: PIPERACILLIN/TAZO 4.5 GM in Normal Saline 100 ML IVPB ×3 (00:14→17:28)
[2018-11-13] MEDS: methylPREDNISolone SUCC 125 MG VIAL 60 MG IVP ×2 (04:14→15:36)
[2018-11-13 06:57] LABS: Abs Immature Grans 0.51 k/cumm (0.0-0.09); HCT 35.6 % (40.0-50.0); HGB 12.2 g/dL (13.5-17.5); Mean Corp. HGB Concentration 34.3 g/dL (32.0-36.0); Mean Corpuscular Hemoglobin 29.3 pg (27.0-33.0); Mean Corpuscular Volume 85.4 fL (80-95); Mean Platelet Volume 8.5 fL (8.0-11.0); Platelet Count 270 x1000/uL (130-400); RBC 4.17 m/cumm (4.50-6.00); RBC Distribution Width 14.4 % (11.8-14.1); White Blood Cell Count 14.71 k/cumm (4.4-10.8)
[2018-11-13 07:14] LABS: Anion Gap 10.9 mmol/L (3-11); BUN 24 mg/dL (7-18); CO2 27.1 mmol/L (21.0-32.0); CREATININE 1.42 mg/dL (0.70-1.30); Calcium 8.7 mg/dL (8.5-10.1); Chloride 93 mmol/L (98-107); Estimated GFR 49.01 (mL/min/1.73m2); Glucose 273 mg/dL (70-100); Potassium 4.2 mmol/L (3.5-5.1); Sodium 131 mmol/L (136-145)
[2018-11-13 07:20] LABS: Absolute Lymphocyte Count 1.32 k/cumm (1.2-3.4); Absolute Monocyte Count 0.74 k/cumm (0.11-0.7); Absolute Neutrophil Count 12.21 k/cumm (1.2-6.7); Diff Comment Manual Differential
[2018-11-13] MEDS: Furosemide 20 MG/2 ML VIAL IVP (07:41)
[2018-11-13] MEDS: Esomeprazole 40 MG CAPCR PO (07:41)
--- NOTE | 2018-11-13 08:15 | CMPROGNOTE_ITS ---
- If Service Date Differs Date of service: 11/13/18 Time of Service: 08:15 Care Management Progress Note S/O: Amy remains inpatient at this time he is receiving IV abx. Palliative consult this week date and time to be determined. A:73 year old male with advance lung disease (COPD) admitted with HCAP P:Amy will return home when ready per MD. He will follow up with his PCP and plan of care as prescribed. Consideration for HC services upon discharge as well as [facility] supports. Amy will have a Palliative Care consult with Dr. Beltran as well. Amy will transport home via private vehicle with his , Jordyn.
[2018-11-13] MEDS: Albuterol/Ipratropium 3 ML UPD VIAL UPD ×4 (08:29→20:37)
[2018-11-13] MEDS: DULoxetine 30 MG CAP 60 MG PO (08:34)
[2018-11-13] MEDS: Magnesium Oxide 400 MG TAB PO (08:34)
[2018-11-13] MEDS: Benzonatate 100 MG CAP PO ×3 (08:34→20:36)
[2018-11-13] MEDS: Montelukast 10 MG TAB PO (08:34)
[2018-11-13] MEDS: Insulin Aspart 300 UNITS/3 ML PEN SC ×4 (08:34→20:39)
[2018-11-13] MEDS: Aspirin E.C. 81 MG TABEC PO (08:34)
[2018-11-13] MEDS: Gabapentin 300 MG CAP PO ×3 (08:34→20:44)
[2018-11-13] MEDS: guaiFENesin 600 MG TABCR PO ×2 (08:34→20:35)
[2018-11-13] MEDS: Budesonide 0.5 MG/2 ML UPD VIAL UPD ×2 (08:59→20:45)
--- NOTE | 2018-11-13 11:14 | PT.INTREAT ---
Date of service: 11/13/18 Time of Service: 11:14 PT Notes Inpatient Physical Therapy Treatment Note [facility] Date: 11/13/2018 PRECAUTIONS: Fall SUBJECTIVE: Amy reports that he is feeling significantly better today. He is agreeable to participating in PT. OBJECTIVE: PAIN: No complaints of pain BED MOBILITY/TRANSFERS Supine-sit: I Sit-supine: I Sit-stand: S Stand-sit: S GAIT Assistive Device: No AD Weight bearing: Full Assist: SBA/S Distance: 150' x2 STAIRS: Up/down 3?4 and 2?6 using B rails and a step-over pattern, independently VITALS: Orthostatic vitals: supine= 154/78, 113 bpm, 96%; seated = 150/78, 116 bpm, 96%; standing = 101/67, 117 bpm, 93% SaO2: 95-97% with gait training on RA ASSESSMENT: Patient tolerated session well, without complaint. Patient was able to tolerate a progression in gait distance without assistive device with SBA. Patient would benefit from continued general conditioning for improved activity tolerance. PLAN: Continue with PTs POC TREATMENT CODE/TIME: 25 minutes; 37823 x2
[2018-11-13 14:29] LABS: Vancomycin, Trough 14.7 ug/mL (10.0-20.0)
--- NOTE | 2018-11-13 17:11 | W.PM.PROGNOT ---
Date of Service Date of service: 11/13/18 Time of Service: 17:11 Assessment and Plan (1) HCAP (healthcare-associated pneumonia): Current visit: Yes Status: Acute Apparent infiltrate by admission CXR, in patient with significant underlying pulmonary disease and multiple recent hospitalizations. - Unfortunately Sputum culture is not revealing. Continue broad spectrum coverage with Vancomycin and Pip-Tazo, currently day#2. Continue treatment of COPD exacerbation as well. (2) COPD with acute exacerbation: Current visit: No Status: Acute Continue antibiotics, nebs, and steroids, and wean back to home dose when able. (3) Acute on chronic diastolic (congestive) heart failure: Current visit: Yes Status: Acute Weight 105kg at admission, which appears to have been dry weight at discharge from [facility]. Currently at 103 Kg, with evidence hypochloremia, hypokalemia, and INGRIS - hold any further diuresis and monitor. - Apparent good response to minimal diuretic dosing. Recommendations by [facility] for 10-20mg of oral Furosemide daily or on a QOD status when initiated. (4) Orthostasis: Current visit: Yes Status: Chronic Currently with a-crescencio on hold. Plan on repeat orthostatics soon. Potential relation to overdiuresis. (5) Diabetes mellitus: Current visit: No Status: Chronic With Glipizide and Metformin on hold. Continue sliding scale coverage. Currently hyperglycemic in setting of IV Steroid use. (6) DVT prophylaxis: Current visit: No Status: Acute Continue SC Lovenox. Subjective Interval history since last seen: Pleasant 73 year old man with a prior history significant for COPD with recent exacerbations requiring hospitalization, as well as recently treated Diastolic CHF requiring hospitalization at [facility], admitted from [facility] Emergency Department on 11/11 with a diagnosis of worsening Pneumonia. Mr. Sims has a past Medical History significant for steroid dependent COPD and significant prior tobacco use, as well as Eosinophilic Asthma. His other history includes DM, HTN, OA, GERD, BPH, and a previous diagnosis of PMR. He has CAD as a prior history, with a LHC in 2013 which showed no significant occlusion, and a nuclear stress test in 2017 that was deemed negative for ischemia. The patient was recently admitted here and treated for a COPD Exacerbation, and at [facility] between 11/01- for Pulmonary Edema due to acute Diastolic CHF. He was diuresed approximately 17 liters, with a reported dry weight of 105 Kg (231 lbs). He did develop hyponatremia as well as orthostatic changes in the setting of likely overdiuresis, and was discharged without oral diuretic therapy. Following admission there had a reported 4 lbs weight gain, was seen by PCP who found him to continue to be orthostatic and thus did not reinitiate him on furosemide, and finally by Home Health who sent him to the ED due to concern for change in his breathing. He also reported a cough with change in sputum color. Upon presentation to the ED he was found to have a potential LLL Infiltrate by imaging, and COPD exacerbation by exam. Also with concern for volume overload. This morning Mr. Sims reports vast improvement overall in his symptoms. No overnight events were reported. He remains afebrile. Exam Narrative Exam Narrative: General: Patient appears comfortable, AAOX3, NAD Neck: Supple CV: Regular, mildly tachycardic, S1S2, No rubs, murmurs, or gallops. Pulmonary: Diffuse wheezing with good air entry. No crackles or rhonchi. Abdomen: + Bowel Sounds, soft, nontender, nondistended Vascular: No lower extremity edema Psych: Normal mood and affect. Objective Objective Clinical Data: Abnormal lab results 11/13/18 11/13/18 Range/Units 06:25 06:25 WBC 14.71 H (4.4-10.8) k/cumm RBC 4.17 L (4.50-6.00) m/cumm Hgb 12.2 L (13.5-17.5) g/dL Hct 35.6 L (40.0-50.0) % RDW 14.4 H (11.8-14.1) % Absolute Neutrophils 12.21 H (1.2-6.7) k/cumm Absolute Monocytes 0.74 H (0.11-0.7) k/cumm Sodium 131 L (136-145) mmol/L Chloride 93 L (98-107) mmol/L BUN 24 H (7-18) mg/dL Creatinine 1.42 H (0.70-1.30) mg/dL Glucose 273 H (70-100) mg/dL Vital Signs Temperature 36.4 C L 11/13/18 16:01 Temperature Source Tympanic 11/13/18 16:01 Pulse 103 H 11/13/18 16:01 Pulse Rhythm Regular 11/13/18 15:58 Pulse 115 H 11/11/18 16:40 Respiratory Rate 20 11/13/18 16:01 Respiratory Effort Non-Labored 11/13/18 15:58 Respiratory Depth Normal 11/13/18 15:58 Respiratory Pattern Normal 11/13/18 15:58 Blood Pressure 151/85 H 11/13/18 16:01 Blood Pressure Mean 112 11/11/18 16:31 Blood Pressure Position Supine 11/11/18 14:58 Pulse Oximetry 97 11/13/18 16:01 Oxygen Delivery Method Room Air 11/13/18 16:01 Oxygen Flow Rate 0 11/13/18 16:01 Pain Level 1 11/13/18 09:35 Comment 11/13/18 03:36 Intake & Output 11/12/18 11/13/18 11/13/18 23:59 11:59 23:59 Intake Total 1680 / 2890 2140 / 3450 1310 / 3450 Output Total 2450 / 4100 2925 / 3675 750 / 3675 Balance -770 / -1210 -785 / -225 560 / -225 Weight 103.4 kg Intake: IV 450 / 1060 100 / 450 350 / 450 Oral 1230 / 1830 2040 / 3000 960 / 3000 Output: Urine 2450 / 4100 2925 / 3675 750 / 3675 Other: Urine Color Yellow Yellow Yellow Urine Appearance Clear Clear Clear Urine Odor None Comment Pt states the 675 ml of urine was around 2:30 am. Stool Size Moderate Moderate Stool Characteristics Formed Soft Formed Voiding Methods Urinal Urinal Urinal Laboratory Results WBC 14.71 k/cumm (4.4-10.8) H 11/13/18 06:25 RBC 4.17 m/cumm (4.50-6.00) L 11/13/18 06:25 Hgb 12.2 g/dL (13.5-17.5) L 11/13/18 06:25 Hct 35.6 % (40.0-50.0) L 11/13/18 06:25 MCV 85.4 fL (80-95) 11/13/18 06:25 MCH 29.3 pg (27.0-33.0) 11/13/18 06:25 MCHC 34.3 g/dL (32.0-36.0) 11/13/18 06:25 RDW 14.4 % (11.8-14.1) H 11/13/18 06:25 Plt Count 270 x1000/uL (130-400) 11/13/18 06:25 MPV 8.5 fL (8.0-11.0) 11/13/18 06:25 Immature Gran % See Differential 11/13/18 06:25 81.0 11/13/18 06:25 2.0 % 11/13/18 06:25 9.0 11/13/18 06:25 5.0 11/13/18 06:25 0.0 11/13/18 06:25 0.0 11/13/18 06:25 2.0 % 11/13/18 06:25 1.0 % 11/13/18 06:25 Absolute Neutrophils 12.21 k/cumm (1.2-6.7) H 11/13/18 06:25 Absolute Lymphocytes 1.32 k/cumm (1.2-3.4) 11/13/18 06:25 Absolute Monocytes 0.74 k/cumm (0.11-0.7) H 11/13/18 06:25 Absolute Eosinophils 0.00 k/cumm (0.0-0.7) 11/13/18 06:25 Absolute Basophils 0.00 k/cumm (0.0-0.2) 11/13/18 06:25 Manual differential 11/13/18 06:25 RBC Morphology Normal 11/12/18 06:25 1+ 11/11/18 14:20 PT 9.3 sec (9.3-11.0) 11/11/18 14:20 INR 0.9 (0.9-1.1) 11/11/18 14:20 APTT 21.7 sec (21.0-31.4) 11/11/18 14:20 Sodium 131 mmol/L (136-145) L 11/13/18 06:25 Potassium 4.2 mmol/L (3.5-5.1) 11/13/18 06:25 Chloride 93 mmol/L (98-107) L 11/13/18 06:25 Carbon Dioxide 27.1 mmol/L (21.0-32.0) 11/13/18 06:25 10.9 mmol/L (3-11) 11/13/18 06:25 BUN 24 mg/dL (7-18) H 11/13/18 06:25 1.42 mg/dL (0.70-1.30) H 11/13/18 06:25 49.01 (mL/min/1.73m2) 11/13/18 06:25 Glucose 273 mg/dL (70-100) H 11/13/18 06:25 2.3 mmol/l (0.6-1.4) H 11/12/18 06:25 Calcium 8.7 mg/dL (8.5-10.1) 11/13/18 06:25 Magnesium 2.0 mg/dL (1.8-2.4) 11/13/18 06:25 0.3 mg/dL (0.2-1.0) 11/11/18 14:20 AST 14 U/L (15-37) L 11/11/18 14:20 ALT 45 U/L (12-78) 11/11/18 14:20 85 U/L (46-116) 11/11/18 14:20 < 0.05 ng/mL (0.00-0.06) 11/12/18 06:25 NT-Pro-B Natriuret Pep 176 pg/mL (-299) 11/11/18 14:20 6.9 g/dL (6.4-8.2) 11/11/18 14:20 2.9 g/dL (3.4-5.0) L 11/11/18 14:20 Vancomycin Trough 14.7 ug/mL (10.0-20.0) 11/13/18 14:04
[2018-11-13] MEDS: Enoxaparin 40 MG/0.4 ML SYR SC (17:28)
[2018-11-13] MEDS: Melatonin 3 MG TAB PO (21:25)
[2018-11-14] VITALS (18 sets, daily range): BP systolic 95–174; BP diastolic 60–89; PULSE 89–117; RESP 4–21; TEMP 36–36.6; O2SAT 94–97
[2018-11-14] MEDS: Normal Saline Flush 10 ML SYR IVP ×5 (00:28→21:27)
[2018-11-14] MEDS: PIPERACILLIN/TAZO 4.5 GM in Normal Saline 100 ML IVPB ×3 (00:28→17:35)
[2018-11-14] MEDS: Albuterol/Ipratropium 3 ML UPD VIAL UPD ×6 (00:35→19:32)
[2018-11-14] MEDS: Esomeprazole 40 MG CAPCR PO (07:29)
[2018-11-14 07:43] LABS: Abs Immature Grans 1.01 k/cumm (0.0-0.09); Absolute Monocyte Count 1.59 k/cumm (0.11-0.7); HGB 12.7 g/dL (13.5-17.5); Mean Corp. HGB Concentration 33.4 g/dL (32.0-36.0); Mean Corpuscular Volume 86.8 fL (80-95); Mean Platelet Volume 8.4 fL (8.0-11.0); Platelet Count 330 x1000/uL (130-400); RBC 4.38 m/cumm (4.50-6.00); RBC Distribution Width 14.7 % (11.8-14.1); White Blood Cell Count 15.85 k/cumm (4.4-10.8)
[2018-11-14 08:05] LABS: Anion Gap 10.7 mmol/L (3-11); BUN 21 mg/dL (7-18); CO2 28.3 mmol/L (21.0-32.0); CREATININE 1.27 mg/dL (0.70-1.30); Calcium 8.5 mg/dL (8.5-10.1); Chloride 95 mmol/L (98-107); Estimated GFR 55.75 (mL/min/1.73m2); Glucose 169 mg/dL (70-100); Magnesium 2.2 mg/dL (1.8-2.4); Potassium 4.5 mmol/L (3.5-5.1); Sodium 134 mmol/L (136-145)
[2018-11-14 08:09] LABS: Absolute Neutrophil Count 11.41 k/cumm (1.2-6.7); Diff Comment Manual Differential; Hypochromasia 1+; Microcytosis 1+
[2018-11-14] MEDS: guaiFENesin 600 MG TABCR PO ×2 (08:22→19:31)
[2018-11-14] MEDS: predniSONE 20 MG, predniSONE 10 MG 30 MG PO (08:22)
[2018-11-14] MEDS: DULoxetine 30 MG CAP 60 MG PO (08:22)
[2018-11-14] MEDS: Magnesium Oxide 400 MG TAB PO (08:22)
[2018-11-14] MEDS: Aspirin E.C. 81 MG TABEC PO (08:22)
[2018-11-14] MEDS: Gabapentin 300 MG CAP PO ×3 (08:23→19:31)
[2018-11-14] MEDS: Benzonatate 100 MG CAP PO ×3 (08:23→19:32)
[2018-11-14] MEDS: Insulin Aspart 300 UNITS/3 ML PEN SC ×4 (08:23→21:27)
[2018-11-14] MEDS: Montelukast 10 MG TAB PO (08:23)
[2018-11-14] MEDS: Budesonide 0.5 MG/2 ML UPD VIAL UPD ×2 (09:07→20:11)
--- NOTE | 2018-11-14 10:13 | PT.INNT ---
Date of service: 11/14/18 Time of Service: 10:14 PT Notes Inpatient Physical Therapy Treatment Note [facility] Date: 11/14/2018 PRECAUTIONS: Fall SUBJECTIVE: Amy reports that he feels good today. He is agreeable to participating in PT. OBJECTIVE: PAIN: No complaints of pain BED MOBILITY/TRANSFERS Sit-stand: I Stand-sit: I GAIT Assistive Device: No AD Weight bearing: Full Assist: I Distance: 300' VITALS: Orthostatic vitals: See nursing notes fo specifics; SaO2: 92-95% with gait training on RA ASSESSMENT: Patient tolerated session well, without complaint. Patient was able to tolerate a progression in gait distance without assistive device, demonstrating independent. Patient would benefit from cardiovascular conditioning for improved activity tolerance. PLAN: Continue with PTs POC TREATMENT CODE/TIME: 15 minutes; [id number]
--- NOTE | 2018-11-14 13:04 | PGE_ITS ---
Date of Service Date of service: 11/14/18 Time of Service: 13:04 Assessment and Plan (1) HCAP (healthcare-associated pneumonia): Current visit: Yes Status: Acute Apparent infiltrate by admission CXR, in patient with significant underlying pulmonary disease and multiple recent hospitalizations. - Unfortunately Sputum culture is not revealing. Continue broad spectrum coverage with Vancomycin and Pip-Tazo, currently day#3. Continue treatment of COPD exacerbation as well. - Current exam not consistent with CHF - diuretic therapy continues to be on hold. (2) COPD with acute exacerbation: Current visit: No Status: Acute Continue antibiotics, nebs, and steroids, and wean back to home dose when able. Will wean IV Steroids today. (3) Acute on chronic diastolic (congestive) heart failure: Current visit: Yes Status: Acute Weight 105kg at admission, which appears to have been dry weight at discharge from [facility]. Currently at 103 Kg, with evidence hypochloremia, hypokalemia, and INGRIS - clinically dry. Hold any further diuresis and monitor. - Apparent good response to minimal diuretic dosing. Recommendations by [facility] for 10-20mg of oral Furosemide daily or on a QOD status when initiated. (4) Orthostasis: Current visit: Yes Status: Chronic Currently with a-crescencio on hold. Plan on repeat orthostatics soon. Potential relation to overdiuresis. (5) Diabetes mellitus: Current visit: No Status: Chronic With Glipizide and Metformin on hold. Continue sliding scale coverage. Currently hyperglycemic in setting of IV Steroid use. (6) DVT prophylaxis: Current visit: No Status: Acute Continue SC Lovenox. Subjective Interval history since last seen: Pleasant 73 year old man with a prior history significant for COPD with recent exacerbations requiring hospitalization, as well as recently treated Diastolic CHF requiring hospitalization at [facility], admitted from [facility] Emergency Department on 11/11 with a diagnosis of worsening Pneumonia. Mr. Sims has a past Medical History significant for steroid dependent COPD and significant prior tobacco use, as well as Eosinophilic Asthma. His other history includes DM, HTN, OA, GERD, BPH, and a previous diagnosis of PMR. He has CAD as a prior history, with a LHC in 2013 which showed no significant occlusion, and a nuclear stress test in 2017 that was deemed negative for ischemia. The patient was recently admitted here and treated for a COPD Exacerbation, and at [facility] [place] between 11/01-29 for Pulmonary Edema due to acute Diastolic CHF. He was diuresed approximately 17 liters, with a reported dry weight of 105 Kg (231 lbs). He did develop hyponatremia as well as orthostatic changes in the setting of likely overdiuresis, and was discharged without oral diuretic therapy. Following admission there had a reported 4 lbs weight gain, was seen by PCP who found him to continue to be orthostatic and thus did not reinitiate him on furosemide, and finally by Home Health who sent him to the ED due to concern for change in his breathing. He also reported a cough with change in sputum color. Upon presentation to the ED he was found to have a potential LLL Infiltrate by imaging, and COPD exacerbation by exam. Also with concern for volume overload. This morning Mr. Sims reports vast improvement overall in his symptoms, remains on room air and now ambulating well. No overnight events were reported. He remains afebrile. Exam Narrative Exam Narrative: General: Patient appears comfortable, AAOX3, NAD Neck: Supple CV: Regular, mildly tachycardic, S1S2, No rubs, murmurs, or gallops. Pulmonary: Diffuse wheezing which appears vastly improved, with continued good air entry. No crackles or rhonchi. Abdomen: + Bowel Sounds, soft, nontender, nondistended Vascular: No lower extremity edema Psych: Normal mood and affect. Objective Objective Clinical Data: Abnormal lab results 11/14/18 11/14/18 Range/Units 07:00 07:00 WBC 15.85 H (4.4-10.8) k/cumm RBC 4.38 L (4.50-6.00) m/cumm Hgb 12.7 L (13.5-17.5) g/dL Hct 38.0 L (40.0-50.0) % RDW 14.7 H (11.8-14.1) % Absolute Neutrophils 11.41 H (1.2-6.7) k/cumm Absolute Monocytes 1.59 H (0.11-0.7) k/cumm Sodium 134 L (136-145) mmol/L Chloride 95 L (98-107) mmol/L BUN 21 H (7-18) mg/dL Glucose 169 H D (70-100) mg/dL Vital Signs Temperature 36.3 C L 11/14/18 11:15 Temperature Source Temporal Artery Scan 11/14/18 11:15 Pulse 110 H 11/14/18 11:32 Pulse Rhythm Regular 11/14/18 08:33 Pulse 115 H 11/11/18 16:40 Respiratory Rate 21 11/14/18 11:15 Respiratory Effort Non-Labored 11/14/18 08:33 Respiratory Depth Normal 11/14/18 08:33 Respiratory Pattern Normal 11/14/18 08:33 Blood Pressure 131/80 11/14/18 11:32 Blood Pressure Mean 112 11/11/18 16:31 Blood Pressure Position Supine 11/11/18 14:58 Pulse Oximetry 95 11/14/18 11:15 Oxygen Delivery Method Room Air 11/14/18 11:15 Oxygen Flow Rate 0 11/14/18 11:15 Pain Level 0 11/14/18 11:15 Comment 11/14/18 11:32 Intake & Output 11/13/18 11/14/18 11/14/18 23:59 11:59 23:59 Intake Total 2630 / 4770 1520 / 1520 Output Total 2550 / 5475 1900 / 1900 Balance 80 / -705 -380 / -380 Weight 102.8 kg Intake: IV 950 / 1050 370 / 370 Oral 1680 / 3720 1150 / 1150 Output: Urine 2550 / 5475 1900 / 1900 Other: Urine Color Pale Yellow Yellow Urine Appearance Clear Clear Urine Odor None Stool Size Moderate Moderate Stool Characteristics Soft Soft Formed Brown Voiding Methods Urinal Urinal Laboratory Results WBC 15.85 k/cumm (4.4-10.8) H 11/14/18 07:00 RBC 4.38 m/cumm (4.50-6.00) L 11/14/18 07:00 Hgb 12.7 g/dL (13.5-17.5) L 11/14/18 07:00 Hct 38.0 % (40.0-50.0) L 11/14/18 07:00 MCV 86.8 fL (80-95) 11/14/18 07:00 MCH 29.0 pg (27.0-33.0) 11/14/18 07:00 MCHC 33.4 g/dL (32.0-36.0) 11/14/18 07:00 RDW 14.7 % (11.8-14.1) H 11/14/18 07:00 Plt Count 330 x1000/uL (130-400) 11/14/18 07:00 MPV 8.4 fL (8.0-11.0) 11/14/18 07:00 Immature Gran % See Differential 11/14/18 07:00 70.0 11/14/18 07:00 2.0 % 11/14/18 07:00 12.0 11/14/18 07:00 10.0 11/14/18 07:00 0.0 11/14/18 07:00 0.0 11/14/18 07:00 4.0 % 11/14/18 07:00 1.0 % 11/14/18 07:00 Absolute Neutrophils 11.41 k/cumm (1.2-6.7) H 11/14/18 07:00 Absolute Lymphocytes 1.90 k/cumm (1.2-3.4) 11/14/18 07:00 Absolute Monocytes 1.59 k/cumm (0.11-0.7) H 11/14/18 07:00 Absolute Eosinophils 0.00 k/cumm (0.0-0.7) 11/14/18 07:00 Absolute Basophils 0.00 k/cumm (0.0-0.2) 11/14/18 07:00 Manual differential 11/14/18 07:00 RBC Morphology See below 11/14/18 07:00 1+ 11/14/18 07:00 1+ 11/11/18 14:20 1+ 11/14/18 07:00 PT 9.3 sec (9.3-11.0) 11/11/18 14:20 INR 0.9 (0.9-1.1) 11/11/18 14:20 APTT 21.7 sec (21.0-31.4) 11/11/18 14:20 Sodium 134 mmol/L (136-145) L 11/14/18 07:00 Potassium 4.5 mmol/L (3.5-5.1) 11/14/18 07:00 Chloride 95 mmol/L (98-107) L 11/14/18 07:00 Carbon Dioxide 28.3 mmol/L (21.0-32.0) 11/14/18 07:00 10.7 mmol/L (3-11) 11/14/18 07:00 BUN 21 mg/dL (7-18) H 11/14/18 07:00 1.27 mg/dL (0.70-1.30) 11/14/18 07:00 55.75 (mL/min/1.73m2) 11/14/18 07:00 Glucose 169 mg/dL (70-100) H D 11/14/18 07:00 2.3 mmol/l (0.6-1.4) H 11/12/18 06:25 Calcium 8.5 mg/dL (8.5-10.1) 11/14/18 07:00 Magnesium 2.2 mg/dL (1.8-2.4) 11/14/18 07:00 0.3 mg/dL (0.2-1.0) 11/11/18 14:20 AST 14 U/L (15-37) L 11/11/18 14:20 ALT 45 U/L (12-78) 11/11/18 14:20 85 U/L (46-116) 11/11/18 14:20 < 0.05 ng/mL (0.00-0.06) 11/12/18 06:25 NT-Pro-B Natriuret Pep 176 pg/mL (-299) 11/11/18 14:20 6.9 g/dL (6.4-8.2) 11/11/18 14:20 2.9 g/dL (3.4-5.0) L 11/11/18 14:20 Vancomycin Trough 14.7 ug/mL (10.0-20.0) 11/13/18 14:04
[2018-11-14] MEDS: methylPREDNISolone SUCC 40 MG VIAL IVP (13:44)
--- NOTE | 2018-11-14 14:13 | PDOC.CMPRO ---
- If Service Date Differs Date of service: 11/14/18 Time of Service: 14:13 Care Management Progress Note S/O: Amy remains inpatient at this time he is receiving IV abx.He is sitting up on the side of the bed he reports to RT he is feeling better. Palliative consult this week date and time to be determined. A:73 year old male with advance lung disease (COPD) admitted with HCAP P:Amy will return home when ready per MD. He will follow up with his PCP and plan of care as prescribed. Consideration for [facility] services upon discharge as well as [facility] supports. Amy will have a Palliative Care consult with Dr. Beltran as well. Amy will transport home via private vehicle with his , Jordyn.
[2018-11-14] MEDS: Enoxaparin 40 MG/0.4 ML SYR SC (17:35)
[2018-11-14] MEDS: Melatonin 3 MG TAB PO (21:26)
[2018-11-15] VITALS (15 sets, daily range): BP systolic 104–169; BP diastolic 66–98; PULSE 70–115; RESP 2–22; TEMP 35.9–36.2; O2SAT 95–97
[2018-11-15] MEDS: PIPERACILLIN/TAZO 4.5 GM in Normal Saline 100 ML IVPB ×4 (01:30→23:37)
[2018-11-15] MEDS: Albuterol/Ipratropium 3 ML UPD VIAL UPD ×5 (05:54→23:37)
[2018-11-15] MEDS: Acetaminophen 325 MG TAB PO (06:02)
--- NOTE | 2018-11-15 06:13 | NUR.NOTE ---
Nursing Note: pt reporting sore throat this am. pt has hx of thrush. reported to CC Rosalinda Sampson RN. tylenol given for discomfort
[2018-11-15 07:22] LABS: Abs Immature Grans 0.71 k/cumm (0.0-0.09); HCT 40.9 % (40.0-50.0); HGB 13.7 g/dL (13.5-17.5); Mean Corp. HGB Concentration 33.5 g/dL (32.0-36.0); Mean Corpuscular Hemoglobin 29.1 pg (27.0-33.0); Mean Platelet Volume 8.4 fL (8.0-11.0); Platelet Count 294 x1000/uL (130-400); RBC Distribution Width 14.9 % (11.8-14.1); White Blood Cell Count 11.94 k/cumm (4.4-10.8)
[2018-11-15 07:35] LABS: Anion Gap 8.4 mmol/L (3-11); BUN 20 mg/dL (7-18); CO2 30.6 mmol/L (21.0-32.0); CREATININE 1.15 mg/dL (0.70-1.30); Calcium 9.2 mg/dL (8.5-10.1); Chloride 98 mmol/L (98-107); Glucose 144 mg/dL (70-100); Magnesium 2.7 mg/dL (1.8-2.4); Potassium 4.3 mmol/L (3.5-5.1); Sodium 137 mmol/L (136-145)
[2018-11-15] MEDS: Budesonide 0.5 MG/2 ML UPD VIAL UPD ×2 (07:47→20:09)
[2018-11-15] MEDS: DULoxetine 30 MG CAP 60 MG PO (07:59)
[2018-11-15] MEDS: Montelukast 10 MG TAB PO (07:59)
[2018-11-15] MEDS: Esomeprazole 40 MG CAPCR PO (07:59)
[2018-11-15] MEDS: Magnesium Oxide 400 MG TAB PO (07:59)
[2018-11-15] MEDS: Aspirin E.C. 81 MG TABEC PO (07:59)
[2018-11-15] MEDS: guaiFENesin 600 MG TABCR PO ×2 (07:59→20:09)
[2018-11-15] MEDS: methylPREDNISolone SUCC 40 MG VIAL IVP (08:00)
[2018-11-15] MEDS: Gabapentin 300 MG CAP PO ×3 (08:00→20:10)
[2018-11-15] MEDS: Benzonatate 100 MG CAP PO ×3 (08:00→20:09)
[2018-11-15] MEDS: Sulfameth/Trimeth DS TAB 1 TAB PO (08:00)
[2018-11-15] MEDS: predniSONE 20 MG, predniSONE 10 MG 30 MG PO (08:00)
[2018-11-15 08:05] LABS: Absolute Lymphocyte Count 1.91 k/cumm (1.2-3.4); Absolute Monocyte Count 1.43 k/cumm (0.11-0.7); Atypical Lymphocytes % 1
[2018-11-15] MEDS: Normal Saline Flush 10 ML SYR IVP ×5 (08:05→23:38)
[2018-11-15 08:06] LABS: Diff Comment Manual Differential; RBC Morphology Normal
--- NOTE | 2018-11-15 08:48 | INDS_ITS ---
Date of service: 11/15/18 PT Notes Inpatient Physical Therapy Discharge Summary Dates: 11/15/2018 Dates of Service: 11/12/2018 through 11/14/2018 This is a clinical summary of care provided on the duration of dates listed above. No charge was made in the completion of this documentation. Referring Doctor: Vandana Philip MD PT Orders: PT CONSULT: Eval/treat Precautions: Fall. Standard. Patient Profile/Admitting Diagnosis: Patient is a 73-year-old male patient with past medical history significant for steroid-dependent COPD and significant prior tobacco use who presented to the ED today 11/11/2018 with chief complaints of shortness of breath and wosening respiratory distress. Patient was recently discharged from [facility] on 11/08/2018 for management of COPD exacerbation as well as chronic diastolic CHF. Patient is diagnosed with healthcare acquired pneumonia COPD exacerbation, and chronic diastolic CHF, PAF, and orthostasis. Referral for physical therapy services was received today to address impairments and strength, mobility level, and activity tolerance. PMHX: Medical History (Updated 11/11/18 @ 18:03 by Vandana Philip MD) Atherosclerosis of eek coronary artery (Chronic) 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) COPD (chronic obstructive pulmonary disease) (Chronic) Diabetes mellitus (Chronic) Diabetic peripheral neuropathy (Chronic 12/11/15) Diastolic CHF (Chronic) 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) Gastroesophageal reflux disease (Chronic) Hypertension (Chronic) Orthostasis (Chronic) Osteoarthritis (Chronic) Paroxysmal atrial fibrillation (Chronic) Polymyalgia rheumatica (Resolved 02/19/12) Surgical History (Updated 11/11/18 @ 18:03 by Vandana Philip MD) SHOULDER SURGERY Social History/Home Situation: Patient lives with Jordyn and a 1 floor house in [place] with 3 grandchildren. They have 3 steps that lead onto a porch and another 3 steps to enter the main entrance of the house with a rail on the right going up. Patient is independent with all aspects of ADLs without the need for an assistive ambulatory device or adaptive equipment although he states that he has a walker stashed somewhere and walking sticks. Patient still drives. Both and him states that they cover up to 100 miles of driving on a daily basis bringing their grandchildren to school and daycare and doing their own errands. 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 Current Functional Limitations: Decreased activity tolerance impairing transfer and ambulation task performance Equipment Owned/DME: FWW, walking sticks, grab bars Subjective: NT Objective: General Observation: NT Mental Status: NT Pain: NT Vital Signs: NT ROM: Right Upper Extremity: Shoulder Flexion WFL. Shoulder abduction WFL. Elbow flexion WFL. Wrist flexion WFL. Functional opening and closing of hand WFL. Left Upper Extremity: Shoulder Flexion WFL. Shoulder abduction WFL. Elbow flexion WFL. Wrist flexion WFL. Functional opening and closing of hand WFL. Right Lower Extremity: Hip flexion WFL. Hip abduction WFL. Knee flexion WFL. Ankle dorsiflexion WFL. Ankle plantarflexion WFL. Left Lower Extremity: Hip flexion WFL. Hip abduction WFL. Knee flexion WFL. Ankle dorsiflexion WFL. Ankle plantarflexion WFL. Strength: Right Upper Extremity: Shoulder flexors 4/5. Shoulder abductors 4/5. Elbow flexors 4/5. Elbow extensors 4/5. Accounting Advisory Services Manager strong. Left Upper Extremity: Shoulder flexors 4/5. Shoulder abductors 4/5. Elbow flexors 4/5. Elbow extensors 4/5. Accounting Advisory Services Manager strong. Right Lower Extremity: Hip flexors 4-/5. Hip abductors 4/5. Knee flexors 4/5. Knee extensors 4-/5. Ankle dorsiflexors 4/5. Ankle plantarflexors 4/5. Left Lower Extremity:Hip flexors 4-/5. Hip abductors 4/5. Knee flexors 4/5. Knee extensors 4-/5. Ankle dorsiflexors 4/5. Ankle plantarflexors 4/5. Sensation: Intact as to pain and pressure on bilateral lower extremities. Bed Mobility/Transfers: Rolling independent Supine to sit independent Sit to supine independent Sit to stand independent Stand to sit independent Bed to chair dependent Chair to bed independent Gait: Patient is able to tolerate level surface ambulation of 300 feet using no assistve device independently. Gait pattern now unremarkable. Balance: Static Sitting: Normal Dynamic Sitting: Normal Static Standing: Normal Dynamic Standing: Normal Assessment: Patient is a 73-year-old male with diagnosis of COPD exacerbation, steroid-induced hyperglycemia, and acute kidney injury. Patient presents with clinical signs and symptoms consistent with current/admitting diagnoses that have resulted to mobility limitations, gait instability, generalized weakness, and impairment of motor control as demonstrated by the following impairment level findings: 1. Decreased strength to B LE major muscle groups 2. Impaired standing balance 3. Impaired activity tolerance Impairments are contributing to the following functional limitations: 1. Increase completion time for mobility ADL performance 2. Increased fall risk 3. Inability to negotiate steps without dyspnea Goals: Goals X1 week 1. Independent gait on level surface with 4WW for at least 500 feet without report of chest discomofort nor dyspnea. MET 2. Independent stair negotiation while holding onto one rail for at least 5 steps without report of chest discomfort nor dyspnea. MET 3. Independent with home exercise program. MET 4. Normal dynamic standing balance/tolerance. MET 5. Patient will demonstrate 2-minute walk test of 200 feet without report of pain nor dyspnea. MET DISCHARGE RECOMMENDATIONS: Patient will benefit from home health PT services in order to assess home safety, identify additional equipment needs, and establish a functional maintenance program that will increase ability of patient to remain at home. TREATMENT CODE/TIME: NC. Thank you very much for this referral. Mira Sr PT, DPT, CLT [facility]
--- NOTE | 2018-11-15 08:49 | CMPROGNOTE_ITS ---
Care Management Progress Note S/O: Amy remains inpatient at this time; per MD anticipate Thursday discharge. Palliative consult with Dr. Beltran after 1700 anticipated today. 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 CM continues to follow. A:73 year old male with advance lung disease (COPD) admitted with HCAP P: Amy will return home when ready per MD. He will follow up with his PCP and plan of care as prescribed. Consideration for HC services upon discharge as well as [facility] supports. Amy will have a Palliative Care consult with Dr. Beltran this evening. Amy will transport home via private vehicle with his , Jordyn.
[2018-11-15] MEDS: Insulin Aspart 300 UNITS/3 ML PEN SC ×3 (11:37→21:52)
--- NOTE | 2018-11-15 13:34 | W.PM.PROGNOT ---
Date of Service Date of service: 11/15/18 Time of Service: 13:35 Assessment and Plan (1) HCAP (healthcare-associated pneumonia): Current visit: Yes Status: Acute Apparent infiltrate by admission CXR, in patient with significant underlying pulmonary disease and multiple recent hospitalizations. - Unfortunately Sputum culture is not revealing. Continue broad spectrum coverage with Vancomycin and Pip-Tazo, currently day#4. Continue treatment of COPD exacerbation as well. - Current exam not consistent with CHF - diuretic therapy continues to be on hold. (2) COPD with acute exacerbation: Current visit: No Status: Acute Continue antibiotics, nebs, and steroids, and wean back to home dose when able. (3) Acute on chronic diastolic (congestive) heart failure: Current visit: Yes Status: Acute Weight 105kg at admission, which appears to have been dry weight at discharge from [facility]. Currently at 100 Kg - hypochloremia, hypokalemia, and INGRIS all resolved - clinically dry despite holding any further diuresis over the last 3 days. - Apparent good response to minimal diuretic dosing. Recommendations by [facility] for 10-20mg of oral Furosemide daily or on a QOD status when initiated. Hold off any further diuresis at this time. (4) Orthostasis: Current visit: Yes Status: Chronic Currently with a-crescencio on hold. Plan on repeat orthostatics soon. Potential relation to overdiuresis. (5) Diabetes mellitus: Current visit: No Status: Chronic With Glipizide and Metformin on hold. Continue sliding scale coverage. Currently hyperglycemic in setting of IV Steroid use - reinitiate Glipizide. (6) DVT prophylaxis: Current visit: No Status: Acute Continue SC Lovenox. Subjective Interval history since last seen: Pleasant 73 year old man with a prior history significant for COPD with recent exacerbations requiring hospitalization, as well as recently treated Diastolic CHF requiring hospitalization at [facility], admitted from [facility] Emergency Department on 11/11 with a diagnosis of worsening Pneumonia. Mr. Sims has a past Medical History significant for steroid dependent COPD and significant prior tobacco use, as well as Eosinophilic Asthma. His other history includes DM, HTN, OA, GERD, BPH, and a previous diagnosis of PMR. He has CAD as a prior history, with a LHC in 2013 which showed no significant occlusion, and a nuclear stress test in 2017 that was deemed negative for ischemia. The patient was recently admitted here and treated for a COPD Exacerbation, and at [facility] between 11/01- for Pulmonary Edema due to acute Diastolic CHF. He was diuresed approximately 17 liters, with a reported dry weight of 105 Kg (231 lbs). He did develop hyponatremia as well as orthostatic changes in the setting of likely overdiuresis, and was discharged without oral diuretic therapy. Following admission there had a reported 4 lbs weight gain, was seen by PCP who found him to continue to be orthostatic and thus did not reinitiate him on furosemide, and finally by Home Health who sent him to the ED due to concern for change in his breathing. He also reported a cough with change in sputum color. Upon presentation to the ED he was found to have a potential LLL Infiltrate by imaging, and COPD exacerbation by exam. Also with concern for volume overload. This morning Mr. Sims reports continued improvement in his symptoms, and remains on room air and now ambulating well. No overnight events were reported. He remains orthostatic but asymptomatic, despite discontinuation of diuretic therapy. Remains afebrile. Exam Narrative Exam Narrative: General: Patient appears comfortable, AAOX3, NAD Neck: Supple CV: Regular, mildly tachycardic, S1S2, No rubs, murmurs, or gallops. Pulmonary: minimal wheezing which appears vastly improved, with continued good air entry. No crackles or rhonchi. Abdomen: + Bowel Sounds, soft, nontender, nondistended Vascular: No lower extremity edema Psych: Normal mood and affect. Objective Objective Clinical Data: Abnormal lab results 11/15/18 11/15/18 Range/Units 06:05 06:05 WBC 11.94 H (4.4-10.8) k/cumm RDW 14.9 H (11.8-14.1) % Absolute Neutrophils 8.00 H (1.2-6.7) k/cumm Absolute Monocytes 1.43 H (0.11-0.7) k/cumm BUN 20 H (7-18) mg/dL Glucose 144 H (70-100) mg/dL Magnesium 2.7 H (1.8-2.4) mg/dL Vital Signs Temperature 35.9 C L 11/15/18 11:37 Temperature Source Tympanic 11/15/18 11:37 Pulse 110 H 11/15/18 11:37 Pulse Rhythm Regular 11/15/18 08:00 Pulse 115 H 11/11/18 16:40 Respiratory Rate 22 11/15/18 11:37 Respiratory Effort 11/15/18 08:00 Respiratory Depth Normal 11/15/18 08:00 Respiratory Pattern Normal 11/15/18 08:00 Blood Pressure 169/98 H 11/15/18 11:37 Blood Pressure Mean 112 11/11/18 16:31 Blood Pressure Position Supine 11/11/18 14:58 Pulse Oximetry 96 11/15/18 11:37 Oxygen Delivery Method Room Air 11/15/18 11:37 Oxygen Flow Rate 0 11/15/18 11:37 Pain Level 0 11/15/18 08:10 Comment 11/14/18 11:32 Intake & Output 11/14/18 11/15/18 11/15/18 23:59 11:59 23:59 Intake Total 1990 / 3510 480 / 960 480 / 960 Output Total 3400 / 5300 1450 / 1450 Balance -1410 / -1790 -970 / -490 480 / -490 Weight 100.6 kg Intake: IV 470 / 840 120 / 120 Oral 1520 / 2670 360 / 840 480 / 840 Output: Urine 3400 / 5300 1450 / 1450 Other: Urine Color Pale Pale Yellow Yellow Urine Appearance Clear Clear Urine Odor Normal None Comment Total of multiple voids in urinal Voiding Methods Urinal Urinal Laboratory Results WBC 11.94 k/cumm (4.4-10.8) H 11/15/18 06:05 RBC 4.70 m/cumm (4.50-6.00) 11/15/18 06:05 Hgb 13.7 g/dL (13.5-17.5) 11/15/18 06:05 Hct 40.9 % (40.0-50.0) 11/15/18 06:05 MCV 87.0 fL (80-95) 11/15/18 06:05 MCH 29.1 pg (27.0-33.0) 11/15/18 06:05 MCHC 33.5 g/dL (32.0-36.0) 11/15/18 06:05 RDW 14.9 % (11.8-14.1) H 11/15/18 06:05 Plt Count 294 x1000/uL (130-400) 11/15/18 06:05 MPV 8.4 fL (8.0-11.0) 11/15/18 06:05 Immature Gran % See Differential 11/15/18 06:05 64.0 11/15/18 06:05 3.0 % 11/15/18 06:05 15.0 11/15/18 06:05 Atypical Lymphs % 1 11/15/18 06:05 12.0 11/15/18 06:05 0.0 11/15/18 06:05 0.0 11/15/18 06:05 4.0 % 11/15/18 06:05 1.0 % 11/15/18 06:05 Absolute Neutrophils 8.00 k/cumm (1.2-6.7) H 11/15/18 06:05 Absolute Lymphocytes 1.91 k/cumm (1.2-3.4) 11/15/18 06:05 Absolute Monocytes 1.43 k/cumm (0.11-0.7) H 11/15/18 06:05 Absolute Eosinophils 0.00 k/cumm (0.0-0.7) 11/15/18 06:05 Absolute Basophils 0.00 k/cumm (0.0-0.2) 11/15/18 06:05 Manual differential 11/15/18 06:05 RBC Morphology Normal 11/15/18 06:05 1+ 11/14/18 07:00 1+ 11/11/18 14:20 1+ 11/14/18 07:00 PT 9.3 sec (9.3-11.0) 11/11/18 14:20 INR 0.9 (0.9-1.1) 11/11/18 14:20 APTT 21.7 sec (21.0-31.4) 11/11/18 14:20 Sodium 137 mmol/L (136-145) 11/15/18 06:05 Potassium 4.3 mmol/L (3.5-5.1) 11/15/18 06:05 Chloride 98 mmol/L (98-107) 11/15/18 06:05 Carbon Dioxide 30.6 mmol/L (21.0-32.0) 11/15/18 06:05 8.4 mmol/L (3-11) 11/15/18 06:05 BUN 20 mg/dL (7-18) H 11/15/18 06:05 1.15 mg/dL (0.70-1.30) 11/15/18 06:05 >= 60.00 (mL/min/1.73m2) 11/15/18 06:05 Glucose 144 mg/dL (70-100) H 11/15/18 06:05 2.3 mmol/l (0.6-1.4) H 11/12/18 06:25 Calcium 9.2 mg/dL (8.5-10.1) 11/15/18 06:05 Magnesium 2.7 mg/dL (1.8-2.4) H 11/15/18 06:05 0.3 mg/dL (0.2-1.0) 11/11/18 14:20 AST 14 U/L (15-37) L 11/11/18 14:20 ALT 45 U/L (12-78) 11/11/18 14:20 85 U/L (46-116) 11/11/18 14:20 < 0.05 ng/mL (0.00-0.06) 11/12/18 06:25 NT-Pro-B Natriuret Pep 176 pg/mL (-299) 11/11/18 14:20 6.9 g/dL (6.4-8.2) 11/11/18 14:20 2.9 g/dL (3.4-5.0) L 11/11/18 14:20 Vancomycin Trough 14.7 ug/mL (10.0-20.0) 11/13/18 14:04
[2018-11-15 15:43] LABS: Vancomycin, Trough 19.9 ug/mL (10.0-20.0)
[2018-11-15] MEDS: Tamsulosin 0.4 MG CAPCR 0.8 MG PO (16:59)
[2018-11-15] MEDS: Enoxaparin 40 MG/0.4 ML SYR SC (16:59)
[2018-11-15] MEDS: Melatonin 3 MG TAB PO (21:52)
[2018-11-16] VITALS (17 sets, daily range): BP systolic 94–156; BP diastolic 56–95; PULSE 73–106; RESP 1–22; TEMP 36–36.7; O2SAT 95–98
[2018-11-16] MEDS: Normal Saline Flush 10 ML SYR IVP ×5 (03:54→23:37)
[2018-11-16] MEDS: Albuterol/Ipratropium 3 ML UPD VIAL UPD ×6 (03:54→23:37)
[2018-11-16 07:06] LABS: Abs Immature Grans 0.51 k/cumm (0.0-0.09); HCT 39.8 % (40.0-50.0); HGB 13.2 g/dL (13.5-17.5); Mean Corp. HGB Concentration 33.2 g/dL (32.0-36.0); Mean Corpuscular Hemoglobin 28.8 pg (27.0-33.0); Mean Corpuscular Volume 86.9 fL (80-95); Mean Platelet Volume 8.4 fL (8.0-11.0); Platelet Count 252 x1000/uL (130-400); RBC 4.58 m/cumm (4.50-6.00); RBC Distribution Width 14.9 % (11.8-14.1); White Blood Cell Count 9.92 k/cumm (4.4-10.8)
[2018-11-16 07:32] LABS: Anion Gap 11.7 mmol/L (3-11); BUN 23 mg/dL (7-18); CO2 26.3 mmol/L (21.0-32.0); Calcium 8.7 mg/dL (8.5-10.1); Chloride 95 mmol/L (98-107); Estimated GFR 59.51 (mL/min/1.73m2); Glucose 155 mg/dL (70-100); Magnesium 2.6 mg/dL (1.8-2.4); Potassium 3.7 mmol/L (3.5-5.1); Sodium 133 mmol/L (136-145)
[2018-11-16] MEDS: Budesonide 0.5 MG/2 ML UPD VIAL UPD ×2 (07:39→19:23)
[2018-11-16 07:42] LABS: Hemoglobin A1C 8.4 % (4.5-6.2)
[2018-11-16 07:58] LABS: Absolute Lymphocyte Count 2.18 k/cumm (1.2-3.4); Absolute Monocyte Count 0.89 k/cumm (0.11-0.7); Absolute Neutrophil Count 6.45 k/cumm (1.2-6.7); Atypical Lymphocytes % 4; Diff Comment Manual Differential; RBC Morphology Normal
[2018-11-16] MEDS: methylPREDNISolone SUCC 40 MG VIAL IVP (08:09)
[2018-11-16] MEDS: guaiFENesin 600 MG TABCR PO (08:10)
[2018-11-16] MEDS: PIPERACILLIN/TAZO 4.5 GM in Normal Saline 100 ML IVPB ×3 (08:10→23:37)
[2018-11-16] MEDS: glipiZIDE 5 MG TAB PO (08:11)
[2018-11-16] MEDS: predniSONE 20 MG, predniSONE 10 MG 30 MG PO (08:11)
[2018-11-16] MEDS: Montelukast 10 MG TAB PO (08:12)
[2018-11-16] MEDS: DULoxetine 30 MG CAP 60 MG PO (08:12)
[2018-11-16] MEDS: Benzonatate 100 MG CAP PO ×3 (08:12→19:21)
[2018-11-16] MEDS: Gabapentin 300 MG CAP PO ×3 (08:12→19:21)
[2018-11-16] MEDS: Esomeprazole 40 MG CAPCR PO (08:12)
[2018-11-16] MEDS: Aspirin E.C. 81 MG TABEC PO (08:12)
[2018-11-16] MEDS: Acetaminophen 325 MG TAB PO (09:19)
[2018-11-16] MEDS: POTASSIUM CHLORIDE 20 MEQ, POTASSIUM CHLORIDE 10 MEQ 30 MEQ PO (10:44)
[2018-11-16 11:06] LABS: Procalcitonin < 0.1 ng/mL
[2018-11-16] MEDS: Insulin Aspart 300 UNITS/3 ML PEN SC ×3 (12:03→21:05)
--- NOTE | 2018-11-16 12:17 | W.PALLCONSUL ---
Date of service: 11/15/18 Time of Service: 17:18 History of Present Illness Chief Complaint: COPD Narrative: I am meeting with Amy and his for a palliative consult. 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 He was a smoker for 40+ years. Over the last couple of months he has been in and out of the hospital both at [facility] and [facility] [place] times. He continues on experimental medications for his COPD, prednisone, oxygen. I was asked to meet with him to determine his goals of care and to revisit his CODE STATUS The most important thing for Amy is that he is able to provide for his 3 grandchildren whom he can his are legally adopting. He was very clear numerous times that he does not care is lying there to machine as long as they can get his Social Security check Consults Consult date: 11/15/18 Requesting physician: Vandana Philip Assessment and Plan (1) HCAP (healthcare-associated pneumonia): Current visit: Yes Status: Acute (2) Acute on chronic diastolic (congestive) heart failure: Current visit: Yes Status: Acute (3) Paroxysmal atrial fibrillation: Current visit: Yes Status: Suspected (4) COPD with acute exacerbation: Current visit: No Status: Acute He feels that he is doing well and improving. When I asked him how long he thought he would live, his reply was 8 to 10 years. I asked him what he could do to improve his quality of life. He could not come up with any answers. We did discuss CODE STATUS. He wants to remain a full code. He wants his to make decisions for him. Initially he said he he wanted to being intubated so that his grandchildren could get his Social Security. His said that she would not do this indefinitely. He seems to acquiesce to her. His seemed more understanding of his severity of illness. Also understanding that he may not live as long as he is expecting to. His grandchildren are everything to him he wants to be sure to get them as good of life as possible. He sees able to provide monetarily for them as the way to do this. He has little insight into how sick he is and how low his reserves are. He did agree to see me again outpatient. I would come to see him at his home necessary This document was created by [employer] and may contain grammatical and translation errors. I have spent more than 50% of time in counseling with this patient. Review of Systems Constitutional Reports daytime sleepiness, Reports difficulty sleeping, Reports fatigue, Reports lethargy and Reports weakness Eyes Reports system reviewed and no additional complaints, except as docu ENT Reports system reviewed and no additional complaints, except as docu Cardiovascular Denies chest pain, Reports palpitations, Reports dyspnea and Reports dyspnea on exertion Respiratory Reports chest congestion, Reports cough, Reports excessive phlegm production, Reports dyspnea and Reports dyspnea on exertion Gastrointestinal Reports system reviewed and no additional complaints, except as docu Genitourinary Reports system reviewed and no additional complaints, except as docu Neurologic Reports memory loss and Reports weakness Psychiatric Reports abnormal sleep pattern, Denies depression, Reports difficulty concentrating and Reports memory loss Endocrine Reports fatigue and Reports palpitations [facility] Medical History (Updated 11/12/18 @ 18:22 by Vandana Philip MD) Atherosclerosis of [place] coronary artery (Chronic) 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) COPD (chronic obstructive pulmonary disease) (Chronic) Diabetes mellitus (Chronic) Diabetic peripheral neuropathy (Chronic 12/11/15) Diastolic CHF (Chronic) 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) Gastroesophageal reflux disease (Chronic) Hypertension (Chronic) Orthostasis (Chronic) Osteoarthritis (Chronic) Paroxysmal atrial fibrillation (Suspected) Polymyalgia rheumatica (Resolved 02/19/12) Surgical History SHOULDER SURGERY Social History Smoking/Tobacco Use Status: Former Tobacco Use Alcohol Intake: former Drug use: Never Substance use type: does not use Household members: spouse and children Pets and animals: Yes Pets and animals: cat(s) and dog(s) Duration: decline to answer Frequency: 3-4 times per week Aminata/Quaker: Confucianism Special aminata needs: No Do you feel safe at home: Yes Do you feel safe in your relationship?: Yes Additional Social history: , with 4 children. Currently raising 3 grandchildren. Reported 80+ pack year history of tobacco abuse, quit approximately 15 years ago. Denies any current EtOH use. Exam Narrative Exam Narrative: Amy is lying in bed. He is not able to get up easily to sit up and I wanted to listen to his lungs. He is talking in 3-5 word sentences. He does have to catch his breath at times. He does look me in the eyes often. He gets noticeably upset when I talk about CODE STATUS. He looks to his for direction on the answers to questions and I have asked. Const General: cooperative and no acute distress Nutritional Appearance: obese Orientation: oriented x3 Eyes General: appearance normal, both eyes and all related structures Neck Carotids: normal carotid upstroke Resp Effort & Inspection: abnormal respiratory pattern Skin General skin exam: dry skin and ecchymosis Psych Appearance: grossly normal Speech and Movement: speech clear and restless Mood: anxious mood Affect: normal affect Attitude: cooperative Thought Process: other Thought Content: other Insight: limited Judgment: limited Results Last Vital Signs Temp 97.2 F L 11/16/18 12:00 Pulse 103 H 11/16/18 12:00 Resp 22 11/16/18 12:00 BP 143/81 H 11/16/18 12:00 Pulse Ox 96 11/16/18 12:00 Labs : 11/16/18 06:26 11/16/18 06:26 Laboratory Results - last 24 hr 11/15/18 11/16/18 11/16/18 15:05 06:26 06:26 WBC RBC Hgb Hct MCV MCH MCHC RDW Plt Count MPV Immature Gran % Neutrophils % Band Neutrophils % Lymphocytes % Atypical Lymphs % Monocytes % Eosinophils % Basophils % Metamyelocytes % Myelocytes % Absolute Neutrophils Absolute Lymphocytes Absolute Monocytes Absolute Eosinophils Absolute Basophils Differential Comment RBC Morphology Sodium 133 L Potassium 3.7 Chloride 95 L Carbon Dioxide 26.3 Anion Gap 11.7 H BUN 23 H Creatinine 1.20 Estimated GFR/1.73 m2 59.51 Glucose 155 H Hemoglobin A1c 8.4 H Calcium 8.7 Magnesium 2.6 H Procalcitonin Vancomycin Trough 19.9 11/16/18 11/16/18 06:26 06:26 WBC 9.92 RBC 4.58 Hgb 13.2 L Hct 39.8 L MCV 86.9 MCH 28.8 MCHC 33.2 RDW 14.9 H Plt Count 252 MPV 8.4 Immature Gran % See Differential Neutrophils % 63.0 Band Neutrophils % 2.0 Lymphocytes % 18.0 Atypical Lymphs % 4 Monocytes % 9.0 Eosinophils % 0.0 Basophils % 0.0 Metamyelocytes % 2.0 Myelocytes % 2.0 Absolute Neutrophils 6.45 Absolute Lymphocytes 2.18 Absolute Monocytes 0.89 H Absolute Eosinophils 0.00 Absolute Basophils 0.00 Differential Comment Manual differential RBC Morphology Normal Sodium Potassium Chloride Carbon Dioxide Anion Gap BUN Creatinine Estimated GFR/1.73 m2 Glucose Hemoglobin A1c Calcium Magnesium Procalcitonin < 0.1 Vancomycin Trough
[2018-11-16] MEDS: guaiFENesin/D-METHORPHAN HB 5 ML CUP 10 ML PO ×3 (13:08→23:37)
--- NOTE | 2018-11-16 15:51 | PGE_ITS ---
Date of Service Date of service: 11/16/18 Time of Service: 15:51 Assessment and Plan (1) HCAP (healthcare-associated pneumonia): Current visit: Yes Status: Acute Apparent infiltrate by admission CXR, in patient with significant underlying pulmonary disease and multiple recent hospitalizations. - Sputum culture with scant growth of a pansensitive Pseudomonas. Continue broad spectrum coverage with Vancomycin and Pip-Tazo, currently day#5. Procalcitonin <0.1 - plan on discontinuation at the end of today. - Continue treatment of COPD exacerbation as well. Change to Prednisone today. - Current exam not consistent with CHF - diuretic therapy continues to be on hold. (2) COPD with acute exacerbation: Current visit: No Status: Acute Continue antibiotics, nebs, and steroids, and wean back to home dose when able. (3) Acute on chronic diastolic (congestive) heart failure: Current visit: Yes Status: Acute Weight 105kg at admission, which appears to have been dry weight at discharge from [facility] [place]. Currently at 100 Kg - hypochloremia, hypokalemia, and INGRIS all resolved - clinically dry despite holding any further diuresis over the last 4 days. - Apparent good response to minimal diuretic dosing at [facility] [place]. Recommendations at that time for 10-20mg of oral Furosemide daily or on a QOD status when initiated. Hold off any further diuresis at this time. (4) Orthostasis: Current visit: Yes Status: Chronic Very likely related to 17L diuresis at [facility] [place]. Repeat check with continued asymptomatic orthostatic findings. Flomax reinitiated (patient was symptomatic from a standpoint) without any significant change in findings. (5) Diabetes mellitus: Current visit: No Status: Chronic With Metformin on hold. Continue sliding scale coverage. Currently hyperglycemic in setting of IV Steroid use - improved with reinitiated Glipizide. (6) DVT prophylaxis: Current visit: No Status: Acute Continue SC Lovenox. Subjective Interval history since last seen: Pleasant 73 year old man with a prior history significant for COPD with recent exacerbations requiring hospitalization, as w ell as recently treated Diastolic CHF requiring hospitalization at [facility] [place], admitted from [facility] Department on 11/11 with a diagnosis of worsening Pneumonia. Mr. Sims has a past Medical History significant for steroid dependent COPD and significant prior tobacco use, as well as Eosinophilic Asthma. His other history includes DM, HTN, OA, GERD, BPH, and a previous diagnosis of PMR. He has CAD as a prior history, with a LHC in 2014 which showed no significant occlusion, and a nuclear stress test in 2017 that was deemed negative for ischemia. The patient was recently admitted here and treated for a COPD Exacerbation, and at [facility] [place] between 11/01- for Pulmonary Edema due to acute Diastolic CHF. He was diuresed approximately 17 liters, with a reported dry weight of 105 Kg (231 lbs). He did develop hyponatremia as well as orthostatic changes in the setting of likely overdiuresis, and was discharged without oral diuretic therapy. Following admission there had a reported 4 lbs weight gain, was seen by PCP who found him to continue to be orthostatic and thus did not reinitiate him on furosemide, and finally by Home Health who sent him to the ED due to concern for change in his breathing. He also reported a cough with change in sputum color. Upon presentation to the ED he was found to have a potential LLL Infiltrate by imaging, and COPD exacerbation by exam. Also with concern for volume overload. This morning Mr. Sims reports unchanged breathing since yesterday, which is vastly improved even from his baseline, but with increased secretions and difficulty mobilizing sputuml. No overnight events were reported. He remains orthostatic but asymptomatic, despite discontinuation of diuretic therapy. Remains afebrile. Exam Narrative Exam Narrative: General: Patient appears comfortable, AAOX3, NAD Neck: Supple CV: Regular, mildly tachycardic, S1S2, No rubs, murmurs, or gallops. Pulmonary: No further wheezing, with continued good air entry. Mild bibasilar crackles. Abdomen: + Bowel Sounds, soft, nontender, nondistended Vascular: No lower extremity edema Psych: Normal mood and affect. Objective Objective Clinical Data: Abnormal lab results 11/16/18 11/16/18 11/16/18 Range/Units 06:26 06:26 06:26 Hgb 13.2 L (13.5-17.5) g/dL Hct 39.8 L (40.0-50.0) % RDW 14.9 H (11.8-14.1) % Absolute Monocytes 0.89 H (0.11-0.7) k/cumm Sodium 133 L (136-145) mmol/L Chloride 95 L (98-107) mmol/L Anion Gap 11.7 H (3-11) mmol/L BUN 23 H (7-18) mg/dL Glucose 155 H (70-100) mg/dL Hemoglobin A1c 8.4 H (4.5-6.2) % Magnesium 2.6 H (1.8-2.4) mg/dL Vital Signs Temperature 36 C L 11/16/18 15:21 Temperature Source Tympanic 11/16/18 15:21 Pulse 106 H 11/16/18 15:21 Pulse Rhythm Regular 11/16/18 15:47 Pulse 115 H 11/11/18 16:40 Respiratory Rate 20 11/16/18 15:21 Respiratory Effort 11/16/18 15:47 Respiratory Depth Normal 11/16/18 15:47 Respiratory Pattern Normal 11/16/18 15:47 Blood Pressure 138/76 11/16/18 15:21 Blood Pressure Mean 112 11/11/18 16:31 Blood Pressure Position Supine 11/11/18 14:58 Pulse Oximetry 97 11/16/18 15:21 Oxygen Delivery Method Room Air 11/16/18 15:21 Oxygen Flow Rate 0 11/16/18 15:21 Pain Level 2 11/16/18 15:21 Comment 11/14/18 11:32 Intake & Output 11/15/18 11/16/18 11/16/18 23:59 11:59 23:59 Intake Total 1190 / 1920 1050 / 1630 580 / 1630 Output Total 1500 / 3250 2350 / 3025 675 / 3025 Balance -310 / -1330 -1300 / -1395 -95 / -1395 Weight 100.1 kg Intake: IV 460 / 830 370 / 470 100 / 470 Oral 730 / 1090 680 / 1160 480 / 1160 Output: Urine 1500 / 3250 2350 / 3025 675 / 3025 Other: Urine Color Pale Yellow Yellow Yellow Urine Appearance Clear Clear Clear Urine Odor None None Voiding Methods Urinal Urinal Urinal Laboratory Results WBC 9.92 k/cumm (4.4-10.8) 11/16/18 06:26 RBC 4.58 m/cumm (4.50-6.00) 11/16/18 06:26 Hgb 13.2 g/dL (13.5-17.5) L 11/16/18 06:26 Hct 39.8 % (40.0-50.0) L 11/16/18 06:26 MCV 86.9 fL (80-95) 11/16/18 06:26 MCH 28.8 pg (27.0-33.0) 11/16/18 06:26 MCHC 33.2 g/dL (32.0-36.0) 11/16/18 06:26 RDW 14.9 % (11.8-14.1) H 11/16/18 06:26 Plt Count 252 x1000/uL (130-400) 11/16/18 06:26 MPV 8.4 fL (8.0-11.0) 11/16/18 06:26 Immature Gran % See Differential 11/16/18 06:26 63.0 11/16/18 06:26 2.0 % 11/16/18 06:26 18.0 11/16/18 06:26 Atypical Lymphs % 4 11/16/18 06:26 9.0 11/16/18 06:26 0.0 11/16/18 06:26 0.0 11/16/18 06:26 2.0 % 11/16/18 06:26 2.0 % 11/16/18 06:26 Absolute Neutrophils 6.45 k/cumm (1.2-6.7) 11/16/18 06:26 Absolute Lymphocytes 2.18 k/cumm (1.2-3.4) 11/16/18 06:26 Absolute Monocytes 0.89 k/cumm (0.11-0.7) H 11/16/18 06:26 Absolute Eosinophils 0.00 k/cumm (0.0-0.7) 11/16/18 06:26 Absolute Basophils 0.00 k/cumm (0.0-0.2) 11/16/18 06:26 Manual differential 11/16/18 06:26 RBC Morphology Normal 11/16/18 06:26 1+ 11/14/18 07:00 1+ 11/11/18 14:20 1+ 11/14/18 07:00 PT 9.3 sec (9.3-11.0) 11/11/18 14:20 INR 0.9 (0.9-1.1) 11/11/18 14:20 APTT 21.7 sec (21.0-31.4) 11/11/18 14:20 Sodium 133 mmol/L (136-145) L 11/16/18 06:26 Potassium 3.7 mmol/L (3.5-5.1) 11/16/18 06:26 Chloride 95 mmol/L (98-107) L 11/16/18 06:26 Carbon Dioxide 26.3 mmol/L (21.0-32.0) 11/16/18 06:26 11.7 mmol/L (3-11) H 11/16/18 06:26 BUN 23 mg/dL (7-18) H 11/16/18 06:26 1.20 mg/dL (0.70-1.30) 11/16/18 06:26 59.51 (mL/min/1.73m2) 11/16/18 06:26 Glucose 155 mg/dL (70-100) H 11/16/18 06:26 8.4 % (4.5-6.2) H 11/16/18 06:26 2.3 mmol/l (0.6-1.4) H 11/12/18 06:25 Calcium 8.7 mg/dL (8.5-10.1) 11/16/18 06:26 Magnesium 2.6 mg/dL (1.8-2.4) H 11/16/18 06:26 0.3 mg/dL (0.2-1.0) 11/11/18 14:20 AST 14 U/L (15-37) L 11/11/18 14:20 ALT 45 U/L (12-78) 11/11/18 14:20 85 U/L (46-116) 11/11/18 14:20 < 0.05 ng/mL (0.00-0.06) 11/12/18 06:25 NT-Pro-B Natriuret Pep 176 pg/mL (-299) 11/11/18 14:20 6.9 g/dL (6.4-8.2) 11/11/18 14:20 2.9 g/dL (3.4-5.0) L 11/11/18 14:20 < 0.1 ng/mL 11/16/18 06:26 Vancomycin Trough 19.9 ug/mL (10.0-20.0) 11/15/18 15:05
[2018-11-16] MEDS: Enoxaparin 40 MG/0.4 ML SYR SC (17:13)
[2018-11-16] MEDS: Tamsulosin 0.4 MG CAPCR 0.8 MG PO (17:15)
--- NOTE | 2018-11-16 18:24 | PDOC.CMPRO ---
Care Management Progress Note S/O: Amy remains inpatient at this time; per MD anticipate Thursday discharge. CM checked in with Amy and his who shared no concerns at this time. CM continues to follow. A:73 year old male with advance lung disease (COPD) admitted with HCAP P: Amy will return home when ready per MD. He will follow up with his PCP and plan of care as prescribed. Consideration for HC services upon discharge as well as [facility] supports. Amy will have a Palliative Care consult with Dr. Beltran this evening. Amy will transport home via private vehicle with his , Jordyn.
[2018-11-16] MEDS: predniSONE 20 MG TAB 40 MG PO (19:21)
[2018-11-16] MEDS: Melatonin 3 MG TAB PO (21:36)
[2018-11-17] VITALS (10 sets, daily range): BP systolic 106–166; BP diastolic 67–92; PULSE 95–107; RESP 4–20; TEMP 36–36.6; O2SAT 94–98
[2018-11-17] MEDS: Albuterol/Ipratropium 3 ML UPD VIAL UPD ×3 (04:24→11:41)
[2018-11-17] MEDS: Acetaminophen 325 MG TAB PO (04:38)
[2018-11-17] MEDS: guaiFENesin/D-METHORPHAN HB 5 ML CUP 10 ML PO ×2 (05:39→11:37)
--- NOTE | 2018-11-17 06:50 | W.INDIABCONS ---
Date of service: 11/17/18 Time of Service: 06:50 Diabetes Inpatient Consult DESCRIPTION/ASSESSMENT: Appreciate diabetes consult for Mr. Sims who has spent time hospitalized here in the recent past. At that time he was not interested in managing his diabetes more intensely and was unwilling to consider taking insulin independently after discharge. His hyperglycemia appears related to Prednisone administration. A1c 7.9 in June. BMI 30 Mr. Sims takes Glipizide and Metformin at home; Glipizide and sensitive insulin correction here. He is eating 30-70 grams carbohydrate at a meal. Blood sugars here most recently fasting 138-172; pre-lunch and supper 141-354 most elevated by supper meal. Current insulin correction is not getting blood sugars close to goal during the day. INTERVENTION: If improved glycemic control is desired, he may benefit from adding NPH with the steroid administration at .4xweight in kg based on methylprednisolone dose which would be 40units in AM. He does not wish for lifestyle intervention and recognizes the hospital is watching his meals. PLAN: Will follow blood sugars and follow up as desired Time Spent in Nutritional Counseling and Treatment: 0 minutes face to face
[2018-11-17] MEDS: Normal Saline Flush 10 ML SYR IVP ×2 (06:59→07:57)
[2018-11-17 07:19] LABS: Abs Immature Grans 0.54 k/cumm (0.0-0.09); HCT 38.3 % (40.0-50.0); HGB 12.8 g/dL (13.5-17.5); Mean Corp. HGB Concentration 33.4 g/dL (32.0-36.0); Mean Corpuscular Hemoglobin 28.9 pg (27.0-33.0); Mean Corpuscular Volume 86.5 fL (80-95); Mean Platelet Volume 8.6 fL (8.0-11.0); Platelet Count 231 x1000/uL (130-400); RBC 4.43 m/cumm (4.50-6.00); RBC Distribution Width 14.9 % (11.8-14.1); White Blood Cell Count 9.68 k/cumm (4.4-10.8)
[2018-11-17 07:34] LABS: Anion Gap 9.8 mmol/L (3-11); BUN 22 mg/dL (7-18); CO2 25.2 mmol/L (21.0-32.0); CREATININE 1.29 mg/dL (0.70-1.30); Calcium 8.3 mg/dL (8.5-10.1); Chloride 96 mmol/L (98-107); Estimated GFR 54.75 (mL/min/1.73m2); Glucose 268 mg/dL (70-100); Magnesium 2.6 mg/dL (1.8-2.4); Potassium 4.3 mmol/L (3.5-5.1); Sodium 131 mmol/L (136-145)
[2018-11-17] MEDS: Esomeprazole 40 MG CAPCR PO (07:51)
[2018-11-17] MEDS: Benzonatate 100 MG CAP PO (07:53)
[2018-11-17] MEDS: Aspirin E.C. 81 MG TABEC PO (07:53)
[2018-11-17] MEDS: Gabapentin 300 MG CAP PO (07:53)
[2018-11-17] MEDS: DULoxetine 30 MG CAP 60 MG PO (07:53)
[2018-11-17] MEDS: glipiZIDE 5 MG TAB PO (07:53)
[2018-11-17] MEDS: Montelukast 10 MG TAB PO (07:53)
[2018-11-17] MEDS: Insulin Aspart 300 UNITS/3 ML PEN SC ×2 (07:54→11:38)
[2018-11-17] MEDS: methylPREDNISolone SUCC 40 MG VIAL IVP (07:54)
[2018-11-17] MEDS: Sulfameth/Trimeth DS TAB 1 TAB PO (07:54)
[2018-11-17] MEDS: predniSONE 20 MG, predniSONE 10 MG 30 MG PO (07:54)
[2018-11-17] MEDS: Budesonide 0.5 MG/2 ML UPD VIAL UPD (08:04)
[2018-11-17] MEDS: predniSONE 20 MG TAB 40 MG PO (08:35)
[2018-11-17 08:50] LABS: Absolute Lymphocyte Count 0.87 k/cumm (1.2-3.4); Absolute Monocyte Count 0.68 k/cumm (0.11-0.7); Absolute Neutrophil Count 7.84 k/cumm (1.2-6.7); Diff Comment Manual Differential; RBC Morphology Normal
--- NOTE | 2018-11-17 11:33 | W.PM.DS.N ---
Date of service: 11/17/18 Time of Service: 11:33 DS: Diagnosis Discharge Diagnosis (1) HCAP (healthcare-associated pneumonia): Status: Acute (2) COPD with acute exacerbation: Status: Acute (3) Acute on chronic diastolic (congestive) heart failure: Status: Acute (4) Orthostasis: Status: Chronic (5) Diabetes mellitus: Status: Chronic Discharge Plan Disposition Patient Disposition: HOME Condition: Stable Discharge Details Chief Complaint: SOB Clinical Impression: HCAP (healthcare-associated pneumonia) Reason For Visit: HCAP,ACUTE EXACERBATION OF CHRONIC DIASTOLIC CHF Admit Date/Time: 11/11/18 16:03 Admit Provider: Vandana Philip Attending Provider: Vandana Philip Primary Care Provider: Tevin Dooley ED Provider: Kb Lemon Hospital Course Hospital Course: Chief Complaint: Dyspnea HPI: Pleasant 73 year old man with a prior history significant for Eosinophilic Asthma and COPD with recent exacerbations requiring hospitalization, as well as recently treated Diastolic CHF requiring hospitalization at [facility], admitted from [facility] Emergency Department on 11/11 with a diagnosis of worsening Pneumonia. Mr. Sims has a past Medical History significant for steroid dependent COPD and significant prior tobacco use, as well as Eosinophilic Asthma. His other history includes DM, HTN, OA, GERD, BPH, and a previous diagnosis of PMR. He has CAD as a prior history, with a LHC in 2013 which showed no significant occlusion, and a nuclear stress test in 2017 that was deemed negative for ischemia. The patient was recently admitted here and treated for a COPD Exacerbation, and at [facility] between 11/01- for Pulmonary Edema due to acute Diastolic CHF. He was diuresed approximately 17 liters, with a reported dry weight of 105 Kg (231 lbs). He did develop hyponatremia as well as orthostatic changes in the setting of likely overdiuresis, and was discharged without oral diuretic therapy. Following admission there had a reported 4 lbs weight gain, and patient was seen by his PCP who found him to continue to be orthostatic and thus did not reinitiate him on furosemide, and finally by Home Health who sent him to the ED due to concern for change in his breathing. He also reported a cough with change in sputum color. Upon presentation to the ED he was found to have a potential LLL Infiltrate by imaging, and COPD exacerbation by exam. Also with concern for volume overload initially. This morning Mr. Sims reports unchanged breathing since yesterday, which is vastly improved even from his baseline, and with improved secretions and mobilization of his sputum with the addition of Mucinex DM. his weight is slightly higher than prior, but well below his discharge weight from [facility]. His renal function appears stable. No overnight events were reported. He remains orthostatic but asymptomatic, despite discontinuation of diuretic therapy. Remains afebrile. Hospital Course: (1) HCAP (healthcare-associated pneumonia): Apparent infiltrate by admission CXR, evidence of leukocytosis, and worsening tachycardia at presentiation in patient with significant underlying pulmonary disease and multiple recent hospitalizations. - Sputum culture with scant growth of a pansensitive Pseudomonas. Mr. Sims underwent a 5 day course of broad spectrum coverage with Vancomycin and Pip-Tazo, with Procalcitonin <0.1 on 11/16. Patient feels vastly improved and seeking to return home. (2) COPD with acute exacerbation: Concluded antibiotic therapy as above. Plan on slow steroid wean back to home dosing, with return to [facility] for further wean if deemed appropriate after that. (3) Acute on chronic diastolic (congestive) heart failure: Weight 105kg at admission, which appears to have been dry weight at discharge from [facility]. Currently at 100-101 Kg - Patient with continued hyponatremia, hypochloremia, and an elevated BUN, as well as clinically dry despite. Weight stable despite remaining off diuretic therapy over the last 4-5 days. - Will hold off further diuresis at this time. Patient remains orthostatic, likely intravascularly depleted, with recommendations for close follow-up of weight and volume status as an outpatient. Apparent good response to minimal diuretic dosing at [facility]. Recommendations at that time for 10-20mg of oral Furosemide daily or on a QOD status when initiated. Hold off any further diuresis at this time. (4) Orthostasis: Very likely related to 17L diuresis at [facility]. Repeat check with continued asymptomatic orthostatic findings. Flomax reinitiated (patient was symptomatic from a standpoint) without any significant change in findings. (5) Diabetes mellitus: Restart Metformin upon discharge, and continue Glipizide. (6) DVT prophylaxis: Was maintained on SC Lovenox. Home Meds and New Rx's Prescriptions: New benzonatate 100 mg Capsule 100 mg PO TID Qty: 21 RF: 0 dextromethorphan-guaifenesin 10-100 mg/5 mL Syrup 10 ml PO Q6H Qty: 500 RF: 0 prednisone 20 mg tablet 20 mg PO DAILY Qty: 42 RF: 0 Continued sulfamethoxazole-trimethoprim [Bactrim DS] 800-160 mg tablet 1 tab PO .3x week RF: 0 aspirin 81 mg tablet,delayed release (DR/EC) 81 mg PO DAILY RF: 0 gabapentin 300 mg capsule 300 mg PO TID Qty: 270 RF: 4 duloxetine 60 mg capsule,delayed release(DR/EC) 60 mg PO DAILY Qty: 90 RF: 3 mepolizumab 100 mg recon soln 100 mg SC Q4W RF: 0 metformin 1,000 mg tablet 1,000 mg PO BID RF: 0 NEBULIZER W/ TUBING 1 inh DIRECTED RF: 0 montelukast 10 MG tablet 10 mg PO DAILY RF: 0 budesonide [Pulmicort] 0.5 MG/2 ML suspension for nebulization 1 inh Inhalation BID Qty: 180 RF: 4 (DME) FreeStyle Lite Strips 1 EACH strip 1 ea Miscellaneous TID Qty: 200 RF: 5 albuterol sulfate [ProAir HFA] 8.5 GM HFA aerosol inhaler 1 - 2 puff Inhalation Q4H PRN Qty: 3 RF: 4 magnesium oxide 400 MG tablet 400 mg PO DAILY Qty: 90 RF: 4 hydrocodone-acetaminophen 7.5-325 mg tablet 1 tab PO BID MDD 2 tab Qty: 60 RF: 0 glipizide 5 mg tablet 5 mg PO QAM Qty: 90 RF: 4 tamsulosin 0.4 mg Capsule 0.8 mg PO DAILY@1730 Qty: 0 RF: 0 ipratropium-albuterol 0.5 mg-3 mg(2.5 mg base)/3 mL solution for nebulization 3 ml Inhalation Q4H PRN (Reason: Shortness Of Breath) Qty: 4 RF: 5 esomeprazole magnesium [Nexium] 40 mg Capsule,Delayed Release(Dr/Ec) 40 mg PO DAILY@0730 Qty: 30 RF: 0 clotrimazole 10 mg Reji 10 mg PO .3 TIMES PER WEEK RF: 0 prednisone 20 mg Tablet 30 mg PO DAILY RF: 0 Discharge Instructions Additional Instructions: Please see your Primary Care provider over the next 7 days, and your development professional over the next 14 days. Stand Alone Forms: Nursing Discharge Form Referrals: Michael Marin [ [facility] STAFF PHYSICIAN] - 11/22/18 1:20 pm Activity:: No strenuous activity. Equipment/Supplies:: No Equipment Needed Diet:: Carb Counting Discharge Orders Discharge Orders: Discharge Order (Routine); Ordered 11/17/18 Ordered By: Asif Egan Exam Narrative Exam Narrative: General: Patient appears comfortable, AAOX3, NAD Neck: Supple CV: Regular, mildly tachycardic, S1S2, No rubs, murmurs, or gallops. Pulmonary: No further wheezing, with continued good air entry. Mild bibasilar crackles continued and unchanged. Abdomen: + Bowel Sounds, soft, nontender, nondistended Vascular: No lower extremity edema Psych: Normal mood and affect. DS: Data Vitals/I&O Vitals and I&O: Vital Signs Temperature 36.3 C L 11/17/18 07:53 Temperature Source Tympanic 11/17/18 07:53 Pulse 101 H 11/17/18 10:26 Pulse Rhythm Regular 11/17/18 11:28 Pulse 115 H 11/11/18 16:40 Respiratory Rate 20 11/17/18 08:04 Respiratory Effort 11/17/18 11:28 Respiratory Depth Normal 11/17/18 11:28 Respiratory Pattern Normal 11/17/18 11:28 Blood Pressure 166/92 H 11/17/18 10:26 Blood Pressure Mean 112 11/11/18 16:31 Blood Pressure Position Supine 11/11/18 14:58 Pulse Oximetry 98 11/17/18 08:04 Oxygen Delivery Method Room Air 11/17/18 08:00 Oxygen Flow Rate 0 11/17/18 08:00 Pain Level 0 11/17/18 05:38 Comment 11/16/18 22:29 Intake & Output 11/16/18 11/16/18 11/17/18 11:59 23:59 11:59 Intake Total 1050 / 2290 1240 / 2290 600 / 600 Output Total 2350 / 4425 2075 / 4425 1775 / 1775 Balance -1300 / -2135 -835 / -2135 -1175 / -1175 Weight 100.1 kg 101.1 kg Intake: IV 370 / 830 460 / 830 100 / 100 Oral 680 / 1460 780 / 1460 500 / 500 Output: Urine 2350 / 4425 2075 / 4425 1775 / 1775 Other: Urine Color Yellow Yellow Pale Yellow Urine Appearance Clear Clear Clear Urine Odor None Normal Voiding Methods Urinal Urinal Urinal Completed studies during hospitalization [Text1]: Exam(s) 11/11/2018 a RAD:XR portable chest AP SYMPTOMS/DIAGNOSIS: SHORTNESS OF BREATH PORTABLE AP CHEST: There is some ill-defined increased density projected over the region of the left lower lobe which could represent an acute pneumonitis. The lungs are otherwise free of gross infiltrate. The heart is not enlarged. SUMMARY: Question left lower lobe pneumonia. A follow up PA and lateral examination is suggested for further review. Labs on day of discharge: Labs from last 24 hours 11/17/18 11/17/18 07:00 07:00 WBC 9.68 RBC 4.43 L Hgb 12.8 L Hct 38.3 L MCV 86.5 MCH 28.9 MCHC 33.4 RDW 14.9 H Plt Count 231 MPV 8.6 Immature Gran % See Differential Neutrophils % 80.0 Band Neutrophils % 1.0 Lymphocytes % 9.0 Monocytes % 7.0 Eosinophils % 0.0 Basophils % 0.0 Metamyelocytes % 2.0 Myelocytes % 1.0 Absolute Neutrophils 7.84 H Absolute Lymphocytes 0.87 L Absolute Monocytes 0.68 Absolute Eosinophils 0.00 Absolute Basophils 0.00 Differential Comment Manual differential RBC Morphology Normal Sodium 131 L Potassium 4.3 Chloride 96 L Carbon Dioxide 25.2 Anion Gap 9.8 BUN 22 H Creatinine 1.29 Estimated GFR/1.73 m2 54.75 Glucose 268 H D Calcium 8.3 L Magnesium 2.6 H PFSH Medical History Atherosclerosis of [place] coronary artery (Chronic) 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 Father Neoplasm Sister No problems noted. Sister No problems noted. Sister No problems noted. Sister No problems noted. Sister No problems noted. Sister No problems noted. Sister No problems noted. Sister No problems noted. Sister No problems noted. Brother No problems noted. Brother No problems noted. Brother No problems noted. Brother No problems noted. Brother No problems noted. Brother No problems noted. Brother No problems noted. Brother No problems noted. Brother No problems noted. Brother No problems noted. Brother No problems noted. Brother No problems noted. Son No problems noted. Son Substance abuse Mental disorder Son Substance abuse Daughter Substance abuse Depression Mental disorder Social History Smoking/Tobacco Use Status: Former Tobacco Use Alcohol Intake: former Drug use: Never Substance use type: does not use Household members: spouse and children Pets and animals: Yes Pets and animals: cat(s) and dog(s) Duration: decline to answer Frequency: 3-4 times per week Aminata/Hinduism: Alevism Special aminata needs: No Do you feel safe at home: Yes Do you feel safe in your relationship?: Yes Additional Social history: , with 4 children. Currently raising 3 grandchildren. Reported 80+ pack year history of tobacco abuse, quit approximately 15 years ago. Denies any current EtOH use.
--- NOTE | 2018-11-17 13:41 | PDOC.HHF2F ---
1. Encounter Date and Reason I certify that AUSTIN VILLA was seen by Asif Egan on 11/17/18 and that I had a [id number] encounter with this patient that meets the physician face to face encounter requirements. 2. Clinical Findings Supporting Skilled Need and Homebound Status I certify that home health services are medically necessary, include either intermittent penitentiary and/or physical/speech therapy, and that this patient is homebound in that absences from the home require considerable and taxing effort and are infrequent or of short duration, or are attributable to the need to receive medical care. [X] (a) Attached documentation from encounter provides clinical findings supporting skilled need and homebound status (including what assistance patient requires to leave the home). The encounter with the patient was in whole, or in part, for the following medical condition, which is the primary reason for home health care: HCAP,ACUTE EXACERBATION OF CHRONIC DIASTOLIC CHF [facility]: [facility] (weight, fluid status, med management, oxygen monitoring, and blood pressure checks) Physical Therapy: Speech Therapy: Homebound: 3. Certification and Authentication I certify that I composed the above information based on my clinical judgement relating to this patient's medical condition and, if applicable, clinical findings communicated to me by the NPP or inpatient physician who performed the Home Health Referral. All further orders will be obtained through (Community Based Physician - PCP)
--- NOTE | 2018-11-17 16:32 | CMDISCH_ITS ---
LACE Index Scoring Tool - Questions: Length of Stay (in days): 4 - 6 Acuity (Admit via E.D.?): Yes Comorbidities: Congestive Heart Failure, Chronic Pulmonary Disease E.D. Visits: 5 - Answers: Total Score: 16 Risk of Readmission: High Risk Care Management Discharge Reason for Hospitalization: HCAP, Acute Exacerbation of Chronic Diastolic CHF Discharge Plan: Amy will return home when ready per MD. He will follow up with his PCP and plan of care as prescribed. Amy will have new orders for VNA services RN, PT through [facility] upon discharge. Amy will transport home via private vehicle with his , Jordyn. Patient/Family Education Needs: Review discharge instructions, discuss Ask Me Three. Services Needed at Discharge: Home Health Care Services (RN, PT)
== END 2018-11-17 13:19 | disposition home or self-care (01) | DRG 177 ==
LOC: ER 16:22 → MS 17:04
PROVIDERS: Admitting Provider Internal Medicine; Emergency Provider Emergency Medicine; PCP Family Medicine; Visit Provider Internal Medicine
DX: J15.1 Pneumonia due to Pseudomonas (principal); I50.33 Acute on chronic diastolic (congestive) heart failure; J44.1 Chronic obstructive pulmonary disease with (acute) exacerbation; J44.0 Chronic obstructive pulmonary disease with (acute) lower respiratory infection; E87.1 Hypo-osmolality and hyponatremia; B37.0 Candidal stomatitis; N17.9 Acute kidney failure, unspecified; Y95 Nosocomial condition; I95.1 Orthostatic hypotension; Z87.891 Personal history of nicotine dependence; J82 Pulmonary eosinophilia, not elsewhere classified; I11.0 Hypertensive heart disease with heart failure; K21.9 Gastro-esophageal reflux disease without esophagitis; I48.0 Paroxysmal atrial fibrillation; E87.8 Other disorders of electrolyte and fluid balance, not elsewhere classified; Z79.84 Long term (current) use of oral hypoglycemic drugs; N40.1 Benign prostatic hyperplasia with lower urinary tract symptoms; E11.42 Type 2 diabetes mellitus with diabetic polyneuropathy; Z79.52 Long term (current) use of systemic steroids; E87.6 Hypokalemia; Z71.3 Dietary counseling and surveillance
CPT/HCPCS: 36410; 36415; 80048; 80053; 84145; 87040; 87077; 93005; 96365; 96367; 96375; 97162; 97165; 97530; 99223; 99232; 99239; 99255; 99285; J1650; 71045; 80202; 83036; 83605; 83735; 83880; 84484; 85025; 85610; 85730; 87070; 87186; 87205; 93010; 94640; 94668; J1940; J1941; J2543; J2930; J3370; J3490; J7512; J7620; J7626

== ENCOUNTER 2018-11-29 12:18 | Emergency (ER) | payer MEDICARE, BC, SELFPAY ==
[2018-11-29] VITALS (43 sets, daily range): BP systolic 98–135; BP diastolic 60–76; PULSE 103–115; RESP 1–28; TEMP 36.6; O2SAT 91–100
--- NOTE | 2018-11-29 12:30 | DI.RAD_ITS ---
SYMPTOM/DIAGNOSIS: SOB PORTABLE AP CHEST: The heart is enlarged. There is some prominence of lower lobe pulmonary markings bilaterally consistent with the patient's presumed diagnosis of mild CHF/pulmonary fibrosis. No definite focal consolidation is seen, superimposed pneumonitis not entirely excluded and appropriate follow up radiographs are suggested following treatment. CONCLUSION: Findings consistent with COPD and mild CHF. Appropriate follow up studies requested.
[2018-11-29] MEDS: methylPREDNISolone SUCC 125 MG VIAL 60 MG IVP (12:40)
[2018-11-29] MEDS: Furosemide 20 MG/2 ML VIAL IVP (12:40)
--- NOTE | 2018-11-29 12:45 | NUR.NOTE ---
Nursing Note: Additional IV access placed in the left AC with a 20G catheter. Good blood return, line in patent.
[2018-11-29 12:51] LABS: Abs Immature Grans 0.19 k/cumm (0.0-0.09); Absolute Basophil Count 0.01 k/cumm (0.0-0.2); Absolute Eosinophil Count 0.02 k/cumm (0.0-0.7); Absolute Lymphocyte Count 0.53 k/cumm (1.2-3.4); Absolute Monocyte Count 0.68 k/cumm (0.11-0.7); Absolute Neutrophil Count 8.96 k/cumm (1.2-6.7); Basophils % 0.1; Eosinophils % 0.2; HCT 37.7 % (40.0-50.0); HGB 12.6 g/dL (13.5-17.5); Immature Grans % 1.8; Lymphocytes % 5.1; Mean Corp. HGB Concentration 33.4 g/dL (32.0-36.0); Mean Corpuscular Hemoglobin 29.5 pg (27.0-33.0); Mean Corpuscular Volume 88.3 fL (80-95); Mean Platelet Volume 8.5 fL (8.0-11.0); Monocytes % 6.5; Neutrophils % 86.3; Platelet Count 188 x1000/uL (130-400); RBC 4.27 m/cumm (4.50-6.00); RBC Distribution Width 15.3 % (11.8-14.1); White Blood Cell Count 10.39 k/cumm (4.4-10.8)
[2018-11-29] MEDS: Albuterol/Ipratropium 3 ML UPD VIAL ×3 (12:51→12:55)
--- NOTE | 2018-11-29 12:55 | ED.GENADUL_ITS ---
Discharge Plan Disposition Patient Disposition: [facility] Condition: Critical Discharge Details Chief Complaint: SOB Clinical Impression: Acute non-ST elevation myocardial infarction (NSTEMI), COPD exacerbation Primary Care Provider: Tevin Dooley ED Provider: Kurtis Cabrera Home Meds and New Rx's Prescriptions: No Action sulfamethoxazole-trimethoprim [Bactrim DS] 800-160 mg tablet 1 tab PO .3x week RF: 0 aspirin 81 mg tablet,delayed release (DR/EC) 81 mg PO DAILY RF: 0 gabapentin 300 mg capsule 300 mg PO TID Qty: 270 RF: 4 duloxetine 60 mg capsule,delayed release(DR/EC) 60 mg PO DAILY Qty: 90 RF: 3 mepolizumab 100 mg recon soln 100 mg SC Q4W RF: 0 metformin 1,000 mg tablet 1,000 mg PO BID RF: 0 NEBULIZER W/ TUBING 1 inh DIRECTED RF: 0 montelukast 10 MG tablet 10 mg PO DAILY RF: 0 budesonide [Pulmicort] 0.5 MG/2 ML suspension for nebulization 1 inh Inhalation BID Qty: 180 RF: 4 (DME) FreeStyle Lite Strips 1 EACH strip 1 ea Miscellaneous TID Qty: 200 RF: 5 albuterol sulfate [ProAir HFA] 8.5 GM HFA aerosol inhaler 1 - 2 puff Inhalation Q4H PRN Qty: 3 RF: 4 magnesium oxide 400 MG tablet 400 mg PO DAILY Qty: 90 RF: 4 hydrocodone-acetaminophen 7.5-325 mg tablet 1 tab PO BID MDD 2 tab Qty: 60 RF: 0 glipizide 5 mg tablet 5 mg PO QAM Qty: 90 RF: 4 nystatin 100,000 unit/mL suspension 400,000 unit PO QID 10 Days Qty: 160 RF: 0 furosemide 20 mg tablet 20 mg PO DAILY Qty: 7 RF: 0 diltiazem HCl 30 mg Tablet 30 mg PO QID RF: 0 tamsulosin 0.4 mg Capsule 0.8 mg PO DAILY@1730 Qty: 0 RF: 0 ipratropium-albuterol 0.5 mg-3 mg(2.5 mg base)/3 mL solution for nebulization 3 ml Inhalation Q4H PRN (Reason: Shortness Of Breath) Qty: 4 RF: 5 esomeprazole magnesium [Nexium] 40 mg Capsule,Delayed Release(Dr/Ec) 40 mg PO DAILY@0730 Qty: 30 RF: 0 prednisone 20 mg Tablet 30 mg PO DAILY RF: 0 benzonatate 100 mg Capsule 100 mg PO TID Qty: 21 RF: 0 dextromethorphan-guaifenesin 10-100 mg/5 mL Syrup 10 ml PO Q6H Qty: 500 RF: 0 prednisone 20 mg tablet 20 mg PO DAILY Qty: 42 RF: 0 Medical Decision Making 13:00 --73-year-old male with history of CHF, diastolic heart failure, COPD, recent healthcare associated pneumonia, coronary artery disease, here with worsening shortness of breath over the past few days and now severe with acute respiratory distress. Concern for acute COPD exacerbation with likely acute CHF. Patient was put on BiPAP which has improved his symptoms. He is received 3 albuterol neb treatments. Solu-Medrol 60 mg IV was added to his already prescribed prednisone 40 mg which he took today. Respiratory therapy has been consulted. Chest x-ray was reviewed and interpreted by radiology: Diffuse interstitial opacity, no focal infiltrate. ECG was reviewed and interpreted by me: Sinus tachycardia 111 bpm, normal axis, no STEMI, nondiagnostic. Labs pending. Patient does have recurrent oral thrush. PE is on differential - patient cannot tolerate lying flat for CT. --Labs reviewed: Hyponatremia 130 noted, creatinine 1.22, troponin I 0.1. Concern for NSTEMI. Plan to start heparin bolus and drip and asa 325mg. 14:05 --I called [facility] and spoke with transfer center nurse and requested transfer, awaiting callback 14:35 -- Spoke with [facility] Dr. Welch who recommends giving doxycycline and agrees with transfer, Dr. Rubalcava to accept. HPI General Mode of arrival: ambulatory . Date/Time Provider Initiated Documentation: 11/29/18 12:23 . Limitations to Documentation: no limitations . Information obtained by: patient . HPI Narrative: 73-year-old male with history of COPD, CHF, diastolic heart failure, recent healthcare associated pneumonia, coronary artery disease, diabetes, hypertension, presents at the [facility] with chief complaint of shortness of breath. Symptoms are severe. Progressive over the past few days. Feels out of breath. Patient has been using nebs, taking prednisone, now at 40 mg a day, and Lasix, recently started on diltiazem. He has no associated chest pain. He has some mild leg swelling. No calf pain. Patient has been put on BiPAP and he notes shortness of breath is improving. Related Data Home Medications Medication Instructions Recorded Confirmed Nebulizer W/ Tubing 1 inh DIRECTED 06/22/12 11/29/18 montelukast 10 mg PO DAILY tab-cap 07/10/17 11/29/18 budesonide [Pulmicort] 1 inh INHALATION BID #180 ea 08/05/17 11/29/18 FreeStyle Lite Strips #200 strip 09/08/17 11/29/18 albuterol sulfate [ProAir HFA] 1 - 2 puff INHALATION Q4H PRN #3 09/08/17 11/29/18 inhaler magnesium oxide 400 mg PO DAILY #90 tab 10/20/17 11/29/18 aspirin 81 mg tablet,delayed 81 mg PO DAILY 07/15/18 11/29/18 release gabapentin 300 mg capsule 300 mg PO TID #270 cap 07/15/18 11/29/18 sulfamethoxazole 800 1 tab PO .3x week tab 07/15/18 11/29/18 mg-trimethoprim 160 mg tablet duloxetine 60 mg capsule,delayed 60 mg PO DAILY #90 cap 08/27/18 11/29/18 release mepolizumab 100 mg subcutaneous 100 mg SC Q4W each 09/08/18 11/11/18 solution tamsulosin 0.8 mg PO DAILY@1730 #0 cap 10/11/18 11/29/18 esomeprazole magnesium [Nexium] 40 mg PO DAILY@0730 #30 cap 10/19/18 11/11/18 hydrocodone 7.5 mg-acetaminophen 1 tab PO BID #60 tab MDD 2 tab 10/29/18 11/29/18 325 mg tablet metformin 1,000 mg tablet 1,000 mg PO BID 11/10/18 11/29/18 ipratropium-albuterol 3 ml INHALATION Q4H PRN #4 box 11/11/18 11/29/18 prednisone 30 mg PO DAILY 11/11/18 11/29/18 glipizide 5 mg tablet 5 mg PO QAM #90 tab 11/12/18 11/29/18 benzonatate 100 mg PO TID #21 cap 11/17/18 11/29/18 dextromethorphan-guaifenesin 10 ml PO Q6H #500 ml 11/17/18 11/29/18 prednisone 20 mg PO DAILY #42 tab 11/17/18 nystatin 100,000 unit/mL oral 400,000 unit PO QID 10 Days #160 ml 11/24/18 11/29/18 suspension furosemide 20 mg tablet 20 mg PO DAILY #7 tab 11/26/18 11/29/18 diltiazem HCl 30 mg PO QID 11/29/18 11/29/18 Previous Rx's Medication Instructions Recorded budesonide [Pulmicort] 1 inh INHALATION BID #180 ea 08/05/17 FreeStyle Lite Strips #200 strip 09/08/17 albuterol sulfate [ProAir HFA] 1 - 2 puff INHALATION Q4H PRN #3 09/08/17 inhaler magnesium oxide 400 mg PO DAILY #90 tab 10/20/17 gabapentin 300 mg capsule 300 mg PO TID #270 cap 07/15/18 duloxetine 60 mg capsule,delayed 60 mg PO DAILY #90 cap 08/27/18 release tamsulosin 0.8 mg PO DAILY@1730 #0 cap 10/11/18 esomeprazole magnesium [Nexium] 40 mg PO DAILY@0730 #30 cap 10/19/18 hydrocodone 7.5 mg-acetaminophen 1 tab PO BID #60 tab MDD 2 tab 10/29/18 325 mg tablet ipratropium-albuterol 3 ml INHALATION Q4H PRN #4 box 11/11/18 glipizide 5 mg tablet 5 mg PO QAM #90 tab 11/12/18 benzonatate 100 mg PO TID #21 cap 11/17/18 dextromethorphan-guaifenesin 10 ml PO Q6H #500 ml 11/17/18 prednisone 20 mg PO DAILY #42 tab 11/17/18 nystatin 100,000 unit/mL oral 400,000 unit PO QID 10 Days #160 ml 11/24/18 suspension furosemide 20 mg tablet 20 mg PO DAILY #7 tab 11/26/18 Allergies Allergy/AdvReac Type Severity Reaction Status Date / Time codeine Allergy rash, itch Unverified 11/11/18 15:02 General Stated Complaint: SOB DERICK: 2 Review of Systems Review of Systems All systems reviewed & are unremarkable except as noted in HPI and below Constitutional Denies fever(s) Cardiovascular Denies chest pain, Reports dyspnea and Reports dyspnea on exertion Respiratory Reports cough, Reports dyspnea, Reports dyspnea on exertion and Reports wheezing Allergic/Immunologic Reports wheezing [facility] Medical History Atherosclerosis of [place] coronary artery (Chronic) 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 Father Neoplasm Sister No problems noted. Sister No problems noted. Sister No problems noted. Sister No problems noted. Sister No problems noted. Sister No problems noted. Sister No problems noted. Sister No problems noted. Sister No problems noted. Brother No problems noted. Brother No problems noted. Brother No problems noted. Brother No problems noted. Brother No problems noted. Brother No problems noted. Brother No problems noted. Brother No problems noted. Brother No problems noted. Brother No problems noted. Brother No problems noted. Brother No problems noted. Son No problems noted. Son Substance abuse Mental disorder Son Substance abuse Daughter Substance abuse Depression Mental disorder Social History Smoking/Tobacco Use Status: Former Tobacco Use Alcohol Intake: former Drug use: Never Substance use type: does not use Household members: spouse and children Pets and animals: Yes Pets and animals: cat(s) and dog(s) Duration: decline to answer Frequency: 3-4 times per week Aminata/Buddhism: Denominational Special aminata needs: No Do you feel safe at home: Yes Do you feel safe in your relationship?: Yes Additional Social history: , with 4 children. Currently raising 3 grandchildren. Reported 80+ pack year history of tobacco abuse, quit approximately 15 years ago. Denies any current EtOH use. Exam Const General: cooperative, well developed and acute distress [facility] Head: normocephalic Mouth: moist mucous membranes Eyes Conjunctivae: normal conjunctivae Sclera: normal sclerae Neck Neck: trachea midline and supple Resp Effort & Inspection: not able to speak in complete sentences, labored and tachypneic Auscultation: no rales, no rhonchi and wheezes Cardio Rate: tachycardic Rhythm: regular rhythm Heart Sounds: no murmurs GI Palpation: soft, not firm, no guarding, no masses, not rigid and nontender Skin General skin exam: no rashes or lesions noted Neuro General: alert, awake, oriented x3 and tone normal Extrem General: no calf tenderness bilaterally and edema Laterality: bilateral (Trace pitting) Psych Appearance: grossly normal Mental Status: mental status grossly normal Course Vital Signs Respiratory Rate 18 11/29/18 12:14 Pulse Oximetry 92 L 11/29/18 12:14 Temperature 36.6 C 11/29/18 12:24 Temperature Source Temporal Artery Scan 11/29/18 12:24 Pulse 108 H 11/29/18 12:52 Pulse 108 H 11/29/18 12:40 Respiratory Rate 18 11/29/18 12:54 Respiratory Effort Labored 11/29/18 12:41 Respiratory Depth Shallow 11/29/18 12:41 Respiratory Pattern Tachypnea 11/29/18 12:41 Blood Pressure 115/65 11/29/18 12:31 Blood Pressure Mean 75 11/29/18 12:31 Blood Pressure Position Supine 11/29/18 12:24 Pulse Oximetry 99 11/29/18 12:52 Oxygen Delivery Method Bi-pap 11/29/18 12:53 Oxygen Flow Rate 0 11/29/18 12:24 Fraction of Inspired Oxygen (FIO2) 40 11/29/18 12:53 Pain Level 0 11/29/18 12:24 Lab/Test Results Lab/Test Results: Laboratory Tests Range/Units 11/29/18 12:35 WBC (4.4-10.8) k/cumm 10.39 RBC (4.50-6.00) m/cumm 4.27 L Hgb (13.5-17.5) g/dL 12.6 L Hct (40.0-50.0) % 37.7 L MCV (80-95) fL 88.3 MCH (27.0-33.0) pg 29.5 MCHC (32.0-36.0) g/dL 33.4 RDW (11.8-14.1) % 15.3 H Plt Count (130-400) x1000/uL 188 MPV (8.0-11.0) fL 8.5 Immature Gran % 1.8 Neutrophils % 86.3 Lymphocytes % 5.1 Monocytes % 6.5 Eosinophils % 0.2 Basophils % 0.1 Absolute Neutrophils (1.2-6.7) k/cumm 8.96 H Absolute Lymphocytes (1.2-3.4) k/cumm 0.53 L Absolute Monocytes (0.11-0.7) k/cumm 0.68 Absolute Eosinophils (0.0-0.7) k/cumm 0.02 Absolute Basophils (0.0-0.2) k/cumm 0.01 Critical Care Time Critical Care Time: Yes Total Critical Care Time: 70 Attestation: I spent greater than 70 minutes addressing this patient's immediate life threats
[2018-11-29 12:57] LABS: INR 0.9 (0.9-1.1); Prothrombin Time 9.3 sec (9.3-11.0)
[2018-11-29 13:20] LABS: Magnesium 1.9 mg/dL (1.8-2.4); NT-proBNP 225 pg/mL
[2018-11-29 14:40] LABS: ALT 44 U/L (12-78); AST 9 U/L (15-37); Alkaline Phosphatase 78 U/L (46-116); Anion Gap 8.9 mmol/L (3-11); BUN 35 mg/dL (7-18); Bilirubin, Total 0.3 mg/dL (0.2-1.0); CO2 27.1 mmol/L (21.0-32.0); CREATININE 1.22 mg/dL (0.70-1.30); Calcium 9.3 mg/dL (8.5-10.1); Chloride 94 mmol/L (98-107); Estimated GFR 58.39 (mL/min/1.73m2); Glucose 146 mg/dL (70-100); Potassium 4.9 mmol/L (3.5-5.1); Sodium 130 mmol/L (136-145); Total Protein 6.4 g/dL (6.4-8.2)
[2018-11-29] MEDS: Aspirin 325 MG TAB PO (15:07)
--- NOTE | 2018-11-29 15:09 | NUR.NOTE ---
Nursing Note: PT report/ Pt care transferred to Rose Mary RN.
[2018-11-29 15:23] LABS: PTT Activated 20.2 sec (21.0-31.4)
[2018-11-30 10:46] LABS: HIV-1/2 Ag & Ab Screen Negative (NEGAT)
== END 2018-11-29 15:36 | disposition short-term general hospital (02) ==
PROVIDERS: Emergency Provider Student in an Organized Health Care Education/Training Program; PCP Family Medicine
DX: I21.4 Non-ST elevation (NSTEMI) myocardial infarction (principal); J44.1 Chronic obstructive pulmonary disease with (acute) exacerbation; I50.30 Unspecified diastolic (congestive) heart failure; I11.0 Hypertensive heart disease with heart failure; Z87.891 Personal history of nicotine dependence; E11.22 Type 2 diabetes mellitus with diabetic chronic kidney disease
CPT/HCPCS: 36415; 80053; 87389; 93005; 94640; 96365; 96375; 99291; 71045; 83735; 83880; 84484; 85025; 85610; 85730; 93010; J1941; J2930; J7620

== ENCOUNTER 2018-12-10 12:50 | Outpatient (REF) | payer MEDICARE, BC, SELFPAY ==
[2018-12-10 14:40] LABS: ALT 46 U/L (16-63); AST 17 U/L (15-37); Albumin 3.3 g/dL (3.4-5.0); Alkaline Phosphatase 84 U/L (46-116); Bilirubin, Total 0.3 mg/dL (0.2-1.0); Total Protein 6.4 g/dL (6.4-8.2)
[2018-12-10 22:41] LABS: Theophylline 3.4 ug/mL (10.0-20.0)
== END 2018-12-10 13:10 ==
LOC: LBN 12:50
PROVIDERS: PCP Family Medicine; Visit Provider Family Medicine
DX: I50.33 Acute on chronic diastolic (congestive) heart failure (principal); I44.0 Atrioventricular block, first degree
CPT/HCPCS: 80076; 80198

== ENCOUNTER 2018-12-13 04:43 | Emergency (ER) | payer MEDICARE, BC, SELFPAY ==
[2018-12-13 04:47] VITALS: BP 128/85; PULSE 105; RESP 24; TEMP 35.4; O2SAT 94
--- NOTE | 2018-12-13 04:54 | ED.GENADUL_ITS ---
Discharge Plan Disposition Patient Disposition: HOME Condition: Improving Discharge Details Chief Complaint: Nk/Back Pain Clinical Impression: Acute exacerbation of chronic low back pain Primary Care Provider: Tevin Dooley ED Provider: Slime Estrada Home Meds and New Rx's Prescriptions: New prednisone 20 mg tablet See Rx Instructions .ROUTE .COMPLEX Qty: 18 RF: 0 diazepam [Valium] 5 mg tablet 5 mg PO TID PRN (Reason: muscle spasm) Qty: 10 RF: 0 Continued sulfamethoxazole-trimethoprim [Bactrim DS] 800-160 mg tablet 1 tab PO .3x week RF: 0 aspirin 81 mg tablet,delayed release (DR/EC) 81 mg PO DAILY RF: 0 gabapentin 300 mg capsule 300 mg PO TID Qty: 270 RF: 4 duloxetine 60 mg capsule,delayed release(DR/EC) 60 mg PO DAILY Qty: 90 RF: 3 Spiriva with HandiHaler 18 mcg capsule, w/inhalation device 1 cap IH DAILY RF: 0 Symbicort 160-4.5 mcg/actuation HFA aerosol inhaler 2 puff IH BID RF: 0 Dupixent 300 mg/2 mL syringe 300 mg SC Q2W RF: 0 nystatin 100,000 unit/mL suspension 1 ml PO QID 7 Days Qty: 60 RF: 0 NEBULIZER W/ TUBING 1 inh DIRECTED RF: 0 montelukast 10 MG tablet 10 mg PO DAILY RF: 0 albuterol sulfate [ProAir HFA] 8.5 GM HFA aerosol inhaler 1 - 2 puff Inhalation Q4H PRN Qty: 3 RF: 4 magnesium oxide 400 MG tablet 400 mg PO DAILY Qty: 90 RF: 4 (DME) FreeStyle Lite Strips Strip 1 ea Miscellaneous TID Qty: 200 RF: 5 furosemide 20 mg tablet 20 mg PO BID Qty: 60 RF: 0 diltiazem HCl 30 mg Tablet 30 mg PO QID RF: 0 tamsulosin 0.4 mg Capsule 0.8 mg PO DAILY@1730 Qty: 0 RF: 0 ipratropium-albuterol 0.5 mg-3 mg(2.5 mg base)/3 mL solution for nebulization 3 ml Inhalation Q4H PRN (Reason: Shortness Of Breath) Qty: 4 RF: 5 benzonatate 100 mg Capsule 100 mg PO TID Qty: 21 RF: 0 dextromethorphan-guaifenesin 10-100 mg/5 mL Syrup 10 ml PO Q6H Qty: 500 RF: 0 prednisone 20 mg tablet 30 mg PO DAILY RF: 0 fluconazole 100 mg Tablet 100 mg PO DAILY RF: 0 Lance-24 200 mg Capsule,Extended Release 24hr 200 mg PO DAILY RF: 0 insulin lispro [Humalog U-100 Insulin] 100 unit/mL Solution 2 sliding scale dose subcut AC & HS RF: 0 Lantus Solostar U-100 Insulin 100 unit/mL (3 mL) Insulin Pen 10 unit SUBCUT DAILY RF: 0 hydrocodone-acetaminophen 7.5-325 mg tablet 1 tab PO BID MDD 2 tab Qty: 12 RF: 0 Discharge Instructions Instructions: Low Back Strain (ED), Chronic Back Pain (ED) Additional Instructions: Alternate ice and heat to the affected area several times daily for 20 minutes at a time. Take Motrin as needed and directed for pain. Take the hydrocodone as needed and directed for pain not relieved with ibuprofen. Take the Valium as directed. Be cautious when taking the hydrocodone and Valium together as they can cause significant sedation and can slow down your breathing. Take the new steroid prescription until finished and then finished with your current taper of prednisone starting at 10 mg until finished. Follow-up with your primary care doctor this week for reevaluation. Return immediately to the emergency department if you develop any worsening or concerning symptoms. Discharge Data Discharge Physician: Slime Estrada Medical Decision Making [id number] -- 73-year-old male with a history of chronic back pain who presents with a few days of an exacerbation of his chronic back pain, which was worse early this morning while attempting to get out of bed to use the bathroom. Denies cauda equina symptoms. Tenderness to palpation bilateral paraspinal region. No evidence of trauma to back. No focal deficits. Neurovascularly intact. As he has a history of chronic back pain, has had progressive back pain over the past few days, is tender to palpation, appears consistent with musculoskeletal back pain. He is chronically on 30 mg of prednisone with taper down to 10 mg for his asthma. Will give a dose of Toradol, 60 mg prednisone, Valium and oxycodone and reassess. 0545 -- Pt denies significant relief and states he is still unable to sit forward due to pain. Will give another dose of oxycodone and reassess. 0625 --patient was able to stand up from stretcher and ambulate with the assistance of a walker which he occasionally uses at home. Discussed with patient and and he feels comfortable and she feels comfortable with him going home. Advised that it can take several days to notice significant relief of back pain. He states he has a only few hydrocodone left at home. Will increase his prednisone back up to 60 mg for a few days with a taper down to his 10 mg. We will also give a prescription for Valium. He is advised to follow-up with his primary care doctor for reevaluation and to return here at any time if worse. Medical Records Medical records reviewed: Yes I reviewed the patient's medical records. HPI General Mode of arrival: EMS . Date/Time Provider Initiated Documentation: 12/13/18 04:54 . Limitations to Documentation: no limitations . Information obtained by: patient . HPI Narrative: Pt is a 73 yo M with with a history of multiple medical problems including atrial fibrillation, diabetes, eosinophilic asthma, CHF, COPD and chronic back pain who presents with lower back pain over the past few days, worse early this morning when attempting to get out of bed to use the bathroom. Patient states for the past few days he has had bilateral lower back pain that is worse with standing and better with sitting. He takes 30 mg of prednisone daily currently for his asthma with a plan to taper down to 10 mg. He takes ibuprofen 3 times a day and hydrocodone 2 times a day. Last dose of any of these medications was yesterday afternoon. Patient states early this morning he was attempting to get out of bed to urinate and was unable to stand up due to significant lower back pain. He states any movement makes the pain significantly worse and that he cannot lie completely flat. He denies any fever, chest pain, shortness of breath, abdominal pain, bowel or bladder incontinence, saddle anesthesia, leg pain, weakness or numbness. Related Data Home Medications Medication Instructions Recorded Confirmed Nebulizer W/ Tubing 1 inh DIRECTED 06/22/12 12/09/18 montelukast 10 mg PO DAILY tab-cap 07/10/17 12/13/18 albuterol sulfate [ProAir HFA] 1 - 2 puff INHALATION Q4H PRN #3 09/08/17 12/13/18 inhaler magnesium oxide 400 mg PO DAILY #90 tab 10/20/17 12/13/18 aspirin 81 mg tablet,delayed 81 mg PO DAILY 07/15/18 12/13/18 release gabapentin 300 mg capsule 300 mg PO TID #270 cap 07/15/18 12/13/18 sulfamethoxazole 800 1 tab PO .3x week tab 07/15/18 12/13/18 mg-trimethoprim 160 mg tablet duloxetine 60 mg capsule,delayed 60 mg PO DAILY #90 cap 08/27/18 12/13/18 release tamsulosin 0.8 mg PO DAILY@1730 #0 cap 10/11/18 12/13/18 ipratropium-albuterol 3 ml INHALATION Q4H PRN #4 box 11/11/18 12/13/18 benzonatate 100 mg PO TID #21 cap 11/17/18 12/13/18 dextromethorphan-guaifenesin 10 ml PO Q6H #500 ml 11/17/18 12/13/18 diltiazem HCl 30 mg PO QID 11/29/18 12/13/18 blood sugar diagnostic #200 strip 12/06/18 12/09/18 budesonide-formoterol HFA 160 2 puff IH BID 12/09/18 12/13/18 mcg-4.5 mcg/actuation aerosol inhaler dupilumab 300 mg/2 mL subcutaneous 300 mg SC Q2W 12/09/18 12/13/18 syringe nystatin 100,000 unit/mL oral 1 ml PO QID 7 Days #60 ml 12/09/18 12/13/18 suspension prednisone 20 mg tablet 30 mg PO DAILY 12/09/18 12/13/18 tiotropium bromide 18 mcg capsule 1 cap IH DAILY 12/09/18 12/13/18 with inhalation device furosemide 20 mg tablet 20 mg PO BID #60 tab 12/10/18 12/13/18 Lantus Solostar U-100 Insulin 10 unit SUBCUT DAILY 12/13/18 12/13/18 Lance-24 200 mg PO DAILY 12/13/18 12/13/18 diazepam [Valium] 5 mg PO TID PRN #10 tab 12/13/18 fluconazole 100 mg PO DAILY 12/13/18 12/13/18 hydrocodone-acetaminophen 1 tab PO BID #12 tab MDD 2 tab 12/13/18 insulin lispro [Humalog U-100 2 sliding scale dose SUBCUT AC & HS 12/13/18 0 12/13/18 Insulin] prednisone See Rx Instructions .ROUTE 12/13/18 .COMPLEX #18 tab Previous Rx's Medication Instructions Recorded albuterol sulfate [ProAir HFA] 1 - 2 puff INHALATION Q4H PRN #3 09/08/17 inhaler magnesium oxide 400 mg PO DAILY #90 tab 10/20/17 gabapentin 300 mg capsule 300 mg PO TID #270 cap 07/15/18 duloxetine 60 mg capsule,delayed 60 mg PO DAILY #90 cap 08/27/18 release tamsulosin 0.8 mg PO DAILY@1730 #0 cap 10/11/18 ipratropium-albuterol 3 ml INHALATION Q4H PRN #4 box 11/11/18 benzonatate 100 mg PO TID #21 cap 11/17/18 dextromethorphan-guaifenesin 10 ml PO Q6H #500 ml 11/17/18 blood sugar diagnostic #200 strip 12/06/18 nystatin 100,000 unit/mL oral 1 ml PO QID 7 Days #60 ml 12/09/18 suspension furosemide 20 mg tablet 20 mg PO BID #60 tab 12/10/18 diazepam [Valium] 5 mg PO TID PRN #10 tab 12/13/18 hydrocodone-acetaminophen 1 tab PO BID #12 tab MDD 2 tab 12/13/18 prednisone See Rx Instructions .ROUTE 12/13/18 .COMPLEX #18 tab Allergies Allergy/AdvReac Type Severity Reaction Status Date / Time codeine Allergy rash, itch Unverified 12/13/18 04:54 General Stated Complaint: Nk/Back Pain DERICK: 3 Review of Systems Review of Systems All systems reviewed & are unremarkable except as noted in HPI and below Constitutional Reports as per HPI, Denies chills and Denies fever(s) Eyes Denies blurry vision ENT Denies dizziness, Denies sore throat and Denies throat swelling Cardiovascular Denies chest pain and Denies dyspnea Respiratory Denies cough and Denies dyspnea Gastrointestinal Denies abdominal pain, Denies diarrhea and Denies vomiting Genitourinary Denies hematuria and Denies dysuria Musculoskeletal Reports back pain and Denies numbness Integumentary/Breasts Denies lesions and Denies rash Neurologic Denies dizziness, Denies focal weakness and Denies numbness Allergic/Immunologic Denies throat swelling [facility] Medical History Atherosclerosis of [place] coronary artery (Chronic) 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) COPD (chronic obstructive pulmonary disease) (Chronic) COPD with acute exacerbation (Inactive) Talk to his about calling [facility] to see if they could move up the injection of Dupixent. Told them both to have a low threshold for seeking either phone or emergency rooms medical care should he worsen. Gave him a prescription for Tessalon Perles which might have some very mild effect on his cough. Diabetes mellitus (Chronic) Diabetic peripheral neuropathy (Chronic 12/11/15) Diastolic CHF (Chronic) At this point he is so orthostatic when he stands that I would not feel comfortable giving him diuretics. We will try to keep contact with him by phone and follow-up with him Thursday. 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 Father Neoplasm Sister No problems noted. Sister No problems noted. Sister No problems noted. Sister No problems noted. Sister No problems noted. Sister No problems noted. Sister No problems noted. Sister No problems noted. Sister No problems noted. Brother No problems noted. Brother No problems noted. Brother No problems noted. Brother No problems noted. Brother No problems noted. Brother No problems noted. Brother No problems noted. Brother No problems noted. Brother No problems noted. Brother No problems noted. Brother No problems noted. Brother No problems noted. Son No problems noted. Son Substance abuse Mental disorder Son Substance abuse Daughter Substance abuse Depression Mental disorder Social History Smoking/Tobacco Use Status: Former Tobacco Use Alcohol Intake: former Drug use: Never Substance use type: does not use Household members: spouse and children Pets and animals: Yes Pets and animals: cat(s) and dog(s) Duration: decline to answer Frequency: 3-4 times per week Aminata/Bahai: [employer] Special aminata needs: No Do you feel safe at home: Yes Do you feel safe in your relationship?: Yes Additional Social history: , with 4 children. Currently raising 3 grandchildren. Reported 80+ pack year history of tobacco abuse, quit approximately 15 years ago. Denies any current EtOH use. Exam Const General: cooperative, healthy appearing and no acute distress HENMT Head: normal to inspection Face and sinus: normal facial exam Eyes General: appearance normal, both eyes and all related structures EOM: EOM intact bilaterally Neck Neck: normal visual inspection and No submandibular swelling Lymphatic: no lymphadenopathy noted Chest Chest: normal inspection of the chest and no tenderness Resp Effort & Inspection: normal respiratory effort and able to speak in complete sentences Auscultation: clear to auscultation bilaterally Cardio Rate: regular rate Rhythm: regular rhythm GI Inspection: normal to inspection Palpation: soft, not firm, not rigid and nontender Auscultation: normal bowel sounds Male General Exam: Yes normal external exam Back/Spine/Pelvis Thoracic/Lumbar Spine: thoracic and lumbar spine normal to inspection, paraspinal tenderness (b/l lumbar) and No lumbar spinal tenderness Pelvis: no pain with anterior-posterior compression Skin General skin exam: no rashes or lesions noted Neuro General: alert, awake and oriented x3 Cognition: normal cognition Speech: speech normal Motor: muscle tone normal throughout and strength 5/5 throughout Sensory Exam: no sensory deficits noted DTR's: Rt Patellar: 1+, Lt Patellar: 1+, Rt Ankle: 1+ and Lt Ankle: 1+ Plantar Reflexes: Equivocal: bilateral (b/l negative babinski) Extrem General: normal to inspection, full ROM, normal capillary refill, no calf tenderness bilaterally and no edema Other: b/l DP/PT pulses intact Psych Appearance: grossly normal Mental Status: mental status grossly normal Speech and Movement: speech and movement normal Affect: normal affect Course Vital Signs Temperature 95.7 F L 12/13/18 04:47 Pulse 105 H 12/13/18 04:47 Respiratory Rate 24 12/13/18 04:47 Blood Pressure 128/85 12/13/18 04:47 Pulse Oximetry 94 L 12/13/18 04:47 Temperature 95.7 F L 12/13/18 04:47 Temperature Source Temporal Artery Scan 12/13/18 04:47 Pulse 105 H 12/13/18 04:47 Respiratory Rate 24 12/13/18 04:47 Respiratory Effort Non-Labored 12/13/18 04:51 Blood Pressure 128/85 12/13/18 04:47 Blood Pressure Position Sitting 12/13/18 04:47 Pulse Oximetry 94 L 12/13/18 04:47 Oxygen Delivery Method Room Air 12/13/18 04:47 Oxygen Flow Rate 0 12/13/18 04:47 Pain Level 8 12/13/18 04:51
[2018-12-13] MEDS: predniSONE 20 MG TAB 60 MG PO (05:04)
[2018-12-13] MEDS: diazePAM 5 MG TAB PO (05:05)
[2018-12-13] MEDS: Ketorolac 60 MG/2 ML VIAL IM (05:05)
[2018-12-13] MEDS: oxyCODONE 5 MG TAB PO ×2 (05:05→05:56)
--- NOTE | 2018-12-13 06:26 | NUR.NOTE ---
Nursing Note: patient dangled and stood but was not able to walk due to pain. aware.
[2018-12-13 06:54] VITALS: PULSE 96; RESP 20; O2SAT 93
== END 2018-12-13 06:53 | disposition home or self-care (01) ==
PROVIDERS: Emergency Provider Physician Assistant; PCP Family Medicine
DX: M54.5 Low back pain; G89.29 Other chronic pain; J44.9 Chronic obstructive pulmonary disease, unspecified; Z87.891 Personal history of nicotine dependence; E11.9 Type 2 diabetes mellitus without complications; Z79.4 Long term (current) use of insulin; I10 Essential (primary) hypertension
CPT/HCPCS: 96372; 99284; J1885; J7512

== ENCOUNTER 2018-12-23 14:58 | Outpatient (CLI) | payer MEDICARE, BC, SELFPAY ==
--- NOTE | 2018-12-23 11:40 | DI.RAD_ITS ---
SYMPTOM/DIAGNOSIS: ACUTE SEVERE MIDLINE BACK PAIN, M54.9 LUMBOSACRAL SPINE: Six views were obtained. There is a mild left convex lumbar scoliosis. There is disc space narrowing at L 5-S 1. Otherwise intervertebral disc spaces are well maintained. There is a moderate anterior compression fracture of T 12, this was not present on prior abdominal CT of 04/14/17. There are moderate hypertrophic changes of the facet joints throughout the lumbar region. Moderate endplate hypertrophic spurring also noted. No additional fractures seen. CONCLUSION: T 12 compression fracture. New since 04/2017.
== END 2018-12-23 15:18 ==
PROVIDERS: PCP Family Medicine; Visit Provider Family Medicine
DX: M54.6 Pain in thoracic spine (principal); M48.54XA Collapsed vertebra, not elsewhere classified, thoracic region, initial encounter for fracture; M51.37 Other intervertebral disc degeneration, lumbosacral region
CPT/HCPCS: 72110

== ENCOUNTER 2019-01-11 19:38 | Inpatient (IN) | payer OTHER, SELFPAY ==
[2019-01-11] MEDS: Haloperidol 5 MG/ML VIAL IM (20:45)
[2019-01-11] MEDS: MORPHine 10 MG/ML VIAL IM (21:00)
--- NOTE | 2019-01-11 21:00 | HPE_ITS ---
Date of service: 01/11/19 Assessment and Plan Assessment and plan (1) Acute low back pain: Status: Acute Assessment and plan: Recentlyl saw his PCP, Dr Dooley for same. Imaging done. New veterbral fx. Pain still uncontrolled. Increase his fentanyl patch from 12 to 50 mcg. Prn morphine. (2) Acute hyperactive delirium due to multiple etiologies: Status: Acute Assessment and plan: Has prn haldol. Once his pain is controlled, may be less restless. No evidence of hypercapnea. ABGs have been done 2 x this summer and both had normal PCO2 levels. (3) Hospice care patient: Status: Acute Assessment and plan: Here on hospice symptom management. Goal is for him to get home once he is stable. Not expected to on this admission, but we will see. (4) Candidiasis of other urogenital sites: Status: Acute Assessment and plan: Severe. Has been on oral anti-fungals and topical meds too. Consider wound consults if needed. Defer to nursing for ideas re: wound care. (5) COPD (chronic obstructive pulmonary disease): Status: Chronic Assessment and plan: continue on nebulizers and oxygen unable to use inhalers due to his confusion/delirium (6) Diabetes mellitus: Status: Chronic Assessment and plan: off his usual meds BS done this evenin stay off meds for now regular diet History of Present Illness History of Present Illness Chief Complaint: agitated delirium; uncontrolled pain Narrative: Amy is a 73 yo man with end-stage COPD, who was recently admitted to hospice. He has chronic back pain. He is a diabetic, but has not eaten much today nor taken any DM meds. His has been trying to control his symptoms at home for about 48 hrs. He had 2 nursing visits today; on his second visit, the decision was made to transfer him to [facility] for symptom management as he was no better with frequent doses of haldol, morphine and lorazepam. He had a rivera inserted with 400 ccs of urine output. This made no difference. When he first arrived this evening, he knew he was at [facility]. He thought it was 2019. He kept on insisting on standing up, explaining that standing made his back pain better. He did not seem to understand that he had a rivera in place. He was clearly delirious, with hyperactive delirium. Already, he has received 5 mg IM haldol. He is about to receive 10 mg IM morphine. His applied a 12 mcg fentanyl patch today. She was unaware that it took 6 hrs to be absorbed, so he was without pain medications for 6 hrs, between his am and pm nurse visits. Goal is for him to be made more comfortable and then returned to home. Review of Systems Constitutional Constitutional: Reports body ache(s), Reports daytime sleepiness, Reports difficulty sleeping, Reports fatigue, Reports frequent falls, Reports snoring, Reports stops breathing during sleep and Reports weakness Eyes Eyes: Reports dry eyes and Reports requires corrective lenses ENT Ears, Nose, Mouth, and Throat: Reports dizziness, Reports dry mouth, Reports hearing loss, Reports neck mass (left side, c/w lipoma), Reports neck pain and Reports disequilibrium Cardiovascular Cardiovascular: Reports lightheadedness, Reports dyspnea and Reports dyspnea on exertion Respiratory Respiratory: Reports cough, Reports excessive phlegm production, Reports dyspnea, Reports dyspnea on exertion, Reports snoring and Reports wheezing Gastrointestinal Gastrointestinal: Reports constipation and Reports early satiety Genitourinary Genitourinary: Reports oliguria, Reports difficulty urinating, Reports urinary frequency, Reports urinary hesitancy and Reports urinary incontinence Musculoskeletal Musculoskeletal: Reports abnormal gait, Reports back pain, Reports myalgias, Reports arthralgias, Reports limited range of motion, Reports muscle weakness, Reports neck pain, Reports radiating pain into limb and Reports stiffness Integumentary/Breasts Skin/Breast: Reports erythema and Reports rash (severe inguinal yeast topically) Neurologic Neurologic: Reports abnormal movements, Reports abnormal speech, Reports abnormal gait, Reports behavioral changes, Reports confusion, Reports dizziness, Reports frequent falls, Reports memory loss, Reports radicular pain, Reports res tless legs, Reports disequilibrium and Reports weakness Psychiatric Psychiatric: Reports abnormal sleep pattern, Reports anxiety, Reports behavioral changes, Reports confusion, Reports difficulty concentrating, Reports hopelessness, Reports irritability, Reports anhedonia and Reports memory loss Endocrine Endocrine: Reports fatigue Allergic/Immunologic Allergic/Immunologic: Reports wheezing [facility] Medical History Acute hyperactive delirium due to multiple etiologies (Acute) INGRIS (acute kidney injury) (Resolved) Atherosclerosis of solomon coronary artery (Chronic) 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 Told them both to have a low threshold for seeking either phone or emergency rooms medical care should he worsen. Gave him a prescription for Tessalon Perles which might have some very mild effect on his cough. Diabetes mellitus (Chronic) Diabetic peripheral neuropathy (Chronic 12/11/15) Diastolic CHF (Chronic) At this point he is so orthostatic when he stands that I would not feel comfortable giving him diuretics. We will try to keep contact with him by phone and follow-up with him Thursday. 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) Family history of stress (Acute) Amy and raising 3 granddaughters, ages 4, 12 and 16 Gastroesophageal reflux disease (Chronic) Goals of care, counseling/discussion (Acute) HCAP (healthcare-associated pneumonia) (Inactive) Hospice care patient (Acute) Hypertension (Chronic) Olecranon bursitis, left elbow (Resolved) Orthostasis (Chronic) Osteoarthritis (Chronic) Palliative care patient (Acute) Paroxysmal atrial fibrillation (Suspected) Polymyalgia rheumatica (Resolved 02/19/12) Situational depression (Acute) Ulcer of elbow (Resolved) Weakness (Acute) Surgical History SHOULDER SURGERY Family History Family History Neoplasm Colon Mother No problems noted. Father Neoplasm Sister No problems noted. Sister No problems noted. Sister No problems noted. Sister No problems noted. Sister No problems noted. Sister No problems noted. Sister No problems noted. Sister No problems noted. Sister No problems noted. Brother No problems noted. Brother No problems noted. Brother No problems noted. Brother No problems noted. Brother No problems noted. Brother No problems noted. Brother No problems noted. Brother No problems noted. Brother No problems noted. Brother No problems noted. Brother No problems noted. Brother No problems noted. Son No problems noted. Son Substance abuse Mental disorder Son Substance abuse Daughter Substance abuse Depression Mental disorder Social History Smoking/Tobacco Use Status: Former Tobacco Use Tobacco: How many years used: 50 Alcohol Intake: former Drug use: Never Substance use type: does not use Caregiver/Support person: Yes Household members: spouse and family Housing: house Number of Children: 4 number of grandchildren: 5 Communication Needs: Hard of Hearing and Corrective Lenses Education Level: high school Do you need help understanding health information?: Always current occupation: retired Pets and animals: Yes Pets and animals: cat(s) and dog(s) What is your relationship status?: How often do you talk on the phone with friends or family?: once per week How often do you get together with friends or relatives?: twice per week Panel score (0-1 are the most socially isolated patients): 2 What type of physical activity do you participate in: none and sedentary lifestyle Duration: < 15 minutes/day Frequency: 3-4 times per week Aminata/Hindu: [employer]aritan Special aminata needs: No Seatbelt use: always Do you feel safe at home: Yes Do you feel safe in your relationship?: Yes Additional Social history: , with 4 children. Currently raising 3 grandchildren, all from his daughter, Melissa. Also has 3 sons from his first marriage who live near-by. to Jordyn x 36 yrs. Reported 88 pack year history of tobacco abuse, quit approximately 15 years ago. Denies any current EtOH use. Meds Home Medications and Allergies Home Medications Medication Instructions Recorded Confirmed Type Nebulizer W/ Tubing 1 inh DIRECTED 06/22/12 12/23/18 History montelukast 10 mg PO DAILY tab-cap 07/10/17 12/23/18 History albuterol sulfate [ProAir HFA] 1 - 2 puff INHALATION Q4H PRN #3 09/08/17 12/23/18 Rx inhaler magnesium oxide 400 mg PO DAILY #90 tab 10/20/17 12/23/18 Rx aspirin 81 mg tablet,delayed 81 mg PO DAILY 07/15/18 12/23/18 History release gabapentin 300 mg capsule 300 mg PO TID #270 cap 07/15/18 12/23/18 Rx sulfamethoxazole 800 1 tab PO .3x week tab 07/15/18 12/23/18 History mg-trimethoprim 160 mg tablet duloxetine 60 mg capsule,delayed 60 mg PO DAILY #90 cap 08/27/18 12/23/18 Rx release ipratropium-albuterol 3 ml INHALATION Q4H PRN #4 box 11/11/18 12/23/18 Rx diltiazem HCl 30 mg PO QID 11/29/18 12/23/18 History blood sugar diagnostic #200 strip 12/06/18 12/23/18 Rx budesonide-formoterol HFA 160 2 puff IH BID 12/09/18 12/23/18 History mcg-4.5 mcg/actuation aerosol inhaler dupilumab 300 mg/2 mL subcutaneous 300 mg SC Q2W 12/09/18 12/23/18 History syringe tiotropium bromide 18 mcg capsule 1 cap IH DAILY 12/09/18 12/23/18 History with inhalation device Lantus Solostar U-100 Insulin 10 unit SUBCUT DAILY 12/13/18 12/23/18 History Lance-24 200 mg PO DAILY 12/13/18 12/23/18 History fluconazole 100 mg PO DAILY 12/13/18 12/23/18 History insulin lispro [Humalog U-100 2 sliding scale dose SUBCUT AC & HS 12/13/18 12/23/18 History Insulin] baclofen 10 mg tablet 10 mg PO TID PRN #30 tab 12/16/18 12/23/18 Rx prednisone 20 mg tablet 20 mg PO DAILY #30 tab 12/16/18 12/23/18 Rx benzonatate 100 mg capsule 100 mg PO TID cap 12/21/18 12/23/18 History bupropion HCl 100 mg tablet,12 hr 100 mg PO QAM #60 tab 12/21/18 12/23/18 Rx sustained-release dextromethorphan-guaifenesin 10 10 ml PO Q6H ml 12/21/18 12/23/18 History mg-100 mg/5 mL oral syrup nystatin 100,000 unit/gram topical 1 applic TP QID #60 gm 12/21/18 12/23/18 Rx powder amoxicillin 500 mg-potassium 1 tab PO TID #30 tab 12/23/18 12/23/18 Rx clavulanate 125 mg tablet oxycodone 30 mg tablet,crush 30 mg PO Q12H #30 tab MDD 60 mg 12/26/18 12/26/18 Rx resistant,extended release 12 hr fluticasone propionate 50 2 spray LAURYN DAILY #18.2 ml 01/04/19 Rx mcg/actuation nasal spray,suspension lorazepam 0.5 mg tablet 0.5 mg PO TID PRN #30 tab 01/04/19 Rx oxycodone 10 mg tablet 10 mg PO Q6H PRN #30 tab MDD 40 mg 01/04/19 Rx furosemide 20 mg tablet 20 mg PO BID #60 tab 01/07/19 Rx tamsulosin 0.4 mg capsule 0.8 mg PO DAILY@1730 #90 cap 01/07/19 Rx Allergies Allergy/AdvReac Type Severity Reaction Status Date / Time codeine Allergy rash, itch Unverified 12/23/18 10:50 Exam Const General: in distress, anxious, disheveled and ill appearing Nutritional Appearance: obese Orientation: alert, awake, oriented to person and oriented to place HENNH Head: normocephalic and atraumatic Ears: hearing grossly impaired General nose exam: external nose normal Face and sinus: normal facial exam Eyes Conjunctivae: conjunctivae normal Sclera: sclerae normal Neck Neck: anterior neck swelling Resp Effort & Inspection: abnormal respiratory pattern, cough, tachypneic and prolonged expiratory phase Auscultation: bronchovesicular breath sounds, rales, rhonchi and wheezes Cardio Jugular venous pressure: no JVD Rate: regular rate Rhythm: regular rhythm Heart Sounds: S1 normal and S2 normal GI Inspection: abdominal wall ecchymosis, obesity and visible herniation Palpation: firm Auscultation: hypoactive bowel sounds General: other (rivera in place) Male General Exam: Yes erythema Penis: erythematous Back/Spine/Pelvis Back: back tenderness Cervical Spine: cervical spasm and cervical spinal tenderness Thoracic/Lumbar Spine: thoraco-lumbar spasm and thoracic spinal tenderness Skin General skin exam: erythema and mottling Rashes: rashes noted Hair: male pattern alopecia Nails: clubbing Neuro General: awake, moves all extremities and confused Cognition: abnormal cognition Speech: abnormal speech Extrem General: clubbing and muscle atrophy Right lower extremity: cyanosis, ankle and foot Left lower extremity: cyanosis, ankle and foot Psych Appearance: disheveled Speech and Movement: agitated and restless Mood: anxious mood and irritable mood Affect: anxious affect and irritable affect Attitude: guarded Thought Process: impoverished and perseverating Thought Content: delusions Insight: poor Judgment: poor
[2019-01-11 21:33] VITALS: BP 113/65; PULSE 140; RESP 22; TEMP 37.8; O2SAT 93
[2019-01-11] MEDS: Nystatin POWDER 15 GM JAR TP (21:40)
[2019-01-11] MEDS: fentaNYL 50 MCG PATCH TD (21:41)
[2019-01-11 21:43] VITALS: BP 113/65; PULSE 122; RESP 22; TEMP 37.8; O2SAT 93
[2019-01-11 21:54] VITALS: BP 113/65; PULSE 122; RESP 22; TEMP 37.8; O2SAT 93
[2019-01-11] MEDS: Hydrocortisone SOD SUC. 100 MG VIAL 50 MG IM (22:37)
--- NOTE | 2019-01-12 02:02 | NUR.NOTE ---
Patient was admitted to the med-surg unit from home last evening. Relatives gave history of agitation, delirium, chronic back pain not eating much. was trying to control his symptoms at home for the passed 2 days, but no improvements. Son gave history of not eating also for the passed couple of days. While in the room patient keeps on trying to stand, he states standing makes his back feels better. He appears confused and appears delirious. He received Haldol 5mg IM and Morphine 10mg IM. He had a fentanyl patch today placed on by his , but same was increased to 50mcg by this night. Now placed on the right shoulder.
[2019-01-12] MEDS: guaiFENesin/D-METHORPHAN HB 5 ML CUP 10 ML PO ×2 (03:14→10:08)
[2019-01-12] MEDS: Haloperidol 5 MG/ML VIAL IM ×3 (03:42→10:38)
[2019-01-12 05:02] VITALS: RESP 2; RESP 4; RESP 7
[2019-01-12] MEDS: Albuterol/Ipratropium 3 ML UPD VIAL UPD (05:02)
[2019-01-12] MEDS: LORazepam 2 MG/ML VIAL IV/SC ×5 (05:13→14:23)
--- NOTE | 2019-01-12 05:59 | NUR.NOTE ---
Pt has been very agitated after waking up early this morning. He keeps trying to get out of bed. He is very forgetful. Oxygen remains in place and son is present in the room with patient.
[2019-01-12] MEDS: Albuterol 2.5 MG/3 ML INH SOLN VIAL UPD (06:51)
[2019-01-12 07:25] VITALS: BP 120/67; PULSE 114; RESP 19; TEMP 37.1; O2SAT 95
[2019-01-12 08:33] VITALS: O2SAT 93
--- NOTE | 2019-01-12 09:00 | W.PM.PROGNOT ---
Date of Service Date of service: 01/12/19 Time of Service: 08:00 Assessment and Plan Assessment and plan (1) Acute hyperactive delirium due to multiple etiologies: Status: Acute Assessment and plan: Better than he was on admission. Some of his trigger may have been uncontrolled pain. Now going on morphine pump. Using haldol prn. Unclear whether he is hypercapneic. Unlikely given history. (2) Hospice care patient: Status: Acute Assessment and plan: Here on symptom management. Not yet controlled. Family believes that he is close to . I am not yet clear but do not know Amy well. I defer to those who know him better. RT is concerned as are nurses who have cared for him on previous admissions. He is not able to speak to me, given his delirium. (3) Candidiasis of other urogenital sites: Status: Acute Assessment and plan: Severe. Draining serosanguinous material. (4) Weakness: Status: Acute Assessment and plan: Severe. Cannot bear weight. Needs help with all movement. (5) Diastolic CHF: Status: Chronic Assessment and plan: Unable to tolerate diuretics. Lung sounds are so loud, wheezy, rhonchi, hard to tell how much fluid is on board. Notes from PCP and others indicate that he cannot tolerate diuretics due to severe hypotension. (6) COPD (chronic obstructive pulmonary disease): Status: Chronic Assessment and plan: Continue on nebulizers IF he can tolerate them. Continue oxygen by nc. Subjective Subjective Patient reports: still having pain, pain is less and shortness of breath Interval history since last seen: Was agitated on and off all night. Son Jase spent the night with him. This am, required doses of extra morphine, haldol and ativan. Nurses asking for him to have morphine pump. Jordyn in this am. She's been here since 6 am. He was resting quietly when I arrived at 8 am. This was new, per nursing and family. Primary nurses asking for morphine pump and glycopyrrolate. Both orders added. hoping to bring grandchildren in to visit this afternoon but want him not to be actively delirious, if possible. RT Josette Murillo, who knows Amy well, thinks that he is much closer to the end of his life than I realized. support this assessment. She doesn't think he will be coming home. She does worry that he is spiritually unprepared. Exam Const General: disheveled and ill appearing Nutritional Appearance: obese Orientation: alert, awake, oriented to person and oriented to place [facility] Head: normocephalic and atraumatic Ears: hearing grossly impaired General nose exam: external nose normal Face and sinus: normal facial exam Eyes Conjunctivae: conjunctivae normal Sclera: sclerae normal Neck Neck: anterior neck swelling Resp Effort & Inspection: abnormal respiratory pattern, cough, tachypneic and prolonged expiratory phase Auscultation: bronchovesicular breath sounds, rales, rhonchi and wheezes Cardio Jugular venous pressure: no JVD Rate: regular rate Rhythm: regular rhythm Heart Sounds: S1 normal and S2 normal GI Inspection: abdominal wall ecchymosis, obesity and visible herniation Palpation: firm Auscultation: hypoactive bowel sounds General: other (rivera in place) Male General Exam: Yes erythema Penis: erythematous Back/Spine/Pelvis Back: back tenderness Cervical Spine: cervical spasm and cervical spinal tenderness Thoracic/Lumbar Spine: thoraco-lumbar spasm and thoracic spinal tenderness Skin General skin exam: erythema and mottling Rashes: rashes noted Hair: male pattern alopecia Nails: clubbing Neuro General: awake, moves all extremities and confused Cognition: abnormal cognition Speech: abnormal speech Extrem General: clubbing and muscle atrophy Right lower extremity: cyanosis, ankle and foot Left lower extremity: cyanosis, ankle and foot Psych Appearance: disheveled Speech and Movement: restless Mood: anxious mood Affect: anxious affect Attitude: guarded Thought Process: impoverished Thought Content: delusions (told that he thought he had more than 6 months to live yesterday) Insight: poor Judgment: poor Objective Objective Clinical Data: Vital Signs Temperature 98.8 F 01/12/19 07:25 Temperature Source Tympanic 01/12/19 07:25 Pulse 114 H 01/12/19 07:25 Pulse Rhythm Regular 01/11/19 21:54 Respiratory Rate 01/12/19 07:25 Respiratory Effort 01/12/19 07:29 Respiratory Depth Deep 01/12/19 07:29 Respiratory Pattern Normal 01/12/19 07:29 Blood Pressure 120/67 01/12/19 07:25 Pulse Oximetry 93 L 01/12/19 08:33 Oxygen Delivery Method Nasal Cannula 01/12/19 08:33 Oxygen Flow Rate 4 01/12/19 08:33 Intake & Output 01/11/19 01/11/19 01/12/19 11:59 23:59 11:59 Output Total 550 / 550 Balance -550 / -550 Weight 222 lb 3.615 oz Output: Urine 550 / 550 Other: Urine Color Dark Alyssa Urine Appearance Clear Clots
[2019-01-12] MEDS: Hydrocortisone SOD SUC. 100 MG VIAL 50 MG IM ×2 (10:02→22:00)
[2019-01-12] MEDS: MORPHine 1,000 MG in CADD PUMP CASSETTE 1 EACH, Normal Saline 80 ML 1 MG SC (10:25)
[2019-01-12] MEDS: Normal Saline Flush 10 ML SYR ×2 (10:30→11:48)
--- NOTE | 2019-01-12 11:15 | PHARADMIT ---
Addendum entered by Sheila Sampson 01/13/19 11:52: no VS or labs scopolamine patch ordered X1, glycopyrrolate dose increased to 0.2 mg Q2H PRN morphine CADD dose increased to 15 mg/hr with 7.5 mg bolus meds not aimed at anxiety, delirium, pain and secretions were discontinued MD boggs pt only has hours to days Original Note: Admission Pharmacy Clinical Review Hospice symptom management for delirium, agitation, end stage COPD Code Status DNR/DNI Current Weight 100.8 kg Renally Cleared and Narrow Therapeutic Index Meds Crcl ~60.00 mL/min current meds okay QTc Value / Action Taken n/a BP Control, Fever BP 120/67 Tmax 37.8 Electrolytes reviewed n/a DVT Prophylaxis none Opiate Usage / Scheduled Bowel Regimen Ordered elsi/prn Plt/SCr for Heparin / Enoxaparin n/a INR for Warfarin n/a H/H stable, WBC/Bands n/a Antibiotic appropriateness n/a Cultures and Sensitivities none Surgical ABX d/c within 24 hr n/a DM control / Insulin Dosing n/a none Heart Failure (Check EF%) (SANDRA's, B-Block, Diuretics) none IV to PO Switch n/a Home Meds Reviewed lots of duplicates (meds/ingredients, mechanism of action, side effects like anticholinergic and laundry folder depression, etc.) Home Meds Not Ordered most home meds NOT ordered only home meds that have been ordered are albuterol, ipratropium/albuterol, guaifenesin/dextromethorphan, lorazepam, nystatin, Comments morphine CADD started today 10 mg/hr with 5 mg bolus Q15min PRN
[2019-01-12] MEDS: Normal Saline Flush 10 ML SYR IVP (14:23)
[2019-01-12] MEDS: Nystatin POWDER 15 GM JAR TP (14:30)
--- NOTE | 2019-01-12 16:35 | CHAPLAIN ---
Amy was restless and agitated this morning, but since late morning has been calm and sleeping. Jordyn has been here much of the day along with two daughters. Amy has had visits from Rev. Silvia Patel from Hospice, and from Rev. Candelario Craig, the plastic process technician of the [facility]. Jordyn said she has told Amy that it is okay for him to , that she and the girls, (the three granddaughters they are raising), will be okay. She said she has asked Amy if he is afraid and dying, and he replied that he wasn't dying yet. Jordyn suggested having Rev. Craig come in to visit mAy as she believes Amy needs to talk about dying and she said he will respond better to a male. Rev. Craig is on his way this afternoon. Jordyn said she has discussed Amy's with the three girls and realizes this will be difficult for them. The youngest, who is 3, has talked about Kaleb dying and being pain-free and seeing relatives who have already . The family also has an old dog that they will likely euthanize after Amy dies, and Jordyn felt this maybe helpful to the girls to think that Trana and Pepper will be together. I will continue to visit the family and have let them know that factory laborer is available 03/11.
--- NOTE | 2019-01-12 17:08 | CMPROGNOTE_ITS ---
Care Management Progress Note Amy was admitted for Hospice Symptom Management. CM met with his , daughter and step daughter. CM provided space for Jordyn to process the events leading up to Amy's admission including increased care needs and agitation. As well as family dynamics, updates on her grand-daughters who reside with her and Amy and her concerns around his comfort. CM provided supportive listening and patient education around final arrangements. Jordyn reported she would like to use [facility] [employer] in [place], [place]. She anticipates Amy will not be returning home and feels that he will pass during this admission. CM continues to support and follow.
[2019-01-13] MEDS: Haloperidol 5 MG/ML VIAL IM (01:17)
[2019-01-13] MEDS: Glycopyrrolate 0.2 MG/1 ML VIAL 0.1 MG IVP ×2 (01:19→07:38)
[2019-01-13] MEDS: LORazepam 2 MG/ML VIAL IV/SC ×5 (06:00→23:10)
[2019-01-13] MEDS: Nystatin POWDER 15 GM JAR TP (07:37)
[2019-01-13] MEDS: Normal Saline Flush 10 ML SYR IVP ×4 (07:38→14:57)
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
[2019-01-13] MEDS: Glycopyrrolate 0.2 MG/1 ML VIAL IVP ×3 (10:55→16:59)
[2019-01-13] MEDS: Scopolamine 1 MG/3 DAYS PATCH TD (11:28)
--- NOTE | 2019-01-13 15:45 | CHAPLAIN ---
Amy has been primarily unresponsive today. His sons have been here to visit. Jordyn, their daughters, and granddaughters have also been here. The granddaughters (who live with Amy and Jordyn) wrote notes to Amy which Jordyn read to him this morning, in case he before they arrived. Jordyn said his sons were enjoying telling stories this morning about Amy that she hadn't heard. The grandchildren are emotional and said, but also realistic and know that Amy is dying and will not be returning home. [facility], Rev. Silvia Patel visited Jordyn and the girls this afternoon. Rev. Candelario Craig from the [facility] in [place], visited Amy yesterday, as Jordyn felt it was important to Amy to speak with a male clergy person, although Amy was not responsive at the time. Rev. Craig had visited Amy at home and talked about with him about his plans for service. Jordyn is well supported by her sister. She went home last night to spend the night with the girls.
--- NOTE | 2019-01-13 17:17 | PDOC.CMPRO ---
Care Management Progress Note Amy is lying in bed, belly breathing with oxygen on when CM observes him. Per Dr. Leavitt he is likely actively dying at this time. CM met with the family and provided support, Amy's children and grandchildren were able to visit with him today and he had a moment of clarity with his youngest grand-daughter which the family was thankful for. JENNIFER facilitated phone call between Jordyn and Tevin Bowen at [employer]. Information and process was reviewed and Jordyn was able to make final arrangements. Jordyn anticipates Amy will pass in the next day or two. JENNIFER continues to follow and support Amy's family and Jordyn at this time.
[2019-01-14] MEDS: LORazepam 2 MG/ML VIAL IV/SC ×4 (00:30→07:07)
--- NOTE | 2019-01-14 08:53 | W.PM.DDS ---
Date of service: 01/14/19 Discharge Sum: Prov Provider Primary care physician: Tvein Dooley Admitting clinician: Amisha Leavitt Attending physician on admission: Amisha Leavitt Consults: 01/11/19 19:43 Transportation Consultant Consult [CONS] Routine Consultation Status:: Follow-up needed Clarification:: Manage/follow per spec. Reason for consult:: Amy has delirium' agitation family needing support Pronouncing clinician: Amisha Leavitt Discharge Sum: Diag PCOD Cause of : COPD with bronchial hyperresponsiveness Contributing Factors (1) Dying care: (2) Acute hypoactive delirium due to another medical condition: (3) Hospice care patient: (4) COPD (chronic obstructive pulmonary disease): Discharge Sum: Summary Date and Time Admission Date: 01/11/1910/01/19 19:38 Date of : 01/14/19 Time of : 08:26 Summary Details: Admitted for symptom management. Family had tried with Hospice nurse throughout the day on 01/11 to keep him home. Multiple attempts at symptom management with increased in pain medication, anxiety medication and delirium medication. Evening nurse inserted rivera to see if this would provide comfort from his agitation/delirium. This did not help. Called to admit him on the evening of . Admitted, started on morphine pump at 5 mg/hr. Took off his fentanyl patch. PRN meds with lorazepam and haldol, as he had at home. Every day having better symptom control. Did go up to 10 mg/hr on morphine pump. Did require 7 boluses overnight before his . group account director involved with helping grandchildren say goodbye the day before his . Family with him, son and , at time of . Additional Data Confirmation of as documented by pronouncing clinician: no pulse, no respirations and no heart sounds Family: at bedside Additional persons at bedside: wealth management advisor Attending/PCP notified?: Yes Attending Physician: Amisha Leavitt MD Was code activated?: No Autopsy requested?: No estate tax examiner notified?: No Organ bank notified?: Yes Advance directives: Yes Hospice patient?: Yes
== END 2019-01-14 08:28 | disposition expired | DRG 191 ==
PROVIDERS: Admitting Provider Family Medicine; PCP Family Medicine; Visit Provider Family Medicine
DX: J44.9 Chronic obstructive pulmonary disease, unspecified (principal); F05 Delirium due to known physiological condition; B37.49 Other urogenital candidiasis; I50.32 Chronic diastolic (congestive) heart failure; R45.1 Restlessness and agitation; Z51.5 Encounter for palliative care; M54.5 Low back pain; E11.9 Type 2 diabetes mellitus without complications; G89.29 Other chronic pain
CPT/HCPCS: 99223; 99233; 99238; J1630; J1720; J2060; J2270; J3490; J7613; J7620